=== PATIENT | female | born 1950 | race Caucasian/White ===

== ENCOUNTER 2020-03-30 08:42 | Outpatient (CLI) | payer MEDICARE, OTHER, SELFPAY ==
--- NOTE | ~2020-03-30 | MM_ITS ---
EXAMINATION: MM screening bin [facility] [place] HISTORY: Screening mammogram TECHNIQUE: Craniocaudal and mediolateral oblique 3-D tomosynthesis images were obtained and synthetic 2-D images were generated. CAD analysis was submitted and interpreted. COMPARISON: 02/03/2019, 11/26/2017, 06/19/2016 bilateral digital screening mammogram examinations BREAST PARENCHYMAL COMPOSITION: There are scattered areas of fibroglandular density. FINDINGS: There is no evidence of suspicious mass, calcification, or architectural distortion to sugg est malignancy in either breast. There has been no suspicious interval change. IMPRESSION: 1. No mammographic evidence of malignancy. 2. Recommend routine screening mammography in one year. BI-RADS Category 1: Negative Reviewed, dictated and finalized at location A.
== END 2020-03-30 08:43 | disposition home or self-care (01) ==
LOC: ANHIMG 08:47
DX: Z12.31 Encounter for screening mammogram for malignant neoplasm of breast (principal)
CPT/HCPCS: 77063; 77067

== ENCOUNTER 2020-09-08 09:14 | Outpatient (CLI) | payer MEDICARE, OTHER, SELFPAY ==
[2020-09-08 10:03] LABS: Prothrombin Time 13.4 Seconds (11.1-14.7)
[2020-09-08 10:12] LABS: Alanine Aminotransferase 23 U/L (4-35); Alkaline Phosphatase 80 U/L (38-126); Anion Gap 4 mmol/L (8-16); Aspartate Amino Transferase 29 U/L (14-36); Bilirubin,Total 0.6 mg/dL (0.2-1.3); Blood Urea Nitrogen 14 mg/dL (7-17); Calcium 9.1 mg/dL (8.4-10.2); Carbon Dioxide 29 mmol/L (22-30); Chloride 108 mmol/L (98-107); Estimated Glomerular Filt Rate > 60; Glucose 99 mg/dL (65-105); Potassium 4.1 mmol/L (3.4-5.0); Sodium 141 mmol/L (137-145)
[2020-09-08 14:21] LABS: Basophils Absolute Auto 0.1 K/mm3 (0.0-0.1); Basophils Percent Auto 0.7 % (0.2-1.2); Eosinophils Absolute Auto 0.2 K/mm3 (0-0.3); Eosinophils Percent Auto 2.5 % (0-4.4); Hematocrit 40.3 % (37.0-47.0); Hemoglobin 13.2 g/dL (12.0-15.0); Immature Granulocyte Absolute 0.01 K/mm3 (0.00-0.031); Immature Granulocyte Percent A 0.1 % (0-0.5); Lymphocytes Absolute Auto 1.94 K/mm3 (0.9-3.2); Mean Corpuscular HGB Conc 32.8 g/dl (32-36); Mean Corpuscular Hemoglobin 28.9 pg (26-34); Mean Corpuscular Volume 88.2 fl (80-100); Mean Platelet Volume 9.9 fl (7.4-10.4); Monocytes Absolute Auto 0.6 K/mm3 (0.1-0.6); Monocytes Percent Auto 9.1 % (2.6-8.5); Neutrophils Absolute Auto 3.9 K/mm3 (1.3-6.7); Neutrophils Percent Auto 58.6 % (45.5-73.1); Platelet Count Result 200 k/mm3 (150-375); Red Blood Count 4.57 M/mm3 (4.2-5.4); Red Cell Distribution Width 13.1 % (11.5-14.5); White Blood Count 6.7 K/mm3 (4.5-10.0)
== END 2020-09-08 09:15 | disposition home or self-care (01) ==
PROVIDERS: PCP Internal Medicine; Visit Provider Internal Medicine Cardiovascular Disease
DX: Z01.812 Encounter for preprocedural laboratory examination (principal); I35.0 Nonrheumatic aortic (valve) stenosis
CPT/HCPCS: 36415; 80053; 85025; 85610

== ENCOUNTER 2020-11-07 16:43 | Outpatient (NON) | payer MEDICARE, OTHER, SELFPAY ==
[2020-11-07 17:12] LABS: Basophils Absolute Auto 0.05 K/mm3 (0.00-0.10); Basophils Percent Auto 0.5 % (0.0-1.0); Eosinophils Absolute Auto 0.18 K/mm3 (0.02-0.50); Eosinophils Percent Auto 1.8 % (1.0-6.0); Hematocrit 32.3 % (35.0-42.0); Hemoglobin 10.4 g/dL (11.7-13.8); Immature Granulocyte Absolute 0.05 K/mm3 (0.00-0.00); Immature Granulocyte Percent A 0.5 % (0.0-0.0); Lymphocytes Absolute Auto 2.13 K/mm3 (1.10-4.50); Lymphocytes Percent Auto 21.2 % (18.0-42.0); Mean Corpuscular HGB Conc 32.2 g/dL (32.0-36.0); Mean Corpuscular Hemoglobin 28.3 pg (27.0-31.0); Mean Platelet Volume 9.8 fl (9.2-11.8); Monocytes Absolute Auto 0.66 K/mm3 (0.10-0.90); Monocytes Percent Auto 6.6 % (2.0-11.0); Neutrophils Percent Auto 69.4 % (50.0-70.0); Platelet Count Result 410 K/mm3 (150-420); Red Blood Count 3.67 M/mm3 (4.20-5.40); Red Cell Distribution Width 14.3 % (11.6-14.4)
[2020-11-07 17:21] LABS: Anion Gap 8 mmol/L (8-16); Blood Urea Nitrogen 13 mg/dL (7-18); Calcium 9.3 mg/dL (8.5-10.1); Carbon Dioxide 30 mmol/L (21-32); Chloride 100 mmol/L (98-108); Estimated Glomerular Filt Rate 44; Glucose 109 mg/dL (70-99); Osmolality Calculated 287 mOsm/kg (285-295); Potassium 4.1 mmol/L (3.5-5.1); Sodium 138 mmol/L (136-145)
== END 2020-11-07 16:44 ==
LOC: CHSLAB 16:51
DX: Z48.812 Encounter for surgical aftercare following surgery on the circulatory system (principal)
CPT/HCPCS: 36415; 80048; 85025

== ENCOUNTER 2021-04-10 10:39 | Outpatient (CLI) | payer MEDICARE, OTHER, SELFPAY ==
--- NOTE | ~2021-04-10 | XR_ITS ---
EXAMINATION: XR chest 2V DATE: 04/10/2021 11:13 INDICATION: Dyspnea on exertion TECHNIQUE: PA and lateral views of the chest were obtained. COMPARISON: Chest radiograph dated 11/24/2011 FINDINGS: Opacities in the right lower lung zone. Likely lingular linear discoid atelectasis/scarring at the le ft costophrenic angle. No pleural effusion or pneumothorax. The cardiomediastinal silhouette is allie l. Median sternotomy wires and mediastinal surgical clips are seen, likely from prior coronary artery bypass grafting. Aortic valve repair. Skin antonio along the anterior upper abdominal wall. Chronic mild anterior wedging of a few mid and lower thoracic vertebral bodies with moderate spondylosis. IMPRESSION: 1. Mild opacities in the right lower lung zone which could represent atelectasis and/or pneumonia. Reviewed, dictated and finalized at location A. IMPRESSION: 1. Mild opacities in the right lower lung zone which could represent atelectasi s and/or pneumonia.
[2021-04-10 11:25] LABS: Basophils Percent Auto 0.5 % (0.2-1.2); Eosinophils Absolute Auto 0.2 K/mm3 (0-0.3); Eosinophils Percent Auto 2.8 % (0-4.4); Hematocrit 36.2 % (37.0-47.0); Hemoglobin 11.2 g/dL (12.0-15.0); Immature Granulocyte Absolute 0.04 K/mm3 (0.00-0.031); Immature Granulocyte Percent A 0.5 % (0-0.5); Lymphocytes Percent Auto 21.3 % (18.3-44.2); Mean Corpuscular HGB Conc 30.9 g/dl (32-36); Mean Corpuscular Hemoglobin 24.8 pg (26-34); Mean Corpuscular Volume 80.3 fl (80-100); Mean Platelet Volume 9.9 fl (7.4-10.4); Monocytes Absolute Auto 0.6 K/mm3 (0.1-0.6); Neutrophils Absolute Auto 5.3 K/mm3 (1.3-6.7); Neutrophils Percent Auto 66.9 % (45.5-73.1); Platelet Count Result 308 k/mm3 (150-375); Red Blood Count 4.51 M/mm3 (4.2-5.4); Red Cell Distribution Width 15.9 % (11.5-14.5)
[2021-04-10 11:50] LABS: Anion Gap 8 mmol/L (8-16); Blood Urea Nitrogen 16 mg/dL (7-17); Calcium 9.5 mg/dL (8.4-10.2); Carbon Dioxide 24 mmol/L (22-30); Chloride 107 mmol/L (98-107); Estimated Glomerular Filt Rate > 60; Glucose 107 mg/dL (65-110); Potassium 4.5 mmol/L (3.4-5.0); Sodium 139 mmol/L (137-145)
== END 2021-04-10 10:40 | disposition home or self-care (01) ==
PROVIDERS: PCP Internal Medicine; Visit Provider Nurse Practitioner Adult Health
DX: R06.00 Dyspnea, unspecified (principal); R91.8 Other nonspecific abnormal finding of lung field
CPT/HCPCS: 36415; 71046; 80048; 85025

== ENCOUNTER 2021-05-03 18:00 | Outpatient (RCR) | payer MEDICARE, OTHER, SELFPAY ==
[2021-01-03 08:52] VITALS: BP 144/76; PULSE 67; RESP 16; TEMP 36.6; O2SAT 97
[2021-01-03 08:54] VITALS: PULSE 67
--- NOTE | 2021-02-16 09:57 | PCCPR ---
Absent due to illness Pat called states her toe was infected had been placed on oral antibiotic's. She was at the MD today and he did an incision and drainage and wrapped. She is to ice and elevate. He also removed the toenail. Pt will out of town until 02/27/21 for her granddaughters softball tournament.
--- NOTE | 2021-03-29 18:57 | PCCPR ---
Absent after receiving her booster shot Pat had called and c/o some flu like symptoms on our voice mail. Asking we give her a call to states she got her 3rd covid shot per recommendation or her [employer]. Encouraged her to call her MD if her symptoms continue. Hopes to return next Saturday.
== END 2021-05-03 23:59 | disposition home or self-care (01) ==
LOC: ANHCPREHAB 18:00
PROVIDERS: PCP Internal Medicine; Visit Provider Internal Medicine Cardiovascular Disease
DX: Z95.2 Presence of prosthetic heart valve (principal)
CPT/HCPCS: 93798

== ENCOUNTER 2021-05-11 18:00 | Outpatient (RCR) | payer MEDICARE, OTHER, SELFPAY ==
[2021-05-04 00:06] VITALS: BP 144/76; PULSE 67; RESP 16; TEMP 36.6; O2SAT 97
== END 2021-05-11 18:27 | disposition home or self-care (01) ==
LOC: ANHCPREHAB 18:00
PROVIDERS: Visit Provider Internal Medicine Cardiovascular Disease
DX: Z95.2 Presence of prosthetic heart valve (principal)
CPT/HCPCS: 93798

== ENCOUNTER 2021-05-12 09:18 | Outpatient (CLI) | payer MEDICARE, OTHER, SELFPAY ==
--- NOTE | ~2021-05-12 | MM_ITS ---
EXAMINATION: MM screening bin BI w [place] HISTORY: Screening TECHNIQUE: Craniocaudal and mediolateral oblique 3-D tomosynthesis images were obtained and synthetic 2-D images were generated. CAD analysis was submitted and interpreted. COMPARISON: Comparison to multiple prior studies sequentially, with oldest reviewed study dated 05/13. BREAST PARENCHYMAL COMPOSITION: The breasts are almost entirely fatty. FINDINGS: There is no evidence of suspicious mass, calcification, or architectural distortion to sugg est malignancy in either breast. There has been no suspicious interval change. IMPRESSION: 1. No mammographic evidence of malignancy. 2. Recommend routine screening mammography in one year. BI-RADS Category 1: Negative Reviewed, dictated and finalized at location A.
== END 2021-05-12 09:19 | disposition home or self-care (01) ==
LOC: ANHIMG 09:22
DX: Z12.31 Encounter for screening mammogram for malignant neoplasm of breast (principal)
CPT/HCPCS: 77063; 77067

== ENCOUNTER 2022-05-08 11:22 | Outpatient (CLI) | payer MEDICARE, OTHER, SELFPAY ==
--- NOTE | ~2022-05-08 | CT_ITS ---
EXAMINATION: CT lung screening DATE: 05/08/2022 12:21 INDICATION: History of tobacco dependence. TECHNIQUE: Computed tomography (CT) of the chest was performed without intravenous contrast. The dose -length product was 327.03 mGy-cm. Automated exposure control and iterative reconstruction technique were employed. COMPARISON: No prior studies for comparison. FINDINGS: No significant pleural or pericardial effusion. Large size hiatal hernia. No thoracic lymph adenopathy. There is atherosclerosis of the aorta and coronary arteries. Status post median sternotom y for CABG. There is a 2-3 mm right upper lobe nodule, image 39. There is a cluster of smaller nodule s measuring 2 mm or less in the right upper lobe. No endobronchial lesions. No pneumothorax. The uppe r abdomen is unremarkable. There is moderate thoracic spondylosis. Dextroscoliosis of the thoracic sp ine. IMPRESSION: 1. Lung-RADS category 2: Benign appearance or behavior. Continue annual screening with noncontrast lo w-dose chest CT in 12 months. Reviewed, dictated and finalized at location B. IMPRESSION: 1. Lung-RADS category 2: Benign appearance or behavior. Continue annual screeni ng with noncontrast low-dose chest CT in 12 months.
--- NOTE | 2022-05-08 16:26 | WPDSIXMINUTE ---
Six Minute Walk Procedure Procedure Performed Pulmonary Stress Test (6 min walk) Six Minute Walk Six Minute Walk: This is a 6 minute walk test. The test was performed and interpreted in accordance with the 2014 ERS/ATS task force guidelines. Findings: The patient's resting room air oxygen saturation measured by pulse oximetry was 98% and heart rate was 71 bpm. Patient ambulated for 305 meters and oxygen saturation remained 92 to 99%. Heart rate at the end of the study was 130 bpm. The patient did not qualify for supplemental oxygen at rest or with ambulation. There are no prior studies for comparison.
--- NOTE | 2022-05-08 16:27 | WPDPFTINT ---
PFT Procedure Performed PFT Procedure Performed Spirometry with Pre/Post Bronchodilator Plethysmography (Lung Vol) Diffusing Cap (DLCO) Flow Vol Loop PFT Interpretation This is a pulmonary function test with pre and post-bronchodilator spirometry, plethysmography and diffusing capacity. The test was performed and results interpreted in accordance with the 2019 and 2005 ATS/ERS Task Force guidelines respectively using the Global Lung Function Initiative-2012 reference equations. Patient demonstrated good effort and cooperation. Reproducibility criteria were met. The quality of the pre bronchodilator spirometry maneuver was Grade A and post bronchodilator spirometry maneuver was Grade A. Findings: Spirometry: The contour the inspiratory and expiratory flow tracing are normal. The pre bronchodilator FVC is 2.86 L, 84% predicted. The pre bronchodilator FEV1 is 2.08 L, 80% predicted. The pre bronchodilator FEV1: FVC ratio 73%. The post bronchodilator FVC is 2.81 L, representing a 2% decrease. The post bronchodilator FEV1 is 2.11 L, representing 1% increase. The post bronchodilator FEV1: FVC ratio 75%. Plethysmography: The total lung capacity is 5.16 L, 86% predicted. Functional residual capacity is 2.62 L, 76% predicted. The residual volume is 2.12 L, 84% predicted. Diffusion capacity: The diffusion capacity on adjusted for hemoglobin and carboxyhemoglobin is 17.9, 79% predicted. the diffusing capacity adjusted for alveolar volume is 4.17, 105% predicted. Impression: The spirometry is normal without evidence of an obstructive abnormality. There is no significant improvement after inhaling a single dose of albuterol. The lung volumes are normal. The diffusing capacity is normal. There are no prior studies for comparison
== END 2022-05-08 11:23 | disposition home or self-care (01) ==
PROVIDERS: Visit Provider Nurse Practitioner Family
DX: Z12.2 Encounter for screening for malignant neoplasm of respiratory organs (principal); Z87.891 Personal history of nicotine dependence
CPT/HCPCS: 71271

== ENCOUNTER 2022-05-08 11:49 | Outpatient (CLI) | payer MEDICARE, OTHER, SELFPAY ==
--- NOTE | 2022-05-09 16:17 | WPDPFTINT ---
PFT Procedure Performed PFT Procedure Performed Spirometry with Pre/Post Bronchodilator Plethysmography (Lung Vol) Diffusing Cap (DLCO) Flow Vol Loop PFT Interpretation This is a pulmonary function test with pre and post-bronchodilator spirometry, plethysmography and diffusing capacity. The test was performed and results interpreted in accordance with the 2019 and 2005 ATS/ERS Task Force guidelines respectively using the Global Lung Function Initiative-2012 reference equations. Patient demonstrated good effort and cooperation. Reproducibility criteria were met. The quality of the pre bronchodilator spirometry maneuver was Grade A and post bronchodilator spirometry maneuver was Grade A. Findings: Spirometry: The contour the inspiratory and expiratory flow tracing are normal. The pre bronchodilator FVC is 2.86 L, 84% predicted. Preop bronchodilator FEV1 is 2.08 L, 80% predicted. The pre bronchodilator FEV1: FVC ratio 73%. The post bronchodilator FVC is 2.81 L, representing a 2% decrease. The post bronchodilator FEV1 is 2.11 L, representing 1% increase. The post bronchodilator FEV1: FVC ratio 75%. Plethysmography: The total lung capacity is 5.16 L, 86% predicted. The functional residual capacity is 2.62 L, 76% predicted. The residual volume is 2.12 L, 84% predicted. Diffusion capacity: The diffusing capacity unadjusted for hemoglobin and carboxyhemoglobin is 17.9, 79% predicted. The diffusing capacity adjusted for alveolar volume is 4.17, 105% predicted. Impression: The spirometry is normal without evidence of an obstructive abnormality. There is no significant improvement after inhaling a single dose of albuterol. The lung volumes are normal. The diffusing capacity is normal. There are no prior studies for comparison
== END 2022-05-08 11:50 | disposition home or self-care (01) ==
PROVIDERS: Visit Provider Nurse Practitioner Family
DX: R06.09 Other forms of dyspnea (principal)
CPT/HCPCS: 71271; 94060; 94726; 94729

== ENCOUNTER 2022-06-14 10:41 | Emergency (ER) | payer MEDICARE, OTHER, SELFPAY ==
--- NOTE | ~2022-06-14 | XR_ITS ---
EXAMINATION: XR knee LT min 4V DATE: 06/14/2022 11:26 INDICATION: Left knee pain and swelling TECHNIQUE: Anteroposterior, oblique and crosstable lateral views of the left knee were obtained COMPARISON: None. FINDINGS: Left total knee arthroplasty without patellar resurfacing which remains well seated. No change in timoteo roximately 7 degree varus angulation of the axis of the tibia relative to the axis of the tibial comp onent. No periprosthetic lucency to suggest loosening or infection. No fracture. Joint space narrowin g at the articulation of the patella and the femoral component consistent with osteoarthritis and pat ellar cartilage loss. 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 Small to moderate-sized left knee joint effusion with out layering lipohemarthrosis. IMPRESSION: 1. Small to moderate-sized left knee joint effusion without layering lipohemarthrosis or evident acut e osseous abnormality. 2. Left total knee arthroplasty without patellar resurfacing with suggestion of high-grade patellar c hondromalacia. Reviewed, dictated and finalized at location B. IMPRESSION: 1. Small to moderate-sized left knee joint effusion without layering lipohemart hrosis or evident acute osseous abnormality. 2. Left total knee arthroplasty without patellar resurfacing with suggestion of high-grade patellar chondromalacia.
[2022-06-14 10:48] VITALS: BP 145/71; PULSE 75; RESP 18; TEMP 36.7; O2SAT 99
--- NOTE | 2022-06-14 11:13 | ED.LOWEXIN ---
HPI - Extremity Injury (Lower) General Chief Complaint: Extremity Injury, Lower Stated Complaint: Left Knee Pain Time Seen by Provider: 06/14/22 10:54 History of Present Illness HPI Narrative: Patient is a 71-year-old female with a history of rheumatoid arthritis, status post left knee replacement by Dr. Nieves, here for evaluation of left knee pain for the past 10 days. Patient describes the pain as a soreness , worse with flexion of the knee. She has been able to walk and bear weight but just notes that it is difficult due to pain. She was placed on a course of steroids by her PCP for rheumatoid arthritis flare-up 3 days ago, this has resolved her other myalgias but her left knee pain has been persistent. Has not taken any other medication for her pain. She denies any fevers, chills, nausea, vomiting, any systemic symptoms. Related Data Home Medications Medication Instructions Recorded Confirmed amlodipine 5 mg tablet 5 mg PO DAILY 08/03/19 06/07/22 aspirin 81 mg chewable tablet 81 mg PO DAILY 08/03/19 06/07/22 hydroxychloroquine 200 mg tablet 200 mg PO DAILY 08/03/19 06/07/22 infliximab 100 mg intravenous 100 mg IV USEASDIRECTD 08/03/19 06/07/22 solution (Remicade) pantoprazole 40 mg tablet,delayed 40 mg PO QAM 08/03/19 06/07/22 release (Protonix) lactobacillus combination no.8 3 3,000 mmu cells PO DAILY 03/10/20 06/07/22 billion cell capsule (Adult Probiotic) lifitegrast 5 % eye drops in a 1 drop ophthalmic (eye) BID 03/10/20 06/07/22 dropperette (Xiidra) melatonin 5 mg capsule mg PO 03/10/20 06/07/22 multivitamin 1 tablet PO DAILY 08/30/20 06/07/22 calcium carbonate 1,000 mg tablet 1.5 mg PO 01/03/21 06/07/22 diclofenac sodium 1 % topical gel See Rx Instructions .Route 01/03/21 06/07/22 (Voltaren Arthritis Pain) .COMPLEX PRN Pain bupropion HCl 75 mg tablet 75 mg PO BID 06/07/22 06/07/22 atorvastatin 10 mg tablet mg 06/14/22 cholecalciferol (vitamin D3) 50 06/14/22 mcg (2,000 unit) tablet magnesium 500 mg tablet mg PO 06/14/22 metoprolol tartrate 25 mg tablet mg 06/14/22 omega-3 fatty acids PO 06/14/22 06/14/22 Allergies Allergy/AdvReac Type Severity Reaction Status Date / Time Penicillins Allergy Unknown Unknown Verified 06/07/22 10:59 adhesive tape AdvReac Severe BRUISING Verified 06/07/22 10:59 WITH CLEAR TAPE Review of Systems Review of Systems: Gen: Denies fevers or chills Eyes: Denies eye pain or visual change ENT: Denies congestion Respiratory: Denies shortness of breath or cough CV: Denies chest pain or palpitations GI: Denies abdominal pain nausea, emesis or diarrhea : denies burning, urgency, frequency or hematuria Musculoskeletal: Reports left knee pain. Denies back pain or muscle pain Neuro: Denies numbness, tingling, weakness or focal weakness Skin: Denies rash Except as documented, all other systems reviewed and negative [facility] [place] Past Medical History Medical History Aortic stenosis s/p valve replacement 2020 Chronic hip pain after total replacement of right hip joint Crohn's ileocolitis Degenerative joint disease of left hip Fatty liver Former smoker Obesity Osteoporosis Rheumatoid arthritis Right knee DJD Right knee pain Sleep apnea Wears glasses Surgical History Surgical History History of right hip replacement Family History Family History Father Cerebrovascular accident Sibling Cerebrovascular accident Accelerated phase chronic myeloid leukemia Father Acute myocardial infarction Social History Social History Social History: 30 pack years Smoking packs per day: 1 Smoking cigarettes per day: 20.0 Years smoked: 30 Smoking pack-years: 30.00 Smoking status: Former smoker Tobacco type: cigarettes S
[2022-06-14] MEDS: KETOROLAC 30 MG/ML VIAL (*BKC) IM (11:29)
== END 2022-06-14 12:22 | disposition home or self-care (01) ==
PROVIDERS: Emergency Provider Emergency Medicine
DX: M22.42 Chondromalacia patellae, left knee (principal); M06.9 Rheumatoid arthritis, unspecified; Z96.652 Presence of left artificial knee joint; Z79.82 Long term (current) use of aspirin; Z87.891 Personal history of nicotine dependence
CPT/HCPCS: 73564; 96372; 99283; J1885

== ENCOUNTER 2022-06-17 07:51 | Emergency (ER) | payer MEDICARE, OTHER, SELFPAY ==
[2022-06-17 07:56] VITALS: BP 180/90; PULSE 106; RESP 18; TEMP 37.2; O2SAT 97
--- NOTE | 2022-06-17 08:18 | ED.LOWEXIN ---
HPI - Extremity Injury (Lower) General Chief Complaint: Extremity Injury, Lower Stated Complaint: left knee pain Time Seen by Provider: 06/17/22 08:18 Source: patient Mode of arrival: ambulatory Limitations: no limitations History of Present Illness HPI Narrative: Patient presents with pain and swelling of the left knee started 1 week ago, history of rheumatoid arthritis, patient been aching all over her joints lately. Patient denies any trauma, fever, chills, nausea, vomiting. History of left knee replacement 5 years ago, Dr. Gudino Related Data Home Medications Medication Instructions Recorded Confirmed amlodipine 5 mg tablet 5 mg PO DAILY 08/03/19 06/07/22 aspirin 81 mg chewable tablet 81 mg PO DAILY 08/03/19 06/07/22 hydroxychloroquine 200 mg tablet 200 mg PO DAILY 08/03/19 06/07/22 infliximab 100 mg intravenous 100 mg IV USEASDIRECTD 08/03/19 06/07/22 solution (Remicade) pantoprazole 40 mg tablet,delayed 40 mg PO QAM 08/03/19 06/07/22 release (Protonix) lactobacillus combination no.8 3 3,000 mmu cells PO DAILY 03/10/20 06/07/22 billion cell capsule (Adult Probiotic) lifitegrast 5 % eye drops in a 1 drop ophthalmic (eye) BID 03/10/20 06/07/22 dropperette (Xiidra) melatonin 5 mg capsule mg PO 03/10/20 06/07/22 multivitamin 1 tablet PO DAILY 08/30/20 06/07/22 calcium carbonate 1,000 mg tablet 1.5 mg PO 01/03/21 06/07/22 diclofenac sodium 1 % topical gel See Rx Instructions .Route 01/03/21 06/07/22 (Voltaren Arthritis Pain) .COMPLEX PRN Pain bupropion HCl 75 mg tablet 75 mg PO BID 06/07/22 06/07/22 atorvastatin 10 mg tablet mg 06/14/22 cholecalciferol (vitamin D3) 50 06/14/22 mcg (2,000 unit) tablet magnesium 500 mg tablet mg PO 06/14/22 metoprolol tartrate 25 mg tablet mg 06/14/22 omega-3 fatty acids PO 06/14/22 06/14/22 Allergies Allergy/AdvReac Type Severity Reaction Status Date / Time Penicillins Allergy Unknown Unknown Verified 06/17/22 08:01 adhesive tape AdvReac Severe BRUISING Verified 06/17/22 08:01 WITH CLEAR TAPE Review of Systems Review of Systems: All systems reviewed & are unremarkable except as noted in HPI and below PMFSH Past Medical History Medical History Aortic stenosis s/p valve replacement 2020 Chronic hip pain after total replacement of right hip joint Crohn's ileocolitis Degenerative joint disease of left hip Fatty liver Former smoker Obesity Osteoporosis Rheumatoid arthritis Right knee DJD Right knee pain Sleep apnea Wears glasses Surgical History Surgical History History of right hip replacement Family History Family History Father Cerebrovascular accident Sibling Cerebrovascular accident Accelerated phase chronic myeloid leukemia Father Acute myocardial infarction Social History Social History Social History: 30 pack years Smoking packs per day: 1 Smoking cigarettes per day: 20.0 Years smoked: 30 Smoking pack-years: 30.00 Smoking status: Former smoker Tobacco type: cigarettes Smoking end date: 08/12/09 Alcohol intake: current Exam Narrative: General appearance: Well-developed, well-nourished Skin: Normal color Head: Normocephalic, nontraumatic Eyes: Clear conjunctiva Chest and respiratory: Airway patent, no respiratory distress, no accessory muscle use Heart: Regular rate/rhythm Abdomen: Soft, nontender, no organomegaly, quiet bowel sounds V Musculoskeletal: Left knee examination showed diffuse swelling, no redness or erythema, no warmth, no discharge, limited range of motion, diffusely tender Neurologic: Alert and oriented ?3, HISTOPATHOLOGIST is normal as tested, no gross motor deficit
[2022-06-17] MEDS: IBUPROFEN 600 MG TABLET PO (08:45)
[2022-06-17] MEDS: HYDROcodone/acetaminophen (*CRX) 5-325 MG TABLET 1 TAB PO (08:45)
[2022-06-17 08:48] VITALS: BP 180/94; PULSE 106; RESP 17; O2SAT 100
[2022-06-17 10:08] LABS: Basophils Percent Auto 0.3 % (0.2-1.2); Eosinophils Absolute Auto 0.2 K/mm3 (0-0.3); Eosinophils Percent Auto 1.8 % (0-4.4); Hematocrit 37.5 % (37.0-47.0); Hemoglobin 11.8 g/dL (12.0-15.0); Immature Granulocyte Absolute 0.04 K/mm3 (0.00-0.031); Immature Granulocyte Percent A 0.4 % (0-0.5); Lymphocytes Absolute Auto 1.65 K/mm3 (0.9-3.2); Lymphocytes Percent Auto 17.6 % (18.3-44.2); Mean Corpuscular HGB Conc 31.5 g/dl (32-36); Mean Corpuscular Hemoglobin 28.2 pg (26-34); Mean Corpuscular Volume 89.5 fl (80-100); Mean Platelet Volume 9.4 fl (7.4-10.4); Monocytes Absolute Auto 0.7 K/mm3 (0.1-0.6); Monocytes Percent Auto 7.3 % (2.6-8.5); Neutrophils Absolute Auto 6.8 K/mm3 (1.3-6.7); Neutrophils Percent Auto 72.6 % (45.5-73.1); Platelet Count Result 266 k/mm3 (150-375); Red Blood Count 4.19 M/mm3 (4.2-5.4); Red Cell Distribution Width 14.2 % (11.5-14.5); White Blood Count 9.4 K/mm3 (4.5-10.0)
[2022-06-17 10:17] VITALS: BP 170/78; PULSE 70; RESP 17; O2SAT 97
[2022-06-17 10:20] LABS: Alanine Aminotransferase 19 U/L (6-35); Albumin Level 3.9 g/dL (3.5-5.1); Alkaline Phosphatase 118 U/L (38-126); Anion Gap 9 mmol/L (8-16); Aspartate Amino Transferase 19 U/L (14-36); Bilirubin,Total 0.5 mg/dL (0.2-1.3); Blood Urea Nitrogen 9 mg/dL (7-17); CRP 5.2 mg/dL (<1.0); Carbon Dioxide 29 mmol/L (22-30); Chloride 102 mmol/L (98-107); Estimated CRCL calculation 80 ml/min; Estimated Glomerular Filt Rate > 60; Glucose 136 mg/dL (65-110); Potassium 4.8 mmol/L (3.4-5.0); Sodium 140 mmol/L (137-145)
[2022-06-17 11:03] LABS: Erythrocyte Sedimentation Rate 67 mm/hr (0-20)
[2022-06-17 12:41] VITALS: BP 139/86; PULSE 88; RESP 16; O2SAT 97
== END 2022-06-17 12:42 | disposition home or self-care (01) ==
PROVIDERS: Emergency Provider Emergency Medicine
DX: M25.562 Pain in left knee (principal); M25.462 Effusion, left knee; M06.9 Rheumatoid arthritis, unspecified; I35.0 Nonrheumatic aortic (valve) stenosis; Z95.2 Presence of prosthetic heart valve; K50.90 Crohn's disease, unspecified, without complications; M81.0 Age-related osteoporosis without current pathological fracture; M17.11 Unilateral primary osteoarthritis, right knee; G47.30 Sleep apnea, unspecified; Z96.641 Presence of right artificial hip joint; Z87.891 Personal history of nicotine dependence
CPT/HCPCS: 36415; 80053; 85025; 85652; 86140; 99283; A9270

== ENCOUNTER 2022-06-21 16:41 | Outpatient (NON) | payer MEDICARE, OTHER, SELFPAY ==
[2022-06-21 18:36] LABS: Crystals Synovial Fluid None Seen (None Seen); Source Synovial Fluid Synovial fluid
[2022-06-21 18:37] LABS: Appearance Synovial Fluid Bloody (Clear); Color Synovial Fluid Red (Colorless); Neutrophils Synovial Fluid 86 % (0-25)
[2022-06-21 18:38] LABS: Lymphocytes Synovial Fluid 3 %; Monocytes Synovial Fluid 11 %
[2022-06-25 20:57] LABS: Glucose Synovial Fluid 76 mg/dL
[2022-06-29 08:17] LABS: Total Protein Synovial Fluid 4.8
[2022-07-02 07:50] LABS: Reference Lab Test Result Positive
== END 2022-06-21 16:42 | disposition home or self-care (01) ==
LOC: ANHLAB 16:45
PROVIDERS: Visit Provider Orthopaedic Surgery
DX: M25.462 Effusion, left knee (principal)
CPT/HCPCS: 36415; 82945; 84157; 86430; 87070; 87075; 87205; 89051; 89060

== ENCOUNTER 2022-07-09 09:09 | Outpatient (CLI) | payer MEDICARE, OTHER, SELFPAY ==
[2022-07-11 12:24] LABS: NIL 0.01 IU/mL; Quantiferon TB Plus, 1T NEGATIVE (NEGATIVE); TB1-NIL 0.01 IU/mL
== END 2022-07-09 09:10 | disposition home or self-care (01) ==
DX: M05.79 Rheumatoid arthritis with rheumatoid factor of multiple sites without organ or systems involvement (principal); Z79.899 Other long term (current) drug therapy
CPT/HCPCS: 36415; 86480

== ENCOUNTER 2022-07-13 07:48 | Outpatient (CLI) | payer MEDICARE, OTHER, SELFPAY ==
--- NOTE | ~2022-07-13 | MM_ITS ---
EXAMINATION: MM screening [facility] BI [facility] [place] HISTORY: Screening mammogram TECHNIQUE: Craniocaudal and mediolateral oblique 3-D tomosynthesis images were obtained and synthetic 2-D images were generated. CAD analysis was submitted and interpreted. COMPARISON: 05/12/2021, 03/30/2020, 02/03/2019 BREAST PARENCHYMAL COMPOSITION: The breasts are almost entirely fatty. FINDINGS: Scattered benign-appearing calcifications are present. No suspicious mass, calcification, o r architectural distortion are identified in either breast to suggest malignancy. There has been no s uspicious interval change. IMPRESSION: 1. No mammographic evidence of malignancy. 2. Recommend routine screening mammography in one year. BI-RADS Category 2: Benign finding(s). Reviewed, dictated and finalized at location A. [facility]
== END 2022-07-13 07:49 | disposition home or self-care (01) ==
PROVIDERS: Visit Provider Nurse Practitioner Family
DX: Z12.31 Encounter for screening mammogram for malignant neoplasm of breast (principal)
CPT/HCPCS: 77063; 77067

== ENCOUNTER 2022-10-22 00:22 | Day surgery (SDC) | payer MEDICARE, OTHER, SELFPAY ==
[2022-10-12 13:36] VITALS: BMI 39.5
[2022-10-22 08:58] VITALS: BP 172/67; PULSE 87; RESP 20; TEMP 36.4; O2SAT 96
[2022-10-22] MEDS: LACTATED RINGERS 1,000 ML 150 ML IV CONT (09:07)
--- NOTE | 2022-10-22 09:25 | WPDANESEPPF ---
Anes - Initial Pre Proc Eval Procedure: Operation Date: 10/22/22 10:30 Proposed Procedures p Colonoscopy - London Beauchamp MD Date/Time: 10/22/22 09:25 Surgeon: London Beauchamp MD Pre Op Diagnosis: crohn's disease Patient Data Age: 72 Gender: F Height: 1.78 m Weight: 129 kg Last Vital Signs Temp 36.4 C L 10/22/22 08:58 Pulse 87 10/22/22 08:58 Resp 20 10/22/22 08:58 BP 172/67 H 10/22/22 08:58 Pulse Ox 96 10/22/22 08:58 O2 Del Method Room Air 10/22/22 08:58 Allergies Allergy/AdvReac Type Severity Reaction Status Date / Time Penicillins Allergy Unknown Unknown Verified 10/22/22 08:57 adhesive tape AdvReac Severe BRUISING Verified 10/22/22 08:57 WITH CLEAR TAPE Home Medications Medication Instructions Recorded Confirmed Type amlodipine 5 mg tablet 5 mg PO DAILY 08/03/19 10/12/22 History aspirin 81 mg chewable tablet 81 mg PO DAILY 08/03/19 10/12/22 History hydroxychloroquine 200 mg tablet 200 mg PO DAILY 08/03/19 10/12/22 History infliximab 100 mg intravenous 100 mg IV USEASDIRECTD 08/03/19 10/12/22 History solution (Remicade) pantoprazole 40 mg tablet,delayed 40 mg PO QAM 08/03/19 10/12/22 History release (Protonix) lactobacillus combination no.8 3 3,000 mmu cells PO DAILY 03/10/20 10/12/22 History billion cell capsule (Adult Probiotic) multivitamin 1 tablet PO DAILY 08/30/20 10/12/22 History calcium carbonate 1,000 mg tablet 1.5 mg PO DAILY 01/03/21 10/12/22 History diclofenac sodium 1 % topical gel See Rx Instructions .Route 01/03/21 10/12/22 History (Voltaren Arthritis Pain) .COMPLEX PRN Pain bupropion HCl 75 mg tablet 75 mg PO BID 06/07/22 10/12/22 History atorvastatin 10 mg tablet 10 mg PO DAILY 06/14/22 10/12/22 History cholecalciferol (vitamin D3) 50 50 mcg PO DAILY 06/14/22 10/12/22 History mcg (2,000 unit) tablet magnesium 500 mg tablet 500 mg PO DAILY 06/14/22 10/12/22 History metoprolol tartrate 25 mg tablet 12.5 mg PO BID 06/14/22 10/22/22 History omega-3 fatty acids 1 cap PO DAILY 06/14/22 10/12/22 History Patient hx anesthesia problems: none Family hx anesthesia problems: none Results Review: All pre-operative results and documents have been reviewed as part of the pre-operative evaluation. [facility] Past Medical History Medical History Aortic stenosis s/p valve replacement 2020 Chronic hip pain after total replacement of right hip joint Crohn's ileocolitis Degenerative joint disease of left hip Effusion, left knee Fatty liver Former smoker GERD (gastroesophageal reflux disease) Normocytic anemia Obesity Osteoporosis Pain due to knee joint prosthesis Rheumatoid arthritis Right knee DJD Right knee pain Sleep apnea Wears glasses Surgical History Surgical History History of right hip replacement Family History Family History Father Cerebrovascular accident Sibling Cerebrovascular accident Accelerated phase chronic myeloid leukemia Father Acute myocardial infarction Social History Social History Social History: 30 pack years Smoking packs per day: 1 Smoking cigarettes per day: 20.0 Years smoked: 30 Smoking pack-years: 30.00 Smoking status: Former smoker Tobacco type: cigarettes Smoking end date: 08/12/09 Alcohol intake: current Substance use type: does not use Living arrangements: alone Spiritual care concerns: No Anes - Eval Final PreProcedure Day of Procedure 10/22/22 09:25 Patient weight: morbidly obese Heart: regular rate and rhythm Lungs: clear to auscultation Airway: Mallampati scale class II Neurological: alert and oriented Last oral intake: >/= 8 hours ASA classification: III Emergent: no Anesthetic plan: proceed Anesthesia type and
--- NOTE | 2022-10-22 10:16 | PM.HPGS ---
History of Present Illness History of Present Illness Consent: Risks, benefits, and alternatives have been discussed and questions answered. Patient agrees to proceed with procedure. Chief complaint: crohn's disease Narrative: Barbra Maynard is a 72 year old female here for colonoscopy, recurrent colitis in 2009 with LIZBET in setting of nsaid's use then 2011 colonoscopy showed granulomas in sigmoid colon and also aphthous ulcers in TI (capsule endoscopy with similar findings) and given steroids at that time, diagnosed with Crohn's and started on 6-MP and lialda since 2012. She also has RA and has been on remicade almost for 2 years doing well, last time needed steroids for RA was almost 2 years. Now she denies any abdominal pain, no diarrhea, no blood in stools. Her last colonoscopy by Dr Nam 11/2018 was normal (colon and TI including bx) c/w remission.?Still no gi issues and not using lialda anymore, recently with more joint pain Review of Systems Constitutional: Constitutional: Denies headache(s) and Denies weakness Eyes: Eyes: Denies blurry vision ENT: Reports Normal hearing present, Denies headache(s) and Denies neck pain Cardiovascular: Cardiovascular: Denies chest pain and Denies dyspnea Respiratory: Respiratory: Denies dyspnea Gastrointestinal: Gastrointestinal: Reports no additional gastrointestinal complaints Genitourinary: Genitourinary: Denies dysuria Musculoskeletal: Musculoskeletal: Denies neck pain Integumentary/Breasts: Skin/Breast: Denies dry skin Neurologic: Reports Normal hearing present, Denies headache(s) and Denies weakness Psychiatric: Psychiatric: Denies anxiety Endocrine: Endocrine: Denies change in body appearance Hematologic/Lymphatic: Hematologic/Lymphatic: Denies easy bleeding Allergic/Immunologic: Allergic/Immunologic: Denies urticaria PMFSH Past Medical History Medical History Aortic stenosis s/p valve replacement 2020 Chronic hip pain after total replacement of right hip joint Crohn's ileocolitis Degenerative joint disease of left hip Effusion, left knee Fatty liver Former smoker GERD (gastroesophageal reflux disease) Normocytic anemia Obesity Osteoporosis Pain due to knee joint prosthesis Rheumatoid arthritis Right knee DJD Right knee pain Sleep apnea Wears glasses Surgical History Surgical History History of right hip replacement Family History Family History Father Cerebrovascular accident Sibling Cerebrovascular accident Accelerated phase chronic myeloid leukemia Father Acute myocardial infarction Social History Social History Social History: 30 pack years Smoking packs per day: 1 Smoking cigarettes per day: 20.0 Years smoked: 30 Smoking pack-years: 30.00 Smoking status: Former smoker Tobacco type: cigarettes Smoking end date: 08/12/09 Alcohol intake: current Substance use type: does not use Living arrangements: alone Spiritual care concerns: No Meds Home Medications and Allergies Home Medications Medication Instructions Recorded Confirmed Type amlodipine 5 mg tablet 5 mg PO DAILY 08/03/19 10/12/22 History aspirin 81 mg chewable tablet 81 mg PO DAILY 08/03/19 10/12/22 History hydroxychloroquine 200 mg tablet 200 mg PO DAILY 08/03/19 10/12/22 History infliximab 100 mg intravenous 100 mg IV USEASDIRECTD 08/03/19 10/12/22 History solution (Remicade) pantoprazole 40 mg tablet,delayed 40 mg PO QAM 08/03/19 10/12/22 History release (Protonix) lactobacillus combination no.8 3 3,000 mmu cells PO DAILY 03/10/20 10/12/22 History billion cell capsule (Adult Probiotic) multivitamin 1 tablet PO DAILY 08/30/20 10/12/22 History calcium carbonate 1,000 mg tablet 1.5 mg PO DAILY 01/03/21 10/12/22 History d
[2022-10-22 10:38] VITALS: BP 116/62; PULSE 71; RESP 21; O2SAT 97
[2022-10-22 10:48] VITALS: BP 134/66; PULSE 67; RESP 16; O2SAT 97
[2022-10-22 10:58] VITALS: BP 179/71; PULSE 66; RESP 16; O2SAT 98
--- NOTE | 2022-10-22 11:35 | SUR.PHASEII ---
1134-Pt waiting for vancomycin to finish infusing in recovery.
== END 2022-10-22 11:34 | disposition home or self-care (01) ==
PROVIDERS: Visit Provider Internal Medicine Gastroenterology
PROC: 0DJD8ZZ Inspection of Lower Intestinal Tract, Via Natural or Artificial Opening Endoscopic (ICD-10-PCS; CPT 45378; principal; 2022-10-22 10:30)
DX: K50.80 Crohn's disease of both small and large intestine without complications (principal); K76.0 Fatty (change of) liver, not elsewhere classified; K57.30 Diverticulosis of large intestine without perforation or abscess without bleeding; K64.8 Other hemorrhoids; M06.9 Rheumatoid arthritis, unspecified; M81.0 Age-related osteoporosis without current pathological fracture; M17.11 Unilateral primary osteoarthritis, right knee; M25.551 Pain in right hip; G89.29 Other chronic pain; G47.30 Sleep apnea, unspecified; Z79.899 Other long term (current) drug therapy; Z79.82 Long term (current) use of aspirin; Z95.2 Presence of prosthetic heart valve; Z96.641 Presence of right artificial hip joint; Z87.891 Personal history of nicotine dependence
CPT/HCPCS: 45380; 88305; J2704; J3370; J7120

== ENCOUNTER 2023-05-09 09:41 | Outpatient (CLI) | payer MEDICARE, OTHER, SELFPAY ==
--- NOTE | ~2023-05-09 | CT_ITS ---
EXAMINATION: CT lung screening DATE: 05/09/2023 10:19 INDICATION: Lung cancer screening. TECHNIQUE: Computed tomography (CT) of the chest was performed without intravenous contrast. The dose -length product was 302.69 mGy-cm. Automated exposure control and iterative reconstruction technique were employed. COMPARISON: CT dated 05/08/2022 FINDINGS: Heart size is normal. There is atherosclerosis of the aorta and coronary arteries. Large hi atal hernia. Borderline sized mediastinal lymph nodes, likely reactive. No significant pleural or per icardial effusions. Status post median sternotomy for CABG. Colonic diverticulosis without evidence f or diverticulitis. There is emphysema. There are multiple irregular shaped right upper lobe nodules w hich have developed since prior examination, largest measuring 2.3 x 1.3 cm, image 45. Many of these nodules are contiguous in the right upper lobe. IMPRESSION: 1. Lung Rads category 4B, very suspicious. Recommend further evaluation with tissue sampling or pet/C T scan. Reviewed, dictated and finalized at location L. IMPRESSION: 1. Lung Rads category 4B, very suspicious. Recommend further evaluation with ti ssue sampling or pet/CT scan.
[2023-05-09 10:42] LABS: Anion Gap 5 mmol/L (8-16); Blood Urea Nitrogen 13 mg/dL (7-17); Calcium 9.4 mg/dL (8.4-10.2); Carbon Dioxide 30 mmol/L (22-30); Chloride 95 mmol/L (98-107); Estimated Glomerular Filt Rate > 60; Glucose 107 mg/dL (65-110); Potassium 4.2 mmol/L (3.4-5.0); Sodium 130 mmol/L (137-145)
== END 2023-05-09 09:42 | disposition home or self-care (01) ==
PROVIDERS: Referring Provider Internal Medicine Cardiovascular Disease; Visit Provider Nurse Practitioner Family
DX: Z12.2 Encounter for screening for malignant neoplasm of respiratory organs (principal); Z87.891 Personal history of nicotine dependence; R91.8 Other nonspecific abnormal finding of lung field
CPT/HCPCS: 36415; 71271; 80048

== ENCOUNTER 2023-05-16 08:52 | Outpatient (CLI) | payer MEDICARE, OTHER, SELFPAY ==
--- NOTE | ~2023-05-16 | PE_ITS ---
EXAMINATION: PET skull to mid thigh DATE: 05/16/2023 11:02 INDICATION: Abnormal findings of lung field on prior CT TECHNIQUE: Blood glucose level was 126 mg/dL. 10.77 mCi of 18-fluorodeoxyglucose (18-FDG) was adminis tered i.v. Low dose computed tomography (CT) images were acquired from the base of the brain to the p roximal thighs for attenuation correction and anatomic localization. Positron emission tomography (PE T) images were acquired in the same distribution beginning minutes after injection. Images including fused PET/CT images were reconstructed in axial, coronal, and sagittal planes. Automated exposure con trol technique was employed. The dose-length product was 1364.83mGy-cm. COMPARISON: Chest CT dated 05/09/2023 FINDINGS: Head/neck: There is symmetric increased activity in the oral cavity, palatine tonsils, parotid glands, submandi bular glands, laryngeal muscles and ocular muscles without CT correlate, likely physiologic. No patho logically enlarged cervical lymphadenopathy or suspicious foci of increased FDG uptake in the visuali zed head or neck. Chest: Mild to moderate upper lung predominant emphysema. Again seen are multiple small spiculated nodules a nd surrounding groundglass opacity in the anterior segment of the right upper lobe with mild associat ed FDG uptake, the nodule at the highest uptake with maximal SUV of 6.6. A few of the nodules appear slightly smaller than on the prior study however the difference is small enough that this could be ac counted for by the larger slice thickness on the PET images. No new or enlarging nodules identified. No pleural effusion. Heart size is normal. Atherosclerotic coronary artery calcific lesion. Median st ernotomy wires and changes of prior aortic valve repair. Thoracic aorta is normal in caliber. No path ologically enlarged or FDG avid thoracic lymphadenopathy. Moderate-sized sliding-type hiatal hernia. Abdomen/pelvis/proximal thighs: Physiologic renal accumulation and excretion of FDG activity in the kidneys, bladder and along portio ns of ureters. Normal degree and heterogenous pattern of increased uptake throughout the liver withou t radiologic correlate or dominant FDG avid lesion. Postoperative change of prior cholecystectomy wit h some surgical clips along the anterior abdominal wall the right upper quadrant. The pancreas, splee n and bilateral adrenal glands are normal. Mild uptake scattered throughout the bowels without radiol ogic correlate, also likely physiologic. Numerous scattered colonic diverticula without adjacent infl ammatory stranding to suggest diverticulitis. The uterus is not identified and has likely been surgic ally resected. No other abnormal foci of increased FDG uptake or pathologically enlarged lymphadenopa thy in the abdomen, pelvis or proximal thighs. Musculoskeletal: There is mild synovial uptake about the bilateral glenohumeral joints. Prominent uptake extending fur scraper niocaudally along the left teres minor muscle belly without radiologic correlate which is likely phys iologic. Right total hip arthroplasty. Mild 3 compartment S-shaped scoliosis of the thoracic and lumb ar spine with moderate thoracic and severe lumbar spondylosis. MR No suspicious lytic, blastic or FDG avid bone lesions. IMPRESSION: 1. Mild FDG uptake associated with a cluster of spiculated nodule with associated groundglass opacity in the anterior segment of the right upper lobe. Differential includes both malignant and infectious /inflammatory etiologies. There is suggestion of some decrease in size of a few of the nodules howeve r this is not definitive. Would consider scheduling patient for CT-guided percutaneous biopsy in 2-4 weeks to allow time for further evolution in the setting of infectious or inflammatory nodules. Shoul d there be definitive interval change on the information analyst imaging obtained at that time consistent with an i nfectious or inflammatory etiology the bi
[2023-05-16 09:20] LABS: Glucose Point of Care 126 mg/dl (65-105)
== END 2023-05-16 08:53 | disposition home or self-care (01) ==
PROVIDERS: PCP Nurse Practitioner Family; Visit Provider Nurse Practitioner Family
DX: R91.1 Solitary pulmonary nodule (principal); R91.8 Other nonspecific abnormal finding of lung field
CPT/HCPCS: 78815; A9552

== ENCOUNTER 2023-06-18 05:32 | Outpatient (CLI) | payer MEDICARE, OTHER, SELFPAY ==
[2023-06-12 11:49] VITALS: BMI 41.8
--- NOTE | 2023-06-12 11:51 | PC.NURSE ---
Pre Radiology instructions Report to the outpatient [facility] valle[facility] on date at time for procedure Time: ____ YOU MAY BE MONITORED AT HOSPITAL FOR UP TO 4 HOURS AFTER YOUR PROCEDURE. A visitor will be allowed to accompany the patient into the hospital. You and your visitor will be asked to self-screen and do not enter if you have any COVID symptoms. A mask is OPTIONAL within the hospital. Patients are to have no food or drink 6 hours prior to procedure time Driving will be restricted after the procedure, you must have a person to drive you home. Labs will be drawn in preop area and once reviewed, you will be taken to radiology area for procedure. When the procedure is completed, you will be taken to outpatient where you will be monitored for several hours. You may have one visitor in this area. Other than holding anti-coagulants, patient may take other medication(s) as scheduled. Prior to your appointment date patients are instructed to hold anti-coagulants after discussing with ordering provider to stop. If unable to discontinue anti-coagulants please notify radiologist. ? No aspirin or warfarin (Coumadin) for 7 days prior to the procedure. ? No clopidogrel (Plavix), ticagrelor (Brilinta), prasugrel (Effient) or dabigatran (Pradaxa) for 5 days prior to the procedure. ? No rivaroxaban (Xarelto), apixaban (Eliquis), dipyridamole (Aggrenox or Persantine) or cilostazol (Pletal) for 2 days prior to the procedure. Medications to discontinue per physician: Date to take last dose: Please leave all valuables, including medications, at home the day of procedure. The hospital will not accept responsibility for valuables. Wear comfortable, loose fitting clothing.? Follow any additional instructions given to you from ordering provider. Telephone instructions given to ___PT and asked if any additional questions and then verbalized understanding. Patient advised to call scheduling provider office or registration scheduling [phone] if any additional questions.
--- NOTE | 2023-06-12 11:53 | PC.NURSE ---
Pre Radiology instructions Report to the outpatient neville evans on date _06/18/23____ at time ___0900____ for procedure Time: _1100___ YOU MAY BE MONITORED AT HOSPITAL FOR UP TO 4 HOURS AFTER YOUR PROCEDURE. A visitor will be allowed to accompany the patient into the hospital. You and your visitor will be asked to self-screen and do not enter if you have any COVID symptoms. A mask is OPTIONAL within the hospital. Patients are to have no food or drink 8 hours prior to procedure time 0300 AM Driving will be restricted after the procedure, you must have a person to drive you home. Labs will be drawn in preop area and once reviewed, you will be taken to radiology area for procedure. When the procedure is completed, you will be taken to outpatient where you will be monitored for several hours. You may have one visitor in this area. Other than holding anti-coagulants, patient may take other medication(s) as scheduled. Prior to your appointment date patients are instructed to hold anti-coagulants after discussing with ordering provider to stop. If unable to discontinue anti-coagulants please notify radiologist. ? No aspirin or warfarin (Coumadin) for 7 days prior to the procedure. ? No clopidogrel (Plavix), ticagrelor (Brilinta), prasugrel (Effient) or dabigatran (Pradaxa) for 5 days prior to the procedure. ? No rivaroxaban (Xarelto), apixaban (Eliquis), dipyridamole (Aggrenox or Persantine) or cilostazol (Pletal) for 2 days prior to the procedure. Medications to discontinue per physician: ___ASA Date to take last dose: __PT STATES ALREADY STOPPED LAST WEEK Please leave all valuables, including medications, at home the day of procedure. The hospital will not accept responsibility for valuables. Wear comfortable, loose fitting clothing.? Follow any additional instructions given to you from ordering provider. Telephone instructions given to ___PT and asked if any additional questions and then verbalized understanding. Patient advised to call scheduling provider office or registration scheduling [phone] if any additional questions.
--- NOTE | ~2023-06-18 | CT_ITS ---
EXAMINATION: CT diagnostic chest wo con DATE: 06/18/2023 11:57 INDICATION: R91.8 - Other nonspecific abnormal finding of lung field TECHNIQUE: Computed tomography (CT) of the chest was performed without intravenous contrast. Addition al 3D reconstructions utilizing coronal maximum intensity projection (MIP) were performed. Automated exposure control and iterative reconstruction technique were employed. The dose-length product was 30 2.05 mGy-cm. COMPARISON: CT dated 05/09/2023 and PET/CT dated 05/16/2023 FINDINGS: Instructor Adjunct Surgical Technician CT images of the mid lung zones the region of concern were obtained prior to planned percutaneo us CT-guided biopsy. Mild emphysema. There is been near complete resolution of the previous multiple irregular solid spiculated nodules in the anterior segment of the right upper lobe with significant s maller subtle groundglass opacities at the sites of the prior nodules consistent with an infectious o r inflammatory etiology. No new or enlarging nodules identified. No pleural effusion. Heart size is n ormal. Atherosclerotic coronary artery calcifications. Postoperative change of prior median sternotom y aortic valve repair. No pericardial effusion. No pathologically enlarged lymphadenopathy at the beatriz ateral hilum or visualized mediastinum. IMPRESSION: 1. Near complete resolution of the prior clustered speculated nodules in the intersegment the right u pper lobe which were almost certainly benign related to infectious or inflammatory etiology. The plan rhea biopsy was canceled and would recommend one-year follow-up low-dose noncontrast chest CT. Reviewed, dictated and finalized at location A. WAREHOUSE MANAGER IMPRESSION: 1. Near complete resolution of the prior clustered speculated nodules in the in tersegment the right upper lobe which were almost certainly benign related to i nfectious or inflammatory etiology. The planned biopsy was canceled and would r ecommend one-year follow-up low-dose noncontrast chest CT.
[2023-06-18 08:50] VITALS: BP 154/71; PULSE 92; RESP 16; TEMP 36.4; O2SAT 99; BMI 42.5
[2023-06-18 09:58] LABS: Mean Platelet Volume 9.5 fl (7.4-10.4); Platelet Count Result 230 k/mm3 (150-375)
[2023-06-18 10:09] LABS: INR 0.9; Prothrombin Time 12.8 Seconds (11.1-14.7)
== END 2023-06-18 05:33 | disposition home or self-care (01) ==
PROVIDERS: PCP Nurse Practitioner Family; Referring Provider Nurse Practitioner Family; Visit Provider Radiology Diagnostic Radiology
PROC: BB24ZZZ Computerized Tomography (CT Scan) of Bilateral Lungs (ICD-10-PCS; CPT 32408; principal; 2023-06-18 11:00)
DX: Z01.818 Encounter for other preprocedural examination (principal); R91.8 Other nonspecific abnormal finding of lung field
CPT/HCPCS: 36415; 71250; 85049; 85610

== ENCOUNTER 2023-09-09 14:51 | Outpatient (CLI) | payer MEDICARE, OTHER, SELFPAY ==
[2023-09-09 15:24] LABS: Hematocrit 41.4 % (37.0-47.0); Hemoglobin 13.3 g/dL (12.0-15.0); Mean Corpuscular HGB Conc 32.1 g/dl (32-36); Mean Corpuscular Hemoglobin 28.5 pg (26-34); Mean Corpuscular Volume 88.7 fl (80-100); Mean Platelet Volume 9.8 fl (7.4-10.4); Platelet Count Result 219 k/mm3 (150-375); Red Blood Count 4.67 M/mm3 (4.2-5.4); Red Cell Distribution Width 15.1 % (11.5-14.5); White Blood Count 6.7 K/mm3 (4.5-10.0)
[2023-09-09 16:20] LABS: Erythrocyte Sedimentation Rate 12 mm/hr (0-20)
[2023-09-09 16:30] LABS: Alanine Aminotransferase 19 U/L (6-35); Albumin Level 4.1 g/dL (3.5-5.1); Alkaline Phosphatase 86 U/L (38-126); Anion Gap 8 mmol/L (8-16); Aspartate Amino Transferase 31 U/L (14-36); Bilirubin,Total 0.7 mg/dL (0.2-1.3); Blood Urea Nitrogen 10 mg/dL (7-17); CRP < 0.5 mg/dL (<1.0); Calcium 9.6 mg/dL (8.4-10.2); Carbon Dioxide 26 mmol/L (22-30); Chloride 101 mmol/L (98-107); Estimated Glomerular Filt Rate > 60; Glucose 143 mg/dL (65-110); Potassium 3.8 mmol/L (3.4-5.0); Sodium 135 mmol/L (137-145)
== END 2023-09-09 14:52 | disposition home or self-care (01) ==
LOC: ANHLAB 14:56
PROVIDERS: PCP Nurse Practitioner Family; Visit Provider Nurse Practitioner Family
DX: K50.80 Crohn's disease of both small and large intestine without complications (principal)
CPT/HCPCS: 36415; 80053; 85027; 85652; 86140

== ENCOUNTER 2023-09-10 08:16 | Outpatient (CLI) | payer MEDICARE, OTHER, SELFPAY ==
[2023-09-10 09:26] LABS: Toxigenic C. Diff NEGATIVE (NEGATIVE)
[2023-09-16 01:32] LABS: Calprotectin, Stool 37 mcg/g
== END 2023-09-10 08:17 | disposition home or self-care (01) ==
LOC: ANHLAB 08:18
PROVIDERS: PCP Nurse Practitioner Family; Visit Provider Nurse Practitioner Family
DX: K50.80 Crohn's disease of both small and large intestine without complications (principal)
CPT/HCPCS: 83993; 87045; 87177; 87209; 87427; 87449; 87493

== ENCOUNTER 2023-11-07 16:56 | Emergency (ER) | payer MEDICARE, OTHER, SELFPAY ==
--- NOTE | ~2023-11-07 | US_ITS ---
EXAMINATION: US venous doppler LE RT DATE: 11/07/2023 18:14 INDICATION: pain . TECHNIQUE: Grayscale images without and with compression and Doppler images of the right lower extrem ity veins were obtained. COMPARISON: None FINDINGS: The right common femoral vein, profunda (deep) femoral vein, femoral vein, popliteal vein, peroneal v ein, posterior tibial veins, gastrocnemius vein, and greater saphenous vein are patent. IMPRESSION: Patent right lower extremity veins. No evidence of deep venous thrombosis. Reviewed, dictated and finalized at location K.
--- NOTE | ~2023-11-07 | XR_ITS ---
EXAM: XR knee RT min 4V DATE: 11/07/2023 17:27 HISTORY: pain, NO INJURY . COMPARISON: 02/19/2022. FINDINGS: Decreased mineralization. No fracture or dislocation. No lytic or blastic lesion. Moderate tricompartmental knee osteoarthritis. Small knee joint effusion. No erosion or periosteal change. Sc attered atherosclerotic vascular calcification. IMPRESSION: No acute osseous finding in the right knee. Reviewed, dictated and finalized at location K.
[2023-11-07 17:04] VITALS: BP 164/79; PULSE 72; RESP 16; TEMP 36.1; O2SAT 98
--- NOTE | 2023-11-07 17:07 | ED.LOWEXIN ---
HPI - Extremity Injury (Lower) General Chief Complaint: Extremity Injury, Lower <Debra Guadalupe PA-C - Last Filed: 11/07/23 17:08> Stated Complaint: right knee pain <Debra Guadalupe PA-C - Last Filed: 11/07/23 17:08> Time Seen by Provider: 11/07/23 17:44 <Debra Guadalupe PA-C - Last Filed: 11/07/23 17:08> Focused HPI: 73-year-old female presents to the emergency department for right knee and calf pain that started 2 days ago. Patient denies recent injury or trauma. She has no lymphedema but denies worsening swelling in her leg. GENERAL: Well-appearing, well-nourished, and in no acute distress. HEAD: Normocephalic, atraumatic. CHEST: Clear to auscultation. ?No respiratory distress. MSK: Tenderness to the proximal tibia and fibula without overlying ecchymosis or edema. Full passive and active range of motion of the knee. Positive Homans sign. Lymphedema throughout, no pitting edema. DP pulse 2 +. Sensation intact. Warmth or erythema to your leg. HEART: Regular rate and rhythm.? NEURO: ?Alert and oriented x3. Patient screened in triage and initial orders placed.? ?Additional care and disposition to be based upon?diagnostic testing and treatment. <Debra Guadalupe PA-C - Last Filed: 11/07/23 17:08> Related Data Home Medications: Home Medications Medication Instructions Recorded Confirmed aspirin 81 mg chewable tablet 81 mg PO DAILY 08/03/19 10/09/23 hydroxychloroquine 200 mg tablet 200 mg PO DAILY 08/03/19 10/09/23 infliximab 100 mg intravenous 100 mg IV USEASDIRECTD 08/03/19 10/09/23 solution (Remicade) pantoprazole 40 mg tablet,delayed 40 mg PO QAM 08/03/19 10/09/23 release (Protonix) lactobacillus combination no.8 3 3,000 mmu cells PO DAILY 03/10/20 10/09/23 billion cell capsule (Adult Probiotic) calcium carbonate 1,000 mg tablet 1.5 mg PO DAILY 01/03/21 10/09/23 diclofenac sodium 1 % topical gel See Rx Instructions .Route 01/03/21 10/09/23 (Voltaren Arthritis Pain) .COMPLEX PRN Pain atorvastatin 10 mg tablet 10 mg PO DAILY 06/14/22 10/09/23 cholecalciferol (vitamin D3) 50 50 mcg PO DAILY 06/14/22 10/09/23 mcg (2,000 unit) tablet magnesium 500 mg tablet 500 mg PO DAILY 06/14/22 10/09/23 metoprolol tartrate 25 mg tablet 12.5 mg PO BID 06/14/22 10/09/23 omega-3 fatty acids 1 cap PO DAILY 06/14/22 10/09/23 sulfasalazine 500 mg 0.5 g PO BID 11/21/22 10/09/23 tablet,delayed release albuterol sulfate 90 mcg/actuation 1 puff inhalation Q4H PRN Wheezing 05/20/23 10/09/23 aerosol inhaler hydrochlorothiazide 12.5 mg capsule 12.5 mg PO DAILY 05/20/23 10/09/23 oxycodone-acetaminophen 5 mg-325 1 tablet TID PRN Pain 06/12/23 10/09/23 mg tablet azathioprine 50 mg tablet 50 mg PO DAILY 08/22/23 10/09/23 <Debra Guadalupe PA-C - Last Filed: 11/07/23 17:08> Allergies/Adverse Reactions: Allergies Allergy/AdvReac Type Severity Reaction Status Date / Time Penicillins Allergy Unknown Unknown Verified 10/09/23 09:30 adhesive tape AdvReac Severe BRUISING Verified 10/09/23 09:30 WITH CLEAR TAPE <Debra Guadalupe PA-C - Last Filed: 11/07/23 17:08> Review of Systems Review of Systems: All systems as dictated in HPI <Zhen Maria PA-C - Last Filed: 11/08/23 02:12> [facility] Past Medical History Medical History: Medical History Aortic stenosis s/p valve replacement 2020 Chronic hip pain after total replacement of right hip joint Crohn's ileocolitis Degenerative joint disease of left hip Effusion, left knee Fatty liver Former smoker GERD (gastroesophageal reflux disease) Normocytic anemia Obesity Osteoporosis Pain due to knee joint prosthesis Rheumatoid arthritis Right knee DJD Right knee pain Sleep apnea Wears glasses <Debra Guadalupe PA-C - Last Filed: 11/07/23 17:08> Surgical History Surgical History: Surgical History (Reviewed 10/09/23 @ 09:34 by Melecio Rush
[2023-11-07] MEDS: ACETAMINOPHEN 325 MG TABLET 650 MG PO (17:15)
[2023-11-07] MEDS: MELOXICAM 7.5 MG TABLET PO (19:05)
== END 2023-11-07 19:09 | disposition home or self-care (01) ==
PROVIDERS: Emergency Provider Physician Assistant; PCP Nurse Practitioner Family
DX: M17.11 Unilateral primary osteoarthritis, right knee (principal); K50.90 Crohn's disease, unspecified, without complications; D64.9 Anemia, unspecified; K21.9 Gastro-esophageal reflux disease without esophagitis; M06.9 Rheumatoid arthritis, unspecified; M81.0 Age-related osteoporosis without current pathological fracture; M16.11 Unilateral primary osteoarthritis, right hip; Z96.641 Presence of right artificial hip joint; Z95.2 Presence of prosthetic heart valve; Z87.891 Personal history of nicotine dependence; Z79.82 Long term (current) use of aspirin
CPT/HCPCS: 73564; 93971; 99284; A9270

== ENCOUNTER 2023-12-04 08:49 | Outpatient (CLI) | payer MEDICARE, OTHER, SELFPAY ==
--- NOTE | ~2023-12-04 | MM_ITS ---
EXAMINATION: MM screening bin BI w [place] HISTORY: Screening mammogram TECHNIQUE: Craniocaudal and mediolateral oblique 3-D tomosynthesis images were obtained and synthetic 2-D images were generated. CAD analysis was submitted and interpreted. COMPARISON: 07/13/2022, 05/12/2021 bilateral screening mammogram examinations BREAST PARENCHYMAL COMPOSITION: The breasts are almost entirely fatty. FINDINGS: Scattered benign calcifications are again noted. There is no evidence of suspicious mass, c alcification, or architectural distortion to suggest malignancy in either breast. There has been no s uspicious interval change. IMPRESSION: 1. No mammographic evidence of malignancy. 2. Recommend routine screening mammography in one year. BI-RADS Category 2: Benign finding(s). Reviewed, dictated and finalized at location A.
== END 2023-12-04 08:50 | disposition home or self-care (01) ==
LOC: ANHIMG 08:56
PROVIDERS: PCP Nurse Practitioner Family; Visit Provider Nurse Practitioner Family
DX: Z12.31 Encounter for screening mammogram for malignant neoplasm of breast (principal)
CPT/HCPCS: 77063; 77067

== ENCOUNTER 2023-12-20 17:21 | Emergency (ER) | payer MEDICARE, OTHER, SELFPAY ==
[2023-12-20 17:48] VITALS: BP 181/76; PULSE 86; RESP 20; TEMP 36.2; O2SAT 97
--- NOTE | 2023-12-20 18:17 | ED.GENADULT ---
HPI - General Adult General Chief complaint: Ear Stated complaint: bilateral ear pain,congestion Source: patient and RN notes reviewed Mode of arrival: ambulatory Limitations: no limitations History of Present Illness HPI narrative: 73-year-old female presented for complaint of nasal congestion bilateral ear pressure, occasional dizziness and watery eyes. Onset over 1 week. She was seen by data reporting analyst at onset, advised Flonase and Zyrtec which she says ?is doing nothing. ? Also uses saline nasal rinse at times. She denies shortness of breath, wheezing diarrhea fevers or chills. Related Data Home Medications Medication Instructions Recorded Confirmed aspirin 81 mg chewable tablet 81 mg PO DAILY 08/03/19 11/21/23 hydroxychloroquine 200 mg tablet 200 mg PO DAILY 08/03/19 11/21/23 infliximab 100 mg intravenous 100 mg IV USEASDIRECTD 08/03/19 11/21/23 solution (Remicade) pantoprazole 40 mg tablet,delayed 40 mg PO QAM 08/03/19 11/21/23 release (Protonix) lactobacillus combination no.8 3 3,000 mmu cells PO DAILY 03/10/20 11/21/23 billion cell capsule (Adult Probiotic) calcium carbonate 1,000 mg tablet 1.5 mg PO DAILY 01/03/21 11/21/23 diclofenac sodium 1 % topical gel See Rx Instructions .Route 01/03/21 11/21/23 (Voltaren Arthritis Pain) .COMPLEX PRN Pain atorvastatin 10 mg tablet 10 mg PO DAILY 06/14/22 11/21/23 cholecalciferol (vitamin D3) 50 50 mcg PO DAILY 06/14/22 11/21/23 mcg (2,000 unit) tablet magnesium 500 mg tablet 500 mg PO DAILY 06/14/22 11/21/23 metoprolol tartrate 25 mg tablet 12.5 mg PO BID 06/14/22 11/21/23 omega-3 fatty acids 1 cap PO DAILY 06/14/22 11/21/23 sulfasalazine 500 mg 0.5 g PO BID 11/21/22 11/21/23 tablet,delayed release hydrochlorothiazide 12.5 mg capsule 12.5 mg PO DAILY 05/20/23 11/21/23 oxycodone-acetaminophen 5 mg-325 1 tablet TID PRN Pain 06/12/23 11/21/23 mg tablet azathioprine 50 mg tablet 50 mg PO DAILY 08/22/23 11/21/23 Allergies Allergy/AdvReac Type Severity Reaction Status Date / Time Penicillins Allergy Unknown Unknown Verified 12/20/23 17:52 adhesive tape AdvReac Severe BRUISING Verified 12/20/23 17:52 WITH CLEAR TAPE Review of Systems Review of Systems: CONSTITUTIONAL: Denies malaise, chills, sweats, fever EYES: Denies visual changes, redness, or discharge ENT: Reports rhinorrhea, congestion, sinus pain, otalgia CARDIOVASCULAR: Denies chest pain, palpitations, edema RESPIRATORY: Denies cough, post nasal drainage, dyspnea GASTROINTESTINAL: Denies abdominal pain, nausea, vomiting, diarrhea SKIN: Denies rash or itching MUSCULOSKELETAL: Denies myalgia NEUROLOGIC: Denies headache PMFSH Past Medical History Medical History Aortic stenosis s/p valve replacement 2020 Chronic hip pain after total replacement of right hip joint Crohn's ileocolitis Degenerative joint disease of left hip Effusion, left knee Fatty liver Former smoker GERD (gastroesophageal reflux disease) Normocytic anemia Obesity Osteoporosis Pain due to knee joint prosthesis Rheumatoid arthritis Right knee DJD Right knee pain Sleep apnea Wears glasses Surgical History Surgical History History of right hip replacement Family History Family History Father Cerebrovascular accident Sibling Cerebrovascular accident Accelerated phase chronic myeloid leukemia Father Acute myocardial infarction Social History Social History Social History: 30 pack years Smoking packs per day: 1 Smoking cigarettes per day: 20.0 Years smoked: 30 Smoking pack-years: 30.00 Smoking status: Former smoker Tobacco type: cigarettes Smoking end date: 08/12/13 Alcohol intake: current Substance use type: does not use Living arrangements: alone Spiritual c
== END 2023-12-20 18:22 | disposition home or self-care (01) ==
PROVIDERS: Emergency Provider Nurse Practitioner Family; PCP Nurse Practitioner Family
DX: J01.90 Acute sinusitis, unspecified (principal); Z87.891 Personal history of nicotine dependence; K76.0 Fatty (change of) liver, not elsewhere classified; K21.9 Gastro-esophageal reflux disease without esophagitis; E66.9 Obesity, unspecified; Z68.41 Body mass index [BMI] 40.0-44.9, adult; M81.0 Age-related osteoporosis without current pathological fracture; M06.9 Rheumatoid arthritis, unspecified; Z96.641 Presence of right artificial hip joint; M16.11 Unilateral primary osteoarthritis, right hip; Z95.2 Presence of prosthetic heart valve
CPT/HCPCS: 99213; G0463

== ENCOUNTER 2024-01-15 08:00 | Outpatient (RCR) | payer MEDICARE, OTHER, SELFPAY ==
--- NOTE | 2023-12-03 12:02 | OPREHPOC ---
Outpatient Therapy Plan of Care This is a Multidisciplinary Plan of Care that may contain components documented by all disciplines (PT, OT, and ST.) PT Problem 1 PT Problem #1 Knowledge Deficit PT Goal 1 Goal *indep with HEP Target Visit 10 PT Problem 2 PT Problem #2 Pain PT Goal 1 Goal 1* pt report pain at worst in back of 410 2* pt report pain at worst in R knee 10 3* self assessment Oswestry functional score of 28 % limitation in activity 4* Target Visit 10 PT Problem 3 PT Problem #3 Impaired Strength PT Goal 1 Goal increase strength of trunk and LE's, to improve mobility and activity 1* pt perform 20 reps of mat strengthening exercises 2* pt perform 45 minutes of aquatic exercises 3* 2 minute walking test distance of 450' Target Visit 10
--- NOTE | 2023-12-03 12:02 | PTOPEVAL1 ---
Assessment and note entered by Claudia Grant, PT Evaluation Information Assessment Status Evaluation Diagnosis chronic low back pain, spinal stenosis, neurogenic claudication Onset about 2 years ago Subjective Information chronic pain in back; in Aug 2023 had mild invasive lumbar discectomy; is under the care of pain management and rheumatology; history of R THR and L TKR; recent injection for R knee pain; recent cataract surgery-cannot get eyes wet in pool; have had PT in the past--land and aquatic therapy at another facility; Activity: has [employer] membership and did pool exercises, but not able to go since back surgery and cataract surgery; feel that the water exercises help her and have not been able to do. indep with self care and light home tasks, have commercial housekeeper every 2 weeks and someone to do yard work; problems on stairs, getting up from chair; GOAL: more movement in R leg; Reported Pain Level Pain Score Self Report Additional Pain Score Comments pain range of back in the past week 0-6/10; increase: standing/ on feet 15 min decrease pain: sit/rest, take pain meds/ script PRN since back surgery, back is better and no longer have the sciatica pain like it was; feel R knee hurting is not from her back; PAIN: R knee range 5/10-- stays 5 and hurts all time; once up and walking, feels little better; recent ER visit due to knee pain: xray report states severe DJD ; follow with Dr Gudino for knee; discussed knee brace for support to joint Assessment PT Clinical Summary Mary has the diagnosis of chronic back pain and R leg pain. Medical history includes: Aug lumbar minimal invasive surgery; R THR, L TKR and severe DJD of R knee. Self assessment Oswestry is 36% limitation in activity level. Reports back is better since surgery, but R knee pain is worse and limiting her mobility.
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
--- NOTE | 2023-12-24 10:12 | PCPTNOTE ---
Patient called 10 min after appt time to cancel appt due to running late.
--- NOTE | 2024-01-10 13:01 | PCPTNOTE ---
Pt canceled due to illness.
--- NOTE | 2024-01-22 14:59 | PCPTNOTE ---
Pt cancelled re-eval schedule today due to pt is in the hospital at this time.
--- NOTE | 2024-02-07 15:11 | PTOPDC ---
Assessment and note entered by Claudia Grant, PT Discharge Report Assessment Status Discharge - Pt Not Present Diagnosis chronic low back pain, spinal stenosis, neurogenic claudication Onset about 2 years ago Subjective Information pt was not seen this date Assessment PT Clinical Summary Barbra has received 7 PT sessions, from December 02 to January 14. She then stopped attending therapy. Discharge PT services. The goals were not addressed. Plan of Care PT Services Indicated No
== END 2024-02-10 11:10 | disposition home or self-care (01) ==
LOC: ANHPT 08:00
PROVIDERS: PCP Nurse Practitioner Family
DX: M54.41 Lumbago with sciatica, right side (principal); G89.29 Other chronic pain
CPT/HCPCS: 97110; 97113; 97116; 97140; 97162; 97530

== ENCOUNTER 2024-01-21 23:37 | Observation (INO) | payer MEDICARE, OTHER, SELFPAY ==
--- NOTE | ~2024-01-21 | CT_ITS ---
EXAMINATION: CT brain wo con DATE: 01/21/2024 23:50 INDICATION: stroke symptoms . TECHNIQUE: Computed tomography (CT) of the head was performed without intravenous contrast. The mA wa s adjusted according to patient size. Iterative reconstruction technique was employed. The dose-lengt h product was 605.33 mGy-cm. COMPARISON: None. FINDINGS: No acute intracranial hemorrhage or extra-axial fluid collection. No hydrocephalus, mass, or herniation. No acute ischemic infarct. Unremarkable dural venous sinus attenuation. No acute osseous abnormality. Aerated secretions in the posterior left ethmoid sinus, the remaining aerated spaces are clear. Mild atrophy and chronic white matter change. Atherosclerotic intracranial calcification. Bilateral l ens replacements. Bilateral basal ganglia calcification. IMPRESSION: No acute intracranial process. Aerated posterior left ethmoid sinus secretions, may represent acute sinusitis in the appropriate cli nical context. Results reported telephonically to Elana Guadalupe PA-C by Dr. Hong at 11:55 PM on 01/21/2024. Reviewed, dictated and finalized at location K. IMPRESSION: No acute intracranial process. Aerated posterior left ethmoid sinus secretions, may represent acute sinusitis in the appropriate clinical context. Results reported telephonically to Elana Guadalupe PA-C by Dr. Hong at 11:55 PM on 01/21/2024.
--- NOTE | ~2024-01-21 | CT_ITS ---
CT ANGIOGRAM NECK AND HEAD History: Slurred speech, left arm weakness. Technique: Serial spiral axial images through the head and neck were obtained during arterial phase I V injection of 100 cc of Omnipaque 350. 3-D postprocessing and MIP images were then reconstructed on the remote workstation. Dose reduction technique was used on this scan by utilizing automated exposur e control and iterative reconstruction technique. The dose-length product (DLP) was 1103.98 mGy-cm. CTA neck findings: Bilateral vertebral arteries are patent. There is a focal moderate stenosis with calcified plaque at the distal right vertebral artery. Bilateral common carotid, internal carotid, an d external carotid arteries are patent. There is calcified plaque at the right carotid bifurcation re gion and proximal right internal carotid artery, with 10% stenosis the proximal right internal caroti d artery. There is calcified plaque at the left carotid bifurcation and proximal left internal caroti d artery, without significant stenosis. No large vessel occlusion or aneurysm. The proximal right int ernal carotid artery demonstrates 10% stenosis relative to the normal distal artery lumen diameter. T he proximal left internal carotid artery demonstrates 0% stenosis relative to the normal distal arter y lumen diameter. There is mild emphysematous lung apices. CTA head findings: Basilar artery and posterior cerebral arteries are patent. Distal internal carotid arteries, middle cerebral arteries, and anterior cerebral arteries are patent. No large vessel occlu gertrudis. No stenosis or aneurysm. Impression: 10% stenosis at the proximal right internal carotid artery. Focal moderate stenosis distal right vertebral artery with calcified plaque present. Reviewed, dictated and finalized at location . Impression: 10% stenosis at the proximal right internal carotid artery. Focal moderate stenosis distal right vertebral artery with calcified plaque pre sent.
--- NOTE | ~2024-01-21 | MR_ITS ---
EXAMINATION: MR brain/brain stem wo con DATE: 01/23/2024 17:41 INDICATION: Transient ischemic episode with strokelike symptoms including left arm weakness and slurr ed speech TECHNIQUE: Magnetic resonance imaging (MRI) of the brain and brainstem was performed without intraven ous contrast. Sequences included sagittal and axial T1-weighted SE, axial diffusion-weighted FS SE, a xial 3D SWAN, axial T2-weighted FLAIR, and axial T2-weighted FSE. Apparent diffusion coefficient (ADC ) maps were created. COMPARISON: None. FINDINGS: There are no areas of restricted diffusion to suggest acute infarction. No acute intracranial hemorrh age or abnormal intracranial mass lesion. There are couple foci of susceptibility artifact along the gyri of the left and right frontal lobes as well as one within the right cerebellar hemisphere consis tent with sequela of chronic microhemorrhage most likely seen in the setting of hypertension although can be seen with amyloid angiopathy. There are scattered areas of nonspecific increased T2-weighted signal intensity in the cerebral white matter, predominantly involving the deep and periventricular w tia matter. There are no intraparenchymal signal abnormalities seen on the other pulse sequences. Th e ventricles are symmetric and normal in size. There are no abnormal extra-axial fluid collections. F low voids are seen in the cerebral arteries on the T2-weighted sequences consistent with their expect ed patency. Changes of bilateral intraocular lens replacement. Visualized orbits and soft tissues are unremarkable. IMPRESSION: 1. No acute intracranial process. 2. Mild scattered calcific white matter T2 hyperintensity which is within normal limits for age and l ikely sequela of chronic small vessel ischemic disease. 3. 3 small foci of susceptibility artifact consistent with chronic microhemorrhage most commonly the setting of hypertension but can't be seen with amyloid angiopathy. Reviewed, dictated and finalized at location A. IMPRESSION: 1. No acute intracranial process. 2. Mild scattered calcific white matter T2 hyperintensity which is within allie l limits for age and likely sequela of chronic small vessel ischemic disease. 3. 3 small foci of susceptibility artifact consistent with chronic microhemorrh age most commonly the setting of hypertension but can't be seen with amyloid an giopathy.
--- NOTE | ~2024-01-21 | XR_ITS ---
Portable chest x-ray Comparison: 04/10/2021 Clinical History: Stroke Findings: Possible mild central congestive change and minimal interstitial edema. No pleural effusio n or pneumothorax. Cardiomediastinal silhouette is stable. Bones and soft tissues are unremarkable. Impression: Possible mild central congestive change and minimal interstitial edema. Reviewed, dictated and finalized at [facility]. Impression: Possible mild central congestive change and minimal interstitial edema.
[2024-01-21 23:38] VITALS: BP 208/87; PULSE 81; RESP 17; O2SAT 99
[2024-01-21 23:44] LABS: Glucose Point of Care 132 mg/dl (65-105)
[2024-01-22] VITALS (17 sets, daily range): BP systolic 130–217; BP diastolic 57–95; PULSE 70–105; RESP 12–20; TEMP 36.1–36.6; O2SAT 96–100; BMI 44.4
--- NOTE | 2024-01-22 | ECHO_ITS ---
Patient Info Name: Barbra Maynard Age: 73 years : 1950 Gender: Female Ht: 68 in Wt: 292 lbs BSA: 2.59 m2 HR: 71 bpm BP: 151 / 84 mmHg Heart Rhythm: Sinus Rhythm Technical Quality: Fair Exam Date: 01/22/2024 11:10 AM Exam Location: Echo Lab Patient Status: Inpatient Admit Date: 01/22/2024 Staff Ordering Physician: Saumya Rock APRN Die Maintenance: Daysi Peters RDCS Attending Provider: Lili Bernard MD Referring Physician: Pranav MCPHERSON; Exam Type: CA echo doppler w bubble study Study Info Indications - TIA Complete two-dimentional, color flow and Doppler transthoracic echocardiogram is performed with agitated saline and with contrast to opacify the left ventricle and to improve the delineation of the left ventricle endocardial borders. Contrast/Agitated Saline Contrast/Ag. Saline: Agitated Saline Amount: 21.00 ml IV Access Condition: patent with no signs of infiltration Summary 1. Left ventricular chamber dimension is normal. 2. Left ventricular systolic function is normal, estimated at 60-65%. 3. There is moderately increased left ventricular wall thickness. 4. The left ventricular diastolic function is grade I diastolic dysfunction. 5. Right ventricular systolic function is normal. 6. Left atrial chamber dimension is moderately enlarged. 7. Right atrial chamber dimension is mildly enlarged. 8. Intact interatrial septum visualized by color flow and agitated saline imaging. Negative bubble study. 9. S/p aortic vavle replacement. Mean gradient is 12mmHg. Peak velocity 2.59 m/s. There is no regurgitation of the bioprosthetic aortic valve. 10. There is mild mitral valve regurgitation. 11. There is mild tricuspid valve regurgitation. Left Ventricle Left ventricular chamber dimension is normal. Left ventricular systolic function is normal, estimated at 60-65%. There is moderately increased left ventricular wall thickness. The left ventricular diastolic function is grade I diastolic dysfunction. Right Ventricle Right ventricular chamber dimension is normal. Right ventricular systolic function is normal. Left Atria Left atrial chamber dimension is moderately enlarged. Right Atria Right atrial chamber dimension is mildly enlarged. Atrial Septum Intact interatrial septum visualized by color flow and agitated saline imaging. Negative bubble study. Aortic Valve S/p aortic vavle replacement. Mean gradient is 12mmHg. Peak velocity 2.59 m/s. There is no regurgitation of the bioprosthetic aortic valve. Pulmonic Valve The pulmonic valve is not well visualized. There is trace pulmonic regurgitation. Mitral Valve There is mild mitral valve regurgitation. The mitral valve annulus is moderately calcified. Tricuspid Valve There is mild tricuspid valve regurgitation. Pericardium/Pleural There is no pericardial effusion. Inferior Vena Cava Normal inferior vena cava with >50% collapse upon inspiration consistent with normal right atrial pressure, 3 mmHg. Aorta The aortic root size at the sinus of Valsalva is normal. Left Ventricular Outflow Tract Name Value Normal LVOT 2D LVOT Diameter 2.2 cm LVOT Doppler LVOT Peak Gradient
--- NOTE | 2024-01-22 | ECG_ITS ---
Test Date: 2024-01-22 00:10:52 Measurements Intervals [place] Rate: 80 P: 54 LA: 214 QRS: -28 QRSD: 111 T: 71 QT: 383 QTc: 443 Interpretive Statements SINUS RHYTHM WITH FIRST DEGREE AV BLOCK SEPTAL MYOCARDIAL INFARCTION , PROBABLY OLD [40+ ms Q WAVE IN V1/V2] No previous ECG available for comparison Electronically Signed On 01-22-2024 11:36:50 CDT by Génesis Tavera M.D.
--- NOTE | 2024-01-22 00:02 | ED.NEUROSD ---
HPI - Neuro Symptoms/Deficit General Chief Complaint: Suspected CVA Stated Complaint: i think i am having a stroke Time Seen by Provider: 01/21/24 23:43 History of Present Illness HPI Narrative: This is a 73-year-old female, with history of aortic stenosis status post replacement in 2020 who presents to the emergency department, complaining of difficulty with speech and left arm weakness. The patient states at approximately 19:30 this evening, she developed a throbbing headache associated with word-finding difficulty and left arm weakness and paresthesias. The weakness and word-finding difficulty have since improved. She denies falls, head injury, use of anticoagulants and has no other complaints at this time. Related Data Home Medications Medication Instructions Recorded Confirmed aspirin 81 mg chewable tablet 81 mg PO DAILY 08/03/19 11/21/23 hydroxychloroquine 200 mg tablet 200 mg PO DAILY 08/03/19 11/21/23 infliximab 100 mg intravenous 100 mg IV USEASDIRECTD 08/03/19 11/21/23 solution (Remicade) pantoprazole 40 mg tablet,delayed 40 mg PO QAM 08/03/19 11/21/23 release (Protonix) lactobacillus combination no.8 3 3,000 mmu cells PO DAILY 03/10/20 11/21/23 billion cell capsule (Adult Probiotic) calcium carbonate 1,000 mg tablet 1.5 mg PO DAILY 01/03/21 11/21/23 diclofenac sodium 1 % topical gel See Rx Instructions .Route 01/03/21 11/21/23 (Voltaren Arthritis Pain) .COMPLEX PRN Pain atorvastatin 10 mg tablet 10 mg PO DAILY 06/14/22 11/21/23 cholecalciferol (vitamin D3) 50 50 mcg PO DAILY 06/14/22 11/21/23 mcg (2,000 unit) tablet magnesium 500 mg tablet 500 mg PO DAILY 06/14/22 11/21/23 metoprolol tartrate 25 mg tablet 12.5 mg PO BID 06/14/22 11/21/23 omega-3 fatty acids 1 cap PO DAILY 06/14/22 11/21/23 sulfasalazine 500 mg 0.5 g PO BID 11/21/22 11/21/23 tablet,delayed release hydrochlorothiazide 12.5 mg capsule 12.5 mg PO DAILY 05/20/23 11/21/23 oxycodone-acetaminophen 5 mg-325 1 tablet TID PRN Pain 06/12/23 11/21/23 mg tablet azathioprine 50 mg tablet 50 mg PO DAILY 08/22/23 11/21/23 Allergies Allergy/AdvReac Type Severity Reaction Status Date / Time Penicillins Allergy Unknown Unknown Verified 12/20/23 17:52 adhesive tape AdvReac Severe BRUISING Verified 12/20/23 17:52 WITH CLEAR TAPE Review of Systems Review of Systems: All systems reviewed & are unremarkable except as noted in HPI and below [facility] Past Medical History Medical History (Updated 01/22/24 @ 01:14 by Lili Bernard MD) Aortic stenosis s/p valve replacement 2020 Chronic hip pain after total replacement of right hip joint Crohn's ileocolitis Degenerative joint disease of left hip Effusion, left knee Fatty liver Former smoker GERD (gastroesophageal reflux disease) Normocytic anemia Obesity Osteoporosis Pain due to knee joint prosthesis Rheumatoid arthritis Right knee DJD Right knee pain Sleep apnea Wears glasses Surgical History Surgical History History of right hip replacement Family History Family History Father Cerebrovascular accident Sibling Cerebrovascular accident Accelerated phase chronic myeloid leukemia Father Acute myocardial infarction Social History Social History Social History: 30 pack years Smoking packs per day: 1 Smoking cigarettes per day: 20.0 Years smoked: 30 Smoking pack-years: 30.00 Smoking status: Former smoker Tobacco type: cigarettes Smoking end date: 08/12/13 Alcohol intake: never Substance use: never Substance use type: does not use Do You Feel Safe in your Home?: Yes Lack of Transportation: No Lack of Food: Never True Current Housing: I Have Housing Concerned About Future Housing: No Difficulty Paying Gas/Electric Bills: No Difficulty Paying for Meds: No Currently U
[2024-01-22 00:14] LABS: Alanine Aminotransferase 17 U/L (6-35); Albumin Level 4.3 g/dL (3.5-5.1); Alkaline Phosphatase 100 U/L (38-126); Anion Gap 6 mmol/L (4-12); Aspartate Amino Transferase 29 U/L (14-36); Bilirubin,Total 0.8 mg/dL (0.2-1.3); Blood Urea Nitrogen 13 mg/dL (7-17); Calcium 9.5 mg/dL (8.4-10.2); Carbon Dioxide 28 mmol/L (22-30); Chloride 94 mmol/L (98-107); Estimated Glomerular Filt Rate > 60; Glucose 129 mg/dL (65-110); Potassium 4.1 mmol/L (3.4-5.0); Sodium 128 mmol/L (137-145)
[2024-01-22] MEDS: CLOPIDOGREL BISULFATE 300 MG TABLET PO (00:22)
[2024-01-22] MEDS: ASPIRIN 81 MG CHEWABLE TABLET 324 MG PO (00:23)
[2024-01-22 00:25] LABS: Troponin I < 0.012 ng/mL (0.000-0.034)
[2024-01-22 00:34] LABS: Estimated CRCL calculation 61 ml/min; Estimated Glomerular Filt Rate 54
[2024-01-22] MEDS: ONDANSETRON INJ 4 MG/2 ML VIAL IV PUSH (00:52)
[2024-01-22] MEDS: SODIUM CHLORIDE 0.9% IV 1,000 ML 999 ML IV CONT (00:52)
[2024-01-22] MEDS: ACETAMINOPHEN 500 MG TABLET 1000 MG PO (00:53)
[2024-01-22 00:57] LABS: Partial Thromboplastin Time 30.6 Seconds (22.3-36.8)
[2024-01-22 01:02] LABS: Basophils Absolute Auto 0.1 K/mm3 (0.0-0.1); Eosinophils Absolute Auto 0.2 K/mm3 (0-0.3); Eosinophils Percent Auto 2.9 % (0-4.4); Hematocrit 38.4 % (37.0-47.0); Hemoglobin 13.2 g/dL (12.0-15.0); Immature Granulocyte Absolute 0.03 K/mm3 (0.00-0.031); Immature Granulocyte Percent A 0.4 % (0-0.5); Lymphocytes Absolute Auto 2.19 K/mm3 (0.9-3.2); Lymphocytes Percent Auto 29.9 % (18.3-44.2); Mean Corpuscular HGB Conc 34.4 g/dl (32-36); Mean Corpuscular Hemoglobin 31.7 pg (26-34); Mean Corpuscular Volume 92.3 fl (80-100); Mean Platelet Volume 9.5 fl (7.4-10.4); Monocytes Absolute Auto 0.7 K/mm3 (0.1-0.6); Monocytes Percent Auto 8.9 % (2.6-8.5); Neutrophils Absolute Auto 4.2 K/mm3 (1.3-6.7); Neutrophils Percent Auto 56.9 % (45.5-73.1); Platelet Count Result 223 k/mm3 (150-375); Red Blood Count 4.16 M/mm3 (4.2-5.4); Red Cell Distribution Width 12.9 % (11.5-14.5); White Blood Count 7.3 K/mm3 (4.5-10.0)
--- NOTE | 2024-01-22 01:13 | PM.IMHP ---
H&P: HPI History of Present Illness Date/Time: 01/22/24 01:13 Chief Complaint: LUE weakness Narrative: This is a 73 yo female with PMHx significant for HTN, obesity, , Crohn's colitis,DJD, GERD,RA, sleep apnea. patient presents to ED after having episode of speech disturbance, LUE weakness, numbness. Patient was found to have a SBP in the 200's. Patient preston been in her usual state of health prior to this.Preliminary work up is essentially non revealing. EXAMINATION: CT brain wo con DATE: 01/21/2024 23:50 INDICATION: stroke symptoms . TECHNIQUE: Computed tomography (CT) of the head was performed without intravenous contrast. The mA was adjusted according to patient size. Iterative reconstruction technique was employed. The dose-length product was 605.33 mGy-cm. COMPARISON: None. FINDINGS: No acute intracranial hemorrhage or extra-axial fluid collection. No hydrocephalus, mass, or herniation. No acute ischemic infarct. Unremarkable dural venous sinus attenuation. No acute osseous abnormality. Aerated secretions in the posterior left ethmoid sinus, the remaining aerated spaces are clear. Mild atrophy and chronic white matter change. Atherosclerotic intracranial calcification. Bilateral lens replacements. Bilateral basal ganglia calcification. IMPRESSION: No acute intracranial process. Aerated posterior left ethmoid sinus secretions, may represent acute sinusitis in the appropriate clinical context. Results reported telephonically to Elana Guadalupe PA-C by Dr. Hong at 11:55 PM on 01/21/2024. Review of Systems Review of Systems: speech disturbance, headache, LUE weakness, numbness. Constitutional: Constitutional: Denies chills, Denies fever(s) and Denies poor appetite Eyes: Eyes: Denies change in vision ENT: Denies dysphagia, Denies vertigo, Denies dizziness, Denies nasal congestion, Denies nasal discharge and Denies odynophagia Cardiovascular: Cardiovascular: Denies chest pain, Denies radiating jaw, neck or arm pain and Denies palpitations Respiratory: Respiratory: Denies chest congestion, Denies cough, Denies excessive phlegm production and Denies dyspnea Gastrointestinal: Gastrointestinal: Denies abdominal pain, Denies diarrhea, Denies nausea and Denies vomiting Genitourinary: Genitourinary: Denies dysuria Musculoskeletal: Musculoskeletal: Denies myalgias Integumentary/Breasts: Skin/Breast: Denies rash Neurologic: Reports numbness, Reports Sensory deficit (Neuro) and Reports tingling (LUE) Psychiatric: Psychiatric: Reports no additional psychiatric complaints and Reports as per HPI Endocrine: Endocrine: Denies cold intolerance, Denies polyphagia, Denies polydipsia and Denies polyuria Hematologic/Lymphatic: Hematologic/Lymphatic: Reports no additional hematologic/lymphatic complaints and Reports as per HPI Allergic/Immunologic: Allergic/Immunologic: Reports no additional allergic/immunologic complaints and Reports as per HPI [facility] Past Medical History Medical History (Updated 01/22/24 @ 01:14 by Lili Bernard MD) Aortic stenosis s/p valve replacement 2020 Chronic hip pain after total replacement of right hip joint Crohn's ileocolitis Degenerative joint disease of left hip Effusion, left knee Fatty liver Former smoker GERD (gastroesophageal reflux disease) Normocytic anemia Obesity Osteoporosis Pain due to knee joint prosthesis Rheumatoid arthritis Right knee DJD Right knee pain Sleep apnea Wears glasses Surgical History Surgical History History of right hip replacement Family History Family History Father Cerebrovascular accident Sibling Cerebrovascular accident Accelerated phase chronic myeloid leukemia Father Acute myocardial infarction Social History Social History Social H
[2024-01-22 01:18] LABS: Appearance Urine Clear (Clear); Bacteria Urine None Seen /hpf; Bilirubin Urine Negative (Negative); Blood Urine Negative (Negative); Color Urine Yellow (Yellow); Glucose Urine UA Negative (Negative); Ketones Urine Negative (Negative); Leukocyte Esterase Ur 2+ LEU/UL (Negative); Nitrate Urine Negative (Negative); Non Pathogenic Casts 0-2; Protein Urine Negative (Negative); RBC Urine 0-2 /hpf (0-2); Squamous Epithelial Cell Urine None Seen /hpf (Few); Urobilinogen Urine 0.2 mg/dL (<2.0); pH Urine 7.5 (5.0-9.0)
[2024-01-22 01:24] LABS: Add Urine Microscopic? YES
[2024-01-22] MEDS: hydrALAZINE 10 MG TABLET PO (01:34)
[2024-01-22 01:39] LABS: Amphetamine Screen Urine Negative (Negative); Barbiturate Screen Urine Negative (Negative); Benzodiazepines Screen Urine Negative (Negative); Cannabinoid Screen Urine Negative (Negative); Cocaine Screen Urine Negative (Negative); Methadone Screen Urine Negative (Negative); Opiate Screen Urine Negative (Negative); Phencyclidine Screen Urine Negative (Negative)
--- NOTE | 2024-01-22 02:41 | PC.NURSE ---
Pt currently speaking with Dr. Razo regarding imaging. Pt to be taken to assigned room number after.
--- NOTE | 2024-01-22 03:02 | ADMGEN ---
This patient, Barbra Maynard, was admitted to Medical Room 252-01. Patient/family oriented to hospital policies and general routines including ID bracelet, bed and alarms, visiting hours, pain management, procedures, bathroom and other care routines, personal items, smoking policy, room service/diet, and visiting hours. Information on how to activate the Rapid Response Team has been discussed. Patient/Family are encouraged to report perceived risks to care and to ask questions if they do not understand what they are told or what they should do.
[2024-01-22] MEDS: WATER FOR IRRIGATION, STERILE 1,000 ML BOTTLE 1000 ML (04:41)
[2024-01-22] MEDS: FLUTICASONE/SALMETEROL 230-21 MCG INHALER 1 PUFF 2 PUFF INHALATION ×2 (07:00→22:20)
--- NOTE | 2024-01-22 07:21 | P.PNIM_ITS ---
Progress Note: A&P Assessment and Plan (1) Transient ischemic attack: Code(s): G45.9 - Transient cerebral ischemic attack, unspecified Status: Acute (2) Asthma: Qualifiers: Asthma complication type: unspecified Asthma persistence: unspecified Asthma severity: unspecified severity Qualified Code(s): J45.909 - Unspecified asthma, uncomplicated Code(s): J45.909 - Unspecified asthma, uncomplicated Status: Acute (3) GERD (gastroesophageal reflux disease): Code(s): K21.9 - Gastro-esophageal reflux disease without esophagitis Status: Acute (4) Rheumatoid arthritis: Code(s): M06.9 - Rheumatoid arthritis, unspecified Status: Acute (5) Aortic stenosis: Code(s): I35.0 - Nonrheumatic aortic (valve) stenosis Status: Acute (6) Crohn's ileocolitis: Code(s): K50.80 - Crohn's disease of both small and large intestine without complications Status: Acute Plan TIA * Neuro check q.4 hour for the 1st 24 hours. * environmental monitoring specialist and telemetry continuously. * Blood pressure management. -Keep the systolic blood pressure more than 200 or diastolic more than 110. Then lower blood pressure by 15% within the 1st 24 hours. * CTA negative * Echo with bubble study pending * Neuro consulted * PT/OT eval and treat. * Check for LDL and hemoglobin A1c. * Add statins 40 mg q.day, aspirin 81 mg g q.day/Plavix Acute sinusitis * CT head showing acute sinusitis * PCN allergy * Doxycycline b.i.d. PO HX Arthritis: Resumed home medications HX Crohn's: Stable HX GERD: Resumed PPI HX Asthma: Stable Code status: Full code per patient DVT prophylaxis: Lovenox Stress ulcer prophylaxis: Protonix 40 daily PT/OT notes: PT/OT evaluation pending Disposition: Patient was admitted to medical unit for possible TIA CTA negative any acute infarct, for allergy has been consulted for any further recommendations echocardiogram with bubble study pending as well PT/OT evaluation. Time Spent With Patient Time with patient: 15 - 25 minutes Subjective Date/time seen: 01/22/24 07:21 Interval history: Admission: Medical Record This is a 73 yo female with PMHx significant for HTN, obesity, , Crohn's colitis,DJD, GERD,RA, sleep apnea. patient presents to ED after having episode of speech disturbance, LUE weakness, numbness. Patient was found to have a SBP in the 200's. Patient preston been in her usual state of health prior to this.Preliminary work up is essentially non revealing. 01/21: assumed Care Patient feeling better today no deficits reported but still has mild headache. CTA head no acute intracranial process, echo pending and neurologist consulted. PT/OT for evaluation, labs unremarkable. Review of Systems Review of Systems: All systems reviewed & are unremarkable except as noted in HPI and below Exam Narrative: Physical Exam: * GENERAL: Alert and oriented x 3. No acute distress. * EYES: EOMI. No scleral icterus. PERRLA. * HEENT: Moist mucous membranes. * LUNGS: Clear to auscultation bilaterally. No accessory muscle use. * CARDIOVASCULAR: Regular rate and rhythm. No murmur. No JVD. S1-S2 * ABDOMEN: Soft, mild tenderness and non-distended. No palpable masses. * EXTREMITIES: No edema. Non-tender * SKIN: No rashes or lesions. Skin warm, dry. * NEUROLOGIC: No focal neurological deficits. CN II-XII grossly intact * PSYCHIATRIC: Appropriate mood a
--- NOTE | 2024-01-22 07:21 | PM.IMPN ---
Progress Note: A&P Assessment and Plan (1) Transient ischemic attack: Code(s): G45.9 - Transient cerebral ischemic attack, unspecified Status: Acute (2) Asthma: Qualifiers: Asthma complication type: unspecified Asthma persistence: unspecified Asthma severity: unspecified severity Qualified Code(s): J45.909 - Unspecified asthma, uncomplicated Code(s): J45.909 - Unspecified asthma, uncomplicated Status: Acute (3) GERD (gastroesophageal reflux disease): Code(s): K21.9 - Gastro-esophageal reflux disease without esophagitis Status: Acute (4) Rheumatoid arthritis: Code(s): M06.9 - Rheumatoid arthritis, unspecified Status: Acute (5) Aortic stenosis: Code(s): I35.0 - Nonrheumatic aortic (valve) stenosis Status: Acute (6) Crohn's ileocolitis: Code(s): K50.80 - Crohn's disease of both small and large intestine without complications Status: Acute Plan TIA Neuro check q.4 hour for the 1st 24 hours. phototypesetting equipment monitor and telemetry continuously. Blood pressure management. -Keep the systolic blood pressure more than 200 or diastolic more than 110. Then lower blood pressure by 15% within the 1st 24 hours. CTA negative Echo with bubble study pending Neuro consulted PT/OT eval and treat. Check for LDL and hemoglobin A1c. Add statins 40 mg q.day, aspirin 81 mg g q.day/Plavix Acute sinusitis CT head showing acute sinusitis PCN allergy Doxycycline b.i.d. PO HX Arthritis: Resumed home medications HX Crohn's: Stable HX GERD: Resumed PPI HX Asthma: Stable Code status: Full code per patient DVT prophylaxis: Lovenox Stress ulcer prophylaxis: Protonix 40 daily PT/OT notes: PT/OT evaluation pending Disposition: Patient was admitted to medical unit for possible TIA CTA negative any acute infarct, for allergy has been consulted for any further recommendations echocardiogram with bubble study pending as well PT/OT evaluation. Time Spent With Patient Time with patient: 15 - 25 minutes Subjective Date/time seen: 01/22/24 07:21 Interval history: Admission: Medical Record This is a 73 yo female with PMHx significant for HTN, obesity, , Crohn's colitis,DJD, GERD,RA, sleep apnea. patient presents to ED after having episode of speech disturbance, LUE weakness, numbness. Patient was found to have a SBP in the 200's. Patient preston been in her usual state of health prior to this.Preliminary work up is essentially non revealing. 01/21: assumed Care Patient feeling better today no deficits reported but still has mild headache. CTA head no acute intracranial process, echo pending and neurologist consulted. PT/OT for evaluation, labs unremarkable. Review of Systems Review of Systems: All systems reviewed & are unremarkable except as noted in HPI and below Exam Narrative: Physical Exam: GENERAL: Alert and oriented x 3. No acute distress. EYES: EOMI. No scleral icterus. PERRLA. HEENT: Moist mucous membranes. LUNGS: Clear to auscultation bilaterally. No accessory muscle use. CARDIOVASCULAR: Regular rate and rhythm. No murmur. No JVD. S1-S2 ABDOMEN: Soft, mild tenderness and non-distended. No palpable masses. EXTREMITIES: No edema. Non-tender SKIN: No rashes or lesions. Skin warm, dry. NEUROLOGIC: No focal neurological deficits. CN II-XII grossly intact PSYCHIATRIC: Appropriate mood and affect. Good judgement and insight. No visual or auditory hallucinations. No suicidal or homicidal ideation. Objective Data Vital Signs Vital Signs: Vital Signs - 24 hr 01/22/24 00:08 01/21/24 23:38 01/22/24 00:17 Temperature 97.6 F 97.9 F Pulse Rate 82 81 80 Respiratory Rate 20 17 16 Blood Pressure 208/87 H 208/87 H 206/85 H Pulse Oximetry 99 99 100 Oxygen Delivery Room Air 01/22/24 01:42 01/22/24 00:08 01/22/24 02:32 Temperature Pulse Rate 70 70 76 Respiratory Rate 12
[2024-01-22 07:41] LABS: Hematocrit 38.9 % (37.0-47.0); Hemoglobin 13.2 g/dL (12.0-15.0); Mean Corpuscular HGB Conc 33.9 g/dl (32-36); Mean Corpuscular Hemoglobin 31.4 pg (26-34); Mean Corpuscular Volume 92.6 fl (80-100); Mean Platelet Volume 9.2 fl (7.4-10.4); Platelet Count Result 210 k/mm3 (150-375); Red Cell Distribution Width 12.9 % (11.5-14.5); White Blood Count 6.3 K/mm3 (4.5-10.0)
[2024-01-22 07:55] LABS: Alanine Aminotransferase 17 U/L (6-35); Albumin Level 4.1 g/dL (3.5-5.1); Alkaline Phosphatase 84 U/L (38-126); Anion Gap 5 mmol/L (4-12); Aspartate Amino Transferase 27 U/L (14-36); Bilirubin,Total 0.7 mg/dL (0.2-1.3); Blood Urea Nitrogen 10 mg/dL (7-17); Calcium 9.2 mg/dL (8.4-10.2); Carbon Dioxide 29 mmol/L (22-30); Chloride 100 mmol/L (98-107); Cholesterol 135 mg/dL (0-200); Estimated CRCL calculation 77 ml/min; Estimated Glomerular Filt Rate > 60; Glucose 118 mg/dL (65-110); HDL Direct 65 mg/dL; Potassium 4.6 mmol/L (3.4-5.0); Sodium 134 mmol/L (137-145); Triglycerides 89 mg/dL (<150)
[2024-01-22 08:04] LABS: LDL Cholesterol Direct 56 mg/dL
[2024-01-22] MEDS: METOPROLOL TARTRATE 25 MG TABLET PO ×2 (08:29→20:04)
[2024-01-22] MEDS: SACCHAROMYCES BOULARDII 250 MG CAPSULE PO ×3 (08:29→16:09)
[2024-01-22] MEDS: ASPIRIN 81 MG CHEWABLE TABLET PO (08:29)
[2024-01-22] MEDS: CHOLECALCIFEROL 1,000 UNITS TABLET 5000 UNITS PO (08:29)
[2024-01-22] MEDS: OMEGA 3 POLYUNSAT FATTY ACIDS 1 GM CAP PO (08:29)
[2024-01-22] MEDS: FERROUS SULFATE 325 MG TABLET DR PO (08:29)
[2024-01-22] MEDS: MELOXICAM 7.5 MG TABLET 15 MG PO (08:29)
[2024-01-22] MEDS: MAGNESIUM OXIDE 200 MG TABLET PO (08:30)
[2024-01-22] MEDS: HYDROXYCHLOROQUINE SULFATE 200 MG TABLET PO ×2 (08:30→16:09)
[2024-01-22] MEDS: hydroCHLOROthiazide 12.5 MG CAPSULE PO (08:30)
[2024-01-22] MEDS: PANTOPRAZOLE 40 MG TABLET PO (08:30)
[2024-01-22] MEDS: ATORVASTATIN 10 MG TABLET PO (08:30)
[2024-01-22] MEDS: CALCIUM CARBONATE (OSCAL) 500 MG TABLET 1000 MG PO ×2 (08:30→16:09)
[2024-01-22] MEDS: ENOXAPARIN 40 MG/0.4 ML SYRINGE SUB-Q (08:33)
[2024-01-22] MEDS: azaTHIOprine 50 MG TABLET PO ×3 (08:33→16:10)
[2024-01-22 08:36] LABS: Hemoglobin A1C 5.3 % (<5.7)
[2024-01-22] MEDS: DOXYCYCLINE HYCLATE 100 MG TABLET PO ×2 (11:55→20:04)
--- NOTE | 2024-01-22 12:21 | WPDNEURCNPN ---
Consult date: 01/22/24 HPI: Barbra Maynard is a 73 year old female admitted to the hospital through the emergency room with complaints of difficulties in speech along with the left upper extremity weakness starting in the evening around 7:30 p.m. along with the throbbing headaches and word finding difficulties in addition to the left-sided paresthesias weakness and word-finding difficulties since improved, had no falls, has been taking multiple medications including aspirin 81mg daily atorvastatin 10mg daily with additional history of aortic stenosis aortic stenosis with valve replacement in 2020, being a former smoker, sleep apnea and multiple other problems in reference to joints, history of years smoked 30 with smoking pack years of 30 but at present former smoker and never alcohol intake or on initial exam in the emergency room exam was fairly normal with NIH stroke score of 1 possibility of TIA, normal vital signs with blood pressure of 208/87 repeat 183/83 normal CBC and normal routine lab with negative drug screening EKG normal without any atrial fibrillation initial CT scan of the head negative for the bleed or hydrocephalus, head neck CTA with focal moderate stenosis of the distal right vertebral artery with calcified plaque and 10% stenosis of the proximal right internal carotid artery chest x-ray not significant. Review of Systems Review of Systems: All systems reviewed & are unremarkable except as noted in HPI and below PMFSH Past Medical History Medical History Aortic stenosis s/p valve replacement 2020 Chronic hip pain after total replacement of right hip joint Crohn's ileocolitis Degenerative joint disease of left hip Effusion, left knee Fatty liver Former smoker GERD (gastroesophageal reflux disease) Normocytic anemia Obesity Osteoporosis Pain due to knee joint prosthesis Rheumatoid arthritis Right knee DJD Right knee pain Sleep apnea Wears glasses Surgical History Surgical History History of right hip replacement Family History Family History Father Cerebrovascular accident Sibling Cerebrovascular accident Accelerated phase chronic myeloid leukemia Father Acute myocardial infarction Social History Social History Social History: 30 pack years Smoking packs per day: 1 Smoking cigarettes per day: 20.0 Years smoked: 30 Smoking pack-years: 30.00 Smoking status: Former smoker Tobacco type: cigarettes Smoking end date: 08/12/13 Alcohol intake: never Substance use: never Substance use type: does not use Do You Feel Safe in your Home?: Yes Lack of Transportation: No Lack of Food: Never True Current Housing: I Have Housing Concerned About Future Housing: No Difficulty Paying Gas/Electric Bills: No Difficulty Paying for Meds: No Currently Unemployed: No Education: Associate Degree Difficulty w/ Childcare or Family Care: No Living arrangements: alone Spiritual care concerns: No Meds Home Medications and Allergies Home Medications Medication Instructions Recorded Confirmed Type aspirin 81 mg chewable tablet 81 mg PO DAILY 08/03/19 01/22/24 History hydroxychloroquine 200 mg tablet 200 mg PO BID 08/03/19 01/22/24 History infliximab 100 mg intravenous 100 mg IV USEASDIRECTD 08/03/19 01/22/24 History solution (Remicade) pantoprazole 40 mg tablet,delayed 40 mg PO QAM 08/03/19 01/22/24 History release (Protonix) lactobacillus combination no.8 3 3,000 mmu cells PO DAILY 03/10/20 01/22/24 History billion cell capsule (Adult Probiotic) calcium carbonate 1,000 mg tablet 1,000 mg PO BID 01/03/21 01/22/24 History diclofenac sodium 1 % topical gel 4 g topical PRN PRN Pain 01/03/21 01/22/24 History (Voltaren Arthritis Pain) atorvast
[2024-01-22] MEDS: KETOROLAC 30 MG/ML VIAL (*BKC) IV PUSH (16:03)
[2024-01-22] MEDS: hydrALAZINE HCL 20 MG/ML VIAL IV PUSH (16:03)
[2024-01-22] MEDS: sulfaSALAzine 500 MG TABLET PO (20:05)
[2024-01-22] MEDS: oxyCODONE/ACETAMINOPHEN (*CRX) 5-325 MG TABLET 1 TABLET BY MOUTH (20:07)
[2024-01-23] VITALS (10 sets, daily range): BP systolic 151–180; BP diastolic 62–80; PULSE 64–102; RESP 16–20; TEMP 36.2–36.7; O2SAT 95–100
[2024-01-23 05:22] LABS: Hematocrit 35.7 % (37.0-47.0); Mean Corpuscular HGB Conc 33.6 g/dl (32-36); Mean Corpuscular Hemoglobin 31.2 pg (26-34); Mean Corpuscular Volume 92.7 fl (80-100); Mean Platelet Volume 9.3 fl (7.4-10.4); Platelet Count Result 184 k/mm3 (150-375); Red Blood Count 3.85 M/mm3 (4.2-5.4); White Blood Count 5.3 K/mm3 (4.5-10.0)
[2024-01-23 05:37] LABS: Alanine Aminotransferase 15 U/L (6-35); Albumin Level 3.6 g/dL (3.5-5.1); Alkaline Phosphatase 64 U/L (38-126); Anion Gap 4 mmol/L (4-12); Aspartate Amino Transferase 25 U/L (14-36); Bilirubin,Total 0.9 mg/dL (0.2-1.3); Blood Urea Nitrogen 10 mg/dL (7-17); Calcium 9.8 mg/dL (8.4-10.2); Carbon Dioxide 28 mmol/L (22-30); Chloride 99 mmol/L (98-107); Estimated CRCL calculation 77 ml/min; Estimated Glomerular Filt Rate > 60; Glucose 109 mg/dL (65-110); Potassium 3.9 mmol/L (3.4-5.0); Sodium 131 mmol/L (137-145)
[2024-01-23] MEDS: FLUTICASONE/SALMETEROL 230-21 MCG INHALER 1 PUFF 2 PUFF INHALATION (07:44)
[2024-01-23] MEDS: sulfaSALAzine 500 MG TABLET PO ×3 (09:19→17:14)
[2024-01-23] MEDS: ENOXAPARIN 40 MG/0.4 ML SYRINGE SUB-Q (09:20)
[2024-01-23] MEDS: ASPIRIN 81 MG CHEWABLE TABLET PO (09:20)
[2024-01-23] MEDS: ATORVASTATIN 40 MG TABLET PO (09:20)
[2024-01-23] MEDS: azaTHIOprine 50 MG TABLET PO ×3 (09:20→17:13)
[2024-01-23] MEDS: CHOLECALCIFEROL 1,000 UNITS TABLET 5000 UNITS PO (09:20)
[2024-01-23] MEDS: DOXYCYCLINE HYCLATE 100 MG TABLET PO (09:20)
[2024-01-23] MEDS: HYDROXYCHLOROQUINE SULFATE 200 MG TABLET PO ×2 (09:22→17:14)
[2024-01-23] MEDS: MELOXICAM 7.5 MG TABLET 15 MG PO (09:22)
[2024-01-23] MEDS: METOPROLOL TARTRATE 25 MG TABLET PO (09:22)
[2024-01-23] MEDS: PANTOPRAZOLE 40 MG TABLET PO (09:23)
[2024-01-23] MEDS: OMEGA 3 POLYUNSAT FATTY ACIDS 1 GM CAP PO (09:23)
[2024-01-23] MEDS: SACCHAROMYCES BOULARDII 250 MG CAPSULE PO ×3 (09:23→17:14)
[2024-01-23] MEDS: hydroCHLOROthiazide 12.5 MG CAPSULE PO (09:24)
[2024-01-23] MEDS: NIFEdipine 30 MG TAB.ER.24 PO (12:58)
[2024-01-23] MEDS: CALCIUM CARBONATE (OSCAL) 500 MG TABLET 1000 MG PO ×2 (12:59→17:14)
[2024-01-23] MEDS: MAGNESIUM OXIDE 200 MG TABLET PO (13:00)
[2024-01-23] MEDS: FERROUS SULFATE 325 MG TABLET DR PO (13:00)
--- NOTE | 2024-01-23 13:33 | WPDNEUROPN ---
Progress Note: A&P Assessment and Plan (1) Transient ischemic attack: Code(s): G45.9 - Transient cerebral ischemic attack, unspecified Status: Acute (2) H/O aortic valve repair: Code(s): Z98.890 - Other specified postprocedural states; Z86.79 - Personal history of other diseases of the circulatory system Status: Acute (3) Rheumatoid arthritis: Code(s): M06.9 - Rheumatoid arthritis, unspecified Status: Acute (4) Crohn's ileocolitis: Code(s): K50.80 - Crohn's disease of both small and large intestine without complications Status: Acute Plan CT scan of brain and CT angiogram of the head and neck were performed and these did not show any abnormality. MRI of the brain has been ordered and hopefully will get done today and I shall result follow the results. In the meanwhile she is on aspirin and was given a loading dose of Plavix 300 mg a day and in addition she is also on atorvastatin. The last recent a lipid profile shows a cholesterol and LDL were within desirable range. She does not appear to have any focal deficit. She is concerned about peripheral neuropathy and if she wishes this can be addressed as an outpatient. Subjective Date/time seen: 01/23/24 13:33 Interval history: Patient was admitted to the hospital with the complaints of numbness or weakness in the left arm. Symptoms lasted for approximately 1 hour. She uses CPAP and she was having difficulty using the left arm but prior to that she already noted that there was some weakness in the left arm. The brought her to the hospital and a her symptoms lasted for approximately 1 hour. She also had headache and was found to have high blood pressure. She does not since he had any difficulty speech or any weakness or numbness in her legs however she has ongoing problem with the both lower limbs due to peripheral neuropathy. She also has history of rheumatoid arthritis. There is also history of a aortic valve surgery in 2020. She is not on any chronic anticoagulation since this was a non metallic valve. Review of Systems Review of Systems: History of peripheral neuropathy, rheumatoid arthritis and Crohn's disease and obstructive sleep apnea syndrome but stable Exam Narrative: Fully conscious alert oriented to self time place and person. No evidence of external injuries to head or neck there appears to be a bruit over carotid arteries and subclavian but this could be radiated from the aortic area. Cranial nerves on individual testing were intact. Pupils were equal and reacting to light. There is no facial asymmetry. Tongue was midline. Motor system examination shows normal power in both upper and lower limbs. Deep tendon reflexes are 1 to 2/4 without any asymmetry however ankle was absent. There is a distal sensory loss to temperature and vibration the lower limbs. No cogwheeling or involuntary movements are seen. Coordination finger-nose appears normal. Objective Data Vital Signs Vital Signs: Vital Signs - 24 hr 01/22/24 14:00 01/22/24 15:56 01/22/24 16:00 Temperature 36.4 C 36.4 C Pulse Rate 74 74 Respiratory Rate 18 18 Blood Pressure 181/71 H 170/64 H Pulse Oximetry 99 99 Oxygen Delivery Room Air Fraction of Inspired Oxygen 01/22/24 16:00 01/22/24 20:00 01/22/24 20:00 Temperature 36.6 C Pulse Rate 74 74 72 Respiratory Rate 18 20 Blood Pressure 130/57 L Pulse Oximetry 99 98 Oxygen Delivery Room Air Fraction of Inspired Oxygen 01/22/24 22:00 01/22/24 20:00 01/23/24 02:06 Temperature 36.6 C Pulse Rate 72 93 76 Respiratory Rate 20 Blood Pressure 130/57 L Pulse Oximetry 98 Oxygen Delivery Fraction of Inspired Oxygen 01/23/24 00:45 01/23/24 00:00 01/23/24 04:00 Temperature 36.6 C Pulse Rate 68 66 76 Respiratory Rate 20 Blood Pressure 158/62 H Pulse Oximetry 98 Oxygen Delivery Fraction of Inspired Oxygen 01/23/24 06:00 01/23/24
--- NOTE | 2024-01-23 15:21 | PM.DS ---
DS: Admitting Diagnosis Discharge Date 01/23/2024 Admitting Diagnosis TIA DS: Discharge Diagnosis Discharge Diagnosis (1) Transient ischemic attack: Code(s): G45.9 - Transient cerebral ischemic attack, unspecified Status: Acute (2) Asthma: Qualifiers: Asthma complication type: unspecified Asthma persistence: unspecified Asthma severity: unspecified severity Qualified Code(s): J45.909 - Unspecified asthma, uncomplicated Code(s): J45.909 - Unspecified asthma, uncomplicated Status: Acute (3) GERD (gastroesophageal reflux disease): Code(s): K21.9 - Gastro-esophageal reflux disease without esophagitis Status: Acute (4) Rheumatoid arthritis: Code(s): M06.9 - Rheumatoid arthritis, unspecified Status: Acute (5) Aortic stenosis: Code(s): I35.0 - Nonrheumatic aortic (valve) stenosis Status: Acute (6) Crohn's ileocolitis: Code(s): K50.80 - Crohn's disease of both small and large intestine without complications Status: Acute (7) Hypertension: Qualifiers: Hypertension type: primary hypertension Qualified Code(s): I10 - Essential (primary) hypertension Code(s): I10 - Essential (primary) hypertension Status: Acute Plan TIA Neuro check q.4 hour for the 1st 24 hours. cafeteria monitor and telemetry continuously. Blood pressure management. -Keep the systolic blood pressure more than 200 or diastolic more than 110. Then lower blood pressure by 15% within the 1st 24 hours. CTA negative Echo with bubble study pending Neuro consulted PT/OT eval and treat. Check for LDL and hemoglobin A1c. Add statins 40 mg q.day, aspirin 81 mg g q.day/Plavix Acute sinusitis CT head showing acute sinusitis PCN allergy Doxycycline b.i.d. PO HX Arthritis: Resumed home medications HX Crohn's: Stable HX GERD: Resumed PPI HX Asthma: Stable Code status: Full code per patient DVT prophylaxis: Lovenox Stress ulcer prophylaxis: Protonix 40 daily PT/OT notes: PT/OT evaluation pending Disposition: Patient was admitted to medical unit for possible TIA CTA negative any acute infarct, for allergy has been consulted for any further recommendations echocardiogram with bubble study pending as well PT/OT evaluation. DS: Summary Hospital Course Hospital Course: Admission: Medical Record This is a 73 yo female with PMHx significant for HTN, obesity, , Crohn's colitis,DJD, GERD,RA, sleep apnea. patient presents to ED after having episode of speech disturbance, LUE weakness, numbness. Patient was found to have a SBP in the 200's. Patient preston been in her usual state of health prior to this.Preliminary work up is essentially non revealing. 01/21: assumed Care Patient feeling better today no deficits reported but still has mild headache. CTA head no acute intracranial process, echo pending and neurologist consulted. PT/OT for evaluation, labs unremarkable. 01/22: Patient with no deficits to report cleared by PT/OT, BP improved with increase of BB and addition of Procardia. Echo with no significant findings, MRI with no acute findings. Patient was discharged to home will have follow-up with PCP and her incident response analyst outpatient. Status at Discharge Functional status at discharge: independent ambulation Overall status at discharge: patient is back to baseline Time Spent with Patient Time attestation: Total time spent providing and/or coordinating discharge services: Time spent: Less than 30 minutes Exam Narrative: Physical Exam: GENERAL: Alert and oriented x 3. No acute distress. EYES: EOMI. No scleral icterus. PERRLA. HEENT: Moist mucous membranes. LUNGS: Clear to auscultation bilaterally. No accessory muscle use. CARDIOVASCULAR: Regular rate and rhythm. No murmur. No JVD. S1-S2 ABDOMEN: Soft, mild tenderness and non-distended. No palpable masses. EXTREMITIES: No edema.
== END 2024-01-23 17:50 | disposition home or self-care (01) ==
LOC: ANHED 01-22 01:18 → ANH2MED 01-22 02:37
PROVIDERS: Nurse Practitioner Family; Admitting Provider Internal Medicine; Emergency Provider Preventive Medicine Aerospace Medicine; Visit Provider Internal Medicine
DX: G45.9 Transient cerebral ischemic attack, unspecified (principal); I10 Essential (primary) hypertension; J01.90 Acute sinusitis, unspecified; K50.80 Crohn's disease of both small and large intestine without complications; M06.9 Rheumatoid arthritis, unspecified; J45.909 Unspecified asthma, uncomplicated; K76.0 Fatty (change of) liver, not elsewhere classified; K21.9 Gastro-esophageal reflux disease without esophagitis; G47.30 Sleep apnea, unspecified; Z95.4 Presence of other heart-valve replacement; D64.9 Anemia, unspecified; M81.0 Age-related osteoporosis without current pathological fracture; E66.01 Morbid (severe) obesity due to excess calories; Z68.41 Body mass index [BMI] 40.0-44.9, adult; Z87.891 Personal history of nicotine dependence; Z79.82 Long term (current) use of aspirin; Z79.620 Long term (current) use of immunosuppressive biologic; Z79.891 Long term (current) use of opiate analgesic; Z79.51 Long term (current) use of inhaled steroids
CPT/HCPCS: 36415; 70450; 70496; 70498; 70551; 71045; 80053; 80061; 80307; 81001; 82948; 83036; 84443; 84484; 85025; 85027; 85610; 85730; 87086; 87088; 93005; 93306; 94640; 96361; 96372; 96374; 96375; 97161; 97165; 99285; A9270; G0378; J0360; J1650; J1885; J2405; J7030; Q9967

== ENCOUNTER 2024-01-29 09:23 | Outpatient (CLI) | payer MEDICARE, OTHER, SELFPAY ==
[2024-01-29 10:13] LABS: Basophils Absolute Auto 0.1 K/mm3 (0.0-0.1); Basophils Percent Auto 1.1 % (0.2-1.2); Eosinophils Absolute Auto 0.2 K/mm3 (0-0.3); Eosinophils Percent Auto 2.5 % (0-4.4); Hematocrit 39.7 % (37.0-47.0); Hemoglobin 13.4 g/dL (12.0-15.0); Immature Granulocyte Absolute 0.01 K/mm3 (0.00-0.031); Immature Granulocyte Percent A 0.2 % (0-0.5); Lymphocytes Absolute Auto 1.25 K/mm3 (0.9-3.2); Lymphocytes Percent Auto 19.3 % (18.3-44.2); Mean Corpuscular HGB Conc 33.8 g/dl (32-36); Mean Corpuscular Hemoglobin 31.4 pg (26-34); Mean Platelet Volume 9.5 fl (7.4-10.4); Monocytes Absolute Auto 0.5 K/mm3 (0.1-0.6); Monocytes Percent Auto 8.2 % (2.6-8.5); Neutrophils Absolute Auto 4.5 K/mm3 (1.3-6.7); Neutrophils Percent Auto 68.7 % (45.5-73.1); Platelet Count Result 207 k/mm3 (150-375); Red Blood Count 4.27 M/mm3 (4.2-5.4); White Blood Count 6.5 K/mm3 (4.5-10.0)
[2024-01-29 10:22] LABS: Alanine Aminotransferase 19 U/L (6-35); Albumin Level 4.5 g/dL (3.5-5.1); Alkaline Phosphatase 81 U/L (38-126); Anion Gap 8 mmol/L (4-12); Aspartate Amino Transferase 29 U/L (14-36); Blood Urea Nitrogen 12 mg/dL (7-17); Calcium 9.8 mg/dL (8.4-10.2); Carbon Dioxide 29 mmol/L (22-30); Chloride 97 mmol/L (98-107); Estimated Glomerular Filt Rate > 60; Glucose 115 mg/dL (65-110); Potassium 4.8 mmol/L (3.4-5.0); Sodium 134 mmol/L (137-145)
[2024-01-29 10:29] LABS: Hemoglobin A1C 5.2 % (<5.7)
[2024-01-29 11:28] LABS: Folic Acid 15.9 ng/mL (2.76->20)
[2024-02-06 19:08] LABS: Thyroid Stimulating Immunoglob <89 % baseline (<140)
== END 2024-01-29 09:24 | disposition home or self-care (01) ==
LOC: ANHLAB 09:38
PROVIDERS: Visit Provider Physical Medicine & Rehabilitation Pain Medicine
DX: G62.9 Polyneuropathy, unspecified (principal); E03.9 Hypothyroidism, unspecified; R73.03 Prediabetes
CPT/HCPCS: 36415; 80053; 82607; 82746; 83036; 84445; 85025

== ENCOUNTER 2024-02-26 14:11 | Outpatient (CLI) | payer MEDICARE, OTHER, SELFPAY ==
--- NOTE | ~2024-02-26 | XR_ITS ---
XR knee RT min 4V 02/26/2024 14:29 Indication: Right knee pain Procedure: 4 views right knee Comparison: 11/21/2023 Findings: There is moderate tricompartment osteoarthritis of the right knee. Osteopenia. No significa nt joint effusion. No foreign bodies. No fracture or traumatic malalignment. Impression: 1: Moderate tricompartment osteoarthritis of the right knee. Reviewed, dictated and finalized at location B. Impression: 1: Moderate tricompartment osteoarthritis of the right knee.
== END 2024-02-26 14:12 ==
PROVIDERS: PCP Physical Medicine & Rehabilitation Pain Medicine; Visit Provider Physical Medicine & Rehabilitation Pain Medicine
DX: M17.11 Unilateral primary osteoarthritis, right knee (principal)
CPT/HCPCS: 73564

== ENCOUNTER 2024-03-24 12:22 | Emergency (ER) | payer MEDICARE, OTHER, SELFPAY ==
--- NOTE | ~2024-03-24 | CT_ITS ---
CT cervical spine wo con Ordering provider: Patrice Minaya MD History: . fall . Comparison: None. Technique: CT of the cervical spine was performed without contrast. Sagittal and coronal reformatted images were also obtained and reviewed. Automated exposure control and iterative reconstruction akua hnique were employed. The dose-length product was 681.00 mGy-cm. FINDINGS: VERTEBRAE: No subluxation or acute fracture. The occipital condyles are intact. Sclerotic areas seen in the right and left occipital condyles. DISC SPACES: Narrowing of the disc C5-C6 and C6-C7. Multilevel facet joint disease. Uncovertebral kathy nt osteoarthritic changes at the levels of C5-C6 and C6-C7. Narrowing of the left intervertebral fora men at the level of C3-C4, C4-C5. Bilateral narrowing at the levels of C5-C6 and C6-C7 with highly win ggestive nerve root compression. Mild spinal canal stenosis at the level of C5-C6 and C6-7. PARASPINOUS SOFT TISSUES: Bilateral carotid calcification. IMPRESSION: No acute osseous abnormality cervical spine. Multilevel degenerative disc disease with variable degrees of spinal canal stenosis, intervertebral f oraminal narrowing and nerve root compression. Sclerotic areas in the occipital condyles most likely benign. Follow-up advised. Reviewed, dictated and finalized at location A. IMPRESSION: No acute osseous abnormality cervical spine. Multilevel degenerative disc disease with variable degrees of spinal canal sten osis, intervertebral foraminal narrowing and nerve root compression. Sclerotic areas in the occipital condyles most likely benign. Follow-up advised .
--- NOTE | ~2024-03-24 | CT_ITS ---
EXAMINATION: CT brain wo con DATE: 03/24/2024 15:57 INDICATION: Fall with head injury TECHNIQUE: Computed tomography (CT) of the head was performed without intravenous contrast. Sagittal and coronal reconstructions were performed. The mA was adjusted according to patient size. Iterative reconstruction technique was employed. The dose-length product was 681.00 mGy-cm. COMPARISON: head CT dated 01/21/2024 FINDINGS: No fracture. No acute intracranial hemorrhage, acute infarction or abnormal extra axial fluid collect ion. There is mild scattered white matter hypoattenuation consistent with chronic small vessel ischem ic disease. Symmetric prominence of the sulci consistent with mild to moderate age-appropriate diffus e cerebral volume loss. Ventricles are normal and symmetric. No mass/mass effect. Changes of bilatera l intraocular lens replacement. The orbits, paranasal sinuses and mastoid air cells are normal. IMPRESSION: 1. No fracture or acute intracranial process. 2. Age-related changes including mild to moderate diffuse volume loss and mild scattered white matter hypoattenuation consistent with chronic small vessel ischemic disease. Reviewed, dictated and finalized at location A. IMPRESSION: 1. No fracture or acute intracranial process. 2. Age-related changes including mild to moderate diffuse volume loss and mild scattered white matter hypoattenuation consistent with chronic small vessel isc hemic disease.
--- NOTE | ~2024-03-24 | XR_ITS ---
EXAMINATION: XR ribs LT 2V w CXR 2V DATE: 03/24/2024 17:06 INDICATION: Fall TECHNIQUE: PA and lateral views of the chest and 3 views of the left ribs were obtained. COMPARISON: Chest radiograph dated 01/22/2024 FINDINGS: Displaced fractures of the posterolateral left third and fourth ribs. Nondisplaced fractures at the a nterior third-sixth ribs. Chronic eventration along the posterior right hemidiaphragm. No focal airsp jane opacities, pulmonary edema, pleural effusion or pneumothorax. Heart size is normal. Median sterno pilo wires and aortic valve repair. Moderate-sized hiatal hernia. Multi component mild thoracic and l umbar scoliosis with moderate thoracic and severe lumbar spondylosis. IMPRESSION: 1. A few left-sided rib fractures as detailed above without pneumothorax or other acute cardiopulmona ry disease. Reviewed, dictated and finalized at location A. IMPRESSION: 1. A few left-sided rib fractures as detailed above without pneumothorax or oth er acute cardiopulmonary disease.
--- NOTE | ~2024-03-24 | XR_ITS ---
XR shoulder LT min 2V Ordering provider: Patrice Minaya MD History: . pain on LT side after fall x2 days ago . Comparison: None. FINDINGS: BONES: No acute fracture or dislocation. JOINT SPACES: The acromioclavicular joint is normal. The glenohumeral joint is normal. SOFT TISSUES: Normal. IMPRESSION: No acute osseous abnormality left shoulder. Reviewed, dictated and finalized at location A.
--- NOTE | ~2024-03-24 | XR_ITS ---
EXAM: XR hand RT min 3V DATE: 03/24/2024 17:06 HISTORY: FALL . COMPARISON: None available. FINDINGS: Decreased mineralization. No fracture or dislocation. No lytic or blastic lesion. Polyarti cular osteoarthritis, severe at the second PIP joint, first CMC joint, and radiocarpal joint. Ulnar p ositive variance. Chronic changes of SLAC wrist. No erosion or periosteal change. Soft tissue swellin g over the right second PIP joint. IMPRESSION: No acute osseous finding in the right hand. Reviewed, dictated and finalized at location K.
--- NOTE | ~2024-03-24 | XR_ITS ---
XR hip LT 2V w AP pelvis Ordering provider: Patrice Minaya MD History: . pain on LT side after fall x2 days ago . Comparison: November 21, 2023 FINDINGS: BONES: No acute fracture or dislocation. HIP JOINT SPACES: Narrowing of the joint space in the left suggestive of moderate to severe osteoarth ritic changes. Right hip total arthroplasty. SACROILIAC JOINT SPACES/LUMBAR SPINE: The sacroiliac joint spaces are normal. Mild degenerative goetz es of the visualized lower lumbar spine. PUBIC SYMPHYSIS: Mild pubic symphysitis. SOFT TISSUES: Normal. IMPRESSION: No acute osseous abnormality pelvis and left hip. Reviewed, dictated and finalized at location A.
[2024-03-24 12:29] VITALS: BP 156/86; PULSE 75; RESP 18; TEMP 36.8; O2SAT 97
--- NOTE | 2024-03-24 13:36 | PC.NURSE ---
Pt states fell down 8 steps 3 days ago, since then c/o pain to head, left shoulder & left hip. Generalize soreness. CMS intact. Ecchymosis to bilateral arms, right with gauze dressing, pt reports large skin tear that was treated at [facility] today.
--- NOTE | 2024-03-24 15:15 | PC.NURSE ---
Continue to for ED MD to see pt.
--- NOTE | 2024-03-24 15:41 | ED.FALL ---
HPI - Fall General Chief Complaint: Fall Stated Complaint: fall down stairs, HI, hand pain, left flank pain Time Seen by Provider: 03/24/24 15:40 Source: patient Mode of arrival: ambulatory Limitations: no limitations History of Present Illness HPI Narrative: PATIENT DROVE HERSELF FROM HOME COMPLAINING OF A FALL 3 DAYS AGO. PATIENT WAS DOING SOMETHING, TURN, LOST BALANCE AND FELL DOWN 8 CARPETED STEPS, NO LOSS OF CONSCIOUSNESS, COMPLAINING OF LEFT-SIDED NECK PAIN, LEFT SHOULDER PAIN, LEFT RIB PAIN AND RIGHT HAND ABRASION. SHE DENIES LOSS OF CONSCIOUSNESS MD complaint: fall Related Data Home Medications Medication Instructions Recorded Confirmed aspirin 81 mg chewable tablet 81 mg PO DAILY 08/03/19 03/20/24 hydroxychloroquine 200 mg tablet 200 mg PO BID 08/03/19 03/20/24 infliximab 100 mg intravenous 100 mg IV USEASDIRECTD 08/03/19 03/20/24 solution (Remicade) pantoprazole 40 mg tablet,delayed 40 mg PO QAM 08/03/19 03/20/24 release (Protonix) lactobacillus combination no.8 3 3,000 mmu cells PO DAILY 03/10/20 03/20/24 billion cell capsule (Adult Probiotic) calcium carbonate 1,000 mg tablet 1,000 mg PO BID 01/03/21 03/20/24 diclofenac sodium 1 % topical gel 4 g topical PRN PRN Pain 01/03/21 03/20/24 (Voltaren Arthritis Pain) cholecalciferol (vitamin D3) 50 125 mcg PO DAILY 06/14/22 03/20/24 mcg (2,000 unit) tablet magnesium 500 mg tablet 250 mg PO DAILY 06/14/22 03/20/24 omega-3 fatty acids 1 cap PO DAILY 06/14/22 03/20/24 sulfasalazine 500 mg 0.5 g PO BID 11/21/22 03/20/24 tablet,delayed release hydrochlorothiazide 12.5 mg capsule 12.5 mg PO DAILY 05/20/23 03/20/24 oxycodone-acetaminophen 5 mg-325 1 tablet TID PRN Pain 06/12/23 03/20/24 mg tablet azathioprine 50 mg tablet 50 mg PO BID 08/22/23 03/20/24 ferrous sulfate 325 mg (65 mg 65 mg PO DAILY 01/22/24 03/20/24 iron) tablet (Iron (ferrous sulfate)) meloxicam 7.5 mg tablet 15 mg PO DAILY 01/22/24 03/20/24 Allergies Allergy/AdvReac Type Severity Reaction Status Date / Time Penicillins Allergy Unknown Unknown Verified 03/20/24 09:11 adhesive tape AdvReac Severe BRUISING Verified 03/20/24 09:11 WITH CLEAR TAPE Review of Systems Review of Systems: All systems reviewed & are unremarkable except as noted in HPI and below PMFSH Past Medical History Medical History Aortic stenosis s/p valve replacement 2020 Chronic hip pain after total replacement of right hip joint Crohn's ileocolitis Degenerative joint disease of left hip Effusion, left knee Fatty liver Former smoker GERD (gastroesophageal reflux disease) Normocytic anemia Obesity Osteoporosis Pain due to knee joint prosthesis Rheumatoid arthritis Right knee DJD Right knee pain Sleep apnea Wears glasses Surgical History Surgical History H/O aortic valve repair History of right hip replacement Family History Family History Father Cerebrovascular accident Sibling Cerebrovascular accident Accelerated phase chronic myeloid leukemia Father Acute myocardial infarction Social History Social History Social History: 30 pack years Smoking packs per day: 1 Smoking cigarettes per day: 20.0 Years smoked: 30 Smoking pack-years: 30.00 Smoking status: Former smoker Tobacco type: cigarettes Smoking end date: 08/12/13 Alcohol intake: never Substance use: never Substance use type: does not use Do You Feel Safe in your Home?: Yes Lack of Transportation: No Lack of Food: Never True Current Housing: I Have Housing Concerned About Future Housing: No Difficulty Paying Gas/Electric Bills: No Difficulty Paying for Meds: No Currently Unemployed: No Education: Associate Degree Difficulty w/ Childcare or Family Care: No Living arrangeme
--- NOTE | 2024-03-24 16:43 | PC.NURSE ---
Pt placed in [facility], assessed pt for bruising or other injuries. Skin avulsion to dorsal right hand. Vaseline gauze intact.
[2024-03-24] MEDS: ONDANSETRON HCL ODT 4 MG TABLET PO (16:49)
[2024-03-24] MEDS: TETANUS,DIPHTHERIA,AC PERTUSSIS ADULT (0.5 ML) BOOSTRIX IM (16:49)
[2024-03-24] MEDS: HYDROmorphone HCL INJ (*CRX) 1 MG/ML SYR IM (16:49)
[2024-03-24 18:36] VITALS: BP 150/80; PULSE 77; RESP 18; TEMP 36.7; O2SAT 99
== END 2024-03-24 18:40 | disposition home or self-care (01) ==
PROVIDERS: Emergency Provider Emergency Medicine; PCP Nurse Practitioner Family
DX: S22.42XA Multiple fractures of ribs, left side, initial encounter for closed fracture (principal); S61.401A Unspecified open wound of right hand, initial encounter; S40.012A Contusion of left shoulder, initial encounter; Z23 Encounter for immunization; M50.322 Other cervical disc degeneration at C5-C6 level; M48.02 Spinal stenosis, cervical region; W10.9XXA Fall (on) (from) unspecified stairs and steps, initial encounter
CPT/HCPCS: 70450; 71046; 71100; 72125; 73030; 73130; 73502; 90471; 90715; 96372; 99284; A9270; J1170

== ENCOUNTER 2024-06-01 11:15 | Outpatient (RCR) | payer MEDICARE, OTHER, SELFPAY ==
--- NOTE | 2024-03-04 11:37 | OPREHPOC ---
Outpatient Therapy Plan of Care This is a Multidisciplinary Plan of Care that may contain components documented by all disciplines (PT, OT, and ST.) PT Problem 1 PT Problem #1 Knowledge Deficit PT Goal 1 Goal * indep with HEP * good safety awareness with mobility Target Visit 10 PT Problem 2 PT Problem #2 Impaired Vestibular System PT Goal 1 Goal pt perform without any symptoms reported 1* sit to stand 2* supine to sitting 3* further assessment of vestibular system as treatment progresses Target Visit 10 PT Problem 3 PT Problem #3 Impaired Balance PT Goal 1 Goal improve balance and mobility skills, for safety and decrease fall risk 1* 2 minute walking test distance of 420' 2* pt stand with eyes closed x 10 seconds with good balance/no wobbling 3* pt perform 360' turn to R and L with good balance and stability Target Visit 10
--- NOTE | 2024-03-04 11:38 | PTOPEVAL1 ---
Assessment and note entered by Claudia Grant, PT Evaluation Information Assessment Status Evaluation Diagnosis vertigo, back pain, bilateral knee pain, lymphedema ICD-10 Condition Codes (PT) Difficulty Walking R26.2,Dizziness & Giddiness R42 Onset about 1 year ago Subjective Information have had dizziness for awhile; was hospitalized January 21 due to TIA- no residual effects; CT of head report acute sinusitis; have had several recent sinus infections with antibiotics; no longer on them now; symptoms: cannot focus on something; feel like going to pass out, if stand up, will pass out- have to sit down and let it pass; feel like eyes are moving; bump into wall with walking and not steady with walking; chronic pain in back and knees; increase symptoms: sit to stand, have to hold standing before can walk due to dizzy; no issues with reading, driving, computer use; sleeping OK, no falls risk factors: recent cataract surgery on both eyes; feel like hearing is OK, no recent hearing test, no ringing in ears; multiple meds, including BP meds; sinus issues--do not take any meds for sinus; vitals: sitting/ rest: BP 140/58; pulse 62; oxygen sat 100%; standing 146/74, pulse 70 sit to stand: report light headed and feel funny behind eyes Reported Pain Level Pain Score 0: Self Report;chronic back and bilateral knee pain Assessment PT Clinical Summary Pat has the diagnosis of vertigo. Recent hospitalization with TIA in January, without any residual effects. With onset of dizziness before the hospitalization. Dizziness Handicap Index self rating of 34% limitation in activity level. See subjective for her symptoms. With the evaluation: she has multiple risk factors for dizziness as listed above; Testing for BPPV was negative and eye tracking/oculomotor testing was negative. BP was stable for sit to
--- NOTE | 2024-03-16 16:24 | PTOPEVAL1 ---
Assessment and note entered by Claudia Grant PT Evaluation Information Assessment Status Evaluation Diagnosis vertigo, back pain, bilateral knee pain, lymphedema ICD-10 Condition Codes (PT) M54.16,Difficulty Walking R26.2,R26.9 Onset January 2024 Subjective Information had MILD in Aug 2023, back pain was less; then increased and went to pain management; have had 2 back injections and pain has decreased; still under care of pain management and to have injections in her knees; have had PT here in past for land and water exercises--like the water and want to continue with water exercises if she can; Reported Pain Level Pain Score Self Report Additional Pain Score Comments in the past week, pain range of 2-8/10; R and L lumbar, no radicular pain--had it in the past increase pain with standing with cooking 20 minutes & walking 20 minutes--then have to sit down decrease pain: sit/rest, elevate legs; take muscle relaxer no issues with sleeping Assessment PT Clinical Summary Dulce was receiving PT for vestibular and she wants to stop that treatment and begin treatment for her back pain. BACK eval today: she has a history of chronic back pain and is s/p MILD in August. Self assessment Oswestry rating of 24% limitation in activity level, with standing and walking tolerances of 20 minutes. Dulce has weakness over trunk and hips, with poor posture of her trunk, hips and knees; tightness of both hamstrings. Skilled PT services are indicated for aquatic and land to increase strength and flexibility, modalities to decrease pain and education for HEP and posture correction. Plan of Care Interventions Aquatic Therapy,Electrical Stimulation,Hot Pack/ Cold Pack,Manual Therapy,Neuro Re-education, Patient Education,Therapeutic Activities, Therapeutic Exercise,Ultrasound,Other Other Interventions taping, I[facility] PT Services Indicated Yes Treatment Frequency and 2x/wk for 10
--- NOTE | 2024-04-21 13:30 | PCPTNOTE ---
pt called and canceled appt for 9- & 12 due to being ill. Called her to check on her, left a message, to see if she wants to return to therapy or be finished for now. Instructed her to call and notify front office of her decision.
--- NOTE | 2024-05-11 11:54 | OPREHPOC ---
Outpatient Therapy Plan of Care This is a Multidisciplinary Plan of Care that may contain components documented by all disciplines (PT, OT, and ST.) PT Problem 1 PT Problem #1 Knowledge Deficit PT Goal 1 Goal / Goal Update * indep with HEP * good safety awareness with mobility Target Visit 10 Progress Met PT Problem 2 PT Problem #2 Impaired Vestibular Syste PT Goal 1 Goal / Goal Update pt perform without any symptoms reported 1* sit to stand 2* supine to sitting 3* further assessment of vestibular system as treatment progresses Target Visit 14 Progress Partially Met PT Problem 3 PT Problem #3 Impaired Balance PT Goal 1 Goal / Goal Update improve balance and mobility skills, for safety and decrease fall risk 1* 2 minute walking test distance of 420' (Still lacking ambulation distance) 2* pt stand with eyes closed x 10 seconds with good balance/no wobbling- Met 3* pt perform 360' turn to R and L with good balance and stability- Met Target Visit 14 Progress Partially Met PT Problem 4 PT Problem #4 Pain PT Goal 1 Goal / Goal Update 03-16-24 EVAL for back additional goals: 1* pain rating at worst for back of 5/10 2* pt report walking, standing tolerance of 30 minutes 3* Oswestry rating of 18% limitation in activity level Target Visit 14 Progress Partially Met PT Problem 5 PT Problem #5 Impaired Strength PT Goal 1 Goal / Goal Update 03-16-24 EVAL for back additional goals: 1 pt perform mat strengthening exercises R and L x 20 reps with good control of motions- ( Progressing but painful with hip isolation) Target Visit 14 PT Goal 2 Goal / Goal Update Vielkae
--- NOTE | 2024-05-11 11:54 | PTOPPROG ---
Assessment and note entered by Devon Calix, PT Evaluation Information Assessment Status Progress Diagnosis vertigo, back pain, bilateral knee pain, lymphedema ICD-10 Condition Codes (PT) M54.16,Difficulty Walking R26.2,R26.9 Onset January 2024 Subjective Information Reports that since starting therapy she feels she is doing much better. She did miss some time due to illness and a trip to [place]. She feels that she is a little more comfortable following stretching and activity. Continues to have a lot of weakness an discomfort in her right hip and would like to continue therapy to work on core strength and hip pain relief. Dizziness no longer an issue. Assessment PT Clinical Summary Patient has seen improvement in mobility and pain at this time. Vestibular deficits are mostly resolved and situational. Continues to have significant back pain and weakness/pain in hips with activity. Patient due to illness has been limited o her current plan of care and has delayed progress towards current goals. Patient will benefit form skilled therapy to address deficits to work towards chcf core and hip strength for pain relief and improved mobility. Plan of Care Interventions Aquatic Therapy,Electrical Stimulation,Hot Pack/ Cold Pack,Manual Therapy,Neuro Re-education, Patient/Caregiver Education,Therapeutic Activities, Therapeutic Exercise,Ultrasound,Other Other Interventions taping, IASTM PT Services Indicated Yes Treatment Frequency and 2x/week for 8 visits Duration These treatments will address the objective and functional deficits as defined above. The patient will be advanced safely and appropriately in order for the patient to progress towards his/her prior level of function. Additional exercises will be introduced and as well as a comprehensive home exercise program upon discharge, if needed, ?to ensure carryover of functional gains achieved in the clinic. This treatment plan has been reviewed and agreement upon by the patient.
--- NOTE | 2024-06-02 14:44 | PCPTNOTE ---
This treatment is being continued on visit number [id number] Please see documentation on both accounts to view progress. Completed interventions, outcomes, and problems have been marked as Inactive to facilitate the copying of the Care plan routine for recurring accounts.
== END 2024-06-02 13:13 | disposition home or self-care (01) ==
LOC: ANHPT 11:15
PROVIDERS: PCP Physical Medicine & Rehabilitation Pain Medicine; Visit Provider Nurse Practitioner Family
DX: H81.10 Benign paroxysmal vertigo, unspecified ear (principal); I89.0 Lymphedema, not elsewhere classified; M54.17 Radiculopathy, lumbosacral region; M25.561 Pain in right knee; M25.562 Pain in left knee; G89.29 Other chronic pain
CPT/HCPCS: 97110; 97140; 97161; 97162; 97530

== ENCOUNTER 2024-06-08 07:38 | Outpatient (RCR) | payer MEDICARE, OTHER, SELFPAY ==
--- NOTE | 2024-06-02 14:45 | PCPTNOTE ---
This treatment is being continued from visit number [id number] . Please see documentation on both accounts to view progress. Completed interventions, outcomes, and problems have been marked as Inactive to facilitate the copying of the Care plan routine for recurring accounts.
--- NOTE | 2024-06-04 11:12 | PCPTNOTE ---
This treatment is being continued from previous visit number: [id number] Please see documentation on both accounts to view progress. Completed interventions, outcomes, and problems have been marked as Inactive to facilitate the copying of the Care plan routine for recurring accounts.
--- NOTE | 2024-06-04 11:18 | PCPTNOTE ---
Pt called to cancel her PT appointment this morning due to illness.
--- NOTE | 2024-06-08 11:49 | PTOPDC ---
Assessment and note entered by Devon Calix, PT Evaluation Information Assessment Status Progress Diagnosis vertigo, back pain, bilateral knee pain, lymphedema ICD-10 Condition Codes (PT) Difficulty Walking R26.2,R26.9,M54.16 Onset January 2024 Subjective Information Reports that she will be having a knee ablation on of this week for knee pain Reports that since she had her last injection she has had a lot of pain. Reports that she feels she is doing much better compared to the last time that we talked during progress note. She continues to have trouble with lifting the right leg up in the arm. Does not necessarily feel that it is pain limited but just still is not as strong. She is starting with pain management in the back tomorrow. Pain in the back is a little higher, above the hip bone. Reports that she is comfortable with her current exercises and will continue. Reported Pain Level Pain Score 4: Self Report Assessment PT Clinical Summary Reviewed patient objective measures and exercises. Patient elects discharge from skilled therapy at this time with upcoming MD appointments and travel . Patient is suitable for discharge with emphasis on continued hip strengthening. Plan of Care PT Services Indicated D/C to HEP
== END 2024-06-08 17:10 | disposition home or self-care (01) ==
LOC: ANHPT 07:38
PROVIDERS: PCP Nurse Practitioner Family; Visit Provider Nurse Practitioner Family
DX: H81.10 Benign paroxysmal vertigo, unspecified ear (principal); M54.17 Radiculopathy, lumbosacral region; I89.0 Lymphedema, not elsewhere classified; M25.561 Pain in right knee; M25.562 Pain in left knee; G89.29 Other chronic pain
CPT/HCPCS: 97110; 97140

== ENCOUNTER 2024-06-19 10:33 | Outpatient (CLI) | payer MEDICARE, OTHER, SELFPAY ==
--- NOTE | ~2024-06-19 | XR_ITS ---
Right Shoulder Technique: AP and scapular Y views were obtained. Clinical History: Pain Findings: No fracture or dislocation is seen. Osseous alignment is anatomic. The glenohumeral and acr omioclavicular joint spaces are preserved. Soft tissues are unremarkable. Impression: Unremarkable right shoulder radiographs. Reviewed, dictated and finalized at [facility]. A PRESS OPERATOR Impression: Unremarkable right shoulder radiographs.
--- NOTE | ~2024-06-19 | XR_ITS ---
Left Shoulder Technique: AP and scapular Y views were obtained. Clinical History: Pain Findings: No fracture or dislocation is seen. Osseous alignment is anatomic. The glenohumeral and acr omioclavicular joints demonstrate mild degenerative change. Soft tissues are unremarkable. Impression: Mild degenerative change, as above. Reviewed, dictated and finalized at location . ET DEVELOPMENT DIRECTOR Impression: Mild degenerative change, as above.
== END 2024-06-19 10:34 | disposition home or self-care (01) ==
PROVIDERS: PCP Nurse Practitioner Family; Visit Provider Physical Medicine & Rehabilitation Pain Medicine
DX: M25.511 Pain in right shoulder (principal); M19.012 Primary osteoarthritis, left shoulder
CPT/HCPCS: 73030

== ENCOUNTER 2024-12-31 08:44 | Outpatient (CLI) | payer MEDICARE, OTHER, SELFPAY ==
--- OUTSIDE RECORDS SUMMARY | 2024-12-31 08:47 | XMS_ITS | Encounter Summary ---
Author Organization [facility] Address [address] [place] [address] Phone Care Team Providers Care Salt Machine Operator Name Role Phone Bobby Bui DO Primary Care Provider [phone] Rosario Pham DO Unavailable [phone] Leslie Torres NP Primary Care Provider Tu Fritz MD Unavailable Cinthia Quinones NP Unavailable [phone] Thomas Venegas MD Unavailable Trevon Sheth MD Unavailable [phone] London Hall MD Unavailable + Sylvia Johnson MD Unavailable [phone] Bobby Bui DO Unavailable [phone] Sahara Freedman OD Unavailable Dominique Pedro Unavailable [phone] Cinthia Quinones NP Primary Care Provider [phone] Leslie Torres NP Primary Care Provider [phone] Encounter Details Date Type Department Care Team (Late st Contact Info) Description 06/06/2022 Orders Only [facility] Scanning, Provider Social History Tobacco Use Types Packs/Day Years Used Date Smoking Tobacco: Former Cigarettes Q uit: 07/26/2014 Smokeless Tobacco: Never Alcohol Use Standard Drinks/Week Comments No 0 (1 standard drink = 0.6 oz pur e alcohol) Comments Unknown Sex and Gender Information Value Date Recorded Sex Assigned at Not on file 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 Gender Identity Female 05/01/2021 8:51 AM CDT Sexual Orientation Straight 02/24/2020 1: 08 PM CDT documented as of this encounter Plan of Treatment Not on file documented as of this encounter Procedures Procedure Name Priority Date/Time Associated Diagnosis Comments SCAN - RADIOLOGY/IMAGING 06/06/2022 documented in this encounter Results * SCAN - RADIOLOGY/IMAGING (06/06/2022) Anatomical Region Laterality Modality Other us Provider Scanning Final Result documented in this encounter Visit Diagnoses Not on filedocumented in this encounter Additional Health Concerns Infection Onset Date Last Indicated Resolved Time COVID: Suspected 04/16/2024 04/16/2024 04/16/2024 10:16 AM CDT COVID: Suspected 04/16/2024 04/16/2024 04/16/2024 5:44 PM CDT COVID19 04/16/2024 04/16/2024 04/26/2024 3:05 AM CDT COVID: Recovered Comment:Added based on recent COVID infection. 04/26/2024 04/29/2024 07/25/2024 3:[address] documented as of this encounter Care Teams Salt Machine Operator Relationship Specialty Start Date End Date Bobby Bui DO [address] [place] [address] PCP - General Internal Medicine 06/01/22 03/27/23 Leslie Torres NP [address] [facility] [address] [place] [address] PCP - General Family Medicine 03/28/23 06/30/23 Cinthia Quinones NP [address] [facility] [address] [place] [address] PCP - General Rheumatology 07/01/23 08/13/23 Leslie Torres NP [address] [place], [place] [id number] PCP - General Family Medicine 08/14/23 Rosario Pham DO [address] [facility] [address] [place] [address] Consulting Physician Endocrinology Diabetes & Metabolism 08/22/22 Tu Fritz MD [address] [facility] [address] [place] [address] Consulting Physician Internal Medicine 03/28/23 Cinthia Quinones, HAND SHOES SEWER [address] [facility] [address] [place] [address] Nurse Practitioner Rheumatology 03/28/23 Thomas Venegas MD [address] [facility] [address] [place], [place] [address] Consulting Physician Cardiology 03/28/23 Trevon Sheth MD [address] [facility] [address] [facility] [address] [place] [address] Surgeon Cardiothoracic Surgery 03/28/23 Lnodon Hall MD [address] [place] [address] Referring Physician Gastroenterology 03/28/23 Sylvia Johnson MD [address] [place] [address] Consulting Physician Critical Care Med 03/28/23 Bobby Bui DO [address] [place] [address] Internal Medicine 03/28/23 Sahara Freedman OD [address] [place] [address] Optometry 03/28/23 Dominique Pedro PA [address] [place] [address] Allergy and Immunology 03/28/23 documented as of this encounter
--- OUTSIDE RECORDS SUMMARY | 2024-12-31 08:47 | XMS_ITS | Encounter Summary ---
Author Organization [facility] Address [address] [place] [address] Phone Care Team Providers Care Medical Doctor Md Name Role Phone Bobby Bui DO Primary Care Provider [phone] Rosario Pham DO Unavailable Leslie Torres NP Primary Care Provider [phone] Tu Fritz MD Unavailable Cinthia Quinones NP Unavailable [phone] Thomas Venegas MD Unavailable Trevon Sheth MD Unavailable [phone] [place] MD Unavailable + Sylvia Johnson MD Unavailable [phone] Bobby Bui DO Unavailable [phone] Sahara Freedman OD Unavailable Dominique Pedro Unavailable [phone] Cinthia Quinones NP Primary Care Provider [phone] Leslie Torres NP Primary Care Provider [phone] Encounter Details Date Type Department Care Team (Late st Contact Info) Description 07/13/2022 Orders Only [facility] Scanning, Provider Social History Tobacco Use Types Packs/Day Years Used Date Smoking Tobacco: Former Cigarettes Q uit: 07/26/2014 Smokeless Tobacco: Never Alcohol Use Standard Drinks/Week Comments No 0 (1 standard drink = 0.6 oz pur e alcohol) Comments Unknown Sex and Gender Information Value Date Recorded Sex Assigned at Not on file 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 Gender Identity Female 05/01/2021 8:51 AM CDT Sexual Orientation Straight 02/24/2020 1: 08 PM CDT documented as of this encounter Plan of Treatment Not on file documented as of this encounter Procedures Procedure Name Priority Date/Time Associated Diagnosis Comments SCAN - RADIOLOGY/IMAGING 07/13/2022 documented in this encounter Results * SCAN - RADIOLOGY/IMAGING (07/13/2022) Anatomical Region Laterality Modality Other us Provider [...] documented as of this encounter Care Teams Medical Doctor Md Relationship Specialty Start Date End Date Bobby Bui DO [address] [place] [address] PCP - General Internal Medicine 06/01/22 03/27/23 Leslie Torres NP [address] [facility] [address] [place] [address] PCP - General Family Medicine 03/28/23 06/30/23 Cinthia Quinones NP [address] [facility] [address] [place] [address] PCP - General Rheumatology 07/01/23 08/13/23 Leslie Torres NP [address] [place], [place] [address] PCP - General Family Medicine 08/14/23 Rosario Pham DO [address] [facility] [address] [place] [address] Consulting Physician Endocrinology Diabetes & Metabolism 08/22/22 Tu Fritz MD [address] [facility] [address] [place] [address] Consulting Physician Internal Medicine 03/28/23 Cinthia Quinones, SOCK DRIER [address] [facility] [address] [place] [address] Nurse Practitioner Rheumatology 03/28/23 Thomas Venegas MD [address] [facility] [address] [place], [place] [address] Consulting Physician Cardiology 03/28/23 Trevon Sheth MD [address] [facility] [address] [facility] [address] [place] [address] Surgeon Cardiothoracic Surgery 03/28/23 London Hall MD [address] [place] [address] Referring Physician Gastroenterology 03/28/23 Sylvia Johnson MD [address] [place] [address] Consulting Physician Critical Care Med 03/28/23 Bobby Bui DO [address] [place] [address] Internal Medicine 03/28/23 Sahara Freedman OD [address] [place] [address] Optometry 03/28/23 Dominique Pedro PA [address] [place] [address] Allergy and Immunology 03/28/23 documented as of this encounter
--- OUTSIDE RECORDS SUMMARY | 2024-12-31 08:47 | XMS_ITS | Encounter Summary ---
Author Organization [facility] Address [address] [place] [address] Phone Care Team Providers Care Dewer Name Role Phone Trina Chávez MD Primary Care Provider [phone] Beth Espino DO Primary Care Provider [phone] Bobby Bui DO Primary Care Provider [phone] Rosario Pham DO Unavailable [phone] Leslie Torres NP Primary Care Provider [phone] Tu Fritz MD Unavailable [phone] Cinthia Quinones NP Unavailable [phone] Thomas Venegas MD Unavailable [phone] Trevon Sheth MD Unavailable [phone] [place] Hall MD Unavailable + Sylvia Johnson MD Unavailable [phone] Bobby Bui DO Unavailable [phone] Sahara Freedman OD Unavailable Dominique Pedro Unavailable [phone] Cinthia Quinones NP Primary Care Provider + [phone] Torres, Leslie RESIDENTIAL INSURANCE INSPECTOR Primary Care Provider [phone] Encounter Details Date Type Department Care Team (Late st Contact Info) Description 10/15/2019 Orders Only [facility] Scanning, Provider Social History Tobacco Use Types Packs/Day Years Used Date Smoking Tobacco: Former Cigarettes Q uit: 07/26/2014 Smokeless Tobacco: Never Alcohol Use Standard Drinks/Week Comments No 0 (1 standard drink = 0.6 oz pur e alcohol) Comments Unknown Sex and Gender Information Value Date Recorded Sex Assigned at Not on file 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 Gender Identity Female 05/01/2021 8:51 AM CDT Sexual Orientation Straight 02/24/2020 1: 08 PM CDT documented as of this encounter Plan of Treatment Not on file documented as of this encounter Procedures Procedure Name Priority Date/Time Associated Diagnosis Comments SCAN - LABS 10/15/2019 documented in this encounter Results * SCAN - LABS (10/15/2019) Provider Scanning Final Result documented in this encounter Visit Diagnoses Not on filedocumented in this encounter Additional Health Concerns Infection Onset Date Last Indicated Resolved Time COVID: Suspected 12/15/2021 12/15/2021 12/15/2021 3:25 PM CDT COVID: Suspected 12/15/2021 12/15/2021 12/16/2021 3:05 AM CDT COVID: Suspected 12/15/2021 12/15/2021 12/16/2021 10:43 AM CDT COVID: Suspected 04/16/2024 04/16/2024 04/16/2024 10:16 AM CDT COVID: Suspected 04/16/2024 04/16/2024 04/16/2024 5:44 PM CDT COVID19 04/16/2024 04/16/2024 04/26/2024 3:05 AM CDT COVID: Recovered Comment:Added based on recent COVID infection. 04/26/2024 04/29/2024 07/25/2024 3:[address] documented as of this encounter Care Teams Dewer Relationship Specialty Start Date End Date Trina Chávez MD PCP - General Internal Medicine 04/21/18 08/24/20 Beth Espino DO PCP - General Family Medicine 08/25/20 05/31/22 Bobby Bui DO [address] [place] [address] PCP - General Internal Medicine 06/01/22 03/27/23 Leslie Torres, RESIDENTIAL INSURANCE INSPECTOR [address] [facility] [address] [place] [address] PCP - General Family Medicine 03/28/23 06/30/23 Cinthia Quinones, RESIDENTIAL INSURANCE INSPECTOR [address] [address] PCP - General Rheumatology 07/01/23 08/13/23 Leslie Torres, RESIDENTIAL INSURANCE INSPECTOR [address] [facility] [address] [place] [address] PCP - General Family Medicine 08/14/23 Rosario Pham DO [address] [facility] [address] [place] [address] Consulting Physician Endocrinology Diabetes & Metabolism 08/22/22 Tu Fritz MD [address] [place] [address] Consulting Physician Internal Medicine 03/28/23 Cinthia Quinones, RESIDENTIAL INSURANCE INSPECTOR [address] [place] [address] Nurse Practitioner Rheumatology 03/28/23 Thomas Veengas MD [address] [facility] [address] [facility] [address] [place], [place] [address] Consulting Physician Cardiology 03/28/23 Trevon Sheth MD [address] [facility] [address] [facility] [address] [place], [place] [address] Surgeon Cardiothoracic Surgery 03/28/23 London Hall MD [address] GASTROENTEROLOGY [place], [place] [address] Referring Physician Gastroenterology 03/28/23 Sylvia Johnson MD [address] [place], [place] [address] Consulting Physician Critical Care Med 03/28/23 Bobby Bui DO [address] [place] [address] Internal Medicine 03/28/23 Sahara Freedman OD [address] [place] [address] Optometry 03/28/23 Dominique Pedro PA [address] [place] [address] Allergy and Immunology 03/28/23 documented as of this encounter
--- OUTSIDE RECORDS SUMMARY | 2024-12-31 08:48 | XMS_ITS | Encounter Summary ---
Author Organization [facility] Address [address] [place] [address] Phone Care Team Providers Care Monorail Helper Name Role Phone Beth Espino DO Primary Care Provider [phone] Bobby Bui DO Primary Care Provider [phone] Rosario Pham DO Unavailable +[phone] Leslie Torres NP Primary Care Provider [phone] Tu Fritz MD Unavailable +[phone] Cinthia Quinones NP Unavailable +[phone] Thomas Venegas MD Unavailable Trevon Sheth MD Unavailable [phone] London Hall MD Unavailable + Sylvia Johnson MD Unavailable +[phone] Bobby Bui DO Unavailable [phone] Sahara Freedman OD Unavailable Dominique Pedro Unavailable +[phone] Cinthia Quinones NP Primary Care Provider [phone] Leslie Torres EQUIPMENT MANAGER Primary Care Provider [phone] Encounter Details Date Type Department Care Team (Late st Contact Info) Description 06/06/2021 Orders Only [facility] Scanning, Provider Social History Tobacco Use Types Packs/Day Years Used Date Smoking Tobacco: Former Cigarettes Q uit: 07/26/2014 Smokeless Tobacco: Never Alcohol Use Standard Drinks/Week Comments No 0 (1 standard drink = 0.6 oz pur e alcohol) Comments Unknown Sex and Gender Information Value Date Recorded Sex Assigned at Not on file Legal Sex Female 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 Gender Identity Female 05/01/2021 8:51 AM CDT Sexual Orientation Straight 02/24/2020 1: 08 PM CDT documented as of this encounter Plan of Treatment Not on file documented as of this encounter Procedures Procedure Name Priority Date/Time Associated Diagnosis Comments SCAN - LABS 06/06/2021 documented in this encounter Results * SCAN - LABS (06/06/2021) us Provider Scanning Final Result documented in [...] documented as of this encounter Care Teams Monorail Helper Relationship Specialty Start Date End Date Beth Espino DO PCP - General Family Medicine 08/25/20 05/31/22 Wood Buion DO [address] [place] [address] PCP - General Internal Medicine 06/01/22 03/27/23 Leslie Torres, RUTH ANN [address] [place] [address] PCP - General Family Medicine 03/28/23 06/30/23 Cinthia Quinones, RUTH ANN [address] [facility] [address] [place] [address] PCP - General Rheumatology 07/01/23 08/13/23 Leslie Torres, RUTH ANN [address] [place] [address] PCP - General Family Medicine 08/14/23 Rosario Pham DO [address] [facility] [address] [place] [address] Consulting Physician Endocrinology Diabetes & Metabolism 08/22/22 Tu Fritz MD [address] [facility] [address] [place], [place] [address] [place] [address] Consulting Physician Internal Medicine 03/28/23 Cinthia Quinones, EQUIPMENT MANAGER [address] [facility] [address] [facility] [address] [place] [address] Nurse Practitioner Rheumatology 03/28/23 Thomas Venegas MD [address] [facility] [address] [place] [address] Consulting Physician Cardiology 03/28/23 Trevon Sheth MD 12[address] [facility] [address] [place] [address] Surgeon Cardiothoracic Surgery 03/28/23 London Hall MD [address] [place] [address] Referring Physician Gastroenterology 03/28/23 Sylvia Johnson MD [address] [place], [place] [address] Consulting Physician Critical Care Med 03/28/23 Bobby Bui DO [address] [place] [address] Internal Medicine 03/28/23 Sahara Freedman OD [address] [place] [address] Optometry 03/28/23 Dominique Pedro PA [address] [place] [address] Allergy and Immunology 03/28/23 documented as of this encounter
--- OUTSIDE RECORDS SUMMARY | 2024-12-31 08:48 | XMS_ITS | Encounter Summary ---
Author Organization [facility] Address [address] [place] [address] Care Team Providers Care Tape Cutting Machine Operator Name Role Phone Unavailable Primary Care Provider Unavailabl e Encounter Details Date Type Department Care Team (Late st Contact Info) Description 10/29/[address] [facility] [address] [facility] [place] [address] [place] [address] [place] [address] [address] [place] [address] Social History Tobacco Use Types Packs/Day Years Used Date Smoking Tobacco: Never Assessed Comments Unknown Sex and Gender Information Value Date Recorded Sex Assigned at Not on file Legal Sex Female 2:48 AM KILN LABOURER Gender Identity Not on file Sexual Orientation Not on file documented as of this encounter Plan of Treatment Not on file documented as of this encounter Visit Diagnoses Not on filedocumented in this encounter
--- OUTSIDE RECORDS SUMMARY | 2024-12-31 08:48 | XMS_ITS | Encounter Summary ---
Author Organization [facility] Address [address] [place] [address] Phone Care Team Providers Care Radiotelephone Technical Operator Name Role Phone Beth Espino DO Primary Care Provider [phone] Bobby Bui DO Primary Care Provider [phone] Rosario Pham DO Unavailable [phone] Leslie Torres NP Primary Care Provider [phone] Tu Fritz MD Unavailable [phone] Cinthia Quinones NP Unavailable [phone] Thomas Venegas MD Unavailable Trevon Sheth MD Unavailable [phone] London Hall MD Unavailable + Sylvia Johnson MD Unavailable [phone] Bobby Bui DO Unavailable [phone] Sahara Freedman OD Unavailable Dominique Pedro Unavailable +[phone] Cinthia Quinones NP Primary Care Provider [phone] Leslie Torres SOFTWARE SALES Primary Care Provider [phone] Encounter Details Date Type Department Care Team (Late st Contact Info) Description 03/02/2021 Orders Only [facility] Scanning, Provider Social History Tobacco Use Types Packs/Day Years Used Date Smoking Tobacco: Former Cigarettes Q uit: 07/26/2014 Smokeless Tobacco: Never Alcohol Use Standard Drinks/Week Comments No 0 (1 standard drink = 0.6 oz pur e alcohol) Comments Unknown Sex and Gender Information Value Date Recorded Sex Assigned at Not on file Legal Sex Female 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 Gender Identity Female 05/01/2021 8:51 AM CDT Sexual Orientation Straight 02/24/2020 1: 08 PM CDT documented as of this encounter Plan of Treatment Not on file documented as of this encounter Procedures Procedure Name Priority Date/Time Associated Diagnosis Comments SCAN - LABS 03/02/2021 documented in this encounter Results * SCAN - LABS (03/02/2021) us Provider Scanning Final Result documented in [...] documented as of this encounter Care Teams Radiotelephone Technical Operator Relationship Specialty Start Date End Date Beth Espino DO PCP - General Family Medicine 08/25/20 05/31/22 Wood Buion DO [address] [place] [address] PCP - General Internal Medicine 06/01/22 03/27/23 Leslie Torres, RUTH ANN [address] [place] [address] PCP - General Family Medicine 03/28/23 06/30/23 Cinthia Quinones, RUTH ANN [address] [facility] [address] [place] [address] PCP - General Rheumatology 07/01/23 08/13/23 Leslie Torres, RUTH ANN [address] [place] [address] PCP - General Family Medicine 08/14/23 Rosario Pham DO [address] [facility] [address] [place] [address] Consulting Physician Endocrinology Diabetes & Metabolism 08/22/22 Tu Fritz MD [address] [facility] [address] [place], [place] [address] [place] [address] Consulting Physician Internal Medicine 03/28/23 Cinthia Quinones, SOFTWARE SALES [address] [facility] [address] [facility] [address] [place] [address] Nurse Practitioner Rheumatology 03/28/23 Thomas Venegas MD [address] [facility] C [address] [place] [address] Consulting Physician Cardiology 03/28/23 Trevon Sheth MD 12[address] [facility] C [facility] [address] [place] [address] Surgeon Cardiothoracic Surgery 03/28/23 London Hall MD [address] [place] [address] Referring Physician Gastroenterology 03/28/23 Sylvia Johnson MD [address] [place], [place] [address] Consulting Physician Critical Care Med 03/28/23 Bobby Bui DO [address] [place] [address] Internal Medicine 03/28/23 Sahara Freedman OD [address] [place] [address] Optometry 03/28/23 Dominique Pedro PA [address] [place] [address] Allergy and Immunology 03/28/23 documented as of this encounter
--- OUTSIDE RECORDS SUMMARY | 2024-12-31 08:48 | XMS_ITS | Patient Health Record ---
Author Organization [facility] ([address]) Address [address] [place] [address] Care Team Providers Care Forensics Team Director Name Role Phone Dominique Pedro Unavailable [phone] [employer]-M[employer], Provider Unavailable Unavailab le Allergies Allergen (clinical drug ingredient) Drug/Non Drug Allergy documented on EMR Reaction Allergy Type Onset Date Status Penicillin Unknown Drug Allergy Active Reason For Referral No Information Medications Medication SIG (Take, Route, Frequency, Duration) Notes Start Date End Date Status METOPROLOL 25 mg 0.5 tablet orally 2 times a day Active ATORVASTATIN 10 mg 1 tab(s) orally once a day Active AMLODIPINE 5 mg 1 tab(s) orally once a day Active HYDROXYCHLOROQUINE 200 mg 1 tab(s) orall y bid Active CHOLECALCIFEROL 50 mcg 1 tab(s) orally once a day Active WELLBUTRIN SR 100 mg/12 hours 1 tab(s) orally Qday Active PROBIOTIC FORMULA Ac tive PANTOPRAZOLE 40 mg 1 tab(s) orally once a day Active REMICADE 100 mg as directed intravenously every 8 weeks Active Cholecalciferol 50 MCG 1 TAB(S) ORALLY ONCE A DAY *Please review and pick correct strength-formula tion from Medispan options. If intended option is not shown, discontinue and re-order from Quick Search* Active AZATHIOPRINE 50 mg 1 tab(s) orally once a day Active sulfaSALAzine 500 MG 2 tab(s) orally 2 times a day Active SULFASALAZINE 500 mg 2 tab(s) orally 2 times a day Active ADVAIR HFA CFC free 230 mcg-21 mcg/inh 2 puff(s) inhaled 2 times a day for 30 days Active Wellbutrin SR 100 MG 1 tab(s) orally Qday Active Diclofenac Sodium 1 % as directed applied topically 4 times a day Active Reclast 5 MG/100ML as directed intravenously once Active azaTHIOprine 50 MG 1 tab(s) orally once a day Active Remicade 100 MG as directed intravenously every 8 weeks Active IRON, 500 G *Please review for potential replacement for e-prescription and drug interaction check* Active Aspirin 81 MG 1 TAB(S) ORALLY ONCE A DAY *Please review and pick correct strength-formula tion from Moonshoot options. If intended option is not shown, discontinue and re-order from Procyrion Search* Active HYDROCHLOROTHIAZIDE 25 mg 1 tab(s) orall y once a day for 30 day(s) Active [place]-3 1000 MG 1 cap(s) orally Qday Active OMEGA-3 1000 mg 1 cap(s) orally Qday Active ASPIRIN 81 mg 1 tab(s) orally once a day Active RECLAST 5 mg/100 mL as directed intravenously once Active DICLOFENAC TOPICAL 1% as directed applied topically 4 times a day Active hydroCHLOROthiazide 25 MG 1 tab(s) orall y once a day for 30 day(s) Active Advair HFA 230-21 MCG/ACT 2 puff(s) inha led 2 times a day for 30 days Active AEROCHAMBER MDI SPACER - MOUTHPIECE (ADULT) N/A DIRECTED PO PER ASTHMA ACTION PLAN for 30 DAYS *Please review for potential replacement for e-prescription and drug interaction check* Active ALBUTEROL (EQV-PROVENTIL HFA) 90 MCG/INH 2 PUFF(S) INHALED EVERY 6 HOURS for 30 DAYS *Please review for potential replacement for e-prescription and drug interaction check* Active Hydroxychloroquine Sulfate 200 MG 1 tab(s) orally bid Active amLODIPine Besylate 5 MG 1 tab(s) orally once a day Active CITRACAL *Please review for potential replacement for e-prescription and drug interaction check* Active Pantoprazole Sodium 40 MG 1 tab(s) orall y once a day Active Probiotic Formula *Please review and pick correct strength-formula tion from Moonshoot options. If intended option is not shown, discontinue and re-order from Quick Search* Active Atorvastatin Calcium 10 MG 1 tab(s) orally once a day Active Metoprolol Tartrate 25 MG 0.5 tablet ora lly 2 times a day Active Social History Tobacco Use: Social History Observation Description Date Details (start date - stop date) Former Smoker NA - NA Smoking Smart Form: Question Answer Notes Are you a: former smoker Problems Problem Type SNOMED Code ICD Code Onset Dates Problem Status W/U Status Risk Notes Problem Shortness of breath (369105451) Shortness of breath (R06.02) Active confirmed Problem Essential hypertension (70766466) Essential (primary) hypertension (I10) Active confirmed Problem Allergic rhinitis caused by pollen (disorder) (71660364) Allergic rhinitis due to pollen (J30.1) Active confirmed Problem Uncomplicated moderate persistent asthma (325871257) Moderate persistent asthma, uncomplicated (J45.40) Active confirmed Problem Dyspnea (122316990) Dyspnea, unspecified (R06.00) Active confirmed Problem Gastro-esophagea l reflux disease with esophagitis, without bleeding (K21.00) Active confirmed Encounters Encounter Location Date Provider Diagnosis [address] [address] 01/25/2024 Provider Yovani Moderate persistent asthma, uncomplicated J45.40 Assessments Encounter Date Diagnosis (ICD Code) Assessment Notes Treatment Notes Treatment Clinical Notes Section Notes 01/25/2024 Moderate persistent asthma, uncomplicated (ICD-10 - J45.40) Plan Of Treatment No Information Insurance Providers Payer Name Payer Address Payer Phone Subscriber Number Group Number Insured Name Patient Relationship to Insured Coverage Start Date Coverage End Date [employer] (Medicare) Attention Claims [address] [facility] [place] [address] [id number] Barbra Maynard Self - patient is the insured [employer] [address] [place] [id number] Trevin Maynard Spouse - patient is the spouse of the insured Medical (General) History Medical History History ICD Code Rheumatoid Arthritis-Adult Crohn's disease Sleep apnea Surgical History Surgery Date(Month/Year) heart valve replace Right Hip Left Hip
--- OUTSIDE RECORDS SUMMARY | 2024-12-31 08:48 | XMS_ITS | Encounter Summary ---
Author Organization [facility] Address [address] [place] [address] Phone Care Team Providers Care Music Video Producer Name Role Phone Beth Espino DO Primary Care Provider [phone] Bobby Bui DO Primary Care Provider [phone] Rosario Pham DO Unavailable [phone] Leslie Torres NP Primary Care Provider [phone] Tu Fritz MD Unavailable [phone] Cinthia Quinones NP Unavailable [phone] Thomas Venegas MD Unavailable Trevon Sheth MD Unavailable [phone] London Hall MD Unavailable + Sylvia Johnson MD Unavailable [phone] Bobby Bui DO Unavailable [phone] Sahara Freedman OD Unavailable Dominique Pedro Unavailable +[phone] Cinthia Quinones NP Primary Care Provider [phone] eLslie Torres FILM RENTAL CLERK Primary Care Provider [phone] Encounter Details Date Type Department Care Team (Late st Contact Info) Description 03/30/2022 Orders Only [facility] Scanning, Provider Social History Tobacco Use Types Packs/Day Years Used Date Smoking Tobacco: Former Cigarettes Q uit: 07/26/2014 Smokeless Tobacco: Never Alcohol Use Standard Drinks/Week Comments No 0 (1 standard drink = 0.6 oz pur e alcohol) Comments Unknown Sex and Gender Information Value Date Recorded Sex Assigned at Not on file Legal Sex Female 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 HELPER 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 Gender Identity Female 05/01/2021 8:51 AM CDT Sexual Orientation Straight 02/24/2020 1: 08 PM CDT documented as of this encounter Plan of Treatment Not on file documented as of this encounter Procedures Procedure Name Priority Date/Time Associated Diagnosis Comments SCAN - LABS 03/30/2022 documented in this encounter Results * SCAN - LABS (03/30/2022) us Provider Scanning Final Result documented in [...] documented as of this encounter Care Teams Music Video Producer Relationship Specialty Start Date End Date Beth Espino DO PCP - General Family Medicine 08/25/20 05/31/22 Bobby Bui DO [address] [place] [address] PCP - General Internal Medicine 06/01/22 03/27/23 Leslie Torres NP [address] [place] [address] PCP - General Family Medicine 03/28/23 06/30/23 Cinthia Quinones NP [address] [facility] [address] [place] [address] PCP - General Rheumatology 07/01/23 08/13/23 Leslie Torres, RUTH ANN [address] [place] [address] PCP - General Family Medicine 08/14/23 Rosario Pham DO [address] [facility] [address] [place] [address] Consulting Physician Endocrinology Diabetes & Metabolism 08/22/22 Tu Fritz MD [address] [facility] [address] [place] [address] Consulting Physician Internal Medicine 03/28/23 Cinthia Quinones, FILM RENTAL CLERK [address] [facility] [address] [place] [address] Nurse Practitioner Rheumatology 03/28/23 Thomas Venegas MD [address] [facility] [facility] [address] [place] [address] Consulting Physician Cardiology 03/28/23 Trevon Sheth MD [address] [facility] [facility] [address] [place] [address] Surgeon Cardiothoracic Surgery 03/28/23 London Hall MD [address] [place] [address] Referring Physician Gastroenterology 03/28/23 Sylvia Johnson MD [address] [place] [address] Consulting Physician Critical Care Med 03/28/23 Bobby Bui DO [address] [place] [address] Internal Medicine 03/28/23 Sahara Freedman OD [address] [place] [address] Optometry 03/28/23 Dominique Pedro PA [address] [place] [address] Allergy and Immunology 03/28/23 documented as of this encounter
--- OUTSIDE RECORDS SUMMARY | 2024-12-31 08:48 | XMS_ITS | Encounter Summary ---
Author Organization [facility] Address [address] [place] [address] Care Team Providers Care Experimental Plastics Fabricator Name Role Phone Unavailable Primary Care Provider Unavailabl e Encounter Details Date Type Department Care Team (Late st Contact Info) Description 2006 Outpatient [facility] [address] [facility] [place] [facility] [place] [address] [place] [address] [place] [address] [address] [place] [address] Social History Tobacco Use Types Packs/Day Years Used Date Smoking Tobacco: Never Assessed Comments Unknown Sex and Gender Information Value Date Recorded Sex Assigned at Not on file Legal Sex Female 2:48 AM ACCOUNT DEVELOPER Gender Identity Not on file Sexual Orientation Not on file documented as of this encounter Plan of Treatment Not on file documented as of this encounter Visit Diagnoses Not on filedocumented in this encounter
--- OUTSIDE RECORDS SUMMARY | 2024-12-31 08:48 | XMS_ITS | Encounter Summary ---
Author Organization [facility] Address [address] [place] [address] Phone Care Team Providers Care Mail Room Clerk Name Role Phone Trina Chávez MD Primary Care Provider [phone] Beth Espino DO Primary Care Provider [phone] Bobby Bui DO Primary Care Provider [phone] Rosario Pham DO Unavailable [phone] Leslie Torres NP Primary Care Provider [phone] Tu Fritz MD Unavailable [phone] Cinthia Quinones NP Unavailable [phone] Thomas Venegas MD Unavailable [phone] Trevon Sheth MD Unavailable London Hall MD Unavailable + Sylvia Johnson MD Unavailable +[phone] Bobby Bui DO Unavailable [phone] Sahara Freedman OD Unavailable [phone] Dominique Pedro Unavailable [phone] Cinthia Quinones NP Primary Care Provider + [phone] Torres, Leslie SILO OPERATOR Primary Care Provider Encounter Details Date Type Department Care Team (Late st Contact Info) Description 12/29/2018 Orders Only [facility] Scanning, Provider Social History Tobacco Use Types Packs/Day Years Used Date Smoking Tobacco: Former Cigarettes Q uit: 07/26/2014 Smokeless Tobacco: Never Alcohol Use Standard Drinks/Week Comments No 0 (1 standard drink = 0.6 oz pur e alcohol) Comments Unknown Sex and Gender Information Value Date Recorded Sex Assigned at Not on file Legal Sex Female 2:13 AM PREFABRICATOR Gender Identity Female 05/01/2021 8:51 AM CDT Sexual Orientation Straight 02/24/2020 1: 08 PM CDT documented as of this encounter Plan of Treatment Not on file documented as of this encounter Procedures Procedure Name Priority Date/Time Associated Diagnosis Comments SCAN - RADIOLOGY/IMAGING 12/29/2018 documented in this encounter Results * SCAN - RADIOLOGY/IMAGING (12/29/2018) Anatomical Region Laterality Modality Other us Provider [...] documented as of this encounter Care Teams Mail Room Clerk Relationship Specialty Start Date End Date Trina Chávez MD PCP - General Internal Medicine 04/21/18 08/24/20 Beth Espino DO PCP - General Family Medicine 08/25/20 05/31/22 Bobby Bui DO [address] [place] [address] PCP - General Internal Medicine 06/01/22 03/27/23 Leslie Torres, RUTH ANN [address] [facility] [address] [place] [address] PCP - General Family Medicine 03/28/23 06/30/23 Cinthia Quinones, SILO OPERATOR [address] [address] PCP - General Rheumatology 07/01/23 08/13/23 Leslie Torres, SILO OPERATOR [address] [facility] [address] [place] [address] PCP - General Family Medicine 08/14/23 Rosario Pham DO [address] [facility] [address] [place] [address] Consulting Physician Endocrinology Diabetes & Metabolism 08/22/22 Tu Fritz MD [address] [place] [address] Consulting Physician Internal Medicine 03/28/23 Cinthia Quinones, SILO OPERATOR [address] [place] [address] Nurse Practitioner Rheumatology 03/28/23 Thomas Venegas MD [address] [facility] [address] [place] [address] Consulting Physician Cardiology 03/28/23 Trevon Sheth MD [address] [facility] [address] [place] [address] Surgeon Cardiothoracic Surgery 03/28/23 London Hall MD [address] [place] [address] Referring Physician Gastroenterology 03/28/23 Sylvia Johnson MD [address] [place] [address] Consulting Physician Critical Care Med 03/28/23 Bobby Bui DO [address] [place] [address] Internal Medicine 03/28/23 Sahara Freedman OD [address] [place] [address] Optometry 03/28/23 Dominique Pedro PA [address] [place] [address] Allergy and Immunology 03/28/23 documented as of this encounter
--- OUTSIDE RECORDS SUMMARY | 2024-12-31 08:48 | XMS_ITS | Encounter Summary ---
Author Organization [facility] Address [address] [place] [address] Phone Care Team Providers Care Resident Intern Name Role Phone Trina Chávez MD Primary Care Provider [phone] Beth Espino DO Primary Care Provider [phone] Bobby Bui DO Primary Care Provider [phone] Rosario Pham DO Unavailable [phone] Leslie Torres NP Primary Care Provider [phone] Tu Fritz MD Unavailable [phone] Cinthia Quinones NP Unavailable [phone] Thomas Venegas MD Unavailable [phone] Trevon Sheth MD Unavailable [phone] London Hall MD Unavailable + Sylvia Johnson MD Unavailable [phone] Bobby Bui DO Unavailable [phone] Sahara Freedman OD Unavailable Dominique Pedro Unavailable +[phone] Cinthia Quinones NP Primary Care Provider + [phone] Torres, Leslie PLATER HELPER Primary Care Provider [phone] Encounter Details Date Type Department Care Team (Late st Contact Info) Description 02/23/2019 Orders Only [facility] Scanning, Provider Social History Tobacco Use Types Packs/Day Years Used Date Smoking Tobacco: Former Cigarettes Q uit: 07/26/2014 Smokeless Tobacco: Never Alcohol Use Standard Drinks/Week Comments No 0 (1 standard drink = 0.6 oz pur e alcohol) Comments Unknown Sex and Gender Information Value Date Recorded Sex Assigned at Not on file 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 Gender Identity Female 05/01/2021 8:51 AM CDT Sexual Orientation Straight 02/24/2020 1: 08 PM CDT documented as of this encounter Plan of Treatment Not on file documented as of this encounter Procedures Procedure Name Priority Date/Time Associated Diagnosis Comments SCAN - LABS 02/23/2019 documented in this encounter Results * SCAN - LABS (02/23/2019) Provider Scanning Final Result documented in this [...] documented as of this encounter Care Teams Resident Intern Relationship Specialty Start Date End Date Trina Chávez MD PCP - General Internal Medicine 04/21/18 08/24/20 Beth Espino DO PCP - General Family Medicine 08/25/20 05/31/22 Bobby Bui DO [address] [place] [address] PCP - General Internal Medicine 06/01/22 03/27/23 Leslie Torres, PLATER HELPER [address] [facility] [address] [place] [address] PCP - General Family Medicine 03/28/23 06/30/23 Cinthia Quinones, PLATER HELPER [address] [address] PCP - General Rheumatology 07/01/23 08/13/23 Leslie Torres, PLATER HELPER [address] [facility] [address] [place] [address] PCP - General Family Medicine 08/14/23 Rosario Pham DO [address] [facility] [address] [place] [address] Consulting Physician Endocrinology Diabetes & Metabolism 08/22/22 Tu Fritz MD [address] [place] [address] Consulting Physician Internal Medicine 03/28/23 Cinthia Quinones, PLATER HELPER [address] [place] [address] Nurse Practitioner Rheumatology 03/28/23 Thomas Venegas MD [address] [facility] [facility] [address] [place], [place] [address] Consulting Physician Cardiology 03/28/23 Trevon Sheth MD [address] [facility] [address] [facility] [address] [place], [place] [address] Surgeon Cardiothoracic Surgery 03/28/23 London Hall MD [address] GASTROENTEROLOGY [place], [place] [address] Referring Physician Gastroenterology 03/28/23 Sylvia Johnson MD [address] [place], [place] [address] Consulting Physician Critical Care Med 03/28/23 Bobby Bui DO [address] [place] [address] Internal Medicine 03/28/23 Sahara Freedman OD [address] [place] [address] Optometry 03/28/23 Dominique Pedro PA [address] [place] [address] Allergy and Immunology 03/28/23 documented as of this encounter
--- OUTSIDE RECORDS SUMMARY | 2024-12-31 08:48 | XMS_ITS | Encounter Summary ---
Author Organization [facility] Address [address] [place] [address] Phone Care Team Providers Care Automatic Bandsaw Tender Name Role Phone Beth Espino DO Primary Care Provider [phone] Bobby Bui DO Primary Care Provider [phone] Rosario Pham DO Unavailable [phone] Leslie Torres NP Primary Care Provider [phone] Tu Fritz MD Unavailable [phone] Cinthia Quinones NP Unavailable [phone] Thomas Venegas MD Unavailable Trevon Sheth MD Unavailable [phone] London Hall MD Unavailable + Sylvia Johnson MD Unavailable [phone] Bobby Bui DO Unavailable [phone] Sahara Freedman OD Unavailable Dominique Pedro Unavailable [phone] Cinthia Quinones NP Primary Care Provider [phone] Leslie Torres MOTOR AND GENERATOR BRUSH CUTTER Primary Care Provider [phone] Encounter Details Date Type Department Care Team (Late st Contact Info) Description 08/16/2021 Orders Only [facility] Scanning, Provider Social History Tobacco Use Types Packs/Day Years Used Date Smoking Tobacco: Former Cigarettes Q uit: 07/26/2014 Smokeless Tobacco: Never Alcohol Use Standard Drinks/Week Comments No 0 (1 standard drink = 0.6 oz pur e alcohol) Comments Unknown Sex and Gender Information Value Date Recorded Sex Assigned at Not on file 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 Gender Identity Female 05/01/2021 8:51 AM CDT Sexual Orientation Straight 02/24/2020 1: 08 PM CDT documented as of this encounter Plan of Treatment Not on file documented as of this encounter Procedures Procedure Name Priority Date/Time Associated Diagnosis Comments SCAN - LABS 08/15/2021 documented in this encounter Results * SCAN - LABS (08/15/2021) us Provider Scanning Edited Result - Final documented in this encounter Visit Diagnoses Not [...] documented as of this encounter Care Teams Automatic Bandsaw Tender Relationship Specialty Start Date End Date Beth Espino DO PCP - General Family Medicine 08/25/20 05/31/22 Bobby Bui DO [address] [place] [address] PCP - General Internal Medicine 06/01/22 03/27/23 Leslie Torres, RUTH ANN [address] [place] [address] PCP - General Family Medicine 03/28/23 06/30/23 Cinthia Quinones, RUTH ANN [address] [facility] [address] [place] [address] PCP - General Rheumatology 07/01/23 08/13/23 Leslie Torres, MOTOR AND GENERATOR BRUSH CUTTER [address] [place] [address] PCP - General Family Medicine 08/14/23 Rosario Pham DO [address] [facility] [address] [place] [address] Consulting Physician Endocrinology Diabetes & Metabolism 08/22/22 Tu Fritz MD [address] [facility] [address] [place], [place] [address] [place] [address] Consulting Physician Internal Medicine 03/28/23 Cinthia Quinones, MOTOR AND GENERATOR BRUSH CUTTER [address] [facility] [address] [facility] [address] [place] [address] Nurse Practitioner Rheumatology 03/28/23 Thomas Venegas MD [address] [facility] [address] [place] [address] Consulting Physician Cardiology 03/28/23 Trevon Sheth MD [address] [facility] [address] [place] [address] Surgeon Cardiothoracic Surgery 03/28/23 London Hall MD [address] [place] [address] Referring Physician Gastroenterology 03/28/23 Sylvia Johnson MD [address] [place], [place] [address] Consulting Physician Critical Care Med 03/28/23 Bobby Bui DO [address] [place] [address] Internal Medicine 03/28/23 Sahara Freedman OD [address] [place] [address] Optometry 03/28/23 Dominique Pedro PA [address] [place] [address] Allergy and Immunology 03/28/23 documented as of this encounter
--- OUTSIDE RECORDS SUMMARY | 2024-12-31 08:49 | XMS_ITS | Encounter Summary ---
Author Organization [facility] Address [address] [place] [address] Phone Care Team Providers Care Merchandise Presentation Manager Name Role Phone VeroRosario mendieta DO Unavailable [phone] Leslie Torres NP Primary Care Provider [phone] Tu Fritz MD Unavailable Cinthia Quinones NP Unavailable Thomas Venegas MD Unavailable Trevon Sheth MD Unavailable [phone] London Hall MD Unavailable + Sylvia Johnson MD Unavailable [phone] Bobby Bui DO Unavailable [phone] Sahara Freedman OD Unavailable Dominique Pedro Unavailable [phone] Cinthia Quinones NP Primary Care Provider [phone] Leslie Torres NP Primary Care Provider [phone] Encounter Details Date Type Department Care Team (Late st Contact Info) Description 06/18/2023 Orders Only [facility] Scanning, Provider Social History Tobacco Use Types Packs/Day Years Used Date Smoking Tobacco: Former Cigarettes 0.5 43.7 0 08/21/1970 - 05/21/2014 Passive Smoke Exposure: Past Smokeless Tobacco: Never Alcohol Use Standard Drinks/Week Comments No 0 (1 standard drink = 0.6 oz pur e alcohol) AUDIT-C Answer Date Recorded Q1: How often do you have a drink containing alc ohol? 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 Gender Identity Female 05/01/2021 8:51 AM CDT Sexual Orientation Straight 02/24/2020 1: 08 PM CDT documented as of this encounter Plan of Treatment Not on file documented as of this encounter Procedures Procedure Name Priority Date/Time Associated Diagnosis Comments SCAN - RADIOLOGY/IMAGING 06/18/2023 documented in this encounter Results * SCAN - RADIOLOGY/IMAGING (06/18/2023) Anatomical Region Laterality Modality Other Provider Scanning Final Result documented in this [...] documented as of this encounter Care Teams Merchandise Presentation Manager Relationship Specialty Start Date End Date Leslie Torres NP [address] [place] [address] PCP - General Family Medicine 03/28/23 06/30/23 Cinthia Quinones CENTRAL OFFICE REPAIRER [address] [facility] [address] [place] [address] PCP - General Rheumatology 07/01/23 08/13/23 Leslie Torres NP [address] [place], [place] [address] PCP - General Family Medicine 08/14/23 Rosario Pham DO [address] [facility] [address] [place] [address] Consulting Physician Endocrinology Diabetes & Metabolism 08/22/22 Tu Fritz MD [address] [place] [address] Consulting Physician Internal Medicine 03/28/23 Cinthia Quinones, CENTRAL OFFICE REPAIRER [address] [facility] [address] [place] [address] Nurse Practitioner Rheumatology 03/28/23 Thomas Venegas MD [address] [facility] [address] [place] [address] Consulting Physician Cardiology 03/28/23 Trevon Sheth MD [address] [facility] [facility] [address] [place] [address] Surgeon Cardiothoracic Surgery 03/28/23 London Hall MD [address] GASTROENTEROLOGY [place], [place] [address] Referring Physician Gastroenterology 03/28/23 Sylvia Johnson MD [address] [place], [place] [address] Consulting Physician Critical Care Med 03/28/23 Bobby Bui DO [address] [place], [place] [address] Internal Medicine 03/28/23 Sahara Freedman OD [address] [place] [address] Optometry 03/28/23 Dominique Pedro PA [address] [place] [address] Allergy and Immunology 03/28/23 documented as of this encounter
--- OUTSIDE RECORDS SUMMARY | 2024-12-31 08:49 | XMS_ITS | Data Portability ---
Author Organization [facility], Main Office Address [address] [place] [address] Assessment No assessment recorded. Plan of Treatment Reminders Order Date Submit Date Provider Last Modified By Organization Details Last Modified Time Details Appointments None record ed. Lab None record ed. Referral None record ed. Procedures None record ed. Surgeries None record ed. Imaging None record ed. Medication Orders None record ed. Patient TargetsNo targets recorded. Patient InstructionsNo instructions recorded. Reason for Referral None Reported. Results Created Date Observation Date Name Description Value Unit Range Abnormal Flag Note LastModifiedBy Organization Detail LastModifiedTime Result Notes None recorded. Problems Name Problem SNOMED Code Status Onset Date Resolution Date Notes Provider Name and Address Organization Details Recorded Time Edema of lower extremity 066087393 Active 2021 Not Available [facility] 3 01:24:31 History of aortic valve replacemen t 8100908966173 Active 2021 Not Available [facility] 3 01:24:31 Insomnia 975350493 Active 2021 Not Available [facility] 3 01:24:31 Crohn's disease 75827798 Active 2021 Not Available [facility] 3 01:24:31 Obese 088605882 Active 2021 Not Available [facility] 3 01:24:31 Anxiety 66863354 Active 2021 Not Available [facility] 3 01:24:31 Hyperlipid emia 38288715 Active 2021 Not Available [facility] 3 01:24:31 Swelling 98333245 Active 2021 Not Available [facility] 3 01:24:31 Rheumatoid arthritis 15391914 Active 2021 Not Available [facility] 3 01:24:31 Obstructiv e sleep apnea syndrome 20161500 Active 2021 Not Available [facility] 3 01:24:31 Problem Notes None recorded. Procedures Surgical History Date Name Laterality Status Provider Name and Address Organization Details Recorded Time removal of foreign body from gallbladder completed Not Available [facility] 10/11/2022 01:23:44 procedure on heart completed Not Available [facility] 10/11/2022 01:23:44 Imaging Results None recorded. Procedure Notes None recorded. Medical Equipment None Reported. Allergies Allergen ID Allergen Name Allergen Category Reaction Reaction Severity Criticality Documentation Date Start Date Code Code System Note Provider Name and Address Organization Details Recorded Time 19137 Product containin g penicilli n (product) medicatio n rash Not available Not available 10/11/2022 37860 8001 SNOMED Not Available [facility] 3 01:25:36 Medications Name Sig Start Date Stop Date Status Note LastModified by Organization Details LastModified Time celecoxib 200 mg capsule active Not Available Not Available Not Available neomycin-arianne ymyxin-hydro paulette 3.5 mg/mL-10,000 unit/mL-1 % ear solution INSTILL 4 DROPS IN THE LEFT EAR TWICE DAILY FOR 7 DAYS 04/19 completed Not Available Not Available Not Available magnesium 500 mg tablet Take by oral route. 2021 active Not Available Not Available Not Avai lable atorvastatin 10 mg tablet 1 tab po nightly active Not Available Not Available No t Available prednisone 20 mg tablet TAKE 1 TABLET BY MOUTH EVERY DAY 04/19 completed Not Available Not Available Not Available prednisone 5 mg tablet 04/19 completed Not Available Not Available Not Available clindamycin HCl 150 mg capsule TK FOUR CS PO 1 HOUR B DAPP 04/19 completed Not Available Not Available Not Available amlodipine 5 mg tablet 1 tab po daily active Not Available Not Available No t Available aspirin 81 mg tablet,delay ed release 1 tab po daily 04/19 completed Not Available Not Available Not Available pantoprazole 40 mg tablet,delay ed release 1 tab po daily active Not Available Not Available No t Available Calcium-600 600 mg (as calcium carbonate 1,500 mg) tablet active Not Available Not Available Not Available furosemide 20 mg tablet active Not Available Not Available Not Available hydroxychlor oquine 200 mg tablet Take 1 tablet every day by oral route. 04/19 completed Not Available Not Available Not Available cefdinir 300 mg capsule TAKE ONE CAPSULE BY MOUTH EVERY 12 HOURS FOR 10 DAYS 04/19 completed Not Available Not Available Not Available fluticasone propionate 50 mcg/actuatio n nasal spray,suspen gertrudis SHAKE LIQUID AND USE 2 SPRAYS IN EACH NOSTRIL EVERY DAY NEEDED 04/19 completed Not Available Not Available Not Available azithromycin 500 mg tablet TAKE 1 TABLET BY MOUTH EVERY DAY FOR 5 DAYS 04/19 completed Not Available Not Available Not Available metoprolol tartrate 25 mg tablet 1/2 tab po bid active Not Available Not Available No t Available Remicade 2021 active Not Available Not Available Not Avai lable Multivitamin 50 Plus 2021 active Not Available Not Available Not Avai lable mesalamine 1.2 gram tablet,delay ed release 2 tab po bid with food. active Dr. Jimenez Wiseman . Not Available Not Available Not Available diclofenac 1 % topical gel active Not Available Not Available Not Available cholecalcife rol (vitamin D3) 50 mcg (2,000 unit) tablet active Not Available Not Available Not Available Probiotic Formula (inulin) 1 billion cell-250 mg capsule active Not Available Not Available Not Available omega 3 360 mg-dha 108 mg-epa 180 mg-fish oil 1,200 mg capsule Take by oral route. 2021 active Not Available Not Available Not Avai lable Vitals Date Recorded Body mass index (BMI) Body height Oxygen saturation Oxygen saturation in Arterial blood by Pulse oximetry Heart rate Respiratory rate Body temperature Body weight Systolic blood pressure Diastolic blood pressure Provider Name and Address Organization Details Last Updated DateTime 2 40.9 kg/m2 177.8 cm 95 % 95 % 75 /min 16 /min 97.7 [degF] 062050. 88 g 130 mm[Hg] 80 mm[Hg] Not Available [facility] 3 01:24:01 Social History Question Answer Notes LastModified by Organization Details LastModified Time Tobacco Smoking Status Former Smoker Not Available [facility] 10/11/2022 01:23:21 Do You Have An Advance Directive? Yes [email or web address].030 [id number] Information not available 10/11/2022 Do You Wear A Helmet When Biking? No MIGRATION.[id number] Information not available 10/11/2022 Are You Blind Or Do You Have Difficulty Seeing? No MIGRATION.0301 [id number] Information not available 10/11/2022 What Is Your Level Of Caffeine Consumption? Moderate MIGRATION.0301 810369 Information not available 10/11/2022 What Is Your Code Status? Full Code MIGRATION.0301 193437 Information not available 10/11/2022 In The 14 Days Before Symptom Onset, Have You Had Close Contact With A Laboratory-confi rmed COVID-19 While That Case Was Ill? No MIGRATION.0301 141160 Information not available 10/11/2022 In The 14 Days Before Symptom Onset, Have You Had Close Contact With A Person Who Is Under Investigation For COVID-19 While That Person Was Ill? No MIGRATION.0301 384348 Information not available 10/11/2022 Are You Deaf Or Do You Have Serious Difficulty Hearing? No MIGRATION.0301 094429 Information not available 10/11/2022 What Type Of Diet Are You Following? REGULAR MIGRATION.0301 911140 Information not available 10/11/2022 Have There Been Any Changes To Your Family Or Social Situation? Yes Lost 5 Yrs Ago Sister Last Year MIGRATION.0301 109756 Information not available 10/11/2022 What Is The Fluoride Status Of Your Home? Fluoridated MIGRATION.0301 345290 Information not available 10/11/2022 When Did You Quit Smoking? 16+yearssincelastc igarette MIGRATION.0301 619649 Information not available 10/11/2022 Are There Any Guns Present In Your Home? Yes MIGRATION.0301 577572 Information not available 10/11/2022 Do You Use Insect Repellent Routinely? No MIGRATION.0301 567465 Information not available 10/11/2022 Where Do You Live? SingleLevelHouse MIGRATION.0301 005028 Information not available 10/11/2022 Do You Have A Medical Power Of Fur Clipper? Yes MIGRATION.0301 843767 Information not available 10/11/2022 Do You Have Any Pets? No MIGRATION.0301 352463 Information not available 10/11/2022 What Is Your Relationship Status? MIGRATION.0301 088854 Information not available 10/11/2022 Do You Use Your Seat Belt Or Car Seat Routinely? Yes MIGRATION.0301 047001 Information not available 10/11/2022 Do You Have Smoke And Carbon Monoxide Detectors In Your Home? Yes MIGRATION.0301 047520 Information not available 10/11/2022 At What Age Did You Start Smoking Tobacco? 20 MIGRATION.0301 901452 Information not available 10/11/2022 Are You Passively Exposed To Smoke? No MIGRATION.0301 545544 Information not available 10/11/2022 Are There Any Smokers In Your House? No MIGRATION.0301 659603 Information not available 10/11/2022 Do You Participate In Social [employer]? Yes MIGRATION.0301 337251 Information not available 10/11/2022 Do You Use Sunscreen Routinely? Yes MIGRATION.0301 997424 Information not available 10/11/2022 Have You Recently Traveled Abroad? No MIGRATION.0301 730850 Information not available 10/11/2022 Do You Have Difficulty Walking Or Climbing Stairs? Yes Painful MIGRATION.0301 134649 Information not available 10/11/2022 Are You Currently In School? No MIGRATION.0301 129737 Information not available 10/11/2022 Do You Have Any Dietary Restrictions? No MIGRATION.0301 199849 Information not available 10/11/2022 Sex: Unknown Functional Status Question Answer Note LastModified by [employer] Details LastModified Time Do you use any illicit or recreational drugs? No MIGRATION.003666 2828 Information not available 10/11/2022 What is your level of alcohol consumption? Occasional MIGRATION.269810 2004 Information not available 10/11/2022 Do you have transportation difficulties? No MIGRATION.131423 8796 Information not available 10/11/2022 Are you able to walk? YESWOREST MIGRATION.731802 5890 Information not available 10/11/2022 Do you have difficulty doing errands alone? No MIGRATION.504363 7945 Information not available 10/11/2022 Are you able to care for yourself? Yes MIGRATION.696371 4907 Information not available 10/11/2022 Do you have difficulty dressing or bathing? No MIGRATION.077600 4100 Information not available 10/11/2022 What is your exercise level? Occasional swimming MIGRATION.013071 9729 Information not available 10/11/2022 Mental Status Question Answer Note LastModified by Organizat ion Details LastModified Time Do you feel stressed (tense, restless, nervous, or anxious, or unable to sleep at night)? [id number] MIGRATION.02004188 26 Information not available 10/11/2022 Do you have difficulty concentrating, remembering or making decisions? No MIGRATION.63822041 26 Information not available 10/11/2022 Family History Relationship Description Onset Age of this Age Resolved Age Notes LastModified by Organization Details LastModified Time Sister Cerebrovascu lar accident MIGRATION.775 [id number] Not available 10/11/2022 01:23:45 Father Myocardial infarction 45 MIGRATION.962 [id number] Not available 10/11/2022 01:23:45 Medical History Condition Response ARTHRITIS Y GI PROBLEMS Y ANXIETY DISORDER Y INSOMNIA Y Gynecological HistoryNo gynecological history recorded. Obstetrics History GPAL:G 3 P 3 0 0 0 Type Value Full Term 3 Total 3 Immunizations Vaccine Type Date Status Note Provider Nam e and Address Organization Details Recorded Time COVID-19, mRNA, LNP-S, PF, 100 mcg/0.5mL dose or 50 mcg/0.25mL dose 12/23/2021 completed Not Available [facility] 01:25:35 Past Encounters Encounter ID Performer Location Encounter Start Date Encounter Closed Date Diagnosis/Indication Diagnosis SNOMED-CT Code Diagnosis ICD10 Code Diagnosis Note [id number] Marcia Bustillos NP [facility] [address] [address] 04/19/2022 00:00:00 04/23/2022 16:23:10 Health Concerns Section Related Observation LastModified by Organization Detai ls LastModified Time None Recorded Concern Status LastModified by Organization Details LastModified Time None Recorded Advance Directives Directive Y: Payers None recorded. OBGyn Episode No OBEpisode recorded.
--- OUTSIDE RECORDS SUMMARY | 2024-12-31 08:49 | XMS_ITS ---
Author Organization [facility] [employer] ([address]) Address [address] [place] [address] Care Team Providers Care Track Watchman Name Role Phone Dominique Pedro Unavailable [phone] [facility], Provider Unavailable Unavailab le Allergies Allergen (clinical drug ingredient) Drug/Non Drug Allergy documented on EMR Reaction Allergy Type Onset Date Status Penicillin Unknown Drug Allergy Active [facility] Encounter Medications Medication SIG (Take, Route, Frequency, Duration) Notes Start Date End Date Status hydroCHLOROthiazide 25 MG 1 tab(s) orall y once a day for 30 day(s) Active Hydroxychloroquine Sulfate 200 MG [...] review and pick correct strength-formula tion from [facility] options. If intended option is not shown, discontinue and re-order from Quick Search* Active Wellbutrin SR 100 MG 1 tab(s) orally Qday Active Pantoprazole Sodium 40 MG 1 tab(s) orall y once a day Active Probiotic Formula *Please review and pick correct strength-formula tion from [facility] options. If intended option is not shown, [...] review and pick correct strength-formula tion from [employer] options. If intended option is not shown, discontinue and re-order from Quick Search* Active Freeman-3 1000 MG 1 cap(s) orally Qday Active Advair HFA 230-21 MCG/ACT 2 puff(s) inha led 2 times a day for 30 days Active Encounters Encounter Location Date Provider Diagnosis [address] [address] 01/25/2024 Provider KittyZ-Lidia Moderate persistent asthma, uncomplicated J45.40 Assessments Encounter [...] review and pick correct strength-formulati on from [employer] options. If intended option is not shown, discontinue and re-order from Quick Search* Wellbutrin SR 100 MG 1 tab(s) orally Qday Pantoprazole Sodium 40 MG 1 tab(s) orall y once a day Probiotic Formula *Please review and pick correct strength-formulati on from [employer] options. If intended option is [...] review and pick correct [facility]ati [facility]. If intended option is not shown, discontinue and re-order from Quick Search* Freeman-3 1000 MG 1 cap(s) orally Qday Advair HFA 230-21 MCG/ACT 2 puff(s) inha led 2 times a day for 30 days Progress Notes * Barbra MAYNARDDOB:[birth year] (74 yo F)Acc No.[id number]:01/25/2024 Patient: Rivera THIBODEAUXTACOSBarbra Provider: Yadira strange Migration :1950 A ge:73 Y S ex:Female Date:01/25/2024 Address:[facility] [address] [id number] Subjective: * Chief Complaints: * 1 . [facility] En[facility]. * Medical History: * Medications: [...] e-prescription and drug interaction check*; C ontinue Freeman-3 Capsule, 1000 MG, 1 cap(s), orally, Qday; Continue Aspirin TABLET, 81 MG, 1 TAB(S), ORALLY, ONCE A DAY, Notes to Pharmacist: *Please review and pick correct strength-formulation from [facility] options. If intended option is not shown, [...] *Please review and pick correct strength-formulation from [employer] options. If intended option is not shown, discontinue and re-order from Quick Search*; C ontinue Wellbutrin SR Tablet Extended Release 12 Hour, 100 MG, 1 tab(s), orally, Qday; C ontinue Probiotic Formula, Notes to Pharmacist: *Please review and pick correct strength-formulation from [employer] options. If intended option is not shown, [...] * Electronic signature of Aretha PICKETT-Migration on 12/31/2024 at 08:49 AM CDT Sign off status: Pending * Provider: Yadira strange Migration Date: 01/25/2024 Generated for Delia badillo/Elliot/Caty on: 12/31/2024 08:49 AM CDT
--- OUTSIDE RECORDS SUMMARY | 2024-12-31 08:49 | XMS_ITS | Encounter Summary ---
Author Organization [facility] Address [address] [place] [address] Phone Care Team Providers Care Straightening Press Operator Name Role Phone VeroRosario mendieta DO Unavailable [phone] Leslie Torres NP Primary Care Provider [phone] Tu Fritz MD Unavailable Cinthia Quinones NP Unavailable Thomas Venegas MD Unavailable Trevon Sheth MD Unavailable [phone] London Hall MD Unavailable + Sylvia Johnson MD Unavailable [phone] Bobby Bui DO Unavailable [phone] Sahara Freedman OD Unavailable Dominique Pedro Unavailable [phone] Cinthia Quinones NP Primary Care Provider [phone] Leslie Torres NP Primary Care Provider [phone] Encounter Details Date Type Department Care Team (Late st Contact Info) Description 05/16/2023 Orders Only [facility] Scanning, Provider [...] on file Legal Sex Female 2:13 AM 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 MANAGER Gender Identity Female 05/01/2021 8:51 AM CDT Sexual Orientation Straight 02/24/2020 1: 08 PM CDT documented as of this encounter Plan of Treatment Not on file documented as of this encounter Procedures Procedure Name Priority Date/Time Associated Diagnosis Comments SCAN - RADIOLOGY/IMAGING 05/16/2023 documented in this encounter Results * SCAN - RADIOLOGY/IMAGING (05/16/2023) Anatomical Region Laterality Modality Other Provider Scanning [...] documented as of this encounter Care Teams Straightening Press Operator Relationship Specialty Start Date End Date Leslie Torres NP [address] [place] [address] PCP - General Family Medicine 03/28/23 06/30/23 Cinthia Quinones [employer]ING [employer] LABORER [address] [facility] [address] [place] [address] PCP - General Rheumatology 07/01/23 08/13/23 Leslie Torres NP [address] [place], [place] [id number] PCP - General Family Medicine 08/14/23 Rosario Pham DO [address] [facility] [address] [facility] [address] [place] [address] Consulting Physician Endocrinology Diabetes & Metabolism 08/22/22 Tu Fritz MD [address] [place] [address] Consulting Physician Internal Medicine 03/28/23 Cinthia Quinones, [employer] LABORER [address] [facility] [address] [place] [address] Nurse Practitioner Rheumatology 03/28/23 Thomas Venegas MD [address] [facility] [address] [place] [address] Consulting Physician Cardiology 03/28/23 Trevon Sheth MD [address] [facility] [address] [place] [address] Surgeon Cardiothoracic Surgery 03/28/23 London Hall MD [address] GASTROENTEROLOGY [place], [place] [id number] Referring Physician Gastroenterology 03/28/23 Sylvia Johnson MD [address] [place], [place] [id number] Consulting Physician Critical Care Med 03/28/23 Bobby Bui DO [address] [place], [place] [address] Internal Medicine 03/28/23 Sahara Freedman OD [address] [place] [address] Optometry 03/28/23 Dominique Pedro PA [address] [place] [address] Allergy and Immunology 03/28/23 documented as of this encounter
--- OUTSIDE RECORDS SUMMARY | 2024-12-31 08:49 | XMS_ITS | Encounter Summary ---
Author Organization [facility] Healthcare Address [address] [place] [address] Care Team Providers Care Backup Administrative Coordinator Name Role Phone Rosario Pham DO Unavailable [phone] Tu Fritz MD Unavailable [phone] Cinthia Quinones NP Unavailable Thomas Venegas MD Unavailable Trevon Sheth MD Unavailable [phone] London Hall MD Unavailable + Sylvia Johnson MD Unavailable [phone] Bobby Bui DO Unavailable [phone] Sahara Freedman OD Unavailable Dominique Pedro Unavailable [phone] Leslie Torres NP Primary Care Provider [phone] Reason for Referral * Cardiology (Routine) - Authorized Specialty Diagnoses / Procedures Referred By Contac t Referred To Contact Diagnoses S/P AVR Pulmonary hypertension (HCC) Procedures Transthoracic Echo (TTE) Complete W Doppler/CF Thomas Venegas MD [address] [facility] [address] [place] [address] Phone: tel: fax: [facility] Medical [facility] Cardiology at [address] [place] [address] Phone: tel: fax: Referral ID Status Reason Start Date Expiration Date V isits Requested Visits Authorized [id number] Authorized 12/29/2024 01/28/2026 1 1 Reason for Visit * Reason Comments Follow-up 6 mo follow up on s/ p AVR, HTN, LAURA, edema, PHTN Encounter Details Date Type Department Care Team (Latest Contact Info) Description 12/29/2024 8:30 AM CDT Office Visit [facility] Medical [facility] Cardiology at [address] [place] [phone] Thomas Venegas MD [address] [place] [address] [phone] S/P AVR (Primary Dx); Pulmonary hypertension (HCC); Nonrheumatic aortic valve stenosis; Essential (primary) hypertension; Preop cardiovascular exam Social History Tobacco Use Types Packs/Day Years Used Date Smoking Tobacco: Former Cigarettes 0.5 43.7 0 08/21/1970 - 05/21/2014 Passive Smoke Exposure: Past Smokeless Tobacco: Never Tobacco Cessation:Counseling Given: Not Answered Alcohol Use Standard Drinks/Week Comments No 0 (1 standard drink = 0.6 oz pur e alcohol) AUDIT-C Answer Date Recorded Q1: How often do you have a drink containing alcohol? Never 10/12/2024 Q2: How many drinks containi ng alcohol do you have on a typical day when you are drinking? Patient does not drink Frequency of Binge Drinking Not on file 10/2024 PHQ-2 Answer Date Recorded PHQ-2 Total Score (If total score is 3 or more points, staff should administer the PHQ-9) 2 10/27/2024 Comments No Sex and Gender Information Value Date Recorded Sex Assigned at Not on file Legal Sex Female 2:13 AM [employer] Gender Identity Female 05/01/2021 8:51 AM CDT Sexual Orientation Straight 02/24/2020 1: 08 PM CDT documented as of this encounter Last Filed Vital Signs Vital Sign Reading Time Taken Comments Blood Pressure 112/82 12/29/2024 8:29 AM CDT Pulse 86 12/29/2024 8:29 AM CDT Temperature - - Respiratory Rate - - Oxygen Saturation 94% 12/29/2024 8:29 AM CDT Inhaled Oxygen Concentration - - Weight 119.3 kg (263 lb) 12/29/2024 8:29 AM CDT Height 172.7 cm (5' 8 ) 12/29/2024 8:29 AM CDT Body Mass Index 39.99 12/29/2024 8:29 AM CDT documented in this encounter Progress Notes * Thomas Venegas MD - 12/29/2024 8:30 AM CDT [facility] DATE OF VISIT: 12/29/2024 CHIEF COMPLAINT Chief Complaint Patient presents with Follow-up 6 mo follow up on s/p AVR, HTN, LAURA, edema, PHTN HPI Barbra Maynard is a 74 y.o. female with atypical chest pain and negative stress test. She also had murmur which was found to be aortic stenosis which is now moderate. Follow-up note 09/01/2020: She denies any chest pain, syncope, presyncope, paroxysmal nocturnal dyspnea, orthopnea, edema or palpitations. She does have worsening shortness of breath. Follow-up note 12/16/2020: She returns today for follow-up. She did undergo successful surgical aortic valve replacement on 10/26/2020. She did have some postoperative atrial fibrillation that has gone away. She is now off of amiodarone. I am seeing her today for the 1st time following surgery. Sheadmits to some chest soreness. She has some dyspnea but this is improving. She denies any swelling,syncope, presyncope, paroxysmal nocturnal dyspnea orthopnea or palpitations. Follow-up with [facility] 04/10/2021: She scheduled this appointment to discuss REICH. It is hard for her to describe if this is any worse compared to the DOA she had prior to her savr, perhaps it is not as bad, but she was expecting to notice more improvement at this point in time. She has REICH and decreasedenergy and she is particularly breathless when she is walking on the treadmill at cardiac rehab. She has been told that her oxygen saturations are normal. She denies edema. She is compliant with her CPAP machine 10-12 hours a night. She does admit to having sinus problems and recently got a COVID booster 13 days ago after which she had a low-grade fever, body aches and ???head cold symptoms with productive cough and she even lost her sense of taste. She denies any blood in the stool. Follow-up note 2021: She has no chest pain, syncope, presyncope, paroxysmal nocturnal dyspneaorthopnea. She has been having some worsening bilateral lower extremity swelling over the past couple months. She has some shortness of breath also is following up with pulmonology next week. Follow-up with [facility] 12/18/2022: She canceled her appointment in August because she was having a lot of problems with her rheumatoid arthritis at the time. Recently she was re-evaluated by pulmonology [facility] Quentin Lorenzana for complaint of shortness of breath. She had a walk test and PFTs repeated with no abnormal findings. She remains compliant with her CPAP. She is bothered by the ongoing shortness of breath which has been a problem for about a year now. She has no significant swelling. She denies wheezing, orthopnea or PND. Follow-up note 04/25/2023: She continues have some swelling. Swelling has not particularly improvedwith the furosemide p.r.n.. She has dyspnea with mild activity. Unfortunately she has been having multitude of RA flares resulting in bursts of steroids on multiple occasions. She denies any chest pain, syncope, presyncope, paroxysmal nocturnal dyspnea orthopnea, palpitations. Follow-up with [facility] 11/25/2023: She was due for routine follow-up here in August but had to reschedule because she was having a minimally invasive lumbar spine decompression with pain management. PCP recently referred her to an OT to treat lymphedema. Recent labs done by PCP all looked good. She hasno cardiac concerns today. Follow-up note 12/29/2024 She denies any chest pain, shortness breath, syncope, presyncope, paroxysmal nocturnal dyspnea, orthopnea, unusual edema palpitations. She is feeling well. She has lost nearly 30 lb and total. She does not describe any significant chest pain or dyspnea and can perform greater than 4 Mets. MEDICAL HISTORY Past Medical History: Diagnosis Date Acid reflux (aortic stenosis) Asthma Autoimmune disease RA 1994 Cataract Crohn disease (HCC) Depression GERD (gastroesophageal reflux disease) 2001 Heart disease AORTIC STENOSIS 2016 Hyperlipidemia Hypertension Knee pain, left Osteoarthritis Osteoporosis Sciatica Seronegative erosive rheumatoid arthritis (HCC) Sleep apnea 1994 Social History Tobacco Use Smoking status: Former Smoker Types: Cigarettes Quit date: 07/26/2014 Years since quittin.2 Smokeless tobacco: Never Used Vaping Use Vaping Use: Never used Substance Use Topics Alcohol use: No Drug use: No Family History Problem Relation Age of Onset Cirrhosis Mother Heart disease Father Heart attack Father Stroke Father Stroke Sister Hodgkin's lymphoma Daughter No Known Problems Daughter No Known Problems Daughter MEDICATIONS HOME MEDICATIONS : Advair HFA 230-21 mcg/actuation inhaler aspirin (ASPIR-81 ORAL) atorvastatin (LIPITOR) 40 mg tablet azaTHIOprine (IMURAN) 50 mg tablet azelastine (ASTELIN) 137 mcg (0.1 %) nasal spray benzonatate (TESSALON) 200 mg capsule calcium carb, citrate/vit D3 (CALCIUM CARB AND CITRATE-VITD3 ORAL) cholecalciferol (VITAMIN D-3) 5,000 unit capsule diclofenac sodium (VOLTAREN) 1 % gel ferrous sulfate ER (SLOW IRON) 142 mg (45 mg of elemental iron) tablet fluticasone propionate (FLONASE) 50 mcg/actuation nasal spray hydroCHLOROthiazide (MICROZIDE) 12.5 mg capsule hydroxychloroquine (PLAQUENIL) 200 mg tablet ibuprofen (ADVIL,MOTRIN) 600 mg tablet inFLIXimab (REMICADE) 100 mg injection magnesium oxide 400 mg magnesium capsule metoprolol tartrate (LOPRESSOR) 25 mg immediate release tablet montelukast (SINGULAIR) 10 mg tablet NIFEdipine (NIFEdipine XL) 30 mg 24 hr tablet sufor-7w-eat-epa-fish oil 1,000-1,400 mg capsule,delayed release(DR/EC) oxycodone HCl (OXYCODONE ORAL) pantoprazole DR (PROTONIX) 40 mg EC tablet pregabalin (LYRICA) 75 mg capsule Probiotic Formula, inulin, 1 billion-250 cell-mg capsule semaglutide 0.25 mg or 0.5 mg (2 mg/3 mL) pen injector injection silver sulfadiazine (SILVADENE, SSD) 1 % cream tiZANidine (ZANAFLEX) 4 mg tablet albuterol HFA (PROVENTIL HFA,VENTOLIN HFA,PROAIR HFA) 90 mcg/actuation inhaler miscellaneous medical supply misc ALLERGIES Allergies Allergen Reactions Penicillins Hives and Rash Penicillin Allergy History Form completed, moderate risk Latex Unknown Other Unknown Penicillin V Unknown Adhesive Other (See comments) Bruising from bandage REVIEW OF SYSTEMS Review of Systems Constitutional: Negative for malaise/fatigue, weight gain and weight loss. HENT: Negative for hearing loss. Eyes: Negative for blurred vision and visual disturbance. Cardiovascular: Negative for chest pain, claudication, dyspnea on exertion, irregular heartbeat, leg swelling, near-syncope, orthopnea, palpitations, paroxysmal nocturnal dyspnea and syncope. Respiratory: Negative for cough, hemoptysis, shortness of breath, sleep disturbances due to breathing, snoring and wheezing. Endocrine: Negative for cold intolerance, heat intolerance and polyuria. Hematologic/Lymphatic: Does not bruise/bleed easily. Skin: Negative for color change, itching and rash. Musculoskeletal: Negative for falls, joint pain, joint swelling, muscle cramps, muscle weakness andmyalgias. Gastrointestinal: Negative for abdominal pain, heartburn, nausea and vomiting. Genitourinary: Negative for dysuria. Neurological: Negative for excessive daytime sleepiness, dizziness, focal weakness, headaches, light-headedness, loss of balance and numbness. Psychiatric/Behavioral: Negative for altered mental status, depression and substance abuse. The patient is not nervous/anxious. Allergic/Immunologic: Negative for environmental allergies. PHYSICAL EXAM Blood pressure 112/82, pulse 86, height 172.7 cm (5' 8 ), weight 119.3 kg (263 lb), SpO2 94%. Physical Exam Vitals reviewed. HENT: Head: Normocephalic and atraumatic. Nose: Nose normal. Eyes: General: No scleral icterus. Conjunctiva/sclera: Conjunctivae normal. Cardiovascular: Rate and Rhythm: Normal rate and regular rhythm. Pulses: Intact distal pulses. Heart sounds: Murmur heard. No friction rub. No gallop. Comments: 1/6 systolic ejection murmur Pulmonary: Effort: Pulmonary effort is normal. No respiratory distress. Breath sounds: Normal breath sounds. No wheezing or rales. Chest: Chest wall: No tenderness. Abdominal: General: Bowel sounds are normal. There is no distension. Palpations: Abdomen is soft. Tenderness: There is no abdominal tenderness. Musculoskeletal: General: Swelling present. Normal range of motion. Cervical back: Neck supple. Comments: Trivial LE edema Skin: General: Skin is warm and dry. Neurological: Mental Status: She is alert and oriented to person, place, and time. Psychiatric: Mood and Affect: Mood normal. LABS AND OTHER DIAGNOSTIC TESTS Lab Results Component Value Date WBC 7.3 07/29/2024 HGB 13.8 07/29/2024 HCT 40.5 07/29/2024 MCV 91.2 07/29/2024 Chemistry Component Value Date/Time NA 143 08/01/2015 1335 K 4.6 08/01/2015 1335 CL 105 08/01/2015 1335 CO2 23 10/27/2024 0952 CO2 29 06/02/2024 0656 CREATININE 0.77 10/27/2024 0952 CREATININE 0.82 06/02/2024 0656 Component Value Date/Time CALCIUM 10.1 10/27/2024 0952 CALCIUM 9.9 06/02/2024 0656 ALKPHOS 86 10/27/2024 0952 AST 33 10/27/2024 0952 ALT 21 10/27/2024 0952 BILITOT 1.0 10/27/2024 0952 Lab Results Component Value Date CHOL 141 10/27/2024 CHOL 156 10/14/2023 CHOL 176 03/28/2023 Lab Results Component Value Date HDL 89 10/27/2024 HDL 62 10/14/2023 HDL 70 03/28/2023 Lab Results Component Value Date LDLCALC 39 10/27/2024 LDLCALC 66 10/14/2023 LDLCALC 87 03/28/2023 Lab Results Component Value Date TRIG 65 10/27/2024 TRIG 140 10/14/2023 TRIG 94 03/28/2023 Lab Results Component Value Date CHOLHDL 2 10/27/2024 CHOLHDL 3 10/14/2023 CHOLHDL 3 03/28/2023 EKG 10/24/2021: Normal rate rhythm axis. Normal EKG EKG 12/29/2024: Normal sinus rhythm. Normal EKG Echo June 2017: Ejection fraction 65-70%. Moderate LVH. Mean gradient of 30 with an aortic valve area of 1.15 centimeter squared. Mild left atrial enlargement. Mild TR, mild pulmonic insufficiency Echocardiogram June 2018: EF 61% with moderate LVH grade 1 diastolic dysfunction mild to moderate left atrial enlargement, moderate aortic stenosis with peak and mean gradients of 47 in 27 mm of mercury. Aortic valve area 1.03 cm squared. Severely calcified aortic valve with mild AI ECHO 2018 Normal left ventricular systolic function. No focal wall motion abnormalities. Normal left ventricular size. Moderate concentric left ventricular hypertrophy. Impaired diastolic relaxation Grade I. Ejection fraction is visually estimated at 65-70 %. Ejection fraction is measured at 62 %. There is moderate enlargement of left atrium. Mild mitral annular calcification. Mild mitral valve regurgitation. Severe aortic stenosis. Peak gradient of 79.0 mmHg. Mean gradient of 43.0 mmHg. Valve area of 0.92 cm2. Aortic cusps appear severely calcified. Mild aortic valve regurgitation. Mild tricuspid regurgitation. Aortic root is mildly dilated. Mild aortic root calcification. Normal sinus rhythm. Echo 08/25/2020 Normal left ventricular systolic function. No focal wall motion abnormalities. Normal left ventricular size. Moderate concentric left ventricular hypertrophy. Impaired diastolic relaxation Grade I. Ejection fraction is measured at 74 %. There is moderate enlargement of left atrium. Severe aortic stenosis. Peak gradient of 89.0 mmHg. Mean gradient of 59.0 mmHg. Valve area of 0.98 cm2. Trace aortic valve regurgitation. Technically difficult study with limited views. JOMAR 09/16/20 Normal LV size, moderate LVH, normal LV systolic function, EF approximately 65-70%. Moderate left atrial enlargement; no evidence of left atrial appendage thrombus; lipomatous hypertrophy of atrial septum, no evidence of shunt on color Doppler Sclerotic, trileaflet aortic valve, severe with planimetered RHINA 1 cm2. Mild aortic regurgitation Carotid artery ultrasound January 2017: Less than 50% bilateral carotid disease ECHO 10/28/2020 Normal left ventricular size. Mild concentric left ventricular hypertrophy. Diastolic dysfunction is present. Ejection fraction is measured at 62 %. No evidence of hemodynamically significant aortic stenosis by Doppler. No aortic regurgitation. Peak gradient of 17.0 mmHg. Mean gradient of 10.0 mmHg. Normal appearing aortic valve bioprosthesis. Normal structure of the tricuspid valve. Trivial regurgitation in the tricuspid valve. CATH 09/16/2020 CAD-about 50-60% eccentric stenosis proximal RCA (iFR 0.94) LAD and left circumflex arteries arise from separate ostia; no significant stenosis in the left coronary system PLAN/RECOMMENDATIONS: Patient has progressively worsening shortness of breath with current RHINA about 1 cm2. She will undergo further evaluation for aortic valve replacement including CT surgery evaluation. Patient's case will be discussed by our multidisciplinary heart team, and her candidacy for TAVR Vs SAVR will be determined by the heart team. ECHO 04/24/2021 Normal left ventricular systolic function. No focal wall motion abnormalities. Normal left ventricular size. Mild concentric left ventricular hypertrophy. There is pseudonormal diastolic dysfunction Grade II. Ejection fraction is measured at 61 %. There is moderate enlargement of left atrium. Mild mitral annular calcification. Trivial regurgitation of the mitral valve. Normal appearing aortic valve bioprosthesis. Mean gradient of 11.0 mmHg. Valve area of 2.4 cm2. Gradients normal for valve type and size. Mild tricuspid regurgitation. Borderline pulmonary hypertension.. Estimated peak RVSP is 35 mmHg. Normal sinus rhythm. No significant change compared to 10/2020. Echocardiogram 02/16/2022 Normal left ventricular systolic function. No focal wall motion abnormalities. Normal left ventricular size. Mild concentric left ventricular hypertrophy. Impaired diastolic relaxation Grade I. Ejection fraction is measured at 70 %. There is severe enlargement of left atrium. Mitral valve leaflets appear mildly thickened. Mild mitral annular calcification. Trivial regurgitation of the mitral valve. Aortic valve not well visualized. Peak gradient of 19.0 mmHg. Mean gradient of 9.0 mmHg. Valve area of 1.9 cm2. No aortic regurgitation. Gradients normal for valve type and size. Normal appearing aortic valve bioprosthesis although leaflets not well visualized. Normal appearance of the tricuspid valve. Normal right ventricular systolic pressure. Estimated peak RVSP is 31 mmHg. Mild tricuspid regurgitation. Normal sinus rhythm. Echo 03/28/2023 Normal left ventricular systolic function. No focal wall motion abnormalities. Normal left ventricular size. Moderate concentric left ventricular hypertrophy. Impaired diastolic relaxation Grade I. Ejection fraction is measured at 60 %. Global Longitudinal Strain is -15 %. GLS is abnormal. There is mild enlargement of left atrium. Mild mitral annular calcification. No mitral valve regurgitation is seen. There is no hemodynamically significant mitral stenosis by Doppler. Normal appearance of the aortic valve. No evidence of hemodynamically significant aortic stenosis by Doppler. Peak Velocity of 2.47 m/s. Peak gradient of 24.0 mmHg. Mean gradient of 14.0 mmHg. Valve area of 2.2 cm2. No aortic regurgitation. Normal appearing aortic valve prosthesis. Gradients normal for valve type and size. Estimated peak RVSP is 42 mmHg. Mild tricuspid regurgitation. Echo January 2024: EF 60-65% with mild LVH, moderate LAE, mild MR, mild STEPHANIE., status post AVR functioning normally mean gradient 12 ASSESSMENT Status post AVR Surgically performed on 10/26/2020: Asymptomatic and functioning normally Essential hypertension, benign At goal History of tobacco abuse Continues to refrain Obstructive sleep apnea On cpap Seropositive rheumatoid arthritis of multiple sites Mild bilateral lower extremity edema Improved Pulmonary hypertension mild Preoperative cardiovascular examination Upcoming knee surgery PLAN/RECOMMENDATIONS EKG today for preoperative cardiovascular examination She is doing well. She is congratulated on her weight loss. 2D echocardiogram with Doppler to re-evaluate her aortic valvular disease and pulmonary hypertension Most recent lipid panel shows an LDL 39. Continue atorvastatin for hyperlipidemia. Continue hydrochlorothiazide and metoprolol and nifedipine for hypertension She is at low risk for perioperative cardiovascular complications for upcoming knee surgery. EKG isnormal. No need for stress testing as she can perform greater than 4 Mets without any anginal or heart failure symptoms Follow-up in 6 months or sooner as clinically indicated. Thomas Venegas MD, [facility] documented in this encounter Miscellaneous Notes * Addendum Note - Shi Viveros MA - 12/29/2024 8:30 AM CDTAddended by: SHI VIVEROS on: 12/30/2024 12:19 PM Modules accepted: Orders documented in this encounter Plan of Treatment Scheduled Orders Name Type Priority Associated Diagnoses Orde r Schedule Transthoracic Echo (TTE) Complete W Doppler/CF Echocardiography Routine S/P AVR Pulmonary hypertension (HCC) Expected: 12/29/2024, Expires: 12/29/2025 documented as of this encounter Procedures Procedure Name Priority Date/Time Associated Diagnosis Comments ELECTROCARDIOGRAM REPORT Routine 025 12:18 PM CDT Nonrheumatic aortic valve stenosis documented in this encounter Results * Electrocardiogram Report (12/29/2024 12:18 PM CDT) Thomas Venegas MD ECG ORDERABLES Final Res ult documented in this encounter Visit Diagnoses Diagnosis S/P AVR- Primary Pulmonary hypertension (HCC) Other chronic pulmonary heart diseases Nonrheumatic aortic valve stenosis Essential (primary) hypertension Unspecified essential hypertension Preop cardiovascular exam Pre-operative cardiovascular examination documented in this encounter Care Teams Backup Administrative Coordinator Relationship Specialty Start Date End Date Leslie Torres NP [address] [place], [place] [id number] PCP - General Family Medicine 08/14/23 Rosario Pham DO [address] [facility] [address] [place] [address] Consulting Physician Endocrinology Diabetes & Metabolism 08/22/22 Tu Fritz MD [address] [place] [address] Consulting Physician Internal Medicine 03/28/23 Cinthia Quinones NP [address] [facility] [address] [place] [address] Nurse Practitioner Rheumatology 03/28/23 Thomas Venegas MD [address] [facility] [address] [place], [place] [id number] Consulting Physician Cardiology 03/28/23 Trevon Sheth MD [address] [facility] [address] [place], [place] [id number] Surgeon Cardiothoracic Surgery 03/28/23 London Hall MD [address] [facility] [address] [place] [address] Referring Physician Gastroenterology 03/28/23 Sylvia Johnson MD [address] [place] [address] Consulting Physician Critical Care Med 03/28/23 Bobby Bui DO [address] [place] [address] Internal Medicine 03/28/23 Sahara Freedman OD [address] [place] [address] Optometry 03/28/23 Dominique Pedro PA [address] [place] [id number] Allergy and Immunology 03/28/23 documented as of this encounter
--- OUTSIDE RECORDS SUMMARY | 2024-12-31 08:49 | XMS_ITS | Clinical Summary ---
Author Organization [facility] Address [address] [place] [address] Care Team Providers Care Desulfurizer Machine Name Role Phone Robert Dial MD Primary Care Provider [phone] Source Comments [facility],non-owned Affiliates and Associated Physician Practices is amultiple site organization consisting of ambulatory clinics and hospital sitesin [place], [place], [place] and [place]. This disclosure is being madepursuant to the Care Everywhere program and may not contain all information available regarding this patient. Last updated 18.[facility] Allergies Active Allergy Reactions Criticality Noted Date Comments Penicillins Rash Medium 03/22/2006 Other reaction(s): Other: HIVES Medications * Be aware that medications may not be up to date on this document. Alwaysverify current medications with the patient. gabapentin (NEURONTIN) 600 MG tablet 01/29/2017 Active mercaptopurine (PURINETHOL) 50 MG tablet 50 mg. 03/03/2014 Active esomeprazole (NEXIUM) 40 MG capsule 40 mg. 10/12/2011 Active calcium carbonate - vitamin D (CALTRATE 600+D) 600-800 MG-UNIT tablet 02/18/2017 Active aspirin (ASPIRIN) 81 MG chew tablet 81 mg. 10/12/2011 Active amLODIPine (NORVASC) 5 MG tablet Take 5 mg by mouth. 03/05/2017 Active hydroxychloroqui ne (PLAQUENIL) 200 MG tablet 02/13/2017 Activ e mesalamine EC (LIALDA) 1.2 G tablet 01/28/2017 Active atorvastatin (LIPITOR) 10 MG tablet 10 mg. 07/13/2016 Active buPROPion XL 24hr (WELLBUTRIN-XL) 300 MG tablet Take 300 mg by mouth Active traMADol (ULTRAM) 50 MG tablet 2016 Active rivaroxaban (XARELTO) 10 MG tablet 11/28/2016 Active predniSONE (DELTASONE) 5 MG tablet 10/31/2017 Active pantoprazole EC (PROTONIX) 40 MG tablet 09/17/2017 Active mirtazapine (REMERON) 15 MG tablet 09/17/2017 Active CLEAR-ATADINE 10 MG tablet 09/17/2017 Active furosemide (LASIX) 20 MG tablet 08/07/2017 Active HYDROcodone-acet aminophen (NORCO) 7.5-325 MG tablet 11/28/2016 Active VOLTAREN 1 % gel 10/31/2017 Ac tive Bacillus Coagulans-Inulin (PROBIOTIC FORMULA) 1-250 BILLION-MG CAPS 11/11/2017 Act sherrie ASPIRIN REGIMEN LOW DOSE ADULT 81 MG 11/12/2017 Active multivitamin (OPURITY) CHEW tablet take 1 tablet by oral route every day with food 10/15/2012 Active ferrous sulfate 325 (65 FE) MG tablet take 1 tablet by oral route every day 03/03/2014 Active Active Problems Problem Noted Date Diagnosed Date Vaginal atrophy 11/26/2017 ASCUS with positive high risk HPV cervical 11/26 S/P LEEP (loop electrosurgical excision procedur e) 11/26/2017 Primary osteoarthritis, unspecified ankle and fo ot 04/17/2017 Overview (11/11/2017): Pain in both feet probably from OA. XRays from 2 yrs ago showed mild OA, and is now getting worse. History somewhat consistent with OA. [employer] not think has RA. Will get XRays to confirm dx again. Also told pt she can take up to 1 gm Tylenol qid if needed (on top of the Naproxen she is already taking for knees. She knows she can't take motrin with naproxen). RTC 1-2 mo. Other meniscus derangements, posterior horn of medial meniscus, unspecified knee 04/17/2017 Overview (11/11/2017): S: Pt returns for f/u previous visit for knee pain, generalized swelling and pain and lab tests that were positive for RF and elevated CRP. She has been in physical therapy which is not helping much with the severe pain in her left knee. Swimming (chyna Hyperlipidemia 04/17/2017 Overview (11/11/2017): will refill zocor and tricor, check lipids/LFT/CK Adjustment disorder with mixed anxiety and depre ssed mood 04/17/2017 Anemia 04/17/2017 Overview (11/26/2017): Overview: Labwork to be checked in next week as f/u to hospitalization for recent GI bleed. Doing well, no sxs, exercise tolerance is nearing what it was before the GI bleed and fatigue pt had with anemia before that point. Labwork to be checked in next week as f/u to hospitalization for recent GI bleed. Doing well, no sxs, exercise tolerance is nearing what it was before the GI bleed and fatigue pt had with anemia before that point. Astigmatism of eye 04/17/2017 Asymptomatic varicose veins of lower extremity 0 04/17/2017 Chronic rhinitis 04/17/2017 Metabolic syndrome 04/17/2017 Edema 04/17/2017 Obesity 04/17/2017 Overview (11/26/2017): Overview: Pt doing Nutri-system, has lost 37 lbs, exercising more often and feeling much better than previously. Pt doing Nutri-system, has lost 37 lbs, exercising more often and feeling much better than previously. Cervicalgia 04/17/2017 Obstructive sleep apnea 04/17/2017 Overview (11/26/2017): Doing well with CPAP, after wt loss of 37 lbs, monitored form time to time. Essential (primary) hypertension 04/17/2017 Nonrheumatic aortic valve stenosis 04/17/2017 Lesion of plantar nerve 04/17/2017 Overview (11/26/2017): Overview: Pain between 3rd and 4th metatarsal heads. Could be a neuroma. Will defer further w/u, however made mention of probable neuroma in referral to [facility] for custom insoles (her has done well with these, she is willing to pay out of pocket). Between NSAIDS and conservative therapy, will try to see if improves. Her exercise includes non-impact in the pool and such. Pain between 3rd and 4th metatarsal heads. Could be a neuroma. Will defer further w/u, however made mention of probable neuroma in referral to [facility] for custom insoles (her has done well with these, she is willing to pay out of pocket). Between NSAIDS and conservative therapy, will try to see if improves. Her exercise includes non-impact in the pool and such. Impaired fasting glucose 04/17/2017 Personal history of nicotine dependence 04/17/20 Gastro-esophageal reflux disease without esophag itis 04/17/2017 Essential hypertension, benign 01/16/2017 History of tobacco abuse 01/16/2017 Non-rheumatic aortic stenosis 01/16/2017 Crohn's disease 11/03/2012 Osteopenia 11/03/2012 Dysmetabolic syndrome X 2010 Rheumatoid arthritis 12/30/2007 Overview (11/26/2017): Rheum doctor now has pt on MTX, HCQ and prednisone. Her long-term goal is to wean pt off of prednisone and celebrex. Pt now only taking celebrex 200 mg qday. No returned sxs of GI bleed. Pain too severe without medication, she tried for several days without it. Pt also gained only 3-4 lbs since starting prednisone, trying to keep from gaining weight. PT finishing now, will continue home exercise regimen. Pt hopeful that RA meds will help reduce her pain and allow her to continue her normal life. 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 Gender Identity Not on file Sexual Orientation Not on file Last Filed Vital Signs Vital Sign Reading Time Taken Comments Blood Pressure 124/82 11/26/2017 3:53 PM CDT Pulse - - Temperature - - Respiratory Rate - - Oxygen Saturation - - Inhaled Oxygen Concentration - - Weight 131.1 kg (289 lb) 11/26/2017 3:53 PM CDT Height 177.8 cm (5' 10 ) 11/26/2017 3:53 PM CDT Body Mass Index 41.47 11/26/2017 3:53 PM CDT Plan of Treatment Health Maintenance Due Date Last Done Comments BONE DENSITY TESTING 1950 COLOGUARD (AGES 45-75) - COL ON CA SCREENING 1949 COLON MONITORING 1949 COLONOSCOPY - COLON CA SCREENING 1949 CT COLONOGRAPHY - COLON CA SCREENING 1950 Colorectal Cancer Screening 1950 FIT - COLON CA SCREENING 1949 FLEX SIG - COLON CA SCREENING 1950 MAMMOGRAM 1950 HEPATITIS C SCREENING 09/29/1967 DTAP/TDAP/TD VACCINES (1 - Tdap) 1968 PNEUMOCOCCAL VACCINE 50+ (1 of 1 - PCV) 1999 ZOSTER VACCINE (1 of 2) 1999 SCREENING FOR DIABETES 11/26/2017 COVID-19 VACCINE (1 - 2023-2 5 season) 2024 DEPRESSION SCREENING 08/12/2024 Respiratory Syncytial Virus (RSV) Vaccine Pt: or over 60 yrs (1 - 1-dose 75+ series) 2024 INFLUENZA VACCINE (Season Ended) 2025 HEPATITIS B VACCINE Aged Out No longe r eligible based on patient's age to complete this topic HIB VACCINE Aged Out No longer eligi ble based on patient's age to complete this topic HPV VACCINE Aged Out No longer eligi ble based on patient's age to complete this topic MENINGOCOCCAL (Group B) VACC INE SHARED DECISION-MAKING Aged Out No longer eligibl e based on patient's age to complete this topic MENINGOCOCCAL GROUPS A/C/Y/W VACCINE Aged Out No longer eligible b ased on patient's age to complete this topic Insurance MEDICARE Care Teams Desulfurizer Machine Relationship Specialty Start Date End Date Robert Dial MD [facility] [address] [place] [id number] PCP - General 08/21/18
--- OUTSIDE RECORDS SUMMARY | 2024-12-31 08:49 | XMS_ITS | Referral Summary ---
Author Organization [facility] [address] Address [address] [place] [address] Care Team Providers Care Road Marker Name Role Phone Rosario Pham DO Unavailable Tu Fritz MD Unavailable [phone] Cinthia Quinones NP Unavailable [phone] Thomas Venegas MD Unavailable Trevon Sheth MD Unavailable [phone] London Hall MD Unavailable + Sylvia Johnson MD Unavailable [phone] Bobby Bui DO Unavailable [phone] Sahara Freedman OD Unavailable Dominique Pedro Unavailable [phone] Leslie Torres NP Primary Care Provider Encounters Date Type Department Care Team Description 12/29/2024 8:30 AM CDT Office Visit [facility] Cardiology at [address] [place] [address] Thomas Venegas MD S/P AVR (Primary Dx); Pulmonary hypertension (HCC); Nonrheumatic aortic valve stenosis; Essential (primary) hypertension; Preop cardiovascular exam 12/24/2024 8:04 AM CDT - 12/24/2024 11:59 PM CDT Hospital Encounter [facility] [address] [place] [phone] Abdirahman Mcclendon MD Radiculopathy, lumbosacral region [M54.17] (Primary Dx); Myofascial pain; Spinal stenosis of lumbar region with neurogenic claudication [M48.062] Discharge Disposition: Discharge to home or self care 12/23/2024 8:00 AM CDT Infusion [facility] Infusion Therapy [address] [facility] 2nd Floor [address] [place] [address] 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) (Primary Dx); Age-related osteoporosis without current pathological fracture 12/17/2024 Documentation [facility] Rheumatology [address] [place] [address] Melecio De Souza Eye Exam (12-07-24 Metro ok for plaquenil) 12/17/2024 Orders Only [facility] Neurology [address] [place] [address] [place] [phone] Pb Foreman Si, MD Imbalance 11/30/2024 8:30 AM CDT - 11/30/2024 11:59 PM CDT Hospital Encounter [facility] [address] [place] [phone] Gutierrez Lucio NP Lumbar radiculopathy (Primary Dx); Spinal stenosis of lumbar region, unspecified whether neurogenic claudication present; Sacroiliitis; Myofascial pain Discharge Disposition: Discharge to home or self care 11/24/2024 1:30 PM CDT Office Visit [facility] Neurology [facility] [address] [place] [phone] Pb Foreman Si, MD Imbalance (Primary Dx); Unsteady gait when walking; Dizziness; Abnormal MRI of head; Multiple lacunar infarcts (HCC); Polyneuropathy 11/19/2024 Orders Only [facility]) - [facility] ENT [address] [facility] 2nd Floor, [address] [place] [address] Keith Cline MD 11/19/2024 8:20 AM CDT Office Visit [facility] - [facility] E[facility] [address] [facility] 2nd Floor, [address] [place] [address] Keith Cline MD Impacted cerumen of right ear (Primary Dx); Recurrent sinusitis; Nasal pain; Chronic rhinitis; Chronic sinusitis, unspecified location 11/11/2024 8:00 AM CDT Infusion [facility] Infusion Therapy [address] [facility] 2[address] [place] [address] 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) (Primary Dx); Age-related osteoporosis without current pathological fracture 11/04/2024 Results Follow-Up [facility] Primary Care at [address] [phone] Leslie Torres NP MRI Brain WO Contrast 11/04/2024 8:35 AM CDT - 11/04/2024 11:59 PM CDT Hospital Encounter [facility] and Radiology [address] [place] [address] Unsteady gait when walking; Abnormal neurological exam; Dizziness Discharge Disposition: Discharge to home or self care 10/30/2024 Telephone [facility] ([facility]) - [facility] E[facility] [address] [facility] 11th [place] [address] [place] [address] Marianne Rosen, 10/28/2024 Results Follow-Up [facility] Primary Care at [address] [phone] Leslie Torres, FURNITURE DESIGNER Pro B-type natriuretic peptide, Thyroid Function Jewell, Lipid panel, Additional followed-up results: 5 10/27/2024 9:52 AM CDT - 10/27/2024 11:59 PM CDT Hospital Encounter [address] [address] Bilateral lower extremity edema; Essential (primary) hypertension; Impaired fasting glucose; Class 3 severe obesity due to excess calories with serious comorbidity and body mass index (BMI) of 40.0 to 44.9 in adult ([facility]) Discharge Disposition: Discharge to home or self care 10/27/2024 9:45 AM CDT Lab [facility] Outpatient Lab at [address] [address] Anxiety (Primary Dx); Crohn's disease (HCC) 10/27/2024 8:30 AM CDT Office Visit [facility] Primary Care at [address] [address] Leslie Torres NP Essential (primary) hypertension (Primary Dx); Impaired fasting glucose; Bilateral lower extremity edema; Unsteady gait when walking; Abnormal neurological exam; Dizziness; Recurrent sinusitis; Nasal pain; Class 3 severe obesity due to excess calories with serious comorbidity and body mass index (BMI) of 40.0 to 44.9 in adult ([facility]) 10/12/2024 9:20 AM CHECKOUT OPERATOR Office Visit [facility] Rheumatology [address] [facility] 2nd Floor [address] [place] [phone] Cinthia Quinones NP 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) (Primary Dx); High risk medication use 10/08/2024 10:10 AM CHECKOUT OPERATOR - 10/08/2024 11:59 PM CHECKOUT OPERATOR Hospital Encounter [facility] [address] [place] [address] Gutierrez Lucio NP Osteoarthritis of glenohumeral joint, right (Primary Dx) Discharge Disposition: Discharge to home or self care 10/07/2024 8:00 AM CHECKOUT OPERATOR Infusion [facility] Infusion Therapy [address] [place] [phone] 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) (Primary Dx); Age-related osteoporosis without current pathological fracture from Last 3 Months Allergies Active Allergy Reactions Criticality Noted Date Comments Adhesive Other (See comments) Low 10/24/2020 Bruising from bandage Latex Unknown 04/30/2023 Other Unknown 01/27/2010 Penicillin V Unknown 03/22/2006 Penicillins Hives,Rash Medium 03/22/2006 Penicillin Allergy History Form completed, moderate risk Medications magnesium oxide 400 mg magnesium capsule Take 500 mg by mouth daily 10/17/19 22 Active yamcw-[id number]-epa -fish oil 1,000-1,400 mg capsule,delayed release(DR/EC) Take 1,000 mg by mouth daily 04/12/20 22 Active aspirin (ASPIR-81 ORAL) Take by mouth daily Active inFLIXimab (REMICADE) 100 mg injection Infuse 100 mL (1,000 mg total) into a venous catheter every 6 (six) weeks 100 mL 09/11/19 23 Active calcium carb, citrate/vit D3 (CALCIUM CARB AND CITRATE-VITD3 ORAL) Take by mouth Active Advair HFA 230-21 mcg/actuation inhaler 02/01/20 23 Active albuterol HFA (PROVENTIL HFA,VENTOLIN HFA,PROAIR HFA) 90 mcg/actuation inhaler 02/01/20 23 Active ferrous sulfate ER (SLOW IRON) 142 mg (45 mg of elemental iron) tablet Take 1 tablet (142 mg total) by mouth daily 90 tablet 1 06/08/20 23 Active Probiotic Formula, inulin, 1 billion-250 cell-mg capsule Take 1 tablet/capsule by mouth daily 90 capsule 2 08/14/19 24 Active oxycodone HCl (OXYCODONE ORAL) Take 1 tablet by mouth once as needed Active benzonatate (TESSALON) 200 mg capsuleIndicatio ns:Acute viral syndrome Take 1 capsule (200 mg total) by mouth 3 (three) times a day as needed for cough 30 capsule 04/17/20 24 Active miscellaneous medical [facility]-30 [facility] K[facility] 6 each 04/24/20 24 Active Additional Information Patient not taking.Reported on 12/29/2024 cholecalciferol (VITAMIN D-3) 5,000 unit capsule Take 1 capsule (5,000 Units total) by mouth daily 90 capsule 2 05/18/[address] (PROTONIX) 40 mg EC tablet Take 1 tablet (40 mg total) by mouth daily 90 tablet 2 05/18/20 24 Active semaglutide 0.25 mg or 0.5 mg (2 mg/3 mL) pen injector injection Inject under the skin Active hydroCHLOROthiaz peg (MICROZIDE) 12.5 mg capsuleIndicatio ns:Essential (primary) hypertension,Kenrick ateral lower extremity edema Take 1 capsule (12.5 mg total) by mouth every morning 90 capsule 3 06/29/20 24 025 Active tiZANidine (ZANAFLEX) 4 mg tablet Take 1 tablet (4 mg total) by mouth every 8 (eight) hours as needed for muscle spasms 60 tablet 06/29/20 24 Active ibuprofen (ADVIL,MOTRIN) 600 mg tablet Take 1 tablet (600 mg total) by mouth every 6 (six) hours as needed for pain 30 tablet 1 06/29/20 24 Active NIFEdipine (NIFEdipine XL) 30 mg 24 hr tablet Take 1 tablet (30 mg total) by mouth daily 90 tablet 2 07/15/20 24 Active montelukast (SINGULAIR) 10 mg tablet Take 1 tablet (10 mg total) by mouth nightly 90 tablet 2 07/15/20 24 Active pregabalin (LYRICA) 75 mg capsule Take 1 capsule (75 mg total) by mouth 2 (two) times a day 180 capsule 1 08/31/19 25 Active atorvastatin (LIPITOR) 40 mg tablet Take 1 tablet (40 mg total) by mouth nightly 90 tablet 2 09/25/19 25 Active metoprolol tartrate (LOPRESSOR) 25 mg immediate release tabletIndication s:hypertension Take 1 tablet (25 mg total) by mouth 2 (two) times a day 180 tablet 2 10/20/19 25 Active silver sulfadiazine (SILVADENE, SSD) 1 % cream Apply to affected area twice a day or with each dressing change. 20 g 2 10/28/19 25 026 Active azelastine (ASTELIN) 137 mcg (0.1 %) nasal spray Administer 1 spray into each nostril 2 (two) times a day Use in each nostril as directed 30 mL 3 11/20/19 25 Active fluticasone propionate (FLONASE) 50 mcg/actuation nasal spray Administer 2 sprays into each nostril daily 48 mL 3 11/20/19 25 Active diclofenac sodium (VOLTAREN) 1 % gel Apply 2 g topically 4 (four) times a day 300 g 1 11/21/19 25 Active hydroxychloroqui ne (PLAQUENIL) 200 mg tabletIndication s:Rheumatoid Arthritis Take 1 tablet (200 mg total) by mouth 2 (two) times a day 180 tablet 1 12/11/19 25 Active azaTHIOprine (IMURAN) 50 mg tabletIndication s:Rheumatoid Arthritis Take 2 tablets (100) in the morning and 1 tablet (50) in the evening. 270 tablet 1 12/29/19 25 Active azaTHIOprine (IMURAN) 50 mg tabletIndication s:Rheumatoid Arthritis Take 2 tablets (100) in the morning and 1 tablet (50) in the evening. 270 tablet 1 06/29/20 24 025 Discontin ued(Reord er) hydroxychloroqui ne (PLAQUENIL) 200 mg tabletIndication s:Rheumatoid Arthritis Take 1 tablet (200 mg total) by mouth 2 (two) times a day 180 tablet 3 10/13/19 25 025 Discontin ued(Reord er) Active Problems Patient Care Coordination No te Formatting of this note migh t be different from the original. 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 No current meds, has arm splint and is seeing OT/PT. Will consider referral to rheum again in the future if worsening. Stasis dermatitis 05/06/2023 Spontaneous ecchymosis 05/06/2023 Snoring 05/06/2023 Sebaceous cyst 05/06/2023 Pulmonary hypertension 04/25/2023 Neuralgia, geniculate 04/24/2023 Spinal stenosis of lumbar re gion with neurogenic claudication 04/24/2023 Radiculopathy, lumbosacral region 04/24/2023 Assessment & Plan (11/11/2023 12:05 PM CDT): Acute on chronic symptoms, worsening. Lidoderm and Tizanidine trial. Discussed not taking muscle relaxer if she takes her controlled pain medication. Urine negative, low suspicion for kidney stones. S/S to be mindful of discussed. Degeneration of lumbar intervertebral disc 04/24 Other osteoporosis without current pathological fracture 12/13/2022 Age-related osteoporosis wit hout current pathological fracture 11/30/2022 Bilateral lower extremity edema 05/01/2022 Assessment & Plan (10/27/2024 9:52 AM CDT): Discussed lymphedema and need for her compression socks and pumps. Will check labs to make sure no cardiac origin for this but she is asymptomatic otherwise. Assessment & Plan (10/14/2023 11:08 AM CHECKOUT OPERATOR): Continuing to work with Lymphedema clinic. Symptoms stable and she has been working with clinic to get her compression pump. Assessment & Plan (08/14/2023 3:35 PM CHECKOUT OPERATOR): She was started on diuretic per Cardiology and BP medication switched over from Amlodipine to HCTZ. Patient does not feel the swelling has improved. Discussed Lymphedema and will have patient evaluated by Lymphedema Clinic, referral placed. Assessment & Plan (04/01/2023 9:03 AM CDT): Venous ultrasound was negative for DVT 03/12/23. ECHO from 03/28/23 was fine also. Labs ordered today. Edema of lower extremity 04/23/2022 Insomnia 04/23/2022 Anxiety 04/22/2022 S/P AVR 12/16/2020 Aortic valve stenosis 10/17/2020 Overview (10/17/2020): Added automatically from request for surgery [id number] High risk medication use 04/21/2018 Seropositive rheumatoid arthritis of multiple si rosanne 01/14/2018 ASCUS with positive high risk HPV cervical 11/26 S/P LEEP (loop electrosurgical excision procedur e) 11/26/2017 Vaginal atrophy 11/26/2017 Pain of foot 06/05/2017 Astigmatism of eye 04/17/2017 Asymptomatic varicose veins of lower extremity 0 04/17/2017 Gastro-esophageal reflux disease without esophag itis 04/17/2017 Hyperlipidemia 04/17/2017 Overview (04/09/2018): Overview: will refill zocor and tricor, check lipids/LFT/CK Assessment & Plan (10/14/2023 11:03 AM CHECKOUT OPERATOR): Continues Lipitor, no side effects reported. Updated labs today Metabolic syndrome 04/17/2017 Other meniscus derangements, posterior horn of medial meniscus, unspecified knee 04/17/2017 Overview (04/09/2018): Overview: S: Pt returns for f/u previous visit for knee pain, generalized swelling and pain and lab tests that were positive for RF and elevated CRP. She has been in physical therapy which is not helping much with the severe pain in her left knee. Swimming (chyan Personal history of nicotine dependence 04/17/20 17 Primary osteoarthritis, unspecified ankle and fo ot 04/17/2017 Overview (04/09/2018): Overview: Pain in both feet probably from OA. XRays from 2 yrs ago showed mild OA, and is now getting worse. History somewhat consistent with OA. Employee Operations Examiner not think has RA. Will get XRays to confirm dx again. Also told pt she can take up to 1 gm Tylenol qid if needed (on top of the Naproxen she is already taking for knees. She knows she can't take motrin with naproxen). RTC 1-2 mo. CPAP (continuous positive airway pressure) louie gaona 03/25/2017 Nonrheumatic aortic valve stenosis 01/16/2017 Essential (primary) hypertension 01/16/2017 Assessment & Plan (10/27/2024 9:53 AM CDT): BP in good shape today, no changes. Assessment & Plan (04/29/2024 8:40 AM CDT): BP in good shape today, no changes. Renal function was fine also. Assessment & Plan (10/14/2023 11:05 AM CHECKOUT OPERATOR): BP diastolic borderline in office today. However, has been stable in all our other visits. Will continue current regimen and await updated labs. Assessment & Plan (08/14/2023 3:34 PM CHECKOUT OPERATOR): BP stable in office today, no changes. Labs ordered for 2 month follow up. Assessment & Plan (04/01/2023 9:04 AM CDT): BP stable in office today, no changes. History of tobacco abuse 01/16/2017 Obstructive sleep apnea 01/16/2017 Overview (04/09/2018): Overview: Doing well with CPAP, after wt loss of 37 lbs, monitored form time to time. Overview: Doing well with CPAP, after wt loss of 37 lbs, monitored form time to time. Knee pain 08/01/2016 Adjustment disorder with mixed anxiety and depre ssed mood 07/21/2015 Assessment & Plan (04/29/2024 8:39 AM CDT): Has been worsening over the past few weeks, denies SI. Not to the point where she wants medication but counseling resources provided. Patient will let me know if medications needed, may consider Cymbalta given her chronic pain also. Pain in shoulder 08/18/2013 Crohn's disease 11/03/2012 Osteopenia 11/03/2012 Dysmetabolic syndrome X 2010 Asymptomatic varicose veins 08/29/2010 Chronic rhinitis 06/26/2010 Edema 06/26/2010 Astigmatism 02/02/2010 Esophageal reflux 06/07/2008 Cervicalgia 09/04/2007 Class 3 severe obesity due t o excess calories with serious comorbidity and body mass index (BMI) of 40.0 to 44.9 in adult 07/29/2007 Overview (04/09/2018): Overview: Pt doing Nutri-system, has lost 37 lbs, exercising more often and feeling much better than previously. Overview: Overview: Pt doing Nutri-system, has lost 37 lbs, exercising more often and feeling much better than previously. Pt doing Nutri-system, has lost 37 lbs, exercising more often and feeling much better than previously. Assessment & Plan (10/27/2024 9:52 AM CDT): Continues to work with outside weight loss clinic, down 30 lbs. Assessment & Plan (04/29/2024 8:40 AM CDT): Discussed weight loss, insurance does not cover medications. Information provided to patient for weight loss clinic in the area. Assessment & Plan (03/30/2024 10:16 AM CDT): Healthy, low carbohydrate lifestyle and exercise for 150min/week recommended Assessment & Plan (02/04/2024 11:47 AM CDT): Healthy, low carbohydrate lifestyle and exercise for 150min/week recommended Assessment & Plan (11/11/2023 12:03 PM CDT): Unfortunately insurance did not cover Wegovy or Zepbound. Discussed Metformin as a possibility but get labs first to see if indicated. Continue working on diet modifications, hopefully once pain gets more controlled she will be able to exercise more. Assessment & Plan (10/14/2023 11:06 AM CHECKOUT OPERATOR): Patient's insurance would not cover Wegovy but she has different insurance. She will check to see if they will cover Wegovy or Zepbound. Discussed it may be difficult to attain the medications but will try if insurance allows. Assessment & Plan (04/01/2023 9:01 AM CDT): Discussed potential medications, do not feel Phentermine would be a great option d/t cardiac hx and potential side effects. Discussed diet/exercise, getting labs, and see if getting pain under control might aid in exercise efforts. She is starting Physical Therapy. Anemia 07/16/2007 Overview (04/09/2018): Overview: Labwork to be checked in next week as f/u to hospitalization for recent GI bleed. Doing well, no sxs, exercise tolerance is nearing what it was before the GI bleed and fatigue pt had with anemia before that point. Overview: Overview: Labwork to be checked in next [...] pt had with anemia before that point. Lesion of plantar nerve 05/06/2007 Overview (04/09/2018): Overview: Pain between 3rd and 4th metatarsal heads. Could be a neuroma. Will defer further w/u, however made mention of probable neuroma in referral to liner roll changer for custom insoles (her has done well with these, she is willing to pay out of pocket). Between NSAIDS and conservative therapy, will try to see if improves. Her exercise includes non-impact in the pool and such. Overview: Overview: Pain between 3rd and 4th metatarsal heads. Could be a neuroma. Will defer further w/u, however made mention of probable neuroma in referral to liner roll changer for custom insoles (her has done well with these, she is willing to pay out of pocket). Between NSAIDS and conservative therapy, will try to see if improves. Her exercise includes non-impact in the pool and such. Pain between 3rd and 4th metatarsal heads. Could be a neuroma. Will defer further w/u, however made mention of probable neuroma in referral to liner roll changer for custom insoles (her has done well with these, she is willing to pay out of pocket). Between NSAIDS and conservative therapy, will try to see if improves. Her exercise includes non-impact in the pool and such. Myalgia and myositis 02/26/2007 Overview (04/09/2018): Overview: discontinue Zocor and Tricor, repeat lipid in 2 months and make f/u appt. Impaired fasting glucose 01/16/2007 Osteoarthrosis, ankle and foot 12/24/2006 Overview (04/09/2018): Overview: Pain in both feet probably from OA. XRays from 2 yrs ago showed mild OA, and is now getting worse. History somewhat consistent with OA. Employee Operations Examiner not think has RA. Will get XRays to confirm dx again. Also told pt she can take up to 1 gm Tylenol qid if needed (on top of the Naproxen she is already taking for knees. She knows she can't take motrin with naproxen). RTC 1-2 mo. Derangement of posterior horn of medial meniscus 09/12/2006 Overview (04/09/2018): Overview: S: Pt returns for f/u previous visit for knee pain, generalized swelling and pain and lab tests that were positive for RF and elevated CRP. She has been in physical therapy which is not helping much with the severe pain in her left knee. Swimming (chyna Other and unspecified hyperlipidemia 06/06/2005 Overview (04/09/2018): Overview: will refill zocor and tricor, check lipids/LFT/CK Preop cardiovascular exam Resolved Problems Problem Noted Date Diagnosed Date Resolved Date Morbid obesity with BMI of 4 0.0-44.9, adult ([facility]) 07/26/2017 10/24/2021 Rheumatoid arthritis 01/16/2017 021 Overview (04/09/2018): Overview: Rheum doctor now has pt on MTX, [...] allow her to continue her normal life. Immunizations Immunization Administration Dates Next Due H1N1 Inj 08/15/2009 Hep A, Adult 05/06/2019 Hep B Vaccine 06/19/2017,01/11/2017,11/01/2016 Influenza, Quadrivalent, Hig h Dose, Preservative Free, Intrr 04/24/2023,05/22/2022,04/14/2020,04/14,05/06/2019 Influenza, Quadrivalent, Spl it, Preservative Free, Intramuscular 06/09/2021,04/14/2020,06/05/2018,04/17,06/05/2016 Influenza, Split 06/01/2010, 9,06/23/2008,07/10,07/18/2006,06/27/2005 Influenza, Trivalent, High D ose, Split, Preservative Free, Intramuscular 05/06/2019 Influenza, Trivalent, IM (MDV) 04/20/2016,2010 Influenza, Trivalent, Preser vative Free, Intramuscular 05/18/2015,05/10/2014,05/04/2013 Influenza, Unspecified 04/24/2023,2022(Deferred: Patient Refused),08/12/2022(Deferred: Patient Refused),08/12/2021(Deferred: Patient Refused),04/20/2016 Moderna SARS-CoV-2 Monovalen t Vaccination (12+ YRS) 12/23/2021 PPD TEST 11/06/2017, 3,09/13/2008,09/10 Pneumococcal Conjugate PCV 13 08/18/2014 Pneumococcal Polysaccharide PPV23 04/06/2015 Td, adsorbed 10/07/2000 Tdap 09/17/2012 ZOSTER Recombinant 09/23/2021,07/18/2021 Social History Tobacco Use Types Packs/Day Years [...] on file Legal Sex Female 2:13 AM CHECKOUT OPERATOR Gender Identity Female 05/01/2021 8:51 AM CDT Sexual Orientation Straight 02/24/2020 1: 08 PM CDT Last Filed Vital Signs Vital Sign Reading Time Taken Comments Blood Pressure 112/82 12/29/2024 8:29 AM CDT Pulse 86 12/29/2024 8:29 AM CDT Temperature 36.4 C (97.5 F) 12/24/2024 8:14 AM CDT Respiratory Rate 17 12/24/2024 9:36 AM CDT Oxygen Saturation 94% 12/29/2024 8:29 AM CDT Inhaled Oxygen Concentration - - Weight 119.3 kg (263 lb) 12/29/2024 8:29 AM CDT Height 172.7 cm (5' 8 ) 12/29/2024 8:29 AM CDT Body Mass Index 39.99 12/29/2024 8:29 AM CDT Plan of Treatment Not on file Medical Devices Implanted Type Area Spectral Scientist Device Identifier Shelf Expiration Date Model / Serial / Lot [employer] [id number] Inspiris Resilia Leaflet Sewing Ring 23mm Valve Aortic Bovine - [id number] - [id number] Implanted:Qty: 1 on 10/26/2020 by Trevon Sheth MD at [facility] N/A: Heart [employer] 05/19/2024 [id number] / [id number] / Description:As of 11/04/2024 Mri conditions: Static magnetic field of 1.5 darrel or 3 adrrel only. Maximum spatial gradient magnetic field of 3,000 gauss/cm (30 T/m) or less. Maximum MR system-reported, whole-body averaged specific absorption rate (CATALINA) of 2.0 W/kg in Normal Operating Mode Procedures Procedure Name Priority Date/Time Associated Diagnosis Comments ELECTROCARDIOGRAM REPORT Routine 12/29/2024 12:18 PM CDT Nonrheumatic aortic valve stenosis PAIN MGMT IMAGING LUMBAR/CAUDAL EPIDURAL STEROID INJ Schedule Routine, Read Routine (OP Routine) 12/24/2024 9:56 AM CDT Myofascial pain MRI BRAIN WO CONTRAST Schedule Routine, Read Routine (OP Routine) 11/04/2024 9:27 AM CDT Unsteady gait when walking Abnormal neurological exam Dizziness HEMOGLOBIN A1C Routine 10/27/2024 8:04 PM CDT Impaired fasting glucose EGFR Routine 10/27/2024 9:52 AM CDT Essential (primary) hypertension C-PEPTIDE Routine 10/27/2024 9:52 AM CDT Class 3 severe obesity due to excess calories with serious comorbidity and body mass index (BMI) of 40.0 to 44.9 in adult (HCC) INSULIN, TOTAL Routine 10/27/2024 9:52 AM CDT Class 3 severe obesity due to excess calories with serious comorbidity and body mass index (BMI) of 40.0 to 44.9 in adult (HCC) COMPREHENSIVE METABOLIC PANEL Routine 10/27/2024 9:52 AM CDT Essential (primary) hypertension LIPID PANEL Routine 10/27/2024 9:52 AM CDT Essential (primary) hypertension THYROID FUNCTION CASCADE Routine 10/27/2024 9:52 AM CDT Essential (primary) hypertension PRO B-TYPE NATRIURETIC PEPTIDE Routine 10/27/2024 9:52 AM CDT Bilateral lower extremity edema CT LUNG CANCER SCREENING Schedule Routine, Read Routine (OP Routine) 09/03/2024 3:23 PM CHECKOUT OPERATOR DEXA AXIAL AND FOREARM BONE DENSITY SCAN Schedule Routine, Read Routine (OP Routine) 05/29/2024 8:27 AM CDT Osteoporosis, unspecified osteoporosis type, unspecified pathological fracture presence Hyperparathyroidis m HM MAMMOGRAPHY Routine 12/04/2023 HEPATITIS C ANTIBODY Routine 03/28/2023 12:29 PM CDT Encounter for hepatitis C screening test for low risk patient COLONOSCOPY Routine 10/22/2022 from Last 3 Months or Most Recently Relevant to Health Maintenance Results * Electrocardiogram Report (12/29/2024 12:18 PM CDT) Thomas Venegas MD ECG ORDERABLES Final Res ult * Imaging Lumbar/Caudal Epidural Steroid INJ ([id number]) (12/24/2024 9:56 AM CDT) Narrative RAD_PACS_CH - 12/24/2024 9:56 AM CDT The images from this study are not interpreted by Radiology. Please refer to the physician's procedure / OR operative note. Gutierrez Lucio NP IMG PAIN MGMT PROCEDURES F inal Result RAD_PACS_CH * MRI Brain WO Contrast (11/04/2024 9:27 AM CDT) Anatomical Region Laterality Modality Head and Neck N/A Magnetic Resonan ce 11/04/2024 9:49 AM CDT Impressions 11/04/2024 9:49 AM CDT No acute findings. 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 Multiple old punctate hemorrhages. Amyloid angiopathy might BE considered. Electronically signed by: Cory Hudson M.D. Narrative 11/04/2024 9:49 AM CDT EXAMINATION: MRI BRAIN WO CONTRAST HISTORY: 74-year-old woman with dizziness left-sided weakness with imbalance and unsteady gait TECHNIQUE: Multiplanar multisequence spin-echo images obtained FINDINGS: No prior brain imaging studies are available. Moderate involutional changes are seen with prominent ventricles and cortical sulci. FLAIR images demonstrate scattered areas of T2 hyperintensity in the periventricular and subcortical deep white matter with the largest area in the right frontal subcortical white matter. T2 hyperintensity seen within the right side of the malinda. Diffusion images are normal without restricted diffusion. Craniovertebral junction is normal. Aqueduct is patent. Partial empty sella. T2-weighted images demonstrate normal flow voids within the [place] of [place]. Old lacunar infarcts are seen in the cerebellar hemispheres. Cerebellopontine angles appear to be normal. Deep venous sinuses are patent. Susceptibility images demonstrate areas of hemosiderin staining in the right cerebellar hemisphere, and in the left paramedian frontal lobe in the region of the corpus callosum. Multiple additional small areas are seen over the convexities. Procedure Note Cory Hudson MD - 11/04/2024 EXAMINATION: MRI BRAIN WO CONTRAST HISTORY: 74-year-old woman with dizziness left-sided weakness with imbalance and unsteady gait TECHNIQUE: Multiplanar multisequence spin-echo images obtained FINDINGS: No prior brain imaging studies are available. Moderate involutional changes are seen with prominent ventricles and cortical sulci. FLAIR images demonstrate scattered areas of T2 hyperintensity in the periventricular and subcortical deep white matter with the largest area in the right frontal subcortical white matter. T2 hyperintensity seen within the right side of the malinda. Diffusion images are normal without restricted diffusion. Craniovertebral junction is normal. Aqueduct is patent. Partial empty sella. T2-weighted images demonstrate normal flow voids within the [place]. Old lacunar infarcts are seen in the cerebellar hemispheres. Cerebellopontine angles appear to be normal. Deep venous sinuses are patent. Susceptibility images demonstrate areas of hemosiderin staining in the right cerebellar hemisphere, and in the left paramedian frontal lobe in the region of the corpus callosum. Multiple additional small areas are seen over the convexities. IMPRESSION: No acute findings. 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 Multiple old punctate hemorrhages. Amyloid angiopathy might BE considered. Electronically signed by: Cory Hudson M.D. Leslie Torres NP IM MRI PROCEDURES Final Result * Hemoglobin A1c (10/27/2024 8:04 PM CDT) Hgb A1C 5.3 4.0 - 5.6 % Estimated Average Glucose 105 mg/dL LUCILLE RODRIGUEZ Comment: The ADA recommends reporting an estimated Average Glucose (eAG) with all Hemoglobin A1c results using the equation derived from a study of 507 normal and diabetic adults. Minority populations were underrepresented and children were not included. (Diabetes Care 31:8606-7051, 2008). The eAG is not equivalent to a fasting glucose. Blood 10/27/2024 8:04 PM CDT 10/27/2024 8:04 PM CDT us Leslie Torres FURNITURE DESIGNER LAB BLOOD ORDERABLES Final Resul t Performing Organization Address [facility] Co de Phone Number LUCILLE RODRIGUEZ [address] [place] [address] * eGFR (10/27/2024 9:52 AM CDT) eGFR 80 >=60 mL/min/1. 73 m2 Comment: Interpretive Data Reference Interval Normal >/= 90 mL/min/1.73m2 Mildly decreased* 60 - 89 mL/min/1.73m2 Mildly to moderately decreased 45 - 59 mL/min/1.73m2 Moderately to severely decreased 30 - 44 mL/min/1.73m2 Severely decreased 15 - 29 mL/min/1.73m2 Kidney Failure < 15 mL/min/1.73m2 *Relative to young adult level Estimated glomerular filtration rate is determined by the 2020 CKD-EPI equation recommended by the National Kidney Foundation (A Unifying Approach to GFR Estimation: Recommendations of the NKF-ASK Task Force on Reassessing the Inclusion of Race in Diagnosing Kidney Disease, JASN 202). The CKD-EPI equation should not be used for patients with unstable renal function and has not been validated in children and those over 70. Current interpretive data was last reviewed 2021. Blood 10/27/2024 9:52 AM CDT 10/27/2024 8:07 PM CDT Leslie Torres FURNITURE DESIGNER LAB BLOOD ORDERABLES Final Resul t Performing Organization Address City/[facility]/ZIP Co de Phone Number LUCILLE RODRIGUEZ [address] [place] [address] * Pro B-type natriuretic peptide (10/27/2024 9:52 AM CDT) NT-proBNP 385 <=450 pg/mL Comment: Interpretive Comments: A. Dyspnea in Acute Care Setting All Ages: < 300 pg/ml, acute heart failure unlikely. < 50 yrs: 300 - 450 pg/ml, further investigation warranted. > 450 pg/ml, acute heart failure likely. 50 - 74 yrs: 300 - 900 pg/ml, further investigation warranted. > 900 pg/ml, acute heart failure likely . > or = 75 yrs: 450 - 1800 pg/ml, further investigation warranted. > 1800 pg/ml, acute heart failure likely. B. Non-acute Setting < 75 yrs < 125 pg/ml, rules out heart failure. > or = 125 pg/ml, further investigation warranted. > or = 75 yrs < 450 pg/ml, rules out heart failure. > or = 450 pg/ml, further investigation warranted. - Knowledge of each individual patient's NT-proBNP range may be more useful than using similar cut-points for every patient. Please note that marked elevations in NT-proBNP levels may be observed in state other than Left Ventricular Congestive Failure, including: acute coronary syndromes, right heart strain/failure (including pulmonary embolism and cor pulmonale), critical illness, renal failure, as well as advanced age. - References: 1. Laron SAMUEL et.al. Eur Heart J. 2006:27:330-337. 2. Jesus RW, Bart AM. J. AM Joan Cardiol: Cardiovasc Imag. 2009;2: 216- 225. Interpretive Data Last Revised Date: 2018. Blood 10/27/2024 9:52 AM CDT 10/27/2024 7:29 PM CDT us Leslie Torres NP LAB BLOOD ORDERABLES Final Resul t LUC[place]LE [address] Department of Laboratories [place], [place] [id number] * Thyroid Function Jewell (10/27/2024 9:52 AM CDT) TSH 2.26 0.30 - 4.20 mcIUnit/mL Blood 10/27/2024 9:52 AM CDT 10/27/2024 7:29 PM CDT us Leslie Torres FURNITURE DESIGNER LAB BLOOD ORDERABLES Final Resul t Performing Organization Address [facility] de Phone Number LUCILLE RODRIGUEZ [address] [place] [address] * Insulin, total (10/27/2024 9:52 AM CDT) Pathologist [facility] [place] Insulin 12.7 2.6 - 25.0 mcIUnit/mL Comment:Testing performed by : [facility], [address] [place]., [address] Blood 10/27/2024 9:52 AM CDT 10/28/2024 9:52 AM CDT us Leslie Torres FURNITURE DESIGNER LAB BLOOD ORDERABLES Final Resul t Performing Organization Address [facility] de Phone Number LUCILLE RODRIGUEZ [address] Department [place] [address] * C-peptide (10/27/2024 9:52 AM CDT) [facility] C-peptide 3.92 1.10 - 4.40 ng/mL Comment:Testing performed by : [facility], [address] [place] [address]., [id number] Blood 10/27/2024 9:52 AM CDT 10/28/2024 9:52 AM CDT us Leslie Torres FURNITURE DESIGNER LAB BLOOD ORDERABLES Final Resul t Performing Organization Address [facility] Co de Phone Number LUCILLE RODRIGUEZ [address] Department [place] [address] * Lipid panel (10/27/2024 9:52 AM CDT) [facility] Cholesterol 141 30 - 199 mg/dL Comment: Interpretive Data Ages < or = 19 years Acceptable: <170 mg/dL Borderline high: 170-199 mg/dL High: >or= 200 mg/dL Ages > or = 20 years Desirable: <200 mg/dL Borderline high: 200-239 mg/dL High: >or= 240 mg/dL Literature References: 1. Expert Panel on Integrated Guidelines for Cardiovascular Health and Risk Reduction in Children and Adolescents. Pediatrics 2011;128:S213 2. NCEP Expert Panel. Circulation 2004;110:227 Current Interpretive Data was last revised on 2018. Triglycerides 65 <=149 mg/dL LUCILLE Comment: Interpretive Data Ages < or = 9 years Acceptable: <75 mg/dL Borderline high: 75-99 mg/dL High: >or= 100 mg/dL Ages 10 to 20 years Acceptable: <90 mg/dL Borderline high: 90-129 mg/dL High: >or= 130 mg/dL Ages > or = 20 years Desirable: <150 mg/dL Borderline high: 150-199 mg/dL High: 200-499 mg/dL Very high: >or= 499 mg/dL Literature References: 1. Expert Panel on Integrated Guidelines for Cardiovascular Health and Risk Reduction in Children and Adolescents. Pediatrics 2011;128:S213 2. NCEP Expert Panel. Circulation 2004;110:227 Current Interpretive Data was last revised on 2018. HDL 89 >=40 mg/dL LUCILLE Comment: Interpretive Data Ages < or = 19 years Acceptable: >45 mg/dL Borderline low: 40-45 mg/dL Low: <40 mg/dL Ages > or = 20 years Desirable: >or= 60 mg/dL Low: <40 mg/dL Literature References: 1. Expert Panel on Integrated Guidelines for Cardiovascular Health and Risk Reduction in Children and Adolescents. Pediatrics 2011;128:S213 2. NCEP Expert Panel. Circulation 2004;110:227 Current Interpretive Data was last revised on 2018. LDL, calculated 39 <=129 mg/dL LUCILLE Comment: Interpretive Data Ages < or = 19 years Acceptable: <110 mg/dL Borderline high: 110-129 mg/dL High: >or= 130 mg/dL Ages > or = 20 years Optimal: <100 mg/dL Near optimal: 100-129 mg/dL Borderline high: 130-159 mg/dL High: >160 mg/dL Calculated using the [place] LDL-C estimating equation. This equation was implemented on 2024. Prior to this date LDL-C was estimated using the Friedewald equation. Literature References: 1. Expert Panel on Integrated Guidelines for Cardiovascular Health and Risk Reduction in Children and Adolescents. Pediatrics 2011;128:S213 2. NCEP Expert Panel. Circulation 2004;110:227 3. Adria M et al. DEV Cardiol. 2020 December 10;5(5):540-548. doi: 10.1001/jamacardio.2020.0013 Current Interpretive Data was last revised on 2024. Non-HDL Cholesterol 52 mg/dL [facility] Comment: Interpretive Data Ages < or = 19 years Acceptable: <120 mg/dL Borderline high: 120-144 mg/dL High: >145 mg/dL Ages > or = 20 years When triglycerides are >200 mg/dL, Non-HDL cholesterol is a secondary target of therapy with treatment goals that are 30 mg/dL greater than the LDL cholesterol target. Literature References: 1. Expert Panel on Integrated Guidelines for Cardiovascular Health and Risk Reduction in Children and Adolescents. Pediatrics 2011;128:S213 2. NCEP Expert Panel. Circulation 2004;110:227 Current Interpretive Data was last revised on 2018. Chol/HDL ratio 2 [facility] Blood 10/27/2024 9:52 AM CDT 10/27/2024 7:29 PM CDT Leslie Torres FURNITURE DESIGNER LAB BLOOD ORDERABLES Final Resul t [facility] [address] Department [place] [address] * Comprehensive metabolic panel (10/27/2024 9:52 AM CDT) Sodium 136 135 - 145 mmol/L Potassium, pl 4.6 3.3 - 4.9 mmol/L [facility] Chloride 100 97 - 110 mmol/L [facility] CO2 23 22 - 32 mmol/L [facility] Anion gap 13 2 - 15 mmol/L [facility] BUN 7 6 - 25 mg/dL [facility] Creatinine 0.77 0.60 - 1.10 mg/dL [facility] Glucose 90 70 - 199 mg/dL [facility] Comment: Interpretive Data Fasting glucose >/= 126 mg/dl is diagnostic for diabetes. Fasting is defined as no caloric intake for at least 8 hours. Fasting glucose between 100 mg/dl to 125 mg/dl is diagnostic of prediabetes. In a patient with classic symptoms of hyperglycemia or hyperglycemic crisis, a random glucose >/= 200 mg/dl is diagnostic for diabetes. In the absence of unequivocal hyperglycemia, results should be confirmed by repeat testing. The classification and Diagnosis of Diabetes Diabetes Care 202; 46: S19-S40. Current interpretive data was last revised 2022. Calcium 10.1 8.5 - 10.3 mg/dL [facility] Bilirubin, total 1.0 0.1 - 1.2 mg/dL [facility] Protein, pl 7.2 6.5 - 8.5 g/dL [facility] Albumin 4.1 3.5 - 5.0 g/dL [facility] Alk phos 86 40 - 130 Units/L [facility] ALT 21 7 - 45 Units/L [facility] AST 33 10 - 45 Units/L [facility] Blood 10/27/2024 9:52 AM CDT 10/27/2024 7:29 PM CDT us Leslie Torres NP LAB BLOOD ORDERABLES Final Resul t LUCILLE RODRIGUEZ [address] Department [place] [address] * CT Lung Cancer Screening (09/03/2024 3:23 PM CHECKOUT OPERATOR) Anatomical Region Laterality Modality Chest N/A Computed Tomogra phy Quentin Lorenzana NP IMG CT PROCEDURES Final Result * Dexa Axial and Forearm Bone Density Scan (05/29/2024 8:27 AM CDT) Anatomical Region Laterality Modality Wrist, Body N/A Radiographic Ana ging Narrative 05/29/2024 8:47 AM CDT Patient Name: Huy Maynard Date of : 1950 Date of scan: 05/29/2024 Bone mineral density was performed on a [employer] Discovery Densitometer. Based on machine cross-calibration and precision studies the least significant changes of this densitometer is 0.024 g/cm2 at the spine, 0.020 g/cm2 at the total proximal femur, and 0.014g/cm2 at the forearm. HISTORY: This is a 73 y.o. postmenopausal female with a history of Crohn's disease, hyperparathyroidism, osteoporosis, rheumatoid arthritis, and vitamin D deficiency. She reports that she quit smoking about 10 years ago. Her smoking use included cigarettes. She started smoking about 53 years ago. She has a 21.9 pack-year smoking history. She has been exposed to tobacco smoke. She has never used smokeless tobacco. Currently on treatment with calcium, vitamin D, and diuretics, previously treated with zoledronic acid (Reclast), and current complaint of back pain and leg pain. INDICATIONS: Menopause status, history of prior wrist fracture, vitamin D deficiency, and history of osteoporosis. FINDINGS: BONE MINERAL DENSITY OF THE LUMBAR SPINE Bone Mineral Density (BMD) of the lumbar spine was measured from L1-L4 and the average density was calculated to be 1.289 gm/cm2. This corresponds to a T-score (standard deviations from the mean of young adults) of 2.2. When compared to the previous study of 09/06/2022 there has been a 0.071 gm/cm (5.8%) increase in bone density that is considered significant. BONE MINERAL DENSITY OF THE PROXIMAL FEMUR Bone Mineral Density (BMD) of the left hip total was found to be 0.761 gm/cm2. This corresponds to a T-score standard deviations from the mean of young adults of -1.5. Femoral neck is 0.580 gm/cm2 with a T-score (standard deviations from the mean of young adults) of -2.4. When compared to the previous study of 09/06/2022 there has been a 0.045 gm/cm (6.3%) increase in bone density that is considered significant. BONE MINERAL DENSITY OF THE FOREARM Bone Mineral density (BMD) of the left proximal 1/3 of the radius measures 0.542 gm/cm2. This corresponds to a T-score (standard deviations from the mean of young adults) of -2.5. When compared to the previous study of 09/06/2022 there has been no significant changes in bone density. A forearm bone density study was performed in addition to the routine study because of history of hyperparathyroidism . SUMMARY: Bone mineral density shows evidence of osteoporosis and marked increase risk of fracture. There has been a significant increase in bone density since previous measurement. ADDITIONAL COMMENTS: Postmenopausal Women and Men Over 50: Diagnostic criteria: Osteoporosis: BMD at or below -2.5 T-score; Osteopenia (low bone mass): BMD between -1.0 and -2.5 T-score. If the patient has a history of a fragility fracture, a fracture that occurred with trauma equivalent to a fall from a standing position or less, then the diagnosis is osteoporosis regardless of bone density. The history and data sections of the bone mineral density scan were prepared by Gloria Knight (R)(CBDT) who is accredited by the International Society of Clinical Densitometry. The overall patient assessment and scan interpretation were performed by Zainab Alexander M.D. who is certified by the International Society of Clinical Densitometry. [id number] Rosario Pham DO IMG DXA PROCEDURES Erika l Result * HM MAMMOGRAPHY (12/04/2023) Leslie Torres NP HEALTH MAINTENANCE Final Result * Hepatitis C antibody (03/28/2023 12:29 PM CDT) Hep C Ab Nonreactive Nonreactive LUCILLE RODRIGUEZ Comment: Interpretive Data Nonreactive: Antibodies to HCV not detected. Does NOT exclude the possibility of recent exposure to HCV. Equivocal: Equivocal for HCV antibodies. Supplemental molecular testing will be automatically performed to determine infection status in accordance with current CDC screening recommendations. Reactive: Positive for HCV antibodies. This may represent current or past HCV infection. Supplemental molecular testing will be automatically performed to determine current infection status in accordance with current CDC screening recommendations. Interpretive data was last revised on 2019. Blood 03/28/2023 12:2 9 PM CDT 03/28/2023 6:50 PM CDT Leslie Torres NP LAB MICROBIOLOGY - GENERAL ORDER LORIE Final Result LUCILLE RODRIGUEZ [address] Department [place] [address] * Colonoscopy (10/22/2022) Anatomical Region Laterality Modality Other Historical Provider ENDOSCOPY PROCEDURES Erika l Result from Last 3 Months or Most Recently Relevant to Health Maintenance Insurance MEDICARE FOR [facility] MEDICARE FOR LIFE MEDICARE FOR LIFE MEDICARE FOR LIFE Advance Directives For more information, please contact: [phone] * Full Code (Latest Code Status on File) Date Activated Date Inactivated Comments 10/26/2020 1:23 PM 10/31/2020 9:[address] Marker Relationship Specialty Start Date End Date Leslie Torres NP [address] [facility] [address] [place] [address] PCP - General Family Medicine 08/14/23 Rosario Pham DO [address] [facility] [address] [place] [address] Consulting Physician Endocrinology Diabetes & Metabolism 08/22/22 Tu Fritz MD [address] [facility] [address] [place] [address] Consulting Physician Internal Medicine 03/28/23 Cinthia Quinones NP [address] [facility] [address] [place] [address] Nurse Practitioner Rheumatology 03/28/23 Thomas Venegas MD [address] [place] [address] Consulting Physician Cardiology 03/28/23 Trevon Sheth MD [address] [place], [place] [id number] Surgeon Cardiothoracic Surgery 03/28/23 London Hall MD [address] [place] [address] Referring Physician Gastroenterology 03/28/23 Sylvia Johnson MD [address] [place] [address] Consulting Physician Critical Care Med 03/28/23 Bobby Bui DO [address] [place] [address] Internal Medicine 03/28/23 Sahara Freedman OD [address] [place] [address] Optometry 03/28/23 Dominique Pedro PA [address] [place] [id number] Allergy and Immunology 03/28/23
--- OUTSIDE RECORDS SUMMARY | 2024-12-31 08:49 | XMS_ITS ---
Author Organization On License Of [facility] [place] ([address]) Address [address] [place] [address] Care Team Providers Care Career And Guidance Counselor Name Role Phone Dominique Pedro [phone] REASON FOR VISIT Asthma follow-up Encounters Encounter Location Date Provider Diagnosis [facility] [address] [place] [address] 08/15/2023 Dominique Pedro Plan Of Treatment No Information Progress Notes * Barbra [birth year]DOB:[birth year] (74 yo F)Acc No.[id number]:08/15/2023 Asthma F/U Patient: Barbra HUNTER Provider: Sandy Pedro PA-C :1950 A ge:72 Y S ex:Female Date:08/15/2023 [facility] Subjective: * Chief Complaints: * 1 . Asthma follow-up. * Medical History: Objective: * Vitals: Assessment: Plan: * Treatment: * Billing Information: * Visit Code: * Procedure Codes: * Electronic signature of Saroj Pedro PA-C, MPAS on 12/31/2024 at 08:49 AM CDT Sign off status: Pending * Provider: Sandy Pedro PA-C Date: 0 08/15/2023 Generated for Printi ng/Faxing/eTransmitting on: 0 12/31/2024 08:49 AM CDT
--- OUTSIDE RECORDS SUMMARY | 2024-12-31 08:49 | XMS_ITS | Clinical Summary ---
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
--- OUTSIDE RECORDS SUMMARY | 2024-12-31 08:49 | XMS_ITS | Clinical Summary ---
Author Organization [facility] [address] Address [address] [place] [address] Care Team Providers Care Human Resource Consultant Name Role Phone Rosario Pham DO Unavailable Tu Fritz MD Unavailable Cinthia Quinones NP Unavailable Thomas Venegas MD Unavailable Trevon Sheth MD Unavailable [phone] London Hall MD Unavailable + Sylvia Johnson MD Unavailable Bobby Bui DO Unavailable Sahara Freedmant OD Unavailable Dominique Pedro Unavailable Leslie Torres NP Primary Care Provider [phone] Allergies Active Allergy Reactions Criticality Noted Date Comments Adhesive Other (See comments) Low 10/24/2020 Bruising from bandage Latex Unknown 04/30/2023 Other Unknown 01/27/2010 Penicillin V Unknown 03/22/2006 Penicillins Hives,Rash Medium 03/22/2006 Penicillin Allergy History Form completed, moderate risk Medications magnesium oxide 400 mg magnesium capsule Take 500 mg by mouth daily 10/17/19 22 Active nekxh-[id number]-epa -fish oil 1,000-1,400 mg capsule,delayed release(DR/EC) Take [...] capsule 04/17/20 24 Active miscellaneous medical supply [facility] PLUS 20-30 MMHG KH 6 each 04/24/20 [...] otherwise. Assessment & Plan (10/14/2023 11:08 AM REGISTERED NURSE CARDIAC): Continuing to work with Lymphedema clinic. Symptoms stable and she has been working with clinic to get her compression pump. Assessment & Plan (08/14/2023 3:35 PM REGISTERED NURSE CARDIAC): She was started on diuretic per Cardiology [...] (10/17/2020): Added automatically from request for surgery [id number] High risk medication use 04/21/2018 Seropositive rheumatoid [...] lipids/LFT/CK Assessment & Plan (10/14/2023 11:03 AM REGISTERED NURSE CARDIAC): Continues Lipitor, no side effects reported. Updated [...] pain in her left knee. Swimming (chyna Personal history of nicotine dependence 04/17/20 17 Primary osteoarthritis, unspecified ankle and fo ot 04/17/2017 Overview (04/09/2018): Overview: Pain in both feet probably from OA. XRays from 2 yrs ago showed mild OA, and is now getting worse. History somewhat consistent with OA. Disc Sander not think has RA. Will get XRays [...] also. Assessment & Plan (10/14/2023 11:05 AM REGISTERED NURSE CARDIAC): BP diastolic borderline in office today. However, has been stable in all our other visits. Will continue current regimen and await updated labs. Assessment & Plan (08/14/2023 3:34 PM REGISTERED NURSE CARDIAC): BP stable in office today, no changes. [...] more. Assessment & Plan (10/14/2023 11:06 AM REGISTERED NURSE CARDIAC): Patient's insurance would not cover Wegovy but [...] mention of probable neuroma in referral to drywall hanger framer for custom insoles (her has done well with these, she is willing to pay out of pocket). Between NSAIDS and conservative therapy, will try to see if improves. Her exercise includes non-impact in the pool and such. Overview: Overview: Pain between 3rd and 4th metatarsal heads. Could be a neuroma. Will defer further w/u, however made mention of probable neuroma in referral to drywall hanger framer for custom insoles (her has done well with these, she is willing to pay out of pocket). Between NSAIDS and conservative therapy, will try to see if improves. Her exercise includes non-impact in the pool and such. Pain between 3rd and 4th metatarsal heads. Could be a neuroma. Will defer further w/u, however made mention of probable neuroma in referral to drywall hanger framer for custom insoles (her has done well [...] getting worse. History somewhat consistent with OA. Disc Sander not think has RA. Will get XRays [...] obesity with BMI of 4 0.0-44.9, adult (CMS/[facility]) 07/26/2017 10/24/2021 Rheumatoid arthritis 01/16/2017 021 Overview [...] allow her to continue her normal life. Encounters Date Type Department Care Team Description 12/29/2024 8:30 AM CDT Office Visit [facility] Cardiology at [address] [place] [address] Thomas Venegas MD S/P AVR (Primary Dx); Pulmonary hypertension (HCC); Nonrheumatic aortic valve stenosis; Essential (primary) hypertension; Preop cardiovascular exam 12/24/2024 8:04 AM CDT - 12/24/2024 11:59 PM CDT Hospital Encounter [facility] [address] [place] [address] Abdirahman Mcclendon MD Radiculopathy, lumbosacral region [M54.17] (Primary Dx); Myofascial pain; Spinal stenosis of lumbar region with neurogenic claudication [M48.062] Discharge Disposition: Discharge to home or self care 12/23/2024 8:00 AM CDT Infusion [facility] Infusion Therapy [address] 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 2nd Floor [address] [place] [address] Melecio De Souza Eye Exam (12-07-24 Metro ok for plaquenil) 12/17/2024 Orders Only [facility] Neurology [address] [place] [address] [place] [phone] Pb Foreman Si, MD Imbalance 11/30/2024 8:30 AM CDT - 11/30/2024 11:59 PM CDT Hospital Encounter [facility] [address] [place] [address] Gutierrez Lucio NP Lumbar radiculopathy (Primary Dx); Spinal stenosis of lumbar region, unspecified whether neurogenic claudication present; Sacroiliitis; Myofascial pain Discharge Disposition: Discharge to home or self care 11/24/2024 1:30 PM CDT Office Visit [facility] Neurology [address] [place] [address] [place] [phone] Pb Foreman Si, MD Imbalance (Primary Dx); Unsteady gait when walking; Dizziness; Abnormal MRI of head; Multiple lacunar infarcts (HCC); Polyneuropathy 11/19/2024 8:20 AM CDT Office Visit [facility] Advanced Medicine [facility]) - [facility] ENT [address] [facility] 2nd Floor, [address] [place] [address] Keith Cline MD Impacted cerumen of right ear (Primary Dx); Recurrent sinusitis; Nasal pain; Chronic rhinitis; Chronic sinusitis, unspecified location 11/19/2024 Orders Only [facility] - [facility] [address] [facility] 2nd Floor, [address] [place] [address] Keith Cline MD 11/11/2024 8:00 AM CDT Infusion [facility] Infusion Therapy [address] 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) (Primary Dx); Age-related osteoporosis without current pathological fracture 11/04/2024 8:35 AM CDT - 11/04/2024 11:59 PM CDT Hospital Encounter [facility] Imaging and Radiology [address] [place] [address] Unsteady gait when walking; Abnormal neurological exam; Dizziness Discharge Disposition: Discharge to home or self care 11/04/2024 Results Follow-Up [facility] Primary Care at [address] [phone] Leslie Torres NP MRI Brain WO Contrast 10/30/2024 Telephone [facility] - [facility] E[facility] [address] [facility] 11th [place] [address] [place] [address] Marianne Rosen, 10/28/2024 Results Follow-Up [facility] Primary Care at [address] [phone] Leslie Torres NP Pro B-type natriuretic peptide, Thyroid Function [place], Lipid panel, Additional followed-up results: 5 10/27/2024 9:52 AM CDT - 10/27/2024 11:59 PM CDT Hospital Encounter [address] [address] Bilateral lower extremity edema; Essential (primary) hypertension; Impaired fasting glucose; Class 3 severe obesity due to excess calories with serious comorbidity and body mass index (BMI) of 40.0 to 44.9 in adult (HCC) Discharge Disposition: Discharge to home or self care 10/27/2024 9:45 AM CDT Lab [facility] Outpatient Lab at [address] [phone] Anxiety (Primary Dx); Crohn's disease (HCC) 10/27/2024 8:30 AM CDT Office Visit [facility] Primary Care at [address] [phone] Leslie Torres NP Essential (primary) hypertension (Primary Dx); Impaired fasting glucose; Bilateral lower extremity edema; Unsteady gait when walking; Abnormal neurological exam; Dizziness; Recurrent sinusitis; Nasal pain; Class 3 severe obesity due to excess calories with serious comorbidity and body mass index (BMI) of 40.0 to 44.9 in adult (HCC) 10/12/2024 9:20 AM REGISTERED NURSE CARDIAC Office Visit [facility] Rheumatology [address] 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 REPLACEMENT TOTAL KNEE 11/28/2016 Left CHOLECYSTECTOMY 1975 TOE SURGERY hammer toe AORTIC VALVE REPLACEMENT CARDIAC VALVE REPLACEMENT 2020 JOINT REPLACEMENT HIP 2011; KNEE 2016 FLUORO GUIDED ASPIRATION TMJ LEFT 08/19/2023 Left Medical History Medical History Date Comments Knee pain, left (aortic stenosis) Sleep apnea 1994 Hypertension Hyperlipidemia Crohn disease (HCC) GERD (gastroesophageal reflux disease) 2000 Seronegative erosive rheumatoid arthritis (HCC) Osteoarthritis Osteoporosis Sciatica Acid reflux Depression Asthma Heart disease AORTIC STENOSIS 2015 Autoimmune disease RA 1994 Cataract Family History Medical History Relation Name Comments Hodgkin's lymphoma Daughter 1 No Known Problems Daughter 2 No Known Problems Daughter 3 Heart attack Father JARED FINNEY Heart disease Father JARED A REG Stroke Father JAREDAIDE FINNEY Cirrhosis Mother Stroke Sister PREM VILLARREAL Relation Name Status Comments Daughter 1 Alive Daughter 2 Alive Daughter 3 Alive Father JARED FINNEY Mother Sister PREM VILLARREAL Social History Tobacco Use Types Packs/Day Years [...] on file Legal Sex Female 2:13 AM REGISTERED NURSE CARDIAC Gender Identity Female 05/01/2021 8:51 AM CDT Sexual Orientation Straight 02/24/2020 1: 08 PM CDT Obstetrics History Last Filed Vital Signs Vital Sign Reading [...] 12/29/2024 8:29 AM CDT Plan of Treatment Health Maintenance Due Date Last Done Comments Well Visit 65+ 2014 DTaP/Tdap/Td Vaccine (2 - Td or Tdap) 09/17/2022 09/17/2012, 10/07/2000 Covid-19 Vaccine (6 2023-2 5 season) 2024 07/17/2022, 12/23/2021, 03/28/2021, Additional history exists Lung Cancer Screening 09/03/2025 09/03/2024, 023 Colon Cancer Screening-Colonoscopy 10/22/2025 10/22/2022 Depression Screening 10/27/2025 10/27/2024, 04/29/2024, 03/30/2024, Additional history exists Fall Risk Assessment 11/30/2025 11/30/2024, 10/27/2024, 03/30/2024, Additional history exists Osteoporosis Screening-Bone Density Scan 05/29/2026 05/29/2024, 09/06/2022, 04/14/2020, Additional history exists Pneumococcal vaccine 65+ Completed 04/06/2015, 02/2015 Hepatitis B Screening Completed 06/19/2017 , 01/11/2017, 11/01/2016 Zoster Vaccine Completed 09/23/2021, 07/18/2021 Colon Cancer Screening-CT Colonography Discontinued 10/22/2022 Colon Cancer Screening-DNA Stool Discontinued 10/23/19 Colon Cancer Screening-FIT Discontinued 10/22/2022 Colon Cancer Screening-Sigmoidoscopy Discontinued 10/22/2022 Hepatitis C Screening Completed 03/28/2023 Breast Cancer Screening-Mammogram Discontinued 024, 07/13/2022 Influenza Vaccine Completed 06/25/2024, , 04/24/2023, Additional history exists Medical Devices Implanted Type Area Penology Professor Device Identifier Shelf Expiration Date Model / Serial / Lot [employer] [id number] Inspiris Resilia Leaflet Sewing Ring 23mm Valve Aortic Bovine - [id number] - [id number] Implanted:Qty: 1 on 10/26/2020 by Trevon Sheth MD at [facility] N/A: Heart [employer] 05/19/2024 [id number] / [id number] / Description:As of 11/04/2024 Mri conditions: Static magnetic field of 1.5 darrle or 3 darrel only. Maximum spatial gradient magnetic field of [...] Read Routine (OP Routine) 09/03/2024 3:23 PM REGISTERED NURSE CARDIAC DEXA AXIAL AND FOREARM BONE DENSITY SCAN [...] * Electrocardiogram Report (12/29/2024 12:18 PM CDT) us Thomas Venegas MD ECG ORDERABLES Final Res ult * Imaging Lumbar/Caudal Epidural Steroid INJ ([id number]) (12/24/2024 9:56 AM CDT) Narrative RAD_PACS_CH - 12/24/2024 9:56 AM CDT The images from this study are not interpreted by Radiology. Please refer to the physician's procedure / OR operative note. us Gutierrez Lucio NP IMG PAIN MGMT PROCEDURES [...] images demonstrate normal flow voids within the [place]. Old lacunar infarcts are seen [...] images demonstrate normal flow voids within the [place]. Old lacunar infarcts are seen [...] considered. Electronically signed by: Cory Hudson M.D. us Leslie Torres NP IMG MRI PROCEDURES Final Result * Hemoglobin A1c [...] and children were not included. (Diabetes Care 31:0855-9418, 2008). The eAG is not equivalent to a fasting glucose. Blood 10/27/2024 8:04 PM CDT 10/27/2024 8:04 PM CDT us Leslie Torres NP LAB BLOOD ORDERABLES Final Resul t [address] [place] [address] * eGFR (10/27/2024 9:52 AM CDT) Pathologist [facility] eGFR 80 >=60 mL/min/1. 73 m2 Comment: [...] CDT 10/27/2024 8:07 PM CDT Leslie Torres WEB MOBILE DESIGNER LAB BLOOD ORDERABLES Final Resul t Performing Organization Address City/State/[facility] Phone Number [address] [place] [address] Department [place] [address] * Pro B-type natriuretic peptide (10/27/2024 9:52 [...] LAB BLOOD ORDERABLES Final Resul t [address] [address] [place] [address] * Thyroid Function [place] (10/27/2024 9:52 AM CDT) TSH 2.26 0.30 - 4.20 mcIUnit/mL Blood 10/27/2024 9:52 AM CDT 10/27/2024 7:29 PM CDT us Leslie Torres WEB MOBILE DESIGNER LAB BLOOD ORDERABLES Final Resul t Performing Organization Address [facility] de Phone Number [place] [address] [address] [place] [address] * Insulin, total (10/27/2024 9:52 AM CDT) Insulin 12.7 2.6 - 25.0 mcIUnit/mL Comment:Testing performed by : [facility], [address] [place] [address]., [address] Blood 10/27/2024 9:52 AM CDT 10/28/2024 9:52 AM CDT us Leslie Torres WEB MOBILE DESIGNER LAB BLOOD ORDERABLES Final Resul t Performing Organization Address [facility] de Phone Number [place] [address] [address] [place] [address] * C-peptide (10/27/2024 9:52 AM CDT) C-peptide 3.92 1.10 - 4.40 ng/mL Comment:Testing performed by : [facility], [address] [place] [address], [place]., [address] Blood 10/27/2024 9:52 AM CDT 10/28/2024 9:52 AM CDT us Leslie Torres WEB MOBILE DESIGNER LAB BLOOD ORDERABLES Final Resul t Performing Organization Address City/State/[facility] Co de Phone Number [place] [address] [facility] [place] [address] * Lipid panel (10/27/2024 9:52 AM CDT) Cholesterol 141 30 - 199 mg/dL Comment: [...] on 2018. Triglycerides 65 <=149 mg/dL [place] Comment: Interpretive Data Ages < or = [...] on 2018. HDL 89 >=40 mg/dL [place] Comment: Interpretive Data Ages < or = [...] 2018. LDL, calculated 39 <=129 mg/dL [place] ROD[place] Comment: Interpretive Data Ages < or = 19 years Acceptable: <110 mg/dL Borderline high: 110-129 mg/dL High: >or= 130 mg/dL Ages > or = 20 years Optimal: <100 mg/dL Near optimal: 100-129 mg/dL Borderline high: 130-159 mg/dL High: >160 mg/dL Calculated using the Adria LDL-C estimating equation. This equation was implemented [...] revised on 2024. Non-HDL Cholesterol 52 mg/dL [place] Comment: Interpretive Data Ages < or = [...] last revised on 2018. Chol/HDL ratio 2 [place] Blood 10/27/2024 9:52 AM CDT 10/27/2024 7:29 PM CDT us Leslie Torres NP LAB BLOOD ORDERABLES Final Resul t [place] Department [place] [address] * Comprehensive metabolic panel (10/27/2024 [...] CDT 10/27/2024 7:29 PM CDT Leslie Torres NP LAB BLOOD ORDERABLES Final Resul t [place] [address] [address] [place] [address] * CT Lung Cancer Screening (09/03/2024 3:23 PM REGISTERED NURSE CARDIAC) Anatomical Region Laterality Modality Chest N/A Computed Tomogra phy us Quentin Lorenzana NP IMG CT PROCEDURES Final Result * Dexa Axial and Forearm Bone Density Scan (05/29/2024 8:27 AM CDT) Anatomical Region Laterality Modality Wrist, Body N/A Radiographic Ana ging Narrative 05/29/2024 8:47 AM CDT Patient Name: Huy Maynard Date of : 1950 Date of scan: 05/29/2024 Bone mineral density was performed on a [employer] Discovery Densitometer. Based on machine cross-calibration and [...] by the International Society of Clinical Densitometry. [id number] Rosario Pham DO IMG DXA PROCEDURES Erika [...] - GENERAL ORDER [place] [address] [address] Department [place] [address] * Colonoscopy (10/22/2022) Anatomical Region Laterality Modality Other Historical Provider ENDOSCOPY PROCEDURES Erika l Result from Last 3 Months or Most Recently Relevant to Health Maintenance [place] [address] [facility] [employer] LIFE MEDICARE FOR LIFE MEDICARE FOR LIFE MEDICARE [facility] FOR LIFE Advance Directives For more information, please contact: [phone] * Full Code (Latest Code Status on File) Date Activated Date Inactivated Comments 10/26/2020 1:23 PM 10/31/2020 9:35 PM Care Teams Human Resource Consultant Relationship Specialty Start Date End Date Leslie Torres NP [address] [place] [address] PCP - General Family Medicine 08/14/23 Rosario Pham DO [address] [facility] [address] [place] [address] Consulting Physician Endocrinology Diabetes & Metabolism 08/22/22 Tu Fritz MD [address] [facility] [address] [place] [address] Consulting Physician Internal Medicine 03/28/23 Cinthia Quinones NP [address] [facility] [address] [place] [address] Nurse Practitioner Rheumatology 03/28/23 Thomas Venegas MD [address] [facility] [address] [place] [address] Consulting Physician Cardiology 03/28/23 Trevon Sheth MD [address] [facility] [address] [facility] [address] [place], [place] [phone] Surgeon Cardiothoracic Surgery 03/28/23 London Hall MD [address] [place] [address] Referring Physician Gastroenterology 03/28/23 Sylvia Johnson MD [address] [place] [address] Consulting Physician Critical Care Med 03/28/23 Bobby Bui DO [address] [place] [address] Internal Medicine 03/28/23 Sahara Freedman OD [address] [place] [address] Optometry 03/28/23 Dominique Pedro PA [address] [place] [address] Allergy and Immunology 03/28/23
[2024-12-31 09:30] LABS: Basophils Percent Auto 0.5 % (0.2-1.2); Eosinophils Absolute Auto 0.2 K/mm3 (0-0.3); Eosinophils Percent Auto 3.1 % (0-4.4); Hematocrit 34.3 % (37.0-47.0); Hemoglobin 11.1 g/dL (12.0-15.0); Immature Granulocyte Absolute 0.02 K/mm3 (0.00-0.031); Immature Granulocyte Percent A 0.4 % (0-0.5); Lymphocytes Absolute Auto 1.53 K/mm3 (0.9-3.2); Lymphocytes Percent Auto 27.6 % (18.3-44.2); Mean Corpuscular HGB Conc 32.4 g/dl (32-36); Mean Corpuscular Volume 95.8 fl (80-100); Mean Platelet Volume 9.7 fl (7.4-10.4); Monocytes Absolute Auto 0.4 K/mm3 (0.1-0.6); Monocytes Percent Auto 7.7 % (2.6-8.5); Neutrophils Absolute Auto 3.4 K/mm3 (1.3-6.7); Neutrophils Percent Auto 60.7 % (45.5-73.1); Platelet Count Result 202 k/mm3 (150-375); Red Blood Count 3.58 M/mm3 (4.2-5.4); Red Cell Distribution Width 14.8 % (11.5-14.5); White Blood Count 5.6 K/mm3 (4.5-10.0)
[2024-12-31 09:56] LABS: Add Urine Microscopic? YES; Appearance Urine Clear (Clear); Bacteria Urine None Seen /hpf; Bilirubin Urine Negative (Negative); Blood Urine Negative (Negative); Color Urine Yellow (Yellow); Glucose Urine UA Negative (Negative); Ketones Urine Negative (Negative); Leukocyte Esterase Ur 1+ LEU/UL (Negative); Need Manual Microscopic Reviewed; Nitrate Urine Negative (Negative); Non Pathogenic Casts 0-2; Protein Urine Negative (Negative); RBC Urine 0-2 /hpf (0-2); Specific Grav Ur 1.007 (1.001-1.035); Squamous Epithelial Cell Urine None Seen /hpf (Few); Urobilinogen Urine 0.2 mg/dL (<2.0); WBC Urine 0-5 /hpf (0-3)
== END 2024-12-31 08:45 | disposition home or self-care (01) ==
PROVIDERS: PCP Nurse Practitioner Family; Visit Provider Orthopaedic Surgery
DX: I10 Essential (primary) hypertension (principal); D64.9 Anemia, unspecified; R53.83 Other fatigue
CPT/HCPCS: 36415; 81001; 85025; 87086

== ENCOUNTER 2025-02-08 12:30 | Outpatient (RCR) | payer MEDICARE, OTHER, SELFPAY ==
--- NOTE | 2024-12-16 11:00 | OPREHPOC ---
Outpatient Therapy Plan of Care This is a Multidisciplinary Plan of Care that may contain components documented by all disciplines (PT, OT, and ST.) PT Problem 1 PT Problem #1 Knowledge Deficit PT Goal 1 Goal / Goal Update *independent with HEP Target Visit 8 PT Problem 2 PT Problem #2 Impaired Strength PT Goal 1 Goal / Goal Update * increase strength of R and L LE, to improve gait and balance skills: 1* single leg standing R x 6 seconds 2* single leg standing L x 6 seconds 3* R hip strength of 4/5 4* L hip strength of 4+/5 Target Visit 8 PT Problem 3 PT Problem #3 Impaired Functional Mobility PT Goal 1 Goal / Goal Update 1* Borja balance score of 52/56 2* 5 reps sit/stand time of 19 seconds, without trunk leaning forward for momentum 3* 2 minute walking test distance of 420' Target Visit 8
--- NOTE | 2024-12-16 11:00 | PTOPEVAL1 ---
Assessment and note entered by Claudia Grant, PT Evaluation Information Assessment Status Evaluation ICD-10 Condition Codes (PT) Difficulty Walking R26.2,Abnormalities of gait and mobility R26.9,Weakness R53.1 Onset about 1 year Subjective Information more problems with walking for about the past year with walking, tend to veer to the L side; have pain in back and R knee; no falls in the past 6 months; have had falls in the past; not using an assistive device; does water exercises at [facility] 3x/wk; is leaving activity: grand daughter lives with her; independent with self care and light home tasks; have basement stairs with 1 hand railing- does one step at time and is cautious on them; GOAL: get leg stronger and to have R TKR;(see Dr Gudino next week, want to schedule TKR) Reported Pain Level Pain Score Self Report Additional Pain Score Comments pain range in the past week 1-12/19 R knee increase knee pain with walking; transfer from sitting to standing decrease pain: elevate legs also have lymphedema of both legs Assessment PT Clinical Summary Barbra has the diagnosis of imbalance, decreased gait and mobility skills. She is active and independent with self care and light home tasks. She does water exercises 3x/wk. She has not had any recent falls. History of R THR, L TKR, chronic back and R knee pain. She is planning on getting R TKR as soon as she is able to schedule with surgeon. On January 09, she is leaving for out of town, and will be gone for one month. With the evaluation: R lower leg valgus position; 5 reps sit/stand time of 22 seconds; 2 minute walking test distance of 360' without assistive device; Borja balance score of 49/56. Weakness of both legs, gross R 4-/5 & L 4/5. Single leg standing on R and L, can lift leg, but not hold position. Skilled PT services are indicated to increase LE strength, gait and balance, to improve mobility and safety, with education for HEP. Plan of Care Interventions Gait Training,Neuro Re-education,Patient/Caregiver Education,Therapeutic Activities,Therapeutic Exercise PT Services Indicated Yes Treatment Frequency and 1-2x/wk for 8 visits Duration These treatments will address the objective and functional deficits as defined above. The patient will be advanced safely and appropriately in order for the patient to progress towards his/her prior level of function. Additional exercises will be introduced and as well as a comprehensive home exercise program upon discharge, if needed, ?to ensure carryover of functional gains achieved in the clinic. This treatment plan has been reviewed and agreement upon by the patient.
--- NOTE | 2025-02-08 13:20 | OPREHPOC ---
Outpatient Therapy Plan of Care This is a Multidisciplinary Plan of Care that may contain components documented by all disciplines (PT, OT, and ST.) PT Problem 1 PT Problem #1 Knowledge Deficit PT Goal 1 Goal / Goal Update *independent with HEP 02-08-25 d/c goal met Target Visit 8 Progress Met PT Problem 2 PT Problem #2 Impaired Strength PT Goal 1 Goal / Goal Update * increase strength of R and L LE, to improve gait and balance skills: 1* single leg standing R x 6 seconds 2* single leg standing L x 6 seconds 3* R hip strength of 4/5 4* L hip strength of 4+/5 02-08-25 d/c goals not met Target Visit 8 Progress Not Met PT Problem 3 PT Problem #3 Impaired Functional Mobility PT Goal 1 Goal / Goal Update 1* Borja balance score of 52/56 2* 5 reps sit/stand time of 19 seconds, without trunk leaning forward for momentum 3* 2 minute walking test distance of 420' 02-08-25 d/c goals not met Target Visit 8
--- NOTE | 2025-02-08 13:20 | PTOPDC ---
Assessment and note entered by Claudia Grant, PT Assessment Status Discharge ICD-10 Condition Codes (PT) Difficulty Walking R26.2,Abnormalities of gait and mobility R26.9,Weakness R53.1 Onset about 1 year Subjective Information to have R TKR on March 03; was at daughter's home and did the stairs a lot; was not consistent with doing my exercises when at her house; feel like walking is better; Reported Pain Level Pain Score 0: Self Report Additional Pain Score Comments have pain in R knee and low back Assessment PT Clinical Summary Barbra has received 6 PT sessions. Compared to the initial evaluation: self rating with LE functional scale from 50 to 44% limitation in activity level; 5 reps sit/stand time from 22 to 20 seconds, without use of UE's; Borja balance score is same at 49/56; slight increase in LE strength; 2 minute walking test distance from 360' to 385'; education completed for HEP. The goals were partially met. Discharge from PT. She is to continue with her HEP. Plan of Care PT Services Indicated No
== END 2025-02-08 17:39 | disposition home or self-care (01) ==
LOC: ANHPT 12:30
PROVIDERS: PCP Nurse Practitioner Family
DX: R26.89 Other abnormalities of gait and mobility (principal); R26.2 Difficulty in walking, not elsewhere classified; R26.9 Unspecified abnormalities of gait and mobility; R53.1 Weakness
CPT/HCPCS: 97110; 97161; 97530

== ENCOUNTER 2025-02-17 10:03 | Outpatient (CLI) | payer MEDICARE, OTHER, SELFPAY ==
--- OUTSIDE RECORDS SUMMARY | 2025-02-17 10:16 | XMS_ITS | Encounter Summary ---
Author Organization [facility] Address [address] [place] [address] Phone Care Team Providers Care Pile Driver Engineer Name Role Phone Trina Chávez MD Primary Care Provider [phone] Beth Espino DO Primary Care Provider [phone] Bobby Bui DO Primary Care Provider [phone] Rosario Pham DO Unavailable [phone] Leslie Torres NP Primary Care Provider [phone] Tu Fritz MD Unavailable [phone] Cinthia Quinones NP Unavailable [phone] Thomas Venegas MD Unavailable [phone] Trevon Sheth MD Unavailable [phone] London Hall MD Unavailable + Sylvia Johnson MD Unavailable [phone] Bobby Bui DO Unavailable [phone] Sahara Freedman OD Unavailable [phone] Dominique Pedro Unavailable [phone] Cinthia Quinones NP Primary Care Provider + [phone] Torres, Leslie WIREWORKER SUPERVISOR Primary Care Provider Gutierrez Lucio NP Unavailable Abdirahman Mcclendon MD Unavailable Encounter Details Date Type Department Care Team (Late st Contact Info) Description 12/29/2018 Orders Only [facility] Scanning, Provider Social History Tobacco Use Types Packs/Day Years Used Date Smoking Tobacco: Former Cigarettes Q uit: 07/26/2014 Smokeless Tobacco: Never Alcohol Use Standard Drinks/Week Comments No 0 (1 standard drink = 0.6 oz pur e alcohol) Comments Unknown Sex and Gender Information Value Date Recorded Sex Assigned at Not on file Legal Sex Female 2:13 AM 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 AND 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 Gender Identity Female 05/01/2021 8:51 AM CDT [...] documented as of this encounter Care Teams Pile Driver Engineer Relationship Specialty Start Date End Date Trina Chávez MD PCP - General Internal Medicine 04/21/18 08/24/20 Beth Espino, DO PCP - General Family Medicine 08/25/20 05/31/22 Bobby Bui DO PCP - General Internal Medicine 06/01/22 03/27/23 Leslie Torres, RUTH ANN [address] [place], [place] [id number] PCP - General Family Medicine 03/28/23 06/30/23 Cinthia Quinones, RUTH ANN [address] [facility] [address] [facility] [place] [address] PCP - General Rheumatology 07/01/23 08/13/23 Leslie Torres, RUTH ANN [address] [place], [place] [address] PCP - General Family Medicine 08/14/23 Rosario Pham DO [address] [facility] [address] [place] [address] Consulting Physician Endocrinology Diabetes & Metabolism 08/22/22 Tu Fritz MD [address] [facility] [address] [place] [address] Consulting Physician Internal Medicine 03/28/23 Cinthia Quinones, WIREWORKER SUPERVISOR [address] [facility] [address] [place] [address] Nurse Practitioner Rheumatology 03/28/23 Thomas Venegas MD [address] [place] [address] Consulting Physician Cardiology 03/28/23 Trevon Sheth MD [address] [place], [place] [id number] Surgeon Cardiothoracic Surgery 03/28/23 London Hall MD [address] [place] [address] Referring Physician Gastroenterology 03/28/23 Sylvia Johnson MD [address] [place] [address] Consulting Physician Critical Care Med 03/28/23 Bobby Bui DO Internal Medicine 03/28/23 Sahara Freedman OD [address] [place] [address] Optometry 03/28/23 Dominique Pedro PA [address] [place] [address] Allergy and Immunology 03/28/23 [place] [address] [place] [address] Nurse Practitioner Nurse Practitioner 01/05/25 [place] [address] [facility] [address] [place] [address] Consulting Physician Pain Management 01/05/25 documented as of this encounter
--- OUTSIDE RECORDS SUMMARY | 2025-02-17 10:16 | XMS_ITS ---
Author Organization [facility] ([address]) Address [address] [place] [address] Care Team Providers Care Director Erp Name Role Phone Dominique Pedro Unavailable [phone] ZZ-Migration, Provider Unavailable Unavailab le Allergies Allergen (clinical drug ingredient) Drug/Non Drug Allergy documented on EMR Reaction Allergy Type Onset Date Status Penicillin Unknown Drug Allergy [facility] Encounter Medications Medication SIG (Take, [...] review and pick correct strength-formula tion from ahoyDocan options. If intended option is not shown, discontinue and re-order from Quick Search* Active Wellbutrin SR 100 MG 1 tab(s) orally Qday Active Pantoprazole Sodium 40 MG 1 tab(s) orall y once a day Active Probiotic Formula *Please review and pick correct strength-formula tion from Tehnologii obratnyh zadachspan options. If intended option is not shown, [...] review and pick correct strength-formula tion from TicketBox options. If intended option is not shown, discontinue and re-order from Quick Search* Active Dunnellon-3 1000 MG 1 cap(s) orally Qday Active Advair HFA 230-21 MCG/ACT 2 puff(s) inha led 2 times a day; Duration: 30 days Active Encounters Encounter Location Date Provider Diagnosis [address] [address] 01/25/2024 Provider KittyZ-Migration Moderate persistent asthma, uncomplicated [...] review and pick correct strength-formulati on from [employer] options. If intended option is not shown, discontinue and re-order from Quick Search* Wellbutrin SR 100 MG 1 tab(s) orally Qday Pantoprazole Sodium 40 MG 1 tab(s) orall y once a day Probiotic Formula *Please review and pick correct strength-formulati on from [facility]. If intended option is not [...] review and pick correct strength-formulati on from [facility] options. If intended option is not shown, discontinue and re-order from Quick Search* Dunnellon-3 1000 MG 1 cap(s) orally Qday Advair HFA 230-21 MCG/ACT 2 puff(s) inha led 2 times a day; Duration: 30 days Progress Notes * Barbra MAYN[birth year]DOB:[birth year] (74 yo F)Acc No.[id number]:01/25/2024 Patient: Barbra HUNTER Provider: Yadira Murillo :1950 A ge:73 Y S ex:Female Date:01/25/2024 Address:[address] [id number] Subjective: * Chief Complaints: * 1 . [facility] En[facility]. * Medical History: * Medications: [...] e-prescription and drug interaction check*; C ontinue Dunnellon-3 Capsule, 1000 MG, 1 cap(s), orally, Qday; Continue Aspirin TABLET, 81 MG, 1 TAB(S), ORALLY, ONCE A DAY, Notes to Pharmacist: *Please review and pick correct strength-formulation from Tehnologii obratnyh zadachspan options. If intended option is not shown, [...] *Please review and pick correct strength-formulation from Tehnologii obratnyh zadachspan options. If intended option is not shown, discontinue and re-order from Quick Search*; C ontinue Wellbutrin SR Tablet Extended Release 12 Hour, 100 MG, 1 tab(s), orally, Qday; C ontinue Probiotic Formula, Notes to Pharmacist: *Please review and pick correct strength-formulation from Tehnologii obratnyh zadachspan options. If intended option is not shown, [...] * Electronic signature of Aretha PICKETT-Migration on 02/17/2025 at 10:16 AM CDT Sign off status: Pending * Provider: Yadira strange Migration Date: 0 01/25/2024 Generated for Delia badillo/Elliot/Caty on: 0 02/17/2025 10:16 AM CDT
--- OUTSIDE RECORDS SUMMARY | 2025-02-17 10:16 | XMS_ITS | Encounter Summary ---
Author Organization [facility] Address [address] [place] [address] Phone Care Team Providers Care Bundle Tier Name Role Phone Bobby Bui DO Primary Care Provider [phone] Rosario Pham DO Unavailable Leslie Torres NP Primary Care Provider [phone] Tu Fritz MD Unavailable Cinthia Quinones NP Unavailable [phone] Thomas Venegas MD Unavailable Trevon Sheth MD Unavailable London Hall MD Unavailable + Sylvia Johnson MD Unavailable [phone] Bobby Bui DO Unavailable [phone] Sahara Freedman OD Unavailable Dominique Pedro Unavailable [phone] Cinthia Quinones NP Primary Care Provider [phone] Leslie Torres NP Primary Care Provider Gutierrez Lucio NP Unavailable [phone] Abdirahman Mcclendon MD Unavailable Encounter Details Date [...] on file Legal 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 Female 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 [address] [place] [address] Consulting Physician Endocrinology Diabetes & Metabolism 08/22/22 Tu Fritz MD [address] [address] Consulting Physician Internal Medicine 03/28/23 Cinthia Quinones, MANAGEMENT AND BUDGET ANALYST [address] [address] Nurse Practitioner Rheumatology 03/28/23 Thomas Venegas MD [address] [facility] [address] [place] [address] Consulting Physician Cardiology 03/28/23 Trevon Sheth MD [address] [facility] [address], [facility] [address] [place] [address] Surgeon Cardiothoracic Surgery 03/28/23 London Hall MD [address] [facility] [address] [place] [address] Referring Physician Gastroenterology 03/28/23 Sylvia Johnson MD [address] [place], [place] [address] Consulting Physician Critical Care Med 03/28/23 Bobby Bui DO Internal Medicine 03/28/23 Sahara Freedman OD [address] [place], [place] [address] Optometry 03/28/23 Dominique Pedro PA [address] [place] [id number] Allergy and Immunology 03/28/23 [place] [address] [facility] [address] [place], [place] [id number] Nurse Practitioner Nurse Practitioner 01/05/25 [place] [address] [facility] 100 [facility] [place] [address] Consulting Physician Pain Management 01/05/25 documented as of this encounter
--- OUTSIDE RECORDS SUMMARY | 2025-02-17 10:16 | XMS_ITS | Encounter Summary ---
Author Organization [facility] Address [address] [place] [address] Phone Care Team Providers Care Classification Control Clerk Name Role Phone Trina Chávez MD Primary Care Provider [phone] Beth Espino DO Primary Care Provider [phone] Bobby Bui DO Primary Care Provider [phone] Rosario Pham DO Unavailable [phone] Leslie Torres NP Primary Care Provider [phone] Tu Fritz MD Unavailable [phone] Cinthia Quinones NP Unavailable [phone] Thomas Venegas MD Unavailable [phone] Trevon Sheth MD Unavailable [phone] London Hall MD Unavailable + Sylvia Johnson MD Unavailable [phone] Bobby Bui DO Unavailable [phone] Sahara Freedman OD Unavailable Dominique Pedro Unavailable [phone] Cinthia Quinones NP Primary Care Provider + [phone] Leslie Torres NP Primary Care Provider Gutierrez Lucio NP Unavailable [phone] Abdirahman Mcclendon MD Unavailable Encounter Details Date Type Department Care Team (Late st Contact Info) Description 02/23/2019 Orders Only [facility] Scanning, Provider Social History Tobacco Use Types Packs/Day Years Used Date Smoking Tobacco: Former Cigarettes Q uit: 07/26/2014 Smokeless Tobacco: Never Alcohol Use Standard Drinks/Week Comments No 0 (1 standard drink = 0.6 oz pur e alcohol) Comments Unknown Sex and Gender Information Value Date Recorded Sex Assigned at Not on file Legal Sex Female 2:13 AM RN TELEPHONIC Gender Identity Female 05/01/2021 8:51 AM CDT Sexual Orientation Straight 02/24/2020 1: 08 PM CDT documented as of this encounter Plan of Treatment Not on file documented as of this encounter Procedures Procedure Name Priority Date/Time Associated Diagnosis Comments SCAN - LABS 02/23/2019 documented in this encounter Results * SCAN - LABS (02/23/2019) us Provider Scanning Final Result documented in [...] documented as of this encounter Care Teams Classification Control Clerk Relationship Specialty Start Date End Date Trina Chávez MD PCP - General Internal Medicine 04/21/18 08/24/20 Beth Espino DO PCP - General Family Medicine 08/25/20 05/31/22 Ramya Bobby Jay DO PCP - General Internal Medicine 06/01/22 03/27/23 Leslie Torres, RUTH ANN [address] [facility] [address] [place], [place] [address] PCP - General Family Medicine 03/28/23 06/30/23 Cinthia Quinones FERMENTING CELLARS SUPERVISOR [address] [address] PCP - General Rheumatology 07/01/23 08/13/23 Leslie Torres, RUTH ANN [address] [facility] [address] [place], [place] [address] PCP - General Family Medicine 08/14/23 Rosario Pham DO [address] [facility] [address] [place] [address] Consulting Physician Endocrinology Diabetes & Metabolism 08/22/22 Tu Fritz MD [address] [place] [address] Consulting Physician Internal Medicine 03/28/23 Cinthia Quinones, FERMENTING CELLARS SUPERVISOR [address] [place] [address] Nurse Practitioner Rheumatology 03/28/23 Thomas Venegas MD [address] [place] [address] Consulting Physician Cardiology 03/28/23 Trevon Sheth MD [address] [place], [place] [address] Surgeon Cardiothoracic Surgery 03/28/23 London Hall MD [address] GASTROENTEROLOGY [place], [place] [address] Referring Physician Gastroenterology 03/28/23 Sylvia Johnson MD [address] [place] [address] Consulting Physician Critical Care Med 03/28/23 Bobby Bui DO Internal Medicine 03/28/23 Sahara Freedman OD [address] [place] [address] Optometry 03/28/23 Dominique Pedro PA [address] [place] [id number] Allergy and Immunology 03/28/23 [place] [address] [facility] [facility] 100 [place] [address] Nurse Practitioner Nurse Practitioner 01/05/25 [place] [address] [facility] [address] [place] [address] Consulting Physician Pain Management 01/05/25 documented as of this encounter
--- OUTSIDE RECORDS SUMMARY | 2025-02-17 10:16 | XMS_ITS | Encounter Summary ---
Author Organization [facility] Address [address] [place] [address] Phone Care Team Providers Care Biology Research Assistant Name Role Phone KenzieBeth DO Primary Care Provider [phone] Bobby Bui DO Primary Care Provider [phone] Rosario Pham DO Unavailable Leslie Trores NP Primary Care Provider Tu Fritz MD Unavailable Cinthia Quinones NP Unavailable [phone] Thomas Venegas MD Unavailable Trevon Sheth MD Unavailable [phone] London Hall MD Unavailable + Sylvia Johnson MD Unavailable [phone] Bobby Bui DO Unavailable [phone] Sahara Freedman OD Unavailable Dominique Pedro Unavailable [phone] Cinthia Quinones NP Primary Care Provider [phone] Leslie Torres SOLAR MANAGER Primary Care Provider [phone] Gutierrez Lucio NP Unavailable Abdirahman Mcclendon MD Unavailable [phone] Encounter Details Date Type Department Care Team [...] on file Legal Sex Female 2:13 AM CLEANERS Gender Identity Female 05/01/2021 8:51 AM CDT [...] documented as of this encounter Care Teams Biology Research Assistant Relationship Specialty Start Date End Date Beth Espino DO PCP - General Family Medicine 08/25/20 05/31/22 Bobby Bui DO PCP - General Internal Medicine 06/01/22 03/27/23 Leslie Torres, RUTH ANN [address] [place] [address] PCP - General Family Medicine 03/28/23 06/30/23 Cinthia Quinones, SOLAR MANAGER [address] [facility] [address] [address] PCP - General Rheumatology 07/01/23 08/13/23 Leslie Torres, RUTH ANN [address] [place], [place] [address] PCP - General Family Medicine 08/14/23 Rosario Pham DO [address] [facility] [address] [place] [address] Consulting Physician Endocrinology Diabetes & Metabolism 08/22/22 Tu Fritz MD [address] [facility] [address] [address] Consulting Physician Internal Medicine 03/28/23 Cinthia Quinones, SOLAR MANAGER [address] [facility] [address] [address] Nurse Practitioner Rheumatology 03/28/23 Thomas Venegas MD [address], [facility] [address] [place] [address] Consulting Physician Cardiology 03/28/23 Trevon Sheth MD [address], [facility] [address] [place] [address] Surgeon Cardiothoracic Surgery 03/28/23 London Hall MD [address] [place] [address] Referring Physician Gastroenterology 03/28/23 Sylvia Johnson MD [address] [place] [address] Consulting Physician Critical Care Med 03/28/23 Bobby Bui DO Internal Medicine 03/28/23 Sahara Freedman OD [address]20 [place] [address] Optometry 03/28/23 Dominique Pedro PA [address] [place] [id number] Allergy and Immunology 03/28/23 [place] [address] [address] [facility] 100 [place] [address] Nurse Practitioner Nurse Practitioner 01/05/25 [place] [address] [address] [facility] [address] [place] [address] Consulting Physician Pain Management 01/05/25 documented as of this encounter
--- OUTSIDE RECORDS SUMMARY | 2025-02-17 10:16 | XMS_ITS | Encounter Summary ---
Author Organization [facility] Address [address] [place] [address] Phone Care Team Providers Care Lodging Facilities Manager Name Role Phone Bobby Bui DO Primary Care Provider [phone] Rosario Pham DO Unavailable Leslie Torres NP Primary Care Provider Tu Fritz MD Unavailable Cinthia Quinoens NP Unavailable [phone] Thomas Venegas MD Unavailable Trevon Sheth MD Unavailable [phone] London Hall MD Unavailable + Sylvia Johnson MD Unavailable +[phone] Bobby Bui DO Unavailable [phone] Sahara Freedman OD Unavailable [phone] Dominique Pedro Unavailable +[phone] Cinthia Quinones NP Primary Care Provider [phone] Leslie Torres NP Primary Care Provider Gutierrez Lucio NP Unavailable [phone] Abdirahman Mcclendon MD Unavailable Encounter Details Date [...] on file Legal Sex Female 2:13 AM GAS PRODUCER Gender Identity Female 05/01/2021 8:51 AM CDT [...] documented as of this encounter Care Teams Lodging Facilities Manager Relationship Specialty Start Date End Date Bobby Bui DO PCP - General Internal Medicine 06/01/22 03/27/23 Leslie Torres NP [address] [facility] [address] [place] [address] PCP - General Family Medicine 03/28/23 06/30/23 Cinthia Quinones NP [id number] [place] [address] PCP - General Rheumatology 07/01/23 08/13/23 Leslie Torres NP [address] [place], [place] [address] PCP - General Family Medicine 08/14/23 Rosario Pham DO 5[address] [facility] 2300 [place] [address] Consulting Physician Endocrinology Diabetes & Metabolism 08/22/22 Tu Fritz MD [address] [address] Consulting Physician Internal Medicine 03/28/23 Cinthia Quinones, STONE SETTER APPRENTICE [address] [address] Nurse Practitioner Rheumatology 03/28/23 Thomas Venegas MD [address] [facility] [address] [place] [address] Consulting Physician Cardiology 03/28/23 Trevon Sheth MD [address] [facility] [address], [facility] [address]10 [place] [address] Surgeon Cardiothoracic Surgery 03/28/23 London Hall MD [address] [place] [address] Referring Physician Gastroenterology 03/28/23 Sylvia Johnson MD [address] [place], [place] [address] Consulting Physician Critical Care Med 03/28/23 Bobby Bui DO Internal Medicine 03/28/23 Sahara Freedman OD [address]20 [place], [place] [address] Optometry 03/28/23 Dominique Pedro PA [address] [place] [id number] Allergy and Immunology 03/28/23 [place] [address] [address] [facility] 100 [place], [place] [id number] Nurse Practitioner Nurse Practitioner 01/05/25 [place] [address] [address] [facility] 100 [facility] [place] [address] Consulting Physician Pain Management 01/05/25 documented as of this encounter
--- OUTSIDE RECORDS SUMMARY | 2025-02-17 10:16 | XMS_ITS | Encounter Summary ---
Author Organization [facility] Address [address] [place] [address] Phone Care Team Providers Care Rail Signal Designer Name Role Phone Trina Chávez MD Primary Care Provider [phone] Beth Espino DO Primary Care Provider [phone] Bobby uBi DO Primary Care Provider [phone] Rosario Pham DO Unavailable +[phone] Leslie Torres NP Primary Care Provider [phone] Tu Fritz MD Unavailable [phone] Cinthia Quinones NP Unavailable [phone] Thomas Venegas MD Unavailable +[phone] Trevon Sheth MD Unavailable [phone] London Hall MD Unavailable + Sylvia Johnson MD Unavailable +[phone] Bobby Bui DO Unavailable [phone] Sahara Freedman OD Unavailable Dominique Pedro Unavailable +[phone] Cinthia Quinones NP Primary Care Provider + [phone] Leslie Torres NP Primary Care Provider Gutierrez Lucio NP Unavailable Abdirahman Mcclendon MD Unavailable [phone] Encounter Details Date Type Department Care Team (Late st Contact Info) Description 10/15/2019 Orders Only [facility] Scanning, Provider Social History Tobacco Use Types Packs/Day Years Used Date Smoking Tobacco: Former Cigarettes Q uit: 07/26/2014 Smokeless Tobacco: Never Alcohol Use Standard Drinks/Week Comments No 0 (1 standard drink = 0.6 oz pur e alcohol) Comments Unknown Sex and Gender Information Value Date Recorded Sex Assigned at Not on file 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 Gender Identity Female 05/01/2021 8:51 AM CDT Sexual Orientation Straight 02/24/2020 1: 08 PM CDT documented as of this encounter Plan of Treatment Not on file documented as of this encounter Procedures Procedure Name Priority Date/Time Associated Diagnosis Comments SCAN - LABS 10/15/2019 documented in this encounter Results * SCAN - LABS (10/15/2019) us Provider Scanning Final Result documented in [...] documented as of this encounter Care Teams Rail Signal Designer Relationship Specialty Start Date End Date Trina Chávez MD PCP - General Internal Medicine 04/21/18 08/24/20 Beth Espino DO PCP - General Family Medicine 08/25/20 05/31/22 Ramya Bobby Jay DO PCP - General Internal Medicine 06/01/22 03/27/23 Leslie Torres, RUTH ANN [address] [facility] 130 [place], [place] [address] PCP - General Family Medicine 03/28/23 06/30/23 Cinthia Quinones POLICY ADVISER [address] [address] PCP - General Rheumatology 07/01/23 08/13/23 Leslie Torres, RUTH ANN [address] [facility] 130 [place], [place] [address] PCP - General Family Medicine 08/14/23 Rosario Pham DO 5201 [facility] [address] [place] [address] Consulting Physician Endocrinology Diabetes & Metabolism 08/22/22 Tu Fritz MD [address] [place] [address] Consulting Physician Internal Medicine 03/28/23 Cinthia Quinones, POLICY ADVISER [address] [place] [address] Nurse Practitioner Rheumatology 03/28/23 Thomas Venegas MD [address] [place] [address] Consulting Physician Cardiology 03/28/23 Trevon Sheth MD [address], [address] [place], [place] [address] Surgeon Cardiothoracic Surgery 03/28/23 London Hall MD [address] GASTROENTEROLOGY [place], [place] [address] Referring Physician Gastroenterology 03/28/23 Sylvia Johnson MD [address] [place] [address] Consulting Physician Critical Care Med 03/28/23 Bobby Bui DO Internal Medicine 03/28/23 Sahara Freedman OD 6620 [place] [address] Optometry 03/28/23 Dominique Pedro PA [address] [place] [id number] Allergy and Immunology 03/28/23 [place] [address] [address] [facility] 100 [place] [address] Nurse Practitioner Nurse Practitioner 01/05/25 [place] [address] [facility] [address] [place] [address] Consulting Physician Pain Management 01/05/25 documented as of this encounter
--- OUTSIDE RECORDS SUMMARY | 2025-02-17 10:16 | XMS_ITS | Encounter Summary ---
Author Organization [facility] Address [address] [place] [address] Phone Care Team Providers Care Pulp Making Plant Operator Name Role Phone KenzieBeth DO Primary Care Provider [phone] Bobby Bui DO Primary Care Provider [phone] Rosario Pham DO Unavailable [phone] Leslie Torres NP Primary Care Provider Tu Fritz MD Unavailable Cinthia Quinones NP Unavailable [phone] Thomas Venegsa MD Unavailable Trevon Sheth MD Unavailable [phone] London Hall MD Unavailable + Sylvia Johnson MD Unavailable [phone] Bobby Bui DO Unavailable [phone] Sahara Freedman OD Unavailable Dominique Pedro Unavailable [phone] Cinthia Quinones NP Primary Care Provider [phone] Leslie Torres SPINNING FRAME FIXER Primary Care Provider [phone] Gutierrez Lucio NP Unavailable Abdirahman Mcclendon MD Unavailable [phone] Encounter Details Date Type Department Care Team [...] on file 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 Gender Identity Female 05/01/2021 8:51 AM CDT [...] documented as of this encounter Care Teams Pulp Making Plant Operator Relationship Specialty Start Date End Date Beth Espino DO PCP - General Family Medicine 08/25/20 05/31/22 Bobby Bui DO PCP - General Internal Medicine 06/01/22 03/27/23 Lselie Torres, RUTH ANN [address] [place] [address] PCP - General Family Medicine 03/28/23 06/30/23 Cinthia Quinones NP [address] [address] PCP - General Rheumatology 07/01/23 08/13/23 Leslie Torres, RUTH ANN [address] [place] [address] PCP - General Family Medicine 08/14/23 Rosario Pham DO [address] [facility] [address] [place] [address] Consulting Physician Endocrinology Diabetes & Metabolism 08/22/22 Tu Fritz MD 4921 [facility] [address] [facility] 8[address] [place] [address] Consulting Physician Internal Medicine 03/28/23 Cinthia Quinones, SPINNING FRAME FIXER 49[address] [facility] [address] [facility] 8126 [place] [address] Nurse Practitioner Rheumatology 03/28/23 Thomas Venegas MD [address], [address] [place] [address] Consulting Physician Cardiology 03/28/23 Trevon Sheth MD [address], [address] [place] [address] Surgeon Cardiothoracic Surgery 03/28/23 London Hall MD [address] [place] [address] Referring Physician Gastroenterology 03/28/23 Sylvia Johnson MD [address] [place], [place] [address] Consulting Physician Critical Care Med 03/28/23 Bobby Bui DO Internal Medicine 03/28/23 Sahara Freedman OD 6620 [place] [address] Optometry 03/28/23 Dominique Pedro PA [address] [place] [id number] Allergy and Immunology 03/28/23 [place] [address] [address] [facility] 100 [place] [address] Nurse Practitioner Nurse Practitioner 01/05/25 [place] [address] [address] [facility] [address] [place] [address] Consulting Physician Pain Management 01/05/25 documented as of this encounter
--- OUTSIDE RECORDS SUMMARY | 2025-02-17 10:16 | XMS_ITS | Encounter Summary ---
Author Organization [facility] Address [address] [place] [address] Phone Care Team Providers Care Batter Mixer Helper Name Role Phone KenzieBeth DO Primary Care Provider [phone] Bobby Bui DO Primary Care Provider [phone] Rosario Pham DO Unavailable Leslie Torres NP Primary Care Provider [phone] Tu Fritz MD Unavailable Cinthia Quinones NP Unavailable [phone] Thomas Venegas MD Unavailable Trevon Sheth MD Unavailable [phone] London Hall MD Unavailable + Sylvia Johnson MD Unavailable [phone] Bobby Biu DO Unavailable [phone] Sahara Freedman OD Unavailable Dominique Pedro Unavailable [phone] Cinthia Quinones NP Primary Care Provider [phone] Leslie Torres HEAD OF DIGITAL Primary Care Provider [phone] Gutierrez Lucio NP Unavailable Abdirahman Mcclendon MD [...] file 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 Gender Identity Female 05/01/2021 8:51 AM [...] documented as of this encounter Care Teams Batter Mixer Helper Relationship Specialty Start Date End Date Beth Espino DO PCP - General Family Medicine 08/25/20 05/31/22 Bobby Bui DO PCP - General Internal Medicine 06/01/22 03/27/23 Leslie Torres, RUTH ANN [address] [place] [address] PCP - General Family Medicine 03/28/23 06/30/23 Cinthia Quinones NP [address] [address] PCP - General Rheumatology 07/01/23 08/13/23 Leslie Torres, HEAD OF DIGITAL [address] [place] [address] PCP - General Family Medicine 08/14/23 Rosario Pham DO [address] [facility] [address] [place] [address] Consulting Physician Endocrinology Diabetes & Metabolism 08/22/22 Tu Fritz MD 4921 [facility] [address] [place] [address] Consulting Physician Internal Medicine 03/28/23 Cinthia Quinones NP 4921 [facility] [address] [place] [address] Nurse Practitioner Rheumatology 03/28/23 Thomas Venegas MD [address] [place] [address] Consulting Physician Cardiology 03/28/23 Trevon Sheth MD [address], [address] [place] [address] Surgeon Cardiothoracic Surgery 03/28/23 London Hall MD [address] GASTROENTEROLOGY [place], [place] [address] Referring Physician Gastroenterology 03/28/23 Sylvia Johnson MD [address] [place], [place] [address] Consulting Physician Critical Care Med 03/28/23 Bobby Bui DO Internal Medicine 03/28/23 Sahara Freedman OD 6620 [place] [address] Optometry 03/28/23 Dominique Pedro PA [address] [place] [address] Allergy and Immunology 03/28/23 [place] [address] [address] Nurse Practitioner Nurse Practitioner 01/05/25 [place] [address] [address] [facility] [address] [place], [place] [address] Consulting Physician Pain Management 01/05/25 documented as of this encounter
--- OUTSIDE RECORDS SUMMARY | 2025-02-17 10:17 | XMS_ITS | Encounter Summary ---
Author Organization [facility] Address [address] [place] [address] Care Team Providers Care Accounts Receivable Analyst Name Role Phone Unavailable Primary Care Provider Unavailabl e Encounter Details Date Type Department Care Team (Late st Contact Info) Description 10/29/2006 Outpatient [facility] [address] [facility] [place] [address] [place] [address] [place] [address] [place] [address] [address] [place] [address] Social History Tobacco Use Types Packs/Day Years Used Date Smoking Tobacco: Never Assessed Comments Unknown Sex and Gender Information Value Date Recorded Sex Assigned at Not on file 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
--- OUTSIDE RECORDS SUMMARY | 2025-02-17 10:17 | XMS_ITS | Encounter Summary ---
Author Organization [facility] Address [address] [place] [address] Phone Care Team Providers Care Quality Assurance Advisor Name Role Phone VeroRosario Sheila DO Unavailable [phone] Leslie Torres NP Primary Care Provider [phone] Tu Fritz MD Unavailable Cinthia Quinones NP Unavailable [phone] Thomas Venegas MD Unavailable Trevon Sheth MD Unavailable [phone] London aHll MD Unavailable + Sylvia Johnson MD Unavailable [phone] Bobby Bui DO Unavailable [phone] Sahara Freedman OD Unavailable Dominique Pedro Unavailable [phone] Cinthia Quinones NP Primary Care Provider [phone] Leslie Torres NP Primary Care Provider [phone] Gutierrez Lucio NP Unavailable [phone] Abdirahman Mcclendon MD Unavailable Encounter Details Date [...] on file 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 Gender Identity Female 05/01/2021 8:51 AM CDT Sexual Orientation Straight 02/24/2020 1: 08 PM CDT documented as of this encounter Plan of Treatment Not on file documented as of this encounter Procedures Procedure Name Priority Date/Time Associated Diagnosis Comments SCAN - RADIOLOGY/IMAGING 06/18/2023 documented in this encounter Results * SCAN - RADIOLOGY/IMAGING (06/18/2023) Anatomical Region Laterality Modality Other us Provider [...] documented as of this encounter Care Teams Quality Assurance Advisor Relationship Specialty Start Date End Date Leslie Torres NP [address] [place] [address] PCP - General Family Medicine 03/28/23 06/30/23 Cinthia Quinones NP [address] [facility] [address] [place] [address] PCP - General Rheumatology 07/01/23 08/13/23 Leslie Torres NP [address] [place] [address] PCP - General Family Medicine 08/14/23 Rosario Pham DO [address] [facility] [address] [place] [address] Consulting Physician Endocrinology Diabetes & Metabolism 08/22/22 Tu Fritz MD [address] [facility] [address] [place] [address] Consulting Physician Internal Medicine 03/28/23 Cinthia Quinones NP [address] [facility] [address] [place] [address] Nurse Practitioner Rheumatology 03/28/23 Thomas Venegas MD [address] [place], [place] [address] Consulting Physician Cardiology 03/28/23 Trevon Sheth MD [address] [place] [address] Surgeon Cardiothoracic Surgery 03/28/23 London Hall MD [address] [place] [address] Referring Physician Gastroenterology 03/28/23 Sylvia Johnson MD [address] [place], [place] [address] Consulting Physician Critical Care Med 03/28/23 Bobby Bui DO [address] [place] [address] Internal Medicine 03/28/23 Sahara Freedman OD 6620 [place] [address] Optometry 03/28/23 Dominique Pedro PA [address] [place] [address] Allergy and Immunology 03/28/23 [place] [address] [address] Nurse Practitioner Nurse Practitioner 01/05/25 [place] [address] [address] [facility] [address] [address] Consulting Physician Pain Management 01/05/25 documented as of this encounter
--- OUTSIDE RECORDS SUMMARY | 2025-02-17 10:17 | XMS_ITS | Clinical Summary ---
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
--- OUTSIDE RECORDS SUMMARY | 2025-02-17 10:17 | XMS_ITS | Clinical Summary ---
Author Organization [facility] [employer] Address [address] [place] [address] Care Team Providers Care Vibration Analyst Name Role Phone Robert Dial MD Primary Care Provider [phone] Source Comments [facility] [employer],non-owned Affiliates and Associated Physician Practices is amultiple site organization consisting of ambulatory clinics and hospital sitesin [place], [place], [place] and [place]. This disclosure is being madepursuant to the Care Everywhere program and may not contain all information available regarding this patient. Last updated [employer] Allergies Active Allergy Reactions Criticality Noted Date [...] getting worse. History somewhat consistent with OA. Senior Research Engineer not think has RA. Will get XRays [...] mention of probable neuroma in referral to [facility] [place] (her has done well with these, she is willing to pay out of pocket). Between NSAIDS and conservative therapy, will try to see if improves. Her exercise includes non-impact in the pool and such. Pain between 3rd and 4th metatarsal heads. Could be a neuroma. 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 Gender Identity Not on file Sexual Orientation Not on file Last Filed Vital Signs Vital Sign Reading Time Taken Comments Blood Pressure 124/82 11/26/2017 3:53 PM CDT Pulse - - Temperature - - Respiratory Rate - - Oxygen Saturation - - Inhaled Oxygen Concentration - - Weight 131.1 kg (289 lb) 11/26/2017 3:53 PM CDT Height 177.8 cm (5' 10) 11/26/2017 3:53 PM CDT Body Mass Index [...] complete this topic Insurance MEDICARE Care Teams Vibration Analyst Relationship Specialty Start Date End Date Robert Dial MD [facility] Clinic [address] [place] [phone] PCP - General 08/21/18
--- OUTSIDE RECORDS SUMMARY | 2025-02-17 10:17 | XMS_ITS | Clinical Summary ---
Author Organization [facility] [place] [address] Address [address] [place] [address] Care Team Providers Care Tacking Stitch Remover Name Role Phone Rosario Pham DO Unavailable Tu Fritz MD Unavailable Cinthia Quinones NP Unavailable Thomas Venegas MD Unavailable Trevon Sheth MD Unavailable [phone] London Hall MD Unavailable + Sylvia Johnson MD Unavailable Bobby Bui DO Unavailable Sahara Freedmant OD Unavailable Dominique Pedro Unavailable Leslie Torres NP Primary Care Provider Gutierrez Lucio NP Unavailable Abdirahman Mcclendon MD Unavailable Allergies Active Allergy Reactions Criticality Noted Date Comments Adhesive Other (See comments) Low 10/24/2020 Bruising from bandage Other Unknown 01/27/2010 Penicillin V Unknown 03/22/2006 Penicillins Hives,Rash Medium 03/22/2006 Penicillin Allergy History Form completed, moderate risk Medications magnesium oxide 400 mg magnesium capsule Take 500 mg by mouth daily 10/17/19 22 Active hlvik-[id number]-eyw-epa -fish oil 1,000-1,400 mg capsule,delayed release(DR/EC) Take [...] HFA) 90 mcg/actuation inhaler 02/01/20 23 Active Probiotic Formula, inulin, 1 billion-250 [...] for cough 30 capsule 04/17/20 24 Active Additional Information Patient not taking.Reported on 02/15/2025 miscellaneous medical supply misc Mediven PLUS 20-30 MMHG KH 6 each 04/24/20 24 Active semaglutide 0.25 mg or 0.5 [...] nightly 90 tablet 2 07/15/20 24 Active atorvastatin (LIPITOR) 40 mg tablet Take [...] evening. 270 tablet 1 12/29/[address] (PROTONIX) 40 mg EC tablet Take 1 tablet (40 mg total) by mouth daily 90 tablet 2 02/12/20 25 Active cholecalciferol (VITAMIN D-3) 5,000 unit capsule Take 1 capsule (5,000 Units total) by mouth daily 90 capsule 2 02/12/20 25 Active pregabalin (LYRICA) 75 mg capsule Take 1 capsule (75 mg total) by mouth 2 (two) times a day 180 capsule 1 02/12/20 25 Active ferrous sulfate 325 mg (65 mg of elemental iron) tabletIndication s:Iron Deficiency Anemia Take 1 tablet (325 mg total) by mouth daily with breakfast 90 tablet 3 02/12/20 25 026 Active lifitegrast (Xiidra) 5 % dropperette Administer into affected eye(s) Active UNABLE TO FIND [facility]re[facility] Health eye drops Active ferrous sulfate ER (SLOW IRON) 142 mg (45 mg of elemental iron) tablet Take 1 tablet (142 mg total) by mouth daily 90 tablet 1 06/08/20 23 025 Discontin ued(Thera py completed ) cholecalciferol (VITAMIN D-3) 5,000 unit capsule Take 1 capsule (5,000 Units total) by mouth daily 90 capsule 2 05/18/20 24 025 Discontin ued(Reord er) pantoprazole DR (PROTONIX) 40 mg EC tablet Take 1 tablet (40 mg total) by mouth daily 90 tablet 2 05/18/20 24 025 Discontin ued(Reord er) pregabalin (LYRICA) 75 mg capsule Take 1 capsule (75 mg total) by mouth 2 (two) times a day 180 capsule 1 08/31/19 25 025 Discontin ued(Reord er) Active Problems Patient Care Coordination No te Formatting of this note migh t be different from the original. Sinusitis Problem Noted Date Diagnosed Date Preoperative clearance 02/11/2025 Assessment & Plan (02/11/2025 1:19 PM CDT): Myofascial pain 11/30/2024 Osteoarthritis of glenohumeral joint, right 08/13 Sacroiliitis 10/15/2023 Xerophthalmia 05/06/2023 Stasis dermatitis 05/06/2023 Pulmonary hypertension 04/25/2023 Spinal stenosis of lumbar re gion with [...] otherwise. Assessment & Plan (10/14/2023 11:08 AM CELERY TIER): Continuing to work with Lymphedema clinic. Symptoms stable and she has been working with clinic to get her compression pump. Assessment & Plan (08/14/2023 3:35 PM CELERY TIER): She was started on diuretic per Cardiology and BP medication switched over from Amlodipine to HCTZ. Patient does not feel the swelling has improved. Discussed Lymphedema and will have patient evaluated by Lymphedema Clinic, referral placed. Assessment & Plan (04/01/2023 9:03 AM CDT): Venous ultrasound was negative for DVT 03/12/23. ECHO from 03/28/23 was fine also. Labs ordered today. 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 Updated labs today Other meniscus derangements, posterior horn of medial [...] Personal history of nicotine dependence 04/17/20 17 CPAP (continuous positive airway pressure) depjudy gaona 03/25/2017 Essential (primary) hypertension 01/16/2017 Assessment & Plan (02/11/2025 1:19 PM CDT): Assessment & Plan (10/27/2024 9:53 AM CDT): BP in good shape today, no changes. Assessment & Plan (04/29/2024 8:40 AM CDT): BP in good shape today, no changes. Renal function was fine also. Assessment & Plan (10/14/2023 11:05 AM CELERY TIER): BP diastolic borderline in office today. However, has been stable in all our other visits. Will continue current regimen and await updated labs. Assessment & Plan (08/14/2023 3:34 PM CELERY TIER): BP stable in office today, no changes. Labs ordered for 2 month follow up. Assessment & Plan (04/01/2023 9:04 AM CDT): BP stable in office today, no changes. Crohn's disease 11/03/2012 Dysmetabolic syndrome X 2010 Chronic rhinitis 06/26/2010 Astigmatism 02/02/2010 Cervicalgia 09/04/2007 Class 2 severe obesity due t o excess calories with serious comorbidity and body mass index (BMI) of 39.0 to 39.9 in adult 07/29/2007 Overview (04/09/2018): Overview: Pt doing Nutri-system, has lost 37 lbs, exercising more often and feeling much better than previously. Overview: Overview: Pt doing Nutri-system, has lost 37 lbs, exercising more often and feeling much better than previously. Pt doing Nutri-system, has lost 37 lbs, exercising more often and feeling much better than previously. Assessment & Plan (02/11/2025 1:19 PM CDT): Assessment & Plan (10/27/2024 9:52 AM CDT): [...] more. Assessment & Plan (10/14/2023 11:06 AM CELERY TIER): Patient's insurance would not cover Wegovy but [...] pt had with anemia before that point. Assessment & Plan (02/11/2025 1:19 PM CDT): Orders: CBC with auto differential; Future Iron profile w/ IBC; Future Vitamin B12; Future Osteoarthrosis, ankle and foot 12/24/2006 Overview (04/09/2018): Overview: Pain in both feet probably from OA. XRays from 2 yrs ago showed mild OA, and is now getting worse. History somewhat consistent with OA. Staff Psychologist not think has RA. Will get XRays to confirm dx again. Also told pt she can take up to 1 gm Tylenol qid if needed (on top of the Naproxen she is already taking for knees. She knows she can't take motrin with naproxen). RTC 1-2 mo. 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 No current meds, has arm splint and is seeing OT/PT. Will consider referral to rheum again in the future if worsening. Spontaneous ecchymosis 05/06/202302/11 Snoring 05/06/2023 02/11/2025 Sebaceous cyst 05/06/2023 02/11/2025 Neuralgia, geniculate 04/24/20232024 Edema of lower extremity 04/23/202210/2024 Insomnia 04/23/2022 02/11/2025 Anxiety 04/22/2022 02/11/2025 Aortic valve stenosis 10/17/20202024 Overview (10/17/2020): Added automatically from request for surgery [id number] S/P LEEP (loop electrosurgic al excision procedure) 11/26/2017 02/11/2025 Vaginal atrophy 11/26/2017 02/11/2025 Morbid obesity with BMI of 4 0.0-44.9, adult ([facility]) 07/26/2017 10/24/2021 Pain of foot 06/05/2017 02/11/2025 Astigmatism of eye 04/17/2017 Metabolic syndrome 04/17/2017 5 Primary osteoarthritis, unsp ecified ankle and foot 04/17/2017 02/11/2025 Overview (04/09/2018): Overview: Pain in both feet probably from OA. XRays from 2 yrs ago showed mild OA, and is now getting worse. History somewhat consistent with OA. Staff Psychologist not think has RA. Will get XRays to confirm dx again. Also told pt she can take up to 1 gm Tylenol qid if needed (on top of the Naproxen she is already taking for knees. She knows she can't take motrin with naproxen). RTC 1-2 mo. Nonrheumatic aortic valve stenosis 01/16/2017 02/11/2025 History of tobacco abuse 01/16/201710/2024 Obstructive sleep apnea 01/16/201710/2024 Overview (04/09/2018): Overview: Doing well with CPAP, after wt loss of 37 lbs, monitored form time to time. Overview: Doing well with CPAP, after wt loss of 37 lbs, monitored form time to time. Rheumatoid arthritis 01/16/2017 021 Overview (04/09/2018): Overview: [...] allow her to continue her normal life. Knee pain 08/01/2016 02/11/2025 Adjustment disorder with mix ed anxiety and depressed mood 07/21/2015 02/11/2025 Assessment & Plan (04/29/2024 8:39 AM CDT): Has been worsening over the past few weeks, denies SI. Not to the point where she wants medication but counseling resources provided. Patient will let me know if medications needed, may consider Cymbalta given her chronic pain also. Pain in shoulder 08/18/2013 02/11/2025 Osteopenia 11/03/2012 02/11/2025 Asymptomatic varicose veins 08/29/2010 02/11/2025 Edema 06/26/2010 02/11/2025 Esophageal reflux 06/07/2008 02/11/2025 Lesion of plantar nerve 05/06/200710/2024 Overview (04/09/2018): Overview: Pain between 3rd and 4th metatarsal heads. Could be a neuroma. Will defer further w/u, however made mention of probable neuroma in referral to [facility] for custom insoles (her has done well with these, she is willing to pay out of pocket). Between NSAIDS and conservative therapy, will try to see if improves. Her exercise includes non-impact in the pool and such. Overview: Overview: Pain between 3rd and 4th metatarsal heads. Could be a neuroma. Will defer further w/u, however made mention of probable neuroma in referral to [facility] for custom insoles (her has done well with these, she is willing to pay out of pocket). Between NSAIDS and conservative therapy, will try to see if improves. Her exercise includes non-impact in the pool and such. Pain between 3rd and 4th metatarsal heads. Could be a neuroma. Will defer further w/u, however made mention of probable neuroma in referral to [facility] for custom insoles (her has done well with these, she is willing to pay out of pocket). Between NSAIDS and conservative therapy, will try to see if improves. Her exercise includes non-impact in the pool and such. Myalgia and myositis 02/26/2007 025 Overview (04/09/2018): Overview: discontinue Zocor and Tricor, repeat lipid in 2 months and make f/u appt. Impaired fasting glucose 01/16/200710/2024 Derangement of posterior hor n of medial meniscus 09/12/2006 02/11/2025 Overview (04/09/2018): Overview: S: Pt returns for f/u previous visit for knee pain, generalized swelling and pain and lab tests that were positive for RF and elevated CRP. She has been in physical therapy which is not helping much with the severe pain in her left knee. Swimming (chyna Other and unspecified hyperlipidemia 06/06/2005 02/11/2025 Overview (04/09/2018): Overview: will refill zocor and tricor, check lipids/LFT/CK Preop cardiovascular exam Encounters Date Type Department Care Team Description 02/15/2025 8:00 AM CDT Office Visit [facility] Rheumatology [address] [place] [address] Cinthia Quinones, RUTH ANN 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) (Primary Dx); High risk medication use 02/11/2025 12:30 PM CDT Office Visit [facility] Primary Care at [address] [phone] Kristi Owens NP Preoperative clearance (Primary Dx); Iron deficiency anemia secondary to inadequate dietary iron intake; Essential (primary) hypertension; Class 2 severe obesity due to excess calories with serious comorbidity and body mass index (BMI) of 39.0 to 39.9 in adult (HCC) 02/08/2025 2:30 PM CDT - 02/08/2025 11:59 PM CDT Hospital Encounter [address] [address] High risk medication use Discharge Disposition: Discharge to home or self care 02/08/2025 2:30 PM CDT Infusion [facility] Infusion Therapy [address] [place] [address] 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) (Primary Dx); Age-related osteoporosis without current pathological fracture 01/05/2025 7:04 AM CDT - 01/05/2025 11:59 PM CDT Hospital Encounter [facility] [id number] [place] [address] Gutierrez Lucio NP Spinal stenosis of lumbar region, unspecified whether neurogenic claudication present (Primary Dx); Radiculopathy, lumbosacral region Discharge Disposition: Discharge to home or self care 01/05/2025 Orders Only [facility] Primary Care at [address] [phone] Sid Santamaria MD 01/05/2025 Telephone [facility] [address] [place] [address] 2 [address] [place] [address] German Wolfe 01/05/2025 Telephone [facility] [address] [place] [address] 2 [address] [place] [address] German Wolfe 12/29/2024 8:30 AM CDT Office Visit [facility] Medical [facility] Cardiology at [address] [place] [phone] Thomas Venegas MD S/P AVR (Primary Dx); Pulmonary hypertension (HCC); Nonrheumatic aortic valve stenosis; Essential (primary) hypertension; Preop cardiovascular exam 12/24/2024 8:04 AM CDT - 12/24/2024 11:59 PM CDT Hospital Encounter [facility] [id number] [place] [address] Abdirahman Mcclendon MD Radiculopathy, lumbosacral region [M54.17] (Primary Dx); Myofascial pain; Spinal stenosis of lumbar region with neurogenic claudication [M48.062] Discharge Disposition: Discharge to home or self care 12/23/2024 8:00 AM CDT Infusion [facility] Infusion Therapy [address] [place] [address] 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) (Primary Dx); Age-related osteoporosis without current pathological fracture 12/17/2024 Documentation [facility] Rheumatology [address] [place] [address] Melecio De Souza Eye Exam (12-07-24 Metro ok for plaquenil) 12/17/2024 Orders Only [facility] Neurology [address] [place] [phone] Pb Foreman Si, MD Imbalance 11/30/2024 8:30 AM CDT - 11/30/2024 11:59 PM CDT Hospital Encounter [facility] [address] [place] [address] Gutierrez Lucio NP Lumbar radiculopathy (Primary Dx); Spinal stenosis of lumbar region, unspecified whether neurogenic claudication present; Sacroiliitis; Myofascial pain Discharge Disposition: Discharge to home or self care 11/24/2024 1:30 PM CDT Office Visit [facility] Neurology [address] [place] [address] [place] [phone] Pb Foreman Si, MD Imbalance (Primary Dx); Unsteady gait when walking; Dizziness; Abnormal MRI of head; Multiple lacunar infarcts (HCC); Polyneuropathy 11/19/2024 8:20 AM CDT Office Visit [facility] [address], [address] [place] [address] Keith Cline MD Impacted cerumen of right ear (Primary Dx); Recurrent sinusitis; Nasal pain; Chronic rhinitis; Chronic sinusitis, unspecified location 11/19/2024 Orders Only [facility] [address], [address] [place] [address] Keith Cline MD from Last 3 Months Immunizations Immunization Administration [...] removed. REPLACEMENT TOTAL KNEE 11/28/2016 Left CHOLECYSTECTOMY 1974 TOE SURGERY hammer toe AORTIC VALVE REPLACEMENT CARDIAC VALVE REPLACEMENT 2020 FLUORO GUIDED ASPIRATION TMJ LEFT 08/19/2023 Left Medical History Medical History Date Comments Knee pain, left (aortic stenosis) Sleep apnea 1994 Hypertension Hyperlipidemia Crohn disease (HCC) GERD (gastroesophageal reflu x disease) 2000 Seronegative erosive rheumat oid arthritis (HCC) Osteoarthritis Osteoporosis Sciatica Acid reflux Depression Asthma Heart disease AORTIC STENOSIS 2015 Autoimmune disease RA 1994 Cataract Primary osteoarthritis, unspecified ankle and foot 04/17/2017 Overview: Pain in both feet probably from OA. XRays from 2 yrs ago showed mild OA, and is now getting worse. History somewhat consistent with OA. Staff Psychologist not think has RA. Will get XRays to confirm dx again. Also told pt she can take up to 1 gm Tylenol qid if needed (on top of the Naproxen she is already taking for knees. She knows she can't take motrin with naproxen). 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 She has been in physical therapy which is not helping much with the severe pain in her left knee. Swimming (chyna Adjustment disorder with mix ed anxiety and depressed mood 07/21/2015 Family History Medical History Relation Name Comments Hodgkin's lymphoma Daughter 1 No Known Problems Daughter 2 No Known Problems Daughter 3 Heart attack Father JARED Beck REG Heart disease Father JARED FINNEY Stroke Father JARED FINNEY Cirrhosis Mother Stroke Sister PREM VILLARREAL [...] more points, staff should administer the PHQ-9) 0 02/11/2025 Comments No Sex and Gender Information Value Date Recorded Sex Assigned at Not on file Legal Sex Female 2:13 AM CELERY TIER Gender Identity Female 05/01/2021 8:51 AM CDT Sexual Orientation Straight 02/24/2020 1: 08 PM CDT Obstetrics History Last Filed Vital Signs Vital Sign Reading Time Taken Comments Blood Pressure 135/83 02/15/2025 7:59 AM CDT Pulse 72 02/15/2025 7:59 AM CDT Temperature 36.3 C (97.3 F) 02/15/2025 7:59 AM CDT Respiratory Rate 16 02/11/2025 12:3 7 PM CDT Oxygen Saturation 94% 02/15/2025 7:59 AM CDT Inhaled Oxygen Concentration - - Weight 119.9 kg (264 lb 6.4 oz) 02/15/2025 7:59 AM CDT Height 172.7 cm (5' 8) 02/15/2025 7:59 AM CDT Body Mass Index 40.2 02/15/2025 7:59 AM CDT Plan of Treatment Health Maintenance Due Date Last Done Comments Well Visit 65+ 2014 DTaP/Tdap/Td Vaccine (2 - Td or Tdap) 09/17/2022 09/17/2012, 10/07/2000 Covid-19 Vaccine (6 - 4-2 5 season) 2024 07/17/2022, 12/23/2021, 03/28/2021, Additional history exists Influenza Vaccine (#1) 2025 , 04/24/2023, 05/22/2022, Additional history exists Lung Cancer Screening 09/03/2025 09/03/2024, 023 Colon Cancer Screening-Colonoscopy 10/22/2025 10/22/2022 Fall Risk Assessment 01/05/2026 01/05/2025, 10/27/2024, 03/30/2024, Additional history exists Depression Screening 02/11/2026 02/11/2025, 10/27/2024, 04/29/2024, Additional history exists Osteoporosis Screening-Bone Density Scan [...] 03/28/2023 Breast Cancer Screening-Mammogram Discontinued 024, 07/13/2022 Medical Devices Implanted Type Area Tissue Technologist Device Identifier Shelf Expiration Date Model / Serial / Lot [employer] [id number] Inspiris Resilia Leaflet Sewing Ring 23mm Valve Aortic Bovine - [id number] - [id number] Implanted:Qty: 1 on 10/26/2020 by Trevon Sheth MD at [facility] N/A: Heart [employer] 05/19/2024 [id number] / [id number] / Description:As of 11/04/2024 Mri conditions: Static magnetic field of 1.5 darrel or 3 darrel only. Maximum spatial gradient magnetic field of 3,000 gauss/cm (30 T/m) or less. Maximum MR system-reported, whole-body averaged specific absorption rate (CATALINA) of 2.0 W/kg in Normal Operating Mode Procedures Procedure Name Priority Date/Time Associated Diagnosis Comments EGFR Routine 02/08/2025 2:38 PM CDT High risk medication use DIFFERENTIAL AUTO Routine 02/08/2025 2:3 8 PM CDT High risk medication use CBC WITH AUTO DIFFERENTIAL Routine 02/08/2025 2:38 PM CDT High risk medication use COMPREHENSIVE METABOLIC PANEL Routine 02/08/2025 2:38 PM CDT High risk medication use XR KNEE RIGHT 3 VIEWS Schedule Routine, Read Routine (OP Routine) 01/05/2025 3:45 PM CDT ELECTROCARDIOGRAM REPORT Routine 12/29/2024 12:18 PM CDT Nonrheumatic aortic valve stenosis PAIN MGMT IMAGING LUMBAR/CAUDAL EPIDURAL STEROID INJ Schedule Routine, Read Routine (OP Routine) 12/24/2024 9:56 AM CDT Myofascial pain CT LUNG CANCER SCREENING Schedule Routine, Read Routine (OP Routine) 09/03/2024 3:23 PM CELERY TIER DEXA AXIAL AND FOREARM BONE DENSITY SCAN [...] Recently Relevant to Health Maintenance Results * eGFR (02/08/2025 2:38 PM CDT) eGFR 72 >=60 mL/min/1. 73 m2 Comment: Interpretive Data [...] of Race in Diagnosing Kidney Disease, JASN 2020). The CKD-EPI equation should not be used for patients with unstable renal function and has not been validated in children and those over 70. Current interpretive data was last reviewed 2021. Blood 02/08/2025 2:38 PM CDT 02/08/2025 4:19 PM CDT [employer]inthia [employer]ones [employer] ENGINEER LAB BLOOD ORDERABLES Final Result [facility] Department [place] [address] * Differential, auto (02/08/2025 2:38 PM CDT) Neutrophil abs 3.59 1.50 - 6.50 K/cumm Imm gran abs 0.02 0.00 - 0.10 K/cumm [facility] Lymphocyte abs 1.73 0.80 - 3.30 K/cumm [facility] Monocyte abs 0.59 0.20 - 0.80 K/cumm [facility] Eosinophil abs 0.12 0.00 - 0.50 K/cumm [facility] Basophil abs 0.04 0.00 - 0.10 K/cumm [facility] Neutrophil pct 58.9 % [facility] Comment: Interpretive Data Percent cell count reference ranges are not reported, since discordance with absolute values may lead to misinterpretation of CBC data. Current Interpretive Data was last revised on 2017. Imm gran pct 0.3 % [facility] Comment: Interpretive Data Percent cell count reference ranges are not reported, since discordance with absolute values may lead to misinterpretation of CBC data. Current Interpretive Data was last revised on 2017. Lymphocyte pct 28.4 % [facility] Comment: Interpretive Data Percent cell count reference ranges are not reported, since discordance with absolute values may lead to misinterpretation of CBC data. Current Interpretive Data was last revised on 2017. Monocyte pct 9.7 % [facility] Comment: Interpretive Data Percent cell count reference ranges are not reported, since discordance with absolute values may lead to misinterpretation of CBC data. Current Interpretive Data was last revised on 2017. Eosinophil pct 2.0 % [facility] Comment: Interpretive Data Percent cell count reference ranges are not reported, since discordance with absolute values may lead to misinterpretation of CBC data. Current Interpretive Data was last revised on 2017. Basophil pct 0.7 % [facility] Comment: Interpretive Data Percent cell count reference ranges are not reported, since discordance with absolute values may lead to misinterpretation of CBC data. Current Interpretive Data was last revised on 2017. Blood 02/08/2025 2:38 PM CDT 02/08/2025 4:09 PM CDT [employer]ia [employer]ones [employer] ENGINEER LAB BLOOD ORDERABLES Final Result [facility] One [facility] Department [place] [address] * (ABNORMAL) CBC with auto differential (02/08/2025 2:38 PM CDT) Pathologist [facility] WBC 6.09 3.80 - 9.90 K/cumm Hgb 10.7(L) 11.9 - 15.5 g/dL [facility] Hct 32.0(L) 35.6 - 45.5 % [facility] Plt 199 150 - 400 K/cumm [facility] MPV 10.6 9.1 - 12.3 fL [facility] RBC 3.45(L) 3.90 - 5.20 M/cumm [facility] MCV 92.8 81.3 - 96.4 fL [facility] MCH 31.0 27.1 - 33.3 pg [facility] MCHC 33.4 32.3 - 35.7 g/dL [facility] RDW CV 14.6 11.1 - 14.9 % [facility] RDW SD 49.8(H) 35.7 - 48.1 fL [facility] NRBC abs 0.00 0.00 - 0.01 K/cumm [facility] Blood 02/08/2025 2:38 PM CDT 02/08/2025 4:09 PM CDT us Cinthia Quinones NP LAB BLOOD ORDERABLES Final Result [facility] Department [place] [address] * Comprehensive metabolic panel (02/08/2025 2:38 PM CDT) Sodium 140 135 - 145 mmol/L Potassium, pl 4.7 3.3 - 4.9 mmol/L [facility] Chloride 102 97 - 110 mmol/L [facility] CO2 28 22 - 32 mmol/L [facility] Anion gap 10 2 - 15 mmol/L [facility] BUN 9 6 - 25 mg/dL [facility] Creatinine 0.84 0.60 - 1.10 mg/dL [facility] Glucose 99 70 - 199 mg/dL [facility] Comment: Interpretive Data Fasting glucose >/= 126 [...] classification and Diagnosis of Diabetes Diabetes Care 2021; 46: S19-S40. Current interpretive data was last revised 2022. Calcium 9.9 8.5 - 10.3 mg/dL [facility] Bilirubin, total 0.9 0.1 - 1.2 mg/dL [facility] Protein, pl 6.8 6.5 - 8.5 g/dL [facility] Albumin 4.0 3.5 - 5.0 g/dL [facility] Alk phos 80 40 - 130 Units/L [facility] ALT 18 7 - 45 Units/L [facility] AST 30 10 - 45 Units/L [facility] Blood 02/08/2025 2:38 PM CDT 02/08/2025 4:09 PM CDT Cinthia Quinones [employer] ENGINEER LAB BLOOD ORDERABLES Final Result Performing Organization Address City/[facility]/ZIP Co de Phone Number [facility] Department [place] [address] * XR Knee Right 3 Views (01/05/2025 3:45 PM CDT) Anatomical Region Laterality Modality Lower Extremities, Knee Right Radiogra phic Imaging Sid Provider IMG XR PROCEDURES Final R esult * Electrocardiogram Report (12/29/2024 12:18 PM CDT) Thomas Venegas MD ECG ORDERABLES Final Res ult * Imaging Lumbar/Caudal Epidural Steroid INJ (10210) (12/24/2024 9:56 AM CDT) Narrative [facility] - 12/24/2024 9:56 AM CDT The images from this study are not interpreted by Radiology. Please refer to the physician's procedure / OR operative note. us Gutierrez Lucio NP IMG PAIN MGMT PROCEDURES F inal Result [facility] * CT Lung Cancer Screening (09/03/2024 3:23 PM CELERY TIER) Anatomical Region Laterality Modality Chest N/A Computed [...] Bone mineral density was performed on a HoloBiggiFi Discovery Densitometer. Based on machine cross-calibration and [...] by the International Society of Clinical Densitometry. [id number] Rosario Pham DO IMG DXA PROCEDURES Erika l Result * HM MAMMOGRAPHY (12/04/2023) Leslei Torres NP HEALTH MAINTENANCE Final Result * Hepatitis C antibody (03/28/2023 12:29 PM CDT) Pathologist [facility] Hep C Ab Nonreactive Nonreactive LUCILLE RODRIGUEZ [...] GENERAL ORDER LORIE Final Result LUCILLE RODRIGUEZ [address] Department [place] [address] * Colonoscopy (10/22/2022) Anatomical Region Laterality Modality Other Historical Provider ENDOSCOPY PROCEDURES Erika kenny Result from Last 3 Months or Most Recently Relevant to Health Maintenance Insurance MEDICARE alaTest MEDICARE FOR LIFE MEDICARE FOR LIFE MEDICARE FOR LIFE Advance Directives For more information, please contact: [phone] * Full Code (Latest Code Status on File) Date Activated Date Inactivated Comments 10/26/2020 1:23 PM 10/31/2020 9:35 PM Care Teams Tacking Stitch Remover Relationship Specialty Start Date End Date Leslie Torres NP [address] [place] [address] PCP - General Family Medicine 08/14/23 Rosario Pham DO [address] [facility] [address] [place] [address] Consulting Physician Endocrinology Diabetes & Metabolism 08/22/22 Tu Fritz MD [address] [facility] [address] [place] [address] Consulting Physician Internal Medicine 03/28/23 Cinthia Quinones NP [address] [facility] [address] [place] [address] Nurse Practitioner Rheumatology 03/28/23 Thomas Venegas MD [address] [facility] [address] [facility] [address] [place] [address] Consulting Physician Cardiology 03/28/23 Trevon Sheth MD [address] [facility] [address] [place] [address] Surgeon Cardiothoracic Surgery 03/28/23 London Hall MD [address] [place] [address] Referring Physician Gastroenterology 03/28/23 Sylvia Johnson MD [address] [place] [address] Consulting Physician Critical Care Med 03/28/23 Bobby Bui DO [address] [place] [address] Internal Medicine 03/28/23 Sahara Freedman OD [address] [place] [address] Optometry 03/28/23 Dominique Pedro PA [address] [place] [address] Allergy and Immunology 03/28/23 [place] [address] [address] Nurse Practitioner Nurse Practitioner 01/05/25 [place] [address] [address] [facility] [address] [facility] [place] [address] Consulting Physician Pain Management 01/05/25
--- OUTSIDE RECORDS SUMMARY | 2025-02-17 10:17 | XMS_ITS | Encounter Summary ---
Author Organization [facility] Address [address] [place] [address] Phone Care Team Providers Care Residential Advisor Name Role Phone VeroRosario Sheila DO Unavailable Leslie Torres NP Primary Care Provider [phone] Tu Fritz MD Unavailable Cinthia Quinones NP Unavailable [phone] Thomas Venegas MD Unavailable Trevon Sheth MD Unavailable [phone] London Hall MD Unavailable + Sylvia Johnson MD Unavailable [phone] Bobby Bui DO Unavailable [phone] Sahara Freedman OD Unavailable Dominique Pedro Unavailable [phone] Cinthia Quinones NP Primary Care Provider [phone] Leslie Torres NP Primary Care Provider [phone] Gutierrez Lucio NP Unavailable [phone] Abdirahman Mcclendon MD Unavailable Encounter Details Date [...] on file Legal Sex Female 2:13 AM [employer] 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 [employer] Gender Identity Female 05/01/2021 8:51 AM CDT Sexual Orientation Straight 02/24/2020 1: 08 PM CDT documented as of this encounter Plan of Treatment Not on file documented as of this encounter Procedures Procedure Name Priority Date/Time Associated Diagnosis Comments SCAN - RADIOLOGY/IMAGING 05/16/2023 documented in this encounter Results * SCAN - RADIOLOGY/IMAGING (05/16/2023) Anatomical Region Laterality Modality Other us Provider [...] documented as of this encounter Care Teams Residential Advisor Relationship Specialty Start Date End Date Leslie Torres NP [address] [place] [address] PCP - General Family Medicine 03/28/23 06/30/23 Cinthia Quinones NP [address] [facility] [address] [place] [address] PCP - General Rheumatology 07/01/23 08/13/23 Leslie Torres NP [address] [place] [address] PCP - General Family Medicine 08/14/23 Rosario Pham DO [address] [facility] [address] [place] [address] Consulting Physician Endocrinology Diabetes & Metabolism 08/22/22 Tu Fritz MD [address] [facility] [address] [place] [address] Consulting Physician Internal Medicine 03/28/23 Cinthia Quinones NP [address] [facility] [address] [place] [address] Nurse Practitioner Rheumatology 03/28/23 Thomas Venegas MD [address] [place], [place] [id number] Consulting Physician Cardiology 03/28/23 Trevon Sheth MD [address] [place] [address] Surgeon Cardiothoracic Surgery 03/28/23 London Hall MD [address] [place] [address] Referring Physician Gastroenterology 03/28/23 Sylvia Johnson MD [address] [place], [place] [address] Consulting Physician Critical Care Med 03/28/23 Bobby Bui DO [address] [place] [address] Internal Medicine 03/28/23 Sahara Freedman OD [address] [place] [address] Optometry 03/28/23 Dominique Pedro PA [address] [place] [address] Allergy and Immunology 03/28/23 [place] [address] [id number] Nurse Practitioner Nurse Practitioner 01/05/25 [place] [address] [address] [facility] [address] [address] Consulting Physician Pain Management 01/05/25 documented as of this encounter
--- OUTSIDE RECORDS SUMMARY | 2025-02-17 10:17 | XMS_ITS | Referral Summary ---
Author Organization [facility] [place] [address] Address [address] [place] [address] Care Team Providers Care Farmworker Rice Name Role Phone Rosario Pham DO Unavailable Tu Fritz MD Unavailable Cinthia Quinones NP Unavailable Thomas Venegas MD Unavailable Trevon Sheth MD Unavailable [phone] London Hall MD Unavailable + Sylvia Johnson MD Unavailable [phone] Bobby Bui DO Unavailable [phone] Sahara Freedman OD Unavailable [phone] Dominique Pedro Unavailable Leslie Torres NP Primary Care Provider Gutierrez Lucio NP Unavailable [phone] Abdirahman Mcclendon MD Unavailable Encounters Date Type Department Care Team Description 02/15/2025 8:00 AM CDT Office Visit [facility] Rheumatology [address] [place] [address] Cinthia Quinones NP 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) (Primary Dx); High risk medication use 02/11/2025 12:30 PM CDT Office Visit [facility] Primary Care at [address] [phone] Kristi Owens NP Preoperative clearance (Primary Dx); Iron deficiency anemia secondary to inadequate dietary iron intake; Essential (primary) hypertension; Class 2 severe obesity due to excess calories with serious comorbidity and body mass index (BMI) of 39.0 to 39.9 in adult (HCC) 02/08/2025 2:30 PM CDT - 02/08/2025 11:59 PM CDT Hospital Encounter [facility] [address] [place] [address] High risk medication use Discharge Disposition: Discharge to home or self care 02/08/2025 2:30 PM CDT Infusion [facility] Infusion Therapy [address] [facility] 2nd [address] [place] [address] 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) (Primary Dx); Age-related osteoporosis without current pathological fracture 01/05/2025 Orders Only [facility] Primary Care at [address] [phone] ProviderSid MD 01/05/2025 Telephone [facility] [address] [place] [address] 2 [address] [place] [address] German Wolfe 01/05/2025 Telephone [facility] [address] [place] [address] 2 [address] [place] [address] German Wolfe 01/05/2025 7:04 AM CDT - 01/05/2025 11:59 PM CDT Hospital Encounter [facility] [address] [place] [address] Gutierrez Lucio NP Spinal stenosis of lumbar region, unspecified whether neurogenic claudication present (Primary Dx); Radiculopathy, lumbosacral region Discharge Disposition: Discharge to home or self care 12/29/2024 8:30 AM CDT Office Visit [facility] Cardiology at [address] [place] [address] Thomas Venegas MD S/P AVR (Primary Dx); Pulmonary hypertension (HCC); Nonrheumatic aortic valve stenosis; Essential (primary) hypertension; Preop cardiovascular exam 12/24/2024 8:04 AM CDT - 12/24/2024 11:59 PM CDT Hospital Encounter [facility] [id number] [place] [address] Abdirahman Mcclendon MD Radiculopathy, lumbosacral region [M54.17] (Primary Dx); Myofascial pain; Spinal stenosis of lumbar region with neurogenic claudication [M48.062] Discharge Disposition: Discharge to home or self care 12/23/2024 8:00 AM CDT Infusion [facility] Infusion Therapy [address] [facility] 2nd [address] [place] [address] 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) (Primary Dx); Age-related osteoporosis without current pathological fracture 12/17/2024 Documentation [facility] Rheumatology [address] [facility] 2nd Floor [address] [place] [address] Melecio De Souza Eye Exam (12-07-24 Metro ok for plaquenil) 12/17/2024 Orders Only [facility] Neurology [address] [place] [address] [place] [phone] Pb Foreman Si, MD Imbalance 11/30/2024 8:30 AM CDT - 11/30/2024 11:59 PM CDT Hospital Encounter [facility] [address] [place] [address] Gutierrez Lucio NP Lumbar radiculopathy (Primary Dx); Spinal stenosis of lumbar region, unspecified whether neurogenic claudication present; Sacroiliitis; Myofascial pain Discharge Disposition: Discharge to home or self care 11/24/2024 1:30 PM CDT Office Visit [facility] Neurology [address] [place] [address] [place] [phone] Pb Foreman Si, MD Imbalance (Primary Dx); Unsteady gait when walking; Dizziness; Abnormal MRI of head; Multiple lacunar infarcts (HCC); Polyneuropathy 11/19/2024 Orders Only [facility] E[facility] [address] [facility] 2nd Floor, [address] [place] [address] Keith Cline MD 11/19/2024 8:20 AM CDT Office Visit [facility] [address] [facility] [address], [address] [place] [address] Keith Cline MD Impacted cerumen of right ear (Primary Dx); Recurrent sinusitis; Nasal pain; Chronic rhinitis; Chronic sinusitis, unspecified location from Last 3 Months Allergies Active Allergy Reactions Criticality Noted Date Comments Adhesive Other (See comments) Low 10/24/2020 Bruising from bandage Other Unknown 01/27/2010 Penicillin V Unknown 03/22/2006 Penicillins Hives,Rash Medium 03/22/2006 Penicillin Allergy History Form completed, moderate risk Medications magnesium oxide 400 mg magnesium capsule Take 500 mg by mouth daily 10/17/19 22 Active [id number]-epa -fish oil 1,000-1,400 mg capsule,delayed release(DR/EC) Take [...] not taking.Reported on 02/15/2025 miscellaneous medical supply [facility] Med[facility] PLUS 20-30 MMHG KH 6 each [...] otherwise. Assessment & Plan (10/14/2023 11:08 AM GATE WATCH): Continuing to work with Lymphedema clinic. Symptoms stable and she has been working with clinic to get her compression pump. Assessment & Plan (08/14/2023 3:35 PM GATE WATCH): She was started on diuretic per Cardiology [...] lipids/LFT/CK Assessment & Plan (10/14/2023 11:03 AM GATE WATCH): Continues Lipitor, no side effects reported. Updated [...] 04/17/20 17 CPAP (continuous positive airway pressure) louie gaona 03/25/2017 Essential (primary) hypertension 01/16/2017 Assessment & Plan (02/11/2025 1:19 PM CDT): Assessment & Plan (10/27/2024 9:53 AM CDT): BP in good shape today, no changes. Assessment & Plan (04/29/2024 8:40 AM CDT): BP in good shape today, no changes. Renal function was fine also. Assessment & Plan (10/14/2023 11:05 AM GATE WATCH): BP diastolic borderline in office today. However, has been stable in all our other visits. Will continue current regimen and await updated labs. Assessment & Plan (08/14/2023 3:34 PM GATE WATCH): BP stable in office today, no changes. [...] more. Assessment & Plan (10/14/2023 11:06 AM GATE WATCH): Patient's insurance would not cover Wegovy but [...] getting worse. History somewhat consistent with OA. Press Hand Supervisor not think has RA. Will get XRays [...] (10/17/2020): Added automatically from request for surgery [id number] S/P LEEP (loop electrosurgic al excision procedure) 11/26/2017 02/11/2025 Vaginal atrophy 11/26/2017 02/11/2025 Morbid obesity with BMI of 4 0.0-44.9, adult ([facility]) 07/26/2017 10/24/2021 Pain of foot 06/05/2017 02/11/2025 Astigmatism of eye 04/17/2017 Metabolic syndrome 04/17/2017 5 Primary osteoarthritis, unsp ecified ankle and foot 04/17/2017 02/11/2025 Overview (04/09/2018): Overview: Pain in both feet probably from OA. XRays from 2 yrs ago showed mild OA, and is now getting worse. History somewhat consistent with OA. Press Hand Supervisor not think has RA. Will get XRays [...] mention of probable neuroma in referral to plant changer for custom insoles (her has done [...] mention of probable neuroma in referral to plant changer for custom insoles (her has done well with these, she is willing to pay out of pocket). Between NSAIDS and conservative therapy, will try to see if improves. Her exercise includes non-impact in the pool and such. Pain between 3rd and 4th metatarsal heads. Could be a neuroma. Will defer further w/u, however made mention of probable neuroma in referral to plant changer for custom insoles (her has done [...] and tricor, check lipids/LFT/CK Preop cardiovascular exam Immunizations Immunization Administration Dates Next Due H1N1 [...] on file Legal Sex Female 2:13 AM GATE WATCH Gender Identity Female 05/01/2021 8:51 AM CDT [...] 02/15/2025 7:59 AM CDT Plan of Treatment Not on file Medical Devices Implanted Type Area Stabber Device Identifier Shelf Expiration Date Model / Serial / Lot [employer] [id number] Inspiris Resilia Leaflet Sewing Ring 23mm Valve Aortic Bovine - [id number] - [id number] Implanted:Qty: 1 on 10/26/2020 by Trevon Sheth MD at [facility] N/A: Heart [employer] 05/19/2024 [id number] / [id number] / Description:As of 11/04/2024 Mri conditions: Static [...] Read Routine (OP Routine) 09/03/2024 3:23 PM GATE WATCH DEXA AXIAL AND FOREARM BONE DENSITY SCAN [...] CDT 02/08/2025 4:19 PM CDT Cinthia Quinones NP LAB BLOOD ORDERABLES Final Result [facility] Department of Laboratories [place], [place] [id number] * Differential, auto (02/08/2025 2:38 PM CDT) Neutrophil abs 3.59 1.50 - 6.50 K/cumm Imm gran abs 0.02 0.00 - 0.10 K/cumm [facility] Lymphocyte abs 1.73 0.80 - 3.30 K/cumm [facility] Monocyte abs 0.59 0.20 - 0.80 K/cumm [facility] Eosinophil abs 0.12 0.00 - 0.50 K/cumm [facility] Basophil abs 0.04 0.00 - 0.10 K/cumm [facility] Neutrophil pct 58.9 % [facility] Comment: Interpretive Data Percent cell count reference ranges are not reported, since discordance with absolute values may lead to misinterpretation of CBC data. Current Interpretive Data was last revised on 2017. Imm gran pct 0.3 % [facility] Comment: Interpretive Data Percent cell count reference ranges are not reported, since discordance with absolute values may lead to misinterpretation of CBC data. Current Interpretive Data was last revised on 2017. Lymphocyte pct 28.4 % [facility] Comment: Interpretive Data Percent cell count reference ranges are not reported, since discordance with absolute values may lead to misinterpretation of CBC data. Current Interpretive Data was last revised on 2017. Monocyte pct 9.7 % [facility] Comment: Interpretive Data Percent cell count reference ranges are not reported, since discordance with absolute values may lead to misinterpretation of CBC data. Current Interpretive Data was last revised on 2017. Eosinophil pct 2.0 % [facility] Comment: Interpretive Data Percent cell count reference ranges are not reported, since discordance with absolute values may lead to misinterpretation of CBC data. Current Interpretive Data was last revised on 2017. Basophil pct 0.7 % [facility] Comment: Interpretive Data Percent cell count reference ranges are not reported, since discordance with absolute values may lead to misinterpretation of CBC data. Current Interpretive Data was last revised on 2017. Blood 02/08/2025 2:38 PM CDT 02/08/2025 4:09 PM CDT us Cinthia Quinones NP LAB BLOOD ORDERABLES Final Result [facility] [place] [address] * (ABNORMAL) CBC with auto differential (02/08/2025 2:38 PM CDT) [facility] WBC 6.09 3.80 - 9.90 K/cumm Hgb 10.7(L) 11.9 - 15.5 g/dL [facility] Hct 32.0(L) 35.6 - 45.5 % [facility] Plt 199 150 - 400 K/cumm [facility] MPV 10.6 9.1 - 12.3 fL [facility] RBC 3.45(L) 3.90 - 5.20 M/cumm [facility] MCV 92.8 81.3 - 96.4 fL [facility] MCH 31.0 27.1 - 33.3 pg [facility] MCHC 33.4 32.3 - 35.7 g/dL [facility] RDW CV 14.6 11.1 - 14.9 % [facility] RDW SD 49.8(H) 35.7 - 48.1 fL [facility] NRBC abs 0.00 0.00 - 0.01 K/cumm [facility] Blood 02/08/2025 2:38 PM CDT 02/08/2025 4:09 PM CDT Cinthia Quinones CHILD WELFARE MANAGER LAB BLOOD ORDERABLES Final Result [facility] [place] [address] * Comprehensive metabolic panel (02/08/2025 2:38 PM CDT) [facility] Sodium 140 135 - 145 mmol/L Potassium, pl 4.7 3.3 - 4.9 mmol/L [facility] Chloride 102 97 - 110 mmol/L [facility] CO2 28 22 - 32 mmol/L [facility] Anion gap 10 2 - 15 mmol/L [facility] BUN 9 6 - 25 mg/dL [facility] Creatinine 0.84 0.60 - 1.10 mg/dL [facility] Glucose 99 70 - 199 mg/dL [facility] Comment: Interpretive Data Fasting glucose >/= [...] 2022. Calcium 9.9 8.5 - 10.3 mg/dL [facility] Bilirubin, total 0.9 0.1 - 1.2 mg/dL [facility] Protein, pl 6.8 6.5 - 8.5 g/dL [facility] Albumin 4.0 3.5 - 5.0 g/dL [facility] Alk phos 80 40 - 130 Units/L [facility] ALT 18 7 - 45 Units/L [facility] AST 30 10 - 45 Units/L [facility] Blood 02/08/2025 2:38 PM CDT 02/08/2025 4:09 PM CDT Cinthia Quinones NP LAB BLOOD ORDERABLES Final Result [facility] [place] [address] * XR Knee Right 3 Views (01/05/2025 3:45 PM CDT) Anatomical Region Laterality Modality Lower Extremities, Knee Right Radiogra phic Imaging us Historical Provider IMG XR PROCEDURES Final R esult * Electrocardiogram Report (12/29/2024 12:18 PM CDT) Thomas Venegas MD ECG ORDERABLES Final Res ult * Imaging Lumbar/Caudal Epidural Steroid INJ ([id number]) (12/24/2024 9:56 AM CDT) Narrative [facility] - 12/24/2024 9:56 AM CDT The images from this study are not interpreted by Radiology. Please refer to the physician's procedure / OR operative note. Gutierrez Lucio NP IMG PAIN MGMT PROCEDURES F inal Result [facility] * CT Lung Cancer Screening (09/03/2024 3:23 PM GATE WATCH) Anatomical Region Laterality Modality Chest N/A Computed Tomogra phy Quentin Lorenzana NP IMG CT PROCEDURES Final Result * Dexa Axial and Forearm Bone Density Scan (05/29/2024 8:27 AM CDT) Anatomical Region Laterality Modality Wrist, Body N/A Radiographic Ana ging Narrative 05/29/2024 8:47 AM CDT Patient Name: Huy Maynard Date of : 1950 Date of scan: 05/29/2024 Bone mineral density was performed on a [employer] Discovery Densitometer. Based on machine cross-calibration and [...] mineral density scan were prepared by Gloria Austin)(CBDT) who is accredited by the International Society of Clinical Densitometry. The overall patient assessment and scan interpretation were performed by Zainab Alexander M.D. who is certified by the International Society of Clinical Densitometry. [id number] Rosario Pham DO IMG DXA PROCEDURES Erika l Result * HM MAMMOGRAPHY (12/04/2023) us Leslie Torres NP HEALTH MAINTENANCE Final Result [...] GENERAL ORDER LORIE Final Result [facility] [address] Department [place] [address] * Colonoscopy (10/22/2022) Anatomical Region Laterality Modality Other Historical Provider ENDOSCOPY PROCEDURES Erika l Result from Last 3 Months or Most Recently Relevant to Health Maintenance Insurance MEDICARE [employer] MEDICARE [facility] MEDICARE FOR LIFE MEDICARE FOR LIFE Advance Directives For more information, please contact: [phone] * Full Code (Latest Code Status on File) Date Activated Date Inactivated Comments 10/26/2020 1:23 PM 10/31/2020 9:35 PM Care Teams Farmworker Rice Relationship Specialty Start Date End Date Leslie Torres NP [address] [place] [address] PCP - General Family Medicine 08/14/23 Rosario Pham DO [address] [facility] [address] [place] [address] Consulting Physician Endocrinology Diabetes & Metabolism 08/22/22 Tu Fritz MD [address] [facility] [address] [place] [address] Consulting Physician Internal Medicine 03/28/23 Cinthia Quinones NP [address] [facility] [address] [place] [address] Nurse Practitioner Rheumatology 03/28/23 Thomas Venegas MD [address] [place], [place] [id number] Consulting Physician Cardiology 03/28/23 Trevon Sheth MD [address] [place] [address] Surgeon Cardiothoracic Surgery 03/28/23 London Hall MD [address] [place] [address] Referring Physician Gastroenterology 03/28/23 Sylvia Johnson MD [address] [place] [address] Consulting Physician Critical Care Med 03/28/23 Bobby Bui DO [address] [place] [address] Internal Medicine 03/28/23 Sahara Freedman OD [address] [place] [address] Optometry 03/28/23 Dominique Pedro PA [address] [place] [address] Allergy and Immunology 03/28/23 [place] [address] [address] Nurse Practitioner Nurse Practitioner 01/05/25 [place] [address] [address] Consulting Physician Pain Management 01/05/25
--- OUTSIDE RECORDS SUMMARY | 2025-02-17 10:17 | XMS_ITS | Patient Health Record ---
Author Organization [facility] [employer] [place] ([address]) Address [address] [place] [address] Care Team Providers Care Security Strategist Name Role Phone Dominique Pedro Unavailable [phone] Allergies Allergen (clinical drug ingredient) Drug/Non Drug [...] mcg/inh 2 puff(s) inhaled 2 times a day; Duration: 30 days Active Wellbutrin SR 100 MG [...] review and pick correct strength-formula tion from [employer] options. If intended option is not shown, discontinue and re-order from [employer] Search* Active HYDROCHLOROTHIAZIDE 25 mg 1 tab(s) orall y once a day; Duration: 30 day(s) Active Sharon-3 1000 MG 1 cap(s) orally Qday Active OMEGA-3 1000 mg 1 cap(s) orally Qday Active ASPIRIN 81 mg 1 tab(s) orally once a day Active RECLAST 5 mg/100 mL as directed intravenously once Active DICLOFENAC TOPICAL 1% as directed applied topically 4 times a day Active hydroCHLOROthiazide 25 MG 1 tab(s) orall y once a day; Duration: 30 day(s) Active Advair HFA 230-21 MCG/ACT 2 puff(s) inha led 2 times a day; Duration: 30 days Active AEROCHAMBER MDI SPACER - [...] review and pick correct strength-formula tion from [employer] options. If intended option is not shown, [...] Status Risk Notes Problem Shortness of breath (754635609) Shortness of breath (R06.02) Active confirmed Problem Essential hypertension (88868222) Essential (primary) hypertension (I10) Active confirmed Problem Allergic rhinitis caused by pollen (disorder) (81528820) Allergic rhinitis due to pollen (J30.1) Active confirmed Problem Uncomplicated moderate persistent asthma (154635671) Moderate persistent asthma, uncomplicated (J45.40) Active confirmed Problem Dyspnea (380214269) Dyspnea, unspecified (R06.00) Active confirmed Problem Gastroesophageal reflux disease with esophagitis (disorder) (435478027) Gastro-esophagea l reflux disease with esophagitis, without bleeding (K21.00) Active confirmed Plan Of Treatment No Information Insurance Providers Payer Name Payer Address Payer Phone Subscriber Number Group Number Insured Name Patient Relationship to Insured Coverage Start Date Coverage End Date [employer] (Medicare) Attention Claims [address] [place] [address] [id number] Barbra Maynard Self - patient is the insured for Life [address] [place] [id number] Trevin Maynard Spouse - patient is the spouse of the insured Medical (General) History Medical History History ICD Code Rheumatoid Arthritis-Adult Crohn's disease Sleep apnea Surgical History Surgery Date(Month/Year) heart valve replace Right Hip Left Hip
--- OUTSIDE RECORDS SUMMARY | 2025-02-17 10:17 | XMS_ITS | Encounter Summary ---
Author Organization [email or web address] Address [address] [place] [address] Care Team Providers Care Bookbinder Apprentice Name Role Phone Unavailable Primary Care Provider Unavailabl e Encounter Details Date Type Department Care Team (Late st Contact Info) Description 2006 Outpatient 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
--- OUTSIDE RECORDS SUMMARY | 2025-02-17 10:17 | XMS_ITS | Encounter Summary ---
Author Organization [facility] Address [address] [place] [address] Phone Care Team Providers Care Enterprise Data Architect Name Role Phone KenzieBeth DO Primary Care Provider [phone] Bobby Bui DO Primary Care Provider [phone] Rosario Pham DO Unavailable Leslie Torres NP Primary Care Provider Tu Fritz MD Unavailable Cinthia Quinones NP Unavailable [phone] Thomas Venegas MD Unavailable Trevon Sheth MD Unavailable [phone] London Hall MD Unavailable + Sylvia Johnson MD Unavailable [phone] Bobby Bui DO Unavailable [phone] Sahara Freedman OD Unavailable Dominique Pedro Unavailable [phone] Cinthia Quinones NP Primary Care Provider [phone] Leslie Torres CASTER OPERATOR Primary Care Provider [phone] Gutierrez Lucio NP Unavailable Abdirahman Mcclendon MD [...] on file Legal 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 Gender Identity Female 05/01/2021 8:51 AM CDT [...] documented as of this encounter Care Teams Enterprise Data Architect Relationship Specialty Start Date End Date Beth Espino DO PCP - General Family Medicine 08/25/20 05/31/22 Bobby Bui DO PCP - General Internal Medicine 06/01/22 03/27/23 Leslie Torres, RUTH ANN [address] [place] [address] PCP - General Family Medicine 03/28/23 06/30/23 Cinthia Quinones NP [address] [address] PCP - General Rheumatology 07/01/23 08/13/23 Leslie Torres, RUTH ANN [address] [place] [address] PCP - General Family Medicine 08/14/23 Rosario Pham DO [address] [facility] [address] [place] [address] Consulting Physician Endocrinology Diabetes & Metabolism 08/22/22 Tu Fritz MD [address] [facility] [address] [facility] [address] [place] [address] Consulting Physician Internal Medicine 03/28/23 Cinthia Quinones, CASTER OPERATOR [address] [facility] [address] [facility] [address] [place] [address] Nurse Practitioner Rheumatology 03/28/23 Thomas Venegas MD [address] [place] [address] Consulting Physician Cardiology 03/28/23 Trevon Sheth MD [address] [place] [address] Surgeon Cardiothoracic Surgery 03/28/23 London Hall MD [address] [place] [address] Referring Physician Gastroenterology 03/28/23 Sylvia Johnson MD [address] [place], [place] [address] Consulting Physician Critical Care Med 03/28/23 Bobby Bui DO Internal Medicine 03/28/23 Sahara Freedman OD [address] [place] [address] Optometry 03/28/23 Dominique Pedro PA [address] [place] [address] [id number] Allergy and Immunology 03/28/23 [place] [address] [address] [facility] [address] [place] [address] Nurse Practitioner Nurse Practitioner 01/05/25 [place] [address] [address] [facility] [address] [place] [address] Consulting Physician Pain Management 01/05/25 documented as of this encounter
--- OUTSIDE RECORDS SUMMARY | 2025-02-17 10:17 | XMS_ITS | Clinical Summary ---
Author Organization [facility] Address [address] [place] [address] Care Team Providers Care Marketing Automation Analyst Name Role Phone Beth Espino Primary Care Provider [phone] Allergies Active Allergy Reactions Criticality Noted Date Comments Penicillins Hives,Rash Medium 03/22/2006 Other reaction(s): Other: HIVES Medications amlodipine 5 MG tablet 02/23/20 19 Active CPAP DME DEVICE CPAP7 cm [id number] 2017Mohan, VentrapragadaActive 03/25/20 17 Active ASPIRIN EC 81 MG tablet 04/24/20 19 Active atorvastatin 10 MG tablet 10/30/19 19 Active Bacillus Coagulans-Inu sara (PROBIOTIC FORMULA) 1-250 BILLION-MG Cap 04/24/20 19 Active buPROPion XL 150 MG 24 hr tablet 02/23/20 19 Active CALTRATE 600+D3 600-800 MG-UNIT tablet 04/24/20 19 Active esomeprazole (NEXIUM) 40 MG capsule 11/01/19 17 Active gabapentin 600 MG tablet 05/07/20 19 Active hydroxychloro quine 200 MG tablet 04/24/20 19 Active infliximab (REMICADE) 100 MG injection Active XIIDRA 5 % ophthalmic solution 03/11/20 19 Active LIALDA 1.2 g Tab EC tablet 02/23/20 19 Active pantoprazole EC 40 MG tablet 04/01/20 19 Active mirtazapine 15 MG tablet Take 15 mg by mouth. 0 18 Active Turmeric Curcumin 500 MG Cap 2 times daily. Activ e B Complex Vitamins (VITAMIN B-COMPLEX) Tab Take 1 tablet by mouth daily. Active calcium carbonate 1500 (600 Ca) MG tablet 05/06/20 Active diclofenac sodium (VOLTAREN) 1 % gel as needed 02/16/20 20 Active HYDROcodone-a cetaminophen 7.5-325 MG tablet 11/29/19 Active melatonin 3 MG tablet Take 3 mg by mouth daily. 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 ([facility]) 01/14/2018 ASCUS with positive high risk HPV cervical 11/26 Vaginal atrophy 11/26/2017 S/P LEEP (loop electrosurgical excision procedur e) 11/26/2017 Pain of foot 06/05/2017 Personal history of nicotine dependence 04/17/20 CPAP (continuous positive airway pressure) depjudy gaona 03/25/2017 Obesity 03/21/2017 LAURA on CPAP 03/21/2017 Essential hypertension, benign 01/16/2017 History of tobacco abuse 01/16/2017 Nonrheumatic aortic valve stenosis 01/16/2017 Obstructive sleep apnea 01/16/2017 Overview (05/25/2019): Overview: Overview: Doing well with CPAP, after wt loss of 37 lbs, monitored form time to time. Overview: Doing well with CPAP, after wt loss of 37 lbs, monitored form time to time. Overview: Doing well with CPAP, after wt loss of 37 lbs, monitored form time to time. Knee pain 08/01/2016 Adjustment disorder with mixed anxiety and depre ssed mood 07/21/2015 Pain in shoulder 08/18/2013 Crohn's disease ([facility]) 11/03/2012 Osteopenia 11/03/2012 Metabolic syndrome 2010 Asymptomatic varicose veins of lower extremity 0 08/29/2010 Chronic rhinitis 06/26/2010 Edema 06/26/2010 Astigmatism 02/02/2010 Rheumatoid arthritis ([facility]) 8 Overview (05/25/2019): Overview: Overview: Rheum doctor now has pt on [...] allow her to continue her normal life. Overview: Rheum doctor now has pt on [...] allow her to continue her normal life. Cervicalgia 09/04/2007 Anemia 07/16/2007 Overview (05/25/2019): Overview: Overview: Labwork to be checked in [...] point. Lesion of plantar nerve 05/06/2007 Overview (05/25/2019): Overview: Overview: Pain between 3rd and 4th metatarsal heads. Could be a neuroma. Will defer further w/u, however made mention of probable neuroma in referral to [employer] for custom insoles (her has done well with these, she is willing to pay out of pocket). Between NSAIDS and conservative therapy, will try to see if improves. Her exercise includes non-impact in the pool and such. Overview: Overview: Pain between 3rd and 4th metatarsal heads. Could be a neuroma. Will defer further w/u, however made mention of probable neuroma in referral to [employer] for custom insoles (her has done well with these, she is willing to pay out of pocket). Between NSAIDS and conservative therapy, will try to see if improves. Her exercise includes non-impact in the pool and such. Pain between 3rd and 4th metatarsal heads. Could be a neuroma. Will defer further w/u, however made mention of probable neuroma in referral to [employer] for custom insoles (her has done well with these, she is willing to pay out of pocket). Between NSAIDS and conservative therapy, will try to see if improves. Her exercise includes non-impact in the pool and such. Overview: Overview: Pain between 3rd and 4th metatarsal heads. Could be a neuroma. Will defer further w/u, however made mention of probable neuroma in referral to [employer] for custom insoles (her has done well with these, she is willing to pay out of pocket). Between NSAIDS and conservative therapy, will try to see if improves. Her exercise includes non-impact in the pool and such. Pain between 3rd and 4th metatarsal heads. Could be a neuroma. Will defer further w/u, however made mention of probable neuroma in referral to [employer] for custom insoles (her has done well with these, she is willing to pay out of pocket). Between NSAIDS and conservative therapy, will try to see if improves. Her exercise includes non-impact in the pool and such. Myalgia and myositis 02/26/2007 Overview (05/25/2019): Overview: Overview: discontinue Zocor and Tricor, repeat lipid in 2 months and make f/u appt. Impaired fasting glucose 01/16/2007 Osteoarthritis of ankle or foot 12/24/2006 Overview (05/25/2019): Overview: Overview: Pain in both feet probably from OA. XRays from 2 yrs ago showed mild OA, and is now getting worse. History somewhat consistent with OA. Electrical Test Engineer not think has RA. Will get XRays to confirm dx again. Also told pt she can take up to 1 gm Tylenol qid if needed (on top of the Naproxen she is already taking for knees. She knows she can't take motrin with naproxen). RTC 1-2 mo. Overview: Overview: Pain in both feet probably from OA. XRays from 2 yrs ago showed mild OA, and is now getting worse. History somewhat consistent with OA. Electrical Test Engineer not think has RA. Will get XRays to confirm dx again. Also told pt she can take up to 1 gm Tylenol qid if needed (on top of the Naproxen she is already taking for knees. She knows she can't take motrin with naproxen). RTC 1-2 mo. Overview: Pain in both feet probably from OA. XRays from 2 yrs ago showed mild OA, and is now getting worse. History somewhat consistent with OA. Electrical Test Engineer not think has RA. Will get XRays to confirm dx again. Also told pt she can take up to 1 gm Tylenol qid if needed (on top of the Naproxen she is already taking for knees. She knows she can't take motrin with naproxen). RTC 1-2 mo. Derangement of posterior horn of medial meniscus 09/12/2006 Overview (05/25/2019): Overview: Overview: S: Pt returns for f/u previous visit for knee pain, generalized swelling and pain and lab tests that were positive for RF and elevated CRP. She has been in physical therapy which is not helping much with the severe pain in her left knee. Swimming (chyna Overview: Overview: S: Pt returns for f/u previous visit for knee pain, generalized swelling and pain and lab tests that were positive for RF and elevated CRP. She has been in physical therapy which is not helping much with the severe pain in her left knee. Swimming (chyna Overview: S: Pt returns for f/u previous visit for knee pain, generalized swelling and pain and lab tests that were positive for RF and elevated CRP. She has been in physical therapy which is not helping much with the severe pain in her left knee. Swimming (chyna Hyperlipidemia 06/06/2005 Overview (05/25/2019): Overview: Overview: will refill zocor and tricor, check lipids/LFT/CK Overview: Overview: will refill zocor and tricor, check lipids/LFT/CK Overview: will refill zocor and tricor, check lipids/LFT/CK Immunizations Immunization Administration Dates Next Due Fluzone High Dose - >Age 65 (Prefilled Syringe) 04/14/2020,04/14/2020,05/06/2019 Influenza Adult (Generic) 04/20/2016 Family History Medical History Relation Comments Heart Disease Father Liver Disease Mother Relation Status Comments Father Mother Social History Tobacco Use Types Packs/Day Years Used Date Smoking Tobacco: Former Cigarettes 1 30 1 2009 Smokeless Tobacco: Never Alcohol Use Standard Drinks/Week Comments Never 0 (1 standard drink = 0.6 oz pur e alcohol) AUDIT-C Answer Date Recorded Q1: How often do you have a drink containing alc ohol? Never 05/17/2020 Average Number of Drinks Not on file 020 Frequency of Binge Drinking Not on file 01/2020 PHQ-2 Answer Date Recorded PHQ-2 Score - If the patient scores above 3, please move on to questions 3-9 0 05/17/2020 Comments No Sex and Gender Information Value Date Recorded Sex Assigned at Not on file Legal Sex Female 5:15 PM CDT Gender Identity Not on file Sexual Orientation Not on file Last Filed Vital Signs Vital Sign Reading Time Taken Comments Blood Pressure 138/82 05/17/2020 7:57 AM CDT rechecked by Dewayne Leon MA Pulse 74 05/17/2020 7:42 AM CDT Temperature 36.2 C (97.2 F) 05/17/2020 7:42 AM CDT Respiratory Rate 16 05/17/2020 7:42 AM CDT Oxygen Saturation 97% 05/17/2020 7:4 2 AM CDT ra Inhaled Oxygen Concentration - - Weight 117.9 kg (260 lb) 05/17/2020 7:4 2 AM CDT Height 172.7 cm (5' 8) 05/17/2020 7:42 AM CDT stated Body Mass Index 39.53 05/17/2020 7:42 AM CDT Plan of Treatment Health Maintenance Due Date Last Done Comments Colorectal Cancer Screening Colonoscopy (10 Years) 1950 Hepatitis C 1968 Annual Medicare Wellness Visit 2014 DTaP, Tdap and Td Vaccines (2 - Td or Tdap) 09/17/2022 09/17/2012, 10/07/2000 COVID-19 Vaccine ( season) 2024 12/23/2021, 03/28/2021, 11/10/2020, Additional history exists RSV Immunization or 60+ Years (1 - 1-dose 75+ series) 2024 Pneumococcal Vaccine: 50+ Years Completed 04/06/2015, 08/18/2014 Zoster Vaccines Completed 09/23/2021, 07/18/2021 Dexa Scan (General) Completed 09/06/2022, 0 Meningococcal B Vaccine Aged Out No l onger eligible based on patient's age to complete this topic Meningococcal Vaccine Aged Out No tiffany jarrett eligible based on patient's age to complete this topic RSV Immunizations Under 20 Months Aged Out No longer eligible based on patient's age to complete this topic Insurance [address] [place] [address] MEDICARE Care Teams Marketing Automation Analyst Relationship Specialty Start Date End Date Beth Espino DO [address] [place] [address] PCP - General INTERNAL MEDICINE 05/17/20
[2025-02-17 11:35] LABS: Hematocrit 35.7 % (37.0-47.0); Hemoglobin 11.5 g/dL (12.0-15.0); Immature Granulocyte Percent A 0.3 % (0-0.5); Lymphocytes Absolute Auto 1.79 K/mm3 (0.9-3.2); Mean Corpuscular HGB Conc 32.2 g/dl (32-36); Mean Corpuscular Hemoglobin 30.7 pg (26-34); Mean Corpuscular Volume 95.2 fl (80-100); Nucleated Red Blood Cells Absolute Auto 0.000 K/mm3 (0.0-0.012); Nucleated Red Blood Cells Perc 0.0 % (0.0-0.2); Platelet Count Result 201 k/mm3 (150-375); Red Blood Count 3.75 M/mm3 (4.2-5.4); White Blood Count 6.1 K/mm3 (4.5-10.0)
[2025-02-17 11:58] LABS: Albumin Level 4.3 g/dL (3.5-5.1); Anion Gap 6 mmol/L (4-12); Blood Urea Nitrogen 18 mg/dL (7-17); Calcium 9.8 mg/dL (8.4-10.2); Carbon Dioxide 29 mmol/L (22-30); Chloride 102 mmol/L (98-107); Estimated Glomerular Filt Rate 57; Glucose 79 mg/dL (65-110); Potassium 4.2 mmol/L (3.4-5.0); Sodium 137 mmol/L (137-145)
[2025-02-17 12:04] LABS: Add Urine Microscopic? YES; Appearance Urine Clear (Clear); Glucose Urine UA Negative (Negative); Leukocyte Esterase Ur 2+ LEU/UL (Negative); Nitrate Urine Negative (Negative); Non Pathogenic Casts 0-2; Specific Grav Ur 1.007 (1.001-1.035)
[2025-02-17 12:15] LABS: INR 1.0; Prothrombin Time 13.3 Seconds (11.1-14.7)
[2025-02-17 12:16] LABS: Partial Thromboplastin Time 29.3 Seconds (22.3-36.8)
[2025-02-17 12:59] LABS: MRSA (PCR) NOT DETECTED (NOT DETECTE)
[2025-02-17 17:34] LABS: Hemoglobin A1C 5.1 % (<5.7)
== END 2025-02-17 10:04 | disposition home or self-care (01) ==
LOC: ANHSURGERY 10:08
PROVIDERS: PCP Nurse Practitioner Family; Visit Provider Orthopaedic Surgery
DX: M17.11 Unilateral primary osteoarthritis, right knee (principal); Z01.812 Encounter for preprocedural laboratory examination
CPT/HCPCS: 80048; 80307; 81001; 82040; 83036; 85025; 85610; 85730; 87086; 87641

== ENCOUNTER 2025-03-03 00:10 | Day surgery (SDC) | payer MEDICARE, OTHER, SELFPAY ==
--- NOTE | 2025-02-17 10:04 | PC.NURSE ---
Report to the Outpatient Waiting Room, entrance under the green pavilion located off [facility], at time _6 am on date __03/03/25 . Planned Procedure Time: ___7:30 am .? Time changes happen often and if your time is changed the preop area will call you the afternoon before. - You and your visitor will be asked to self-screen and do not enter if you have any COVID symptoms. Please call surgeon if you need to reschedule. - A mask is optional within the hospital at this time. Patients may have clear liquids (water, carbonated beverages, clear teas, apple juice) until 3 hours prior to surgery ( 4:30 am) with a maximum of 20 ounces. - No food from midnight until time of surgery and no smoking, or chewing tobacco (or any form of nicotine). No chewing gum, candy or mints. TOTAL JOINT CLASS 02/24/25 AT 10 AM BRING CPAP PER TERMINAL SUPERVISOR MAY CONTINUE HYDROXYCHLOROQUINE PER WIRE SPIRAL BINDER- HOLD AZATHIOPRINE AND REMICADE 2 WKS PRIOR TO SURGERY PER WIRE SPIRAL BINDER LAST DOSE 02/16/25 Take only the following medications with a SIP of water on the morning of surgery: __ADVAIR INHALER,,METOPROLOL,NIFEDIPINE,EYE DROP,OXYCODONE IF NEEDED FOR PAIN,PREGABALIN DO NOT STOP ANY OF YOUR OTHER PRESCRIPTION MEDICATIONS PRIOR TO SURGERY EXCEPT THE FOLLOWING Hold all vitamins and supplements for 3 days per anesthesiologist.LAST DOSE02/27/25 Medications to discontinue per physician __HOLD ASPIRIN 7 DAYS PRE OP PER DR HILL. LAST DOSE 02/23/25____SEMAGLUTIDE HOLD 10 DAYS PER ANESTHESIA LAST DOSE 02/20/[address] BAH Please no make-up, nail kazakh, hairspray, perfume, deodorant, or body powder the day of surgery.? No jewelry (including any body piercings) or valuables the day of surgery, leave them at home.? Please take a shower or bath the night before, or the morning of, surgery with an antibacterial soap.? Wear comfortable, loose fitting clothing.? Children are encouraged to wear pajamas. - Jewelry must be removed prior to entering the operating room.? Rings and piercings that are not removed may be cut off. - The hospital will not accept responsibility for valuables.? - Please leave all valuables, including medications, at home the day of surgery. If you are going home after surgery, a licensed catering truck driver must drive you home.? - NO public transportation without another adult if you receive anesthesia. - We recommend that an adult stay with you for 24 hours following discharge. - We also recommend that you do not drive, make important decision, drink alcoholic beverages, or take any drugs that were not prescribed by your health care provider for at least 24 hours after your discharge time. For Pediatric surgeries, we recommend two adults accompany the child home. Follow any additional instructions given to you from your surgeon. VERBAL AND WRITTEN instructions given to __PATIENT and asked if any additional questions and then verbalized understanding. Patient advised to call surgeon office or pre surgery nurse liaison [phone] if any additional questions.
[2025-02-17 10:14] VITALS: BMI 39.9
[2025-02-17 11:10] VITALS: BP 124/67; PULSE 71; RESP 18; TEMP 36.8; O2SAT 100
[2025-03-03] VITALS (14 sets, daily range): BP systolic 125–166; BP diastolic 55–90; PULSE 64–108; RESP 12–23; TEMP 35.6–36.9; O2SAT 98–100
--- NOTE | ~2025-03-03 | XR_ITS ---
EXAMINATION: [id number] DATE: 03/03/2025 10:58 CDT INDICATION: Right total knee arthroplasty TECHNIQUE: 2 views right knee FINDINGS: There is a right total knee arthroplasty in expected position. Subcutaneous gas with fluid and air in the joint and overlying skin antonio are consistent with recent surgery. No evidence of p eriprosthetic fracture. IMPRESSION: 1. Recent right total knee arthroplasty. Reviewed, dictated and finalized at location A.
--- OUTSIDE RECORDS SUMMARY | 2025-03-03 00:23 | XMS_ITS | Encounter Summary ---
Author Organization [facility] Address [address] [place] [address] Phone Care Team Providers Care Soap Drier Tender Name Role Phone Bobby Bui DO Primary Care Provider [phone] Rosario Pham DO Unavailable Leslie Torres NP Primary Care Provider Tu Fritz MD Unavailable Cinthia Quinones NP Unavailable [phone] Thomas Venegas MD Unavailable Trevon Sheth MD Unavailable [phone] London Hall MD Unavailable + Sylvia Johnson MD Unavailable [phone] Bobby Bui DO Unavailable [phone] Sahara Freedman OD Unavailable [phone] Dominique Pedro Unavailable [phone] Cinthia Quinones NP Primary Care Provider [phone] Leslie Torres NP Primary Care Provider Gutierrez Lucio NP Unavailable [phone] Abdirahman Mcclendon MD Unavailable Encounter Details Date [...] on file 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 Gender Identity Female 05/01/2021 8:51 AM [...] documented as of this encounter Care Teams Soap Drier Tender Relationship Specialty Start Date End Date Bobby Bui DO PCP - General Internal Medicine 06/01/22 03/27/23 Leslie Torres NP [address] [facility] [address] [place] [address] PCP - General Family Medicine 03/28/23 06/30/23 Cinthia Quinones NP [id number] [place] [address] PCP - General Rheumatology 07/01/23 08/13/23 Leslie Torres NP [address] [place], [place] [address] PCP - General Family Medicine 08/14/23 Rosario Pham DO [address] [facility] [address] [place] [address] Consulting Physician Endocrinology Diabetes & Metabolism 08/22/22 Tu Fritz MD [address] [address] Consulting Physician Internal Medicine 03/28/23 Cinthia Quinones, ADVERTISING LAYOUT WORKER [address] [address] Nurse Practitioner Rheumatology 03/28/23 Thomas Venegas MD [address] [facility] [address] [place] [address] Consulting Physician Cardiology 03/28/23 Trevon Sheth MD [address] [facility] [address], [facility] [address] [place] [address] Surgeon Cardiothoracic Surgery 03/28/23 London Hall MD [address] [facility] [address] [place] [address] Referring Physician Gastroenterology 03/28/23 Sylvia Johnson MD [address] [place], [place] [address] Consulting Physician Critical Care Med 03/28/23 Bobby Bui DO Internal Medicine 03/28/23 Sahara Freedman OD [address] [place], [place] [id number] Optometry 03/28/23 Dominique Pedro PA [address] [place] [id number] Allergy and Immunology 03/28/23 [place] [address] [address] [facility] [address] [place], [place] [id number] Nurse Practitioner Nurse Practitioner 01/05/25 [place] [address] [address] [facility] 100 [facility] [place] [address] Consulting Physician Pain Management 01/05/25 documented as of this encounter
--- OUTSIDE RECORDS SUMMARY | 2025-03-03 00:23 | XMS_ITS | Encounter Summary ---
Author Organization [facility] Address [address] [place] [address] Phone Care Team Providers Care Credit Director Name Role Phone Bobby Bui DO Primary Care Provider [phone] Rosario Pham DO Unavailable Leslie Torres NP Primary Care Provider Tu Fritz MD Unavailable Cinthia Quinones NP Unavailable [phone] Thomas Venegas MD Unavailable Trevon Sheth MD Unavailable [phone] London Hall MD Unavailable + Sylvia Johnson MD Unavailable [phone] Bobby Bui DO Unavailable [phone] Sahara Freedman OD Unavailable Dominique Pedro Unavailable [phone] Cinthia Quinones NP Primary Care Provider [phone] Leslie Torres NP Primary Care Provider Gutierrez Lucio NP Unavailable [phone] Abdirahman Mcclendon MD Unavailable Encounter Details Date [...] on file Legal 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 Gender Identity Female 05/01/2021 8:51 AM CDT [...] documented as of this encounter Care Teams Credit Director Relationship Specialty Start Date End Date Bobby Bui DO PCP - General Internal Medicine 06/01/22 03/27/23 Leslie Torres NP [address] [facility] [address] [place] [address] PCP - General Family Medicine 03/28/23 06/30/23 Cinthia Quinones NP [id number] [place] [address] PCP - General Rheumatology 07/01/23 08/13/23 Leslie Torres NP [address] [place], [place] [address] PCP - General Family Medicine 08/14/23 Rosario Pham DO [address] [facility] [address] [place] [address] Consulting Physician Endocrinology Diabetes & Metabolism 08/22/22 Tu Fritz MD [address] [address] Consulting Physician Internal Medicine 03/28/23 Cinthia Quinones, GANG BORE OPERATOR [address] [address] Nurse Practitioner Rheumatology 03/28/23 Thomas Venegas MD [address] [facility] [address], [address] [place] [address] Consulting Physician Cardiology 03/28/23 Trevon Sheth MD [address] [facility] [address], [facility] [address] [place] [address] Surgeon Cardiothoracic Surgery 03/28/23 London Hall MD [address] [facility] [address] [place] [address] Referring Physician Gastroenterology 03/28/23 Sylvia Johnson MD [address] [place], [place] [address] Consulting Physician Critical Care Med 03/28/23 Bobby Bui DO Internal Medicine 03/28/23 Sahara Freedman OD [address] [place], [place] [address] Optometry 03/28/23 Dominique Pedro PA [address] [place] [address] [id number] Allergy and Immunology 03/28/23 [place] [address] [address] [facility] 100 [place], [place] [id number] Nurse Practitioner Nurse Practitioner 01/05/25 [place] [address] [address] [facility] 100 [facility] [place] [address] Consulting Physician Pain Management 01/05/25 documented as of this encounter
--- OUTSIDE RECORDS SUMMARY | 2025-03-03 00:23 | XMS_ITS | Encounter Summary ---
Author Organization [facility] Address [address] [place] [address] Phone Care Team Providers Care Hazardous Waste Technician Name Role Phone KenzieBeth DO Primary Care Provider [phone] Bobby Bui DO Primary Care Provider [phone] Rosario Pham DO Unavailable Leslie Torres NP Primary Care Provider Tu Fritz MD Unavailable Cinthia Quinones NP Unavailable [phone] Thomas Venegas MD Unavailable Trevon Sheth MD Unavailable [phone] London Hall MD Unavailable + Sylvia Johnson MD Unavailable [phone] Bobby Bui DO Unavailable [phone] Sahara Freedman OD Unavailable Dominique Pedro Unavailable [phone] Cinthia Quinones NP Primary Care Provider [phone] Leslie Torres CATHODE RAY TUBE SALVAGE PROCESSOR Primary Care Provider [phone] Gutierrez Lucio NP Unavailable Abdirahman Mcclendon MD Unavailable [phone] Encounter Details Date Type Department Care Team [...] on file Legal 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 Gender Identity Female 05/01/2021 8:51 AM CDT [...] documented as of this encounter Care Teams Hazardous Waste Technician Relationship Specialty Start Date End Date Beth Espino DO PCP - General Family Medicine 08/25/20 05/31/22 Bobby Bui DO PCP - General Internal Medicine 06/01/22 03/27/23 Leslie Torres, RUTH ANN [address] [place] [address] PCP - General Family Medicine 03/28/23 06/30/23 Cinthia Quinones NP [address] [address] PCP - General Rheumatology 07/01/23 08/13/23 Leslie Torres, CATHODE RAY TUBE SALVAGE PROCESSOR [address] [place] [address] PCP - General Family Medicine 08/14/23 Rosario Pham DO [address] [facility] [address] [place] [address] Consulting Physician Endocrinology Diabetes & Metabolism 08/22/22 Tu Fritz MD [address] [facility] [address] [place] [address] Consulting Physician Internal Medicine 03/28/23 Cinthia Quinones NP [address] [facility] [address] [place] [address] Nurse Practitioner Rheumatology 03/28/23 Thomas Venegas MD [address] [place] [address] Consulting Physician Cardiology 03/28/23 Trevon Sheth MD [address], [address] [place] [address] Surgeon Cardiothoracic Surgery 03/28/23 London Hall MD [address] GASTROENTEROLOGY [place], [place] [address] Referring Physician Gastroenterology 03/28/23 Sylvia Johnson MD [address] [place], [place] [address] Consulting Physician Critical Care Med 03/28/23 Bobby Bui DO Internal Medicine 03/28/23 Sahara Freedman OD [address] [place] [address] Optometry 03/28/23 Dominique Pedro PA [address] [place] [address] Allergy and Immunology 03/28/23 [place] [address] [address] Nurse Practitioner Nurse Practitioner 01/05/25 [place] [address] [address] [facility] [address] [place], [place] [address] Consulting Physician Pain Management 01/05/25 documented as of this encounter
--- OUTSIDE RECORDS SUMMARY | 2025-03-03 00:23 | XMS_ITS | Encounter Summary ---
Author Organization [facility] Address [address] [place] [address] Phone Care Team Providers Care Auto Glass Technician Name Role Phone KenzieBeth DO Primary Care Provider [phone] Bobby Bui DO Primary Care Provider +[phone] Rosario Pham DO Unavailable Leslie Torres NP Primary Care Provider [phone] Tu Fritz MD Unavailable Cinthia Quinones NP Unavailable [phone] Thomas Venegas MD Unavailable Trevon Sheth MD Unavailable [phone] London Hall MD Unavailable + Sylvia Johnson MD Unavailable +[phone] Bobby Bui DO Unavailable [phone] Sahara Freedman OD Unavailable Dominique Pedro Unavailable [phone] Cinthia Quinones NP Primary Care Provider [phone] Leslie Torres TELEGRAPH MESSENGER Primary Care Provider [phone] Gutierrez Lucio NP Unavailable Abdirahman Mcclendon MD [...] on file Legal 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 Gender Identity Female 05/01/2021 8:51 AM CDT [...] documented as of this encounter Care Teams Auto Glass Technician Relationship Specialty Start Date End Date Beth Espino DO PCP - General Family Medicine 08/25/20 05/31/22 Bobby Bui DO PCP - General Internal Medicine 06/01/22 03/27/23 Leslie Torres, RUTH ANN [address] [place] [address] PCP - General Family Medicine 03/28/23 06/30/23 Cinthia Quinones NP [address] [address] PCP - General Rheumatology 07/01/23 08/13/23 Leslie Torres, RUTH ANN [address] [place] [address] PCP - General Family Medicine 08/14/23 Rosario Pham DO [address] [facility] [address] [place] [address] Consulting Physician Endocrinology Diabetes & Metabolism 08/22/22 Tu Fritz MD [address] [facility] [address] [facility] [address] [place] [address] Consulting Physician Internal Medicine 03/28/23 Cinthia Quinones, TELEGRAPH MESSENGER [address] [facility] [address] [facility] [address] [place] [address] Nurse Practitioner Rheumatology 03/28/23 Thomas Venegas MD [address] [place] [address] Consulting Physician Cardiology 03/28/23 Trevon Sheth MD [address] [place] [address] Surgeon Cardiothoracic Surgery 03/28/23 London Hall MD [address] [place] [address] Referring Physician Gastroenterology 03/28/23 Sylvia Johnson MD [address] [place], [place] [address] Consulting Physician Critical Care Med 03/28/23 Bobby Bui DO Internal Medicine 03/28/23 Sahara Freedman OD [address] [place] [address] Optometry 03/28/23 Dominique Pedro PA [address] [place] [id number] Allergy and Immunology 03/28/23 [place] [address] [facility] [address] [place] [address] Nurse Practitioner Nurse Practitioner 01/05/25 [place] [address] [facility] [address] [place] [address] Consulting Physician Pain Management 01/05/25 documented as of this encounter
--- OUTSIDE RECORDS SUMMARY | 2025-03-03 00:24 | XMS_ITS | Encounter Summary ---
Author Organization [facility] Address [address] [place] [address] Care Team Providers Care Full Stack Software Developer Name Role Phone Unavailable Primary Care Provider Unavailabl e Encounter Details Date Type Department Care Team (Late st Contact Info) Description 2006 Outpatient [facility] [address] [facility] [place] [address] [place] [address] [place] [address] [place] [address] [address] [place] [address] Social History Tobacco Use Types Packs/Day Years Used Date Smoking Tobacco: Never Assessed Comments Unknown Sex and Gender Information Value Date Recorded Sex Assigned at Not on file Legal Sex Female 2:48 AM LOG MANAGER Gender Identity Not on file Sexual Orientation Not on file documented as of this encounter Plan of Treatment Not on file documented as of this encounter Visit Diagnoses Not on filedocumented in this encounter
--- OUTSIDE RECORDS SUMMARY | 2025-03-03 00:24 | XMS_ITS | Encounter Summary ---
Author Organization [facility] Address [address] [place] [address] Phone Care Team Providers Care Weapons Officer [employer] Name Role Phone Trina Chávez MD Primary Care Provider [phone] Beth Espino DO Primary Care Provider [phone] Bobby Bui DO Primary Care Provider +[phone] Rosario Pham DO Unavailable [phone] Leslie Torres NP Primary Care Provider [phone] Tu Fritz MD Unavailable [phone] Cinthia Quinones NP Unavailable [phone] Thomas Venegas MD Unavailable [phone] Trevon Sheth MD Unavailable [phone] London Hall MD Unavailable + Sylvia Johnson MD Unavailable [phone] Bobby Bui DO Unavailable [phone] Sahara Freedman OD Unavailable Dominique Pedro Unavailable +[phone] Cinthia Quinones NP Primary Care Provider + [phone] Leslie Torres NP Primary Care Provider Gutierrez Lucio NP Unavailable Abdirahman Mcclendon MD Unavailable [phone] Encounter Details Date Type Department Care Team [...] on file Legal 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 Gender Identity Female 05/01/2021 8:51 AM CDT [...] documented as of this encounter Care Teams Weapons Officer [employer] Relationship Specialty Start Date End Date Trina Chávez MD PCP - General Internal Medicine 04/21/18 08/24/20 Beth Espino DO PCP - General Family Medicine 08/25/20 05/31/22 Ramya Bobby Jay DO PCP - General Internal Medicine 06/01/22 03/27/23 Leslie Torres, RUTH ANN [address] [facility] [address] [place], [place] [id number] PCP - General Family Medicine 03/28/23 06/30/23 Cinthia Quinones FREIGHT CAR CLEANER [address] [address] PCP - General Rheumatology 07/01/23 08/13/23 Leslie Torres, RUTH ANN [address] [facility] [address] [place], [place] [address] PCP - General Family Medicine 08/14/23 Rosario Pham DO [address] [facility] [address] [place] [address] Consulting Physician Endocrinology Diabetes & Metabolism 08/22/22 Tu Fritz MD [address] [place] [address] Consulting Physician Internal Medicine 03/28/23 Cinthia Quinones, FREIGHT CAR CLEANER [address] [place] [address] Nurse Practitioner Rheumatology 03/28/23 Thomas Venegas MD [address] [place] [address] Consulting Physician Cardiology 03/28/23 Trevon Sheth MD [address] [place], [place] [address] Surgeon Cardiothoracic Surgery 03/28/23 London Hall MD [address] GASTROENTEROLOGY [place], [place] [address] Referring Physician Gastroenterology 03/28/23 Sylvia Johnson MD [address] [place] [address] Consulting Physician Critical Care Med 03/28/23 Bobby Bui DO Internal Medicine 03/28/23 Sahara Freedman OD [address] [place] [address] Optometry 03/28/23 Dominique Pedro PA [address] [place] [address] [id number] Allergy and Immunology 03/28/23 [place] [address] [facility] [address] [place] [address] Nurse Practitioner Nurse Practitioner 01/05/25 [place] [address] [facility] [address] [place] [address] Consulting Physician Pain Management 01/05/25 documented as of this encounter
--- OUTSIDE RECORDS SUMMARY | 2025-03-03 00:24 | XMS_ITS | Encounter Summary ---
Author Organization [facility] Address [address] [place] [address] Phone Care Team Providers Care Digital Data Analyst Name Role Phone Trina Chávez MD Primary Care Provider [phone] Beth Espino DO Primary Care Provider [phone] Bobby Bui DO Primary Care Provider +[phone] Rosario Pham DO Unavailable [phone] Leslie Torres NP Primary Care Provider [phone] Tu Fritz MD Unavailable [phone] Cinthia Quinones NP Unavailable [phone] Thomas Venegas MD Unavailable +[phone] Trevon Sheth MD Unavailable [phone] London Hall MD Unavailable + Sylvia Johnson MD Unavailable +[phone] Bobby Bui DO Unavailable [phone] Sahara Freedman OD Unavailable Dominique Pedro Unavailable +[phone] Cintiha Quinones NP Primary Care Provider + [phone] Torres, Leslie CLASSIFICATION OFFICER Primary Care Provider Gutierrez Lucio NP Unavailable [phone] Abdirahman Mcclendon MD Unavailable Encounter Details Date [...] on file Legal Sex Female 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 Gender Identity Female 05/01/2021 8:51 AM CDT [...] documented as of this encounter Care Teams Digital Data Analyst Relationship Specialty Start Date End Date Trina Chávez MD PCP - General Internal Medicine 04/21/18 08/24/20 Beth Esipno, DO PCP - General Family Medicine 08/25/20 05/31/22 Bobby Bui DO PCP - General Internal Medicine 06/01/22 03/27/23 Leslie Torres, RUTH ANN [address] [place], [place] [id number] PCP - General Family Medicine 03/28/23 06/30/23 Cinthia Quinones, RUTH ANN [address] [facility] [address] [facility] [place] [address] PCP - General Rheumatology 07/01/23 08/13/23 Leslie Torres, RUTH ANN [address] [place], [place] [address] PCP - General Family Medicine 08/14/23 Rosario Pham DO [address] [facility] [address] [place] [address] Consulting Physician Endocrinology Diabetes & Metabolism 08/22/22 Tu Fritz MD [address] [facility] [address] [place] [address] Consulting Physician Internal Medicine 03/28/23 Cinthia Quinones, CLASSIFICATION OFFICER 49[address] [facility] [address] [place] [address] Nurse Practitioner Rheumatology 03/28/23 Thomas Venegas MD [address] [place] [address] Consulting Physician Cardiology 03/28/23 Trevon Sheth MD [address] [place], [place] [address] Surgeon Cardiothoracic Surgery 03/28/23 London Hall MD [address] [place] [address] Referring Physician Gastroenterology 03/28/23 Sylvia Johnson MD [address] [place] [address] Consulting Physician Critical Care Med 03/28/23 Bobby Bui DO Internal Medicine 03/28/23 Sahara Freedman OD [address] [place] [address] Optometry 03/28/23 Dominique Pedro PA [address] [address] Allergy and Immunology 03/28/23 [place] [address] [address] [place] [address] Nurse Practitioner Nurse Practitioner 01/05/25 [place] [address] [facility] [address] [place] [address] Consulting Physician Pain Management 01/05/25 documented as of this encounter
--- OUTSIDE RECORDS SUMMARY | 2025-03-03 00:24 | XMS_ITS | Clinical Summary ---
Author Organization [facility] [address] Address [address] [place] [address] Care Team Providers Care Fur Tailor Name Role Phone Rosario Pham DO Unavailable Tu Fritz MD Unavailable Cinthia Quinones NP Unavailable Thomas Venegas MD Unavailable Trevon Sheth MD Unavailable [phone] London Hall MD Unavailable + Sylvia [...] mg by mouth daily 10/17/19 22 Active [id number] -fish oil 1,000-1,400 mg capsule,delayed release(DR/EC) Take [...] original. 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 Will refer to PT for strengthening and exercises. Without improvement, will consider radiograph, possible injection and/or referral as needed. Preoperative clearance 02/11/2025 Assessment & Plan (02/22/2025 12:16 PM CDT): Addendum 02/22/2025: CBC and iron profile, B12 rechecked due to hgb 10.7 on original preop labs dated 02/08. Hgb improved to 11.1. hct 36.0. B12 normal. Iron 46, TIBC 348, transferrin sat. 13. Continue oral iron. Pt is low risk for surgery and is cleared. 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 Assessment & Plan (10/14/2023 11:08 AM LAB DIRECTOR): Continuing to work with Lymphedema clinic. Symptoms stable and she has been working with clinic to get her compression pump. Assessment & Plan (08/14/2023 3:35 PM LAB DIRECTOR): She was started on diuretic per Cardiology [...] lipids/LFT/CK Assessment & Plan (10/14/2023 11:03 AM LAB DIRECTOR): Continues Lipitor, no side effects reported. Updated [...] Essential (primary) hypertension 01/16/2017 Assessment & Plan (02/22/2025 12:16 PM CDT): Assessment & Plan (10/27/2024 9:53 AM CDT): BP in good shape today, no changes. Assessment & Plan (04/29/2024 8:40 AM CDT): BP in good shape today, no changes. Renal function was fine also. Assessment & Plan (10/14/2023 11:05 AM LAB DIRECTOR): BP diastolic borderline in office today. However, has been stable in all our other visits. Will continue current regimen and await updated labs. Assessment & Plan (08/14/2023 3:34 PM LAB DIRECTOR): BP stable in office today, no changes. [...] much better than previously. Assessment & Plan (02/22/2025 12:16 PM CDT): Assessment & Plan (10/27/2024 9:52 [...] more. Assessment & Plan (10/14/2023 11:06 AM LAB DIRECTOR): Patient's insurance would not cover Wegovy but [...] anemia before that point. Assessment & Plan (02/22/2025 12:16 PM CDT): Orders: Vitamin B12; Future Iron profile w/ IBC; Future CBC with auto differential; Future Osteoarthrosis, ankle and foot 12/24/2006 Overview (04/09/2018): Overview: Pain in both feet probably from OA. XRays from 2 yrs ago showed mild OA, and is now getting worse. History somewhat consistent with OA. Transportation Assistant not think has RA. Will get XRays [...] (10/17/2020): Added automatically from request for surgery [id number] S/P LEEP (loop electrosurgic al excision procedure) 11/26/2017 02/11/2025 Vaginal atrophy 11/26/2017 02/11/2025 Morbid obesity with BMI of 4 0.0-44.9, adult ([facility]) 07/26/2017 10/24/2021 Pain of foot 06/05/2017 02/11/2025 Astigmatism of eye 04/17/2017 Metabolic syndrome 04/17/2017 5 Primary osteoarthritis, unsp ecified ankle and foot 04/17/2017 02/11/2025 Overview (04/09/2018): Overview: Pain in both feet probably from OA. XRays from 2 yrs ago showed mild OA, and is now getting worse. History somewhat consistent with OA. Transportation Assistant not think has RA. Will get XRays [...] mention of probable neuroma in referral to rehanger for custom insoles (her has done well with these, she is willing to pay out of pocket). Between NSAIDS and conservative therapy, will try to see if improves. Her exercise includes non-impact in the pool and such. Overview: Overview: Pain between 3rd and 4th metatarsal heads. Could be a neuroma. Will defer further w/u, however made mention of probable neuroma in referral to rehanger for custom insoles (her has done well with these, she is willing to pay out of pocket). Between NSAIDS and conservative therapy, will try to see if improves. Her exercise includes non-impact in the pool and such. Pain between 3rd and 4th metatarsal heads. Could be a neuroma. Will defer further w/u, however made mention of probable neuroma in referral to rehanger for custom insoles (her has done well [...] Encounters Date Type Department Care Team Description 02/23/2025 Orders Only [facility] [address] [facility] [address] [place] [address] Vanessa Santos NP Low back pain, unspecified back pain laterality, unspecified chronicity, unspecified whether sciatica present (Primary Dx) 02/22/2025 Telephone [facility] Cardiology [address] [place] [address] Thomas Venegas MD 02/19/2025 Results Follow-Up [facility] Primary Care at [address] [phone] Kanchan Lopez NP CBC with auto differential, Iron profile w/ IBC, Vitamin B12, Differential, auto 02/18/2025 8:30 AM CDT Lab [facility] Outpatient Lab at [address] [phone] 02/18/2025 8:23 AM CDT - 02/18/2025 11:59 PM CDT Hospital Encounter [facility] [address] [place] [address] Iron deficiency anemia secondary to inadequate dietary iron intake Discharge Disposition: Discharge to home or self care 02/15/2025 8:00 AM CDT Office Visit [facility] Rheumatology [address] [facility] 2nd Floor [address] [place] [address] Cinthia Quinones NP 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) (Primary Dx); High risk medication use 02/11/2025 12:30 PM CDT Office Visit [facility] Primary Care at [address] [phone] Kristi Owens NP Preoperative clearance (Primary Dx); Iron deficiency anemia secondary to inadequate dietary iron intake; Essential (primary) hypertension; Class 2 severe obesity due to excess calories with serious comorbidity and body mass index (BMI) of 39.0 to 39.9 in adult (HCC) 02/08/2025 2:30 PM CDT - 02/08/2025 11:59 PM CDT Hospital Encounter [facility] [address] [place] [address] High risk medication use Discharge Disposition: Discharge to home or self care 02/08/2025 2:30 PM CDT Infusion [facility] Infusion Therapy [address] [facility] [address] 2[address] [place] [address] 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) (Primary Dx); Age-related osteoporosis without current pathological fracture 01/05/2025 7:04 AM CDT - 01/05/2025 11:59 PM CDT Hospital Encounter [facility] [id number] [place] [address] Gutierrez Lucio NP Spinal stenosis of lumbar region, unspecified whether neurogenic claudication present (Primary Dx); Radiculopathy, lumbosacral region Discharge Disposition: Discharge to home or self care 01/05/2025 Orders Only [facility] Medical Group Primary Care at [address] [phone] Sid Santamaria MD 01/05/2025 Telephone [facility] [address] [place] [address] [address] [place] [address] German Wolfe 01/05/2025 Telephone [facility] [address] [place] [address] 2 [address] [place] [address] German Wolfe 12/29/2024 8:30 AM CDT Office Visit [facility] Medical [facility] Cardiology at [address] [place] [phone] Thomas Venegas MD S/P AVR (Primary Dx); Pulmonary hypertension (HCC); Nonrheumatic aortic valve stenosis; Essential (primary) hypertension; Preop cardiovascular exam 12/24/2024 8:04 AM CDT - 12/24/2024 11:59 PM CDT Hospital Encounter [facility] [address] [place] [address] Abdirahman Mcclendon MD Radiculopathy, lumbosacral region [M54.17] (Primary Dx); Myofascial pain; Spinal stenosis of lumbar region with neurogenic claudication [M48.062] Discharge Disposition: Discharge to home or self care 12/23/2024 8:00 AM CDT Infusion [facility] Infusion Therapy [address] [facility] 2[address] [place] [address] 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) (Primary Dx); Age-related osteoporosis without current pathological fracture 12/17/2024 Documentation [facility] Rheumatology [address] 2[address] [place] [address] Melecio De Souza Eye Exam (12-07-24 Metro ok for plaquenil) 12/17/2024 Orders Only [facility] Medical [facility] Neurology [address] [place] [address] [place] [phone] Kellen, Pb Burt MD Imbalance from Last 3 Months Immunizations Immunization Administration [...] getting worse. History somewhat consistent with OA. Transportation Assistant not think has RA. Will get XRays [...] Father JARED FINNEY Heart disease Father JARED FINNEY Stroke Father [...] on file Legal Sex Female 2:13 AM LAB DIRECTOR Gender Identity Female 05/01/2021 8:51 AM [...] or Tdap) 09/17/2022 09/17/2012, 10/07/2000 Covid-19 Vaccine (2023-2 5 season) 2024 07/17/2022, 12/23/2021, 03/28/2021, Additional history exists Influenza Vaccine (#1) 2025 , 04/24/2023, 04/24/2023, Additional history exists Lung Cancer Screening 09/03/2025 [...] 024, 07/13/2022 Medical Devices Implanted Type Area Farm Butcher Device Identifier Shelf Expiration Date Model / Serial / Lot [employer] [id number] Inspiris Resilia Leaflet Sewing Ring 23mm Valve Aortic Bovine - [id number] - [id number] Implanted:Qty: 1 on 10/26/2020 by Trevon Sheth MD at [facility] N/A: Heart [employer] 05/19/2024 [id number] / [id number] / Description:As of 11/04/2024 Mri conditions: Static magnetic field of 1.5 darrel or 3 darrel only. Maximum spatial gradient magnetic field of 3,000 gauss/cm (30 T/m) or less. Maximum MR system-reported, whole-body averaged specific absorption rate (CATALINA) of 2.0 W/kg in Normal Operating Mode Procedures Procedure Name Priority Date/Time Associated Diagnosis Comments DIFFERENTIAL AUTO Routine 02/18/2025 8:2 3 AM CDT Iron deficiency anemia secondary to inadequate dietary iron intake VITAMIN B12 Routine 02/18/2025 8:23 AM CDT Iron deficiency anemia secondary to inadequate dietary iron intake IRON PROFILE W/ IBC Routine 02/18/2025 8 :23 AM CDT Iron deficiency anemia secondary to inadequate dietary iron intake CBC WITH AUTO DIFFERENTIAL Routine 02/18/2025 8:23 AM CDT Iron deficiency anemia secondary to inadequate dietary iron intake EGFR Routine 02/08/2025 2:38 PM CDT High [...] Read Routine (OP Routine) 09/03/2024 3:23 PM LAB DIRECTOR DEXA AXIAL AND FOREARM BONE DENSITY SCAN [...] Recently Relevant to Health Maintenance Results * Differential, auto (02/18/2025 8:23 AM CDT) Neutrophil abs 3.09 1.50 - 6.50 K/cumm Imm gran abs 0.02 0.00 - 0.10 K/cumm [facility] Lymphocyte abs 1.64 0.80 - 3.30 K/cumm [facility] Monocyte abs 0.47 0.20 - 0.80 K/cumm [facility] Eosinophil abs 0.13 0.00 - 0.50 K/cumm [facility] Basophil abs 0.04 0.00 - 0.10 K/cumm [facility] Neutrophil pct 57.4 % [facility] Comment: Interpretive Data Percent cell count reference ranges are not reported, since discordance with absolute values may lead to misinterpretation of CBC data. Current Interpretive Data was last revised on 2017. Imm gran pct 0.4 % [facility] Comment: Interpretive Data Percent cell count reference ranges are not reported, since discordance with absolute values may lead to misinterpretation of CBC data. Current Interpretive Data was last revised on 2017. Lymphocyte pct 30.4 % [facility] Comment: Interpretive Data Percent cell count reference ranges are not reported, since discordance with absolute values may lead to misinterpretation of CBC data. Current Interpretive Data was last revised on 2017. Monocyte pct 8.7 % [facility] Comment: Interpretive Data Percent cell count reference ranges are not reported, since discordance with absolute values may lead to misinterpretation of CBC data. Current Interpretive Data was last revised on 2017. Eosinophil pct 2.4 % [facility] Comment: Interpretive Data Percent cell count reference ranges are not reported, since discordance with absolute values may lead to misinterpretation of CBC data. Current Interpretive Data was last revised on 2017. Basophil pct 0.7 % [facility] Comment: Interpretive Data Percent cell count reference ranges are not reported, since discordance with absolute values may lead to misinterpretation of CBC data. Current Interpretive Data was last revised on 2017. Blood 02/18/2025 8:23 AM CDT 02/18/2025 6:39 PM CDT Kristi Owens NP LAB BLOOD ORDERABLES Final Re sult Performing Organization Address [facility] Co de Phone Number LUCILLE RODRIGUEZ [address] [address] [place] [address] * (ABNORMAL) Iron profile w/ IBC (02/18/2025 8:23 AM CDT) Pathologist [facility] Iron 46 35 - 145 mcg/dl TIBC 348 250 - 400 mcg/dL [facility] Transferrin saturation 13(L) 20 - 50 % [facility] Blood 02/18/2025 8:23 AM CDT 02/18/2025 6:39 PM CDT Kristi Owens NP LAB BLOOD ORDERABLES Final Re sult Performing Organization Address City/[facility] Co de Phone Number LUCILLE RODRIGUEZ [address] [address] [employer] [place], [place] [phone] * (ABNORMAL) CBC with auto differential (02/18/2025 8:23 AM CDT) Pathologist [facility] WBC 5.39 3.80 - 9.90 K/cumm Hgb 11.1(L) 11.9 - 15.5 g/dL [facility] Hct 36.0 35.6 - 45.5 % [facility] Plt 196 150 - 400 K/cumm [facility] MPV 10.2 9.1 - 12.3 fL [facility] RBC 3.66(L) 3.90 - 5.20 M/cumm [facility] MCV 98.4(H) 81.3 - 96.4 fL [facility] MCH 30.3 27.1 - 33.3 pg [facility] MCHC 30.8(L) 32.3 - 35.7 g/dL [facility] RDW CV 15.7(H) 11.1 - 14.9 % [facility] RDW SD 55.3(H) 35.7 - 48.1 fL [facility] NRBC abs 0.00 0.00 - 0.01 K/cumm [facility] Blood 02/18/2025 8:23 AM CDT 02/18/2025 6:39 PM CDT Kristi Owens NP LAB BLOOD ORDERABLES Final Re sult Performing Organization Address [facility] de Phone Number TESSAJOEL RODRIGUEZ [address] [email or web address] [place], [place] [phone] * Vitamin B12 (02/18/2025 8:23 AM CDT) [facility] Vitamin B12 1,045 230 - 1,250 pg/mL Blood 02/18/2025 8:23 AM CDT 02/18/2025 6:39 PM CDT Kristi Owens NP LAB BLOOD ORDERABLES Final Re sult Performing Organization Address City/[facility] Co de Phone Number LUCILLE RODRIGUEZ [address] [address] [facility] [employer] [place], [place] [phone] * eGFR (02/08/2025 2:38 PM CDT) [facility] eGFR 72 >=60 mL/min/1. 73 m2 Comment: [...] LAB BLOOD ORDERABLES Final Result [facility] Department [place] [address] * Differential, auto (02/08/2025 2:38 PM CDT) Neutrophil abs 3.59 1.50 - 6.50 K/cumm Imm gran abs 0.02 0.00 - 0.10 K/cumm [facility] Lymphocyte abs 1.73 0.80 - 3.30 K/cumm [facility] Monocyte abs 0.59 0.20 - 0.80 K/cumm [facility] Eosinophil abs 0.12 0.00 - 0.50 K/cumm [facility] Basophil abs 0.04 0.00 - 0.10 K/cumm [facility] Neutrophil pct 58.9 % [facility] Comment: Interpretive Data Percent cell count reference ranges are not reported, since discordance with absolute values may lead to misinterpretation of CBC data. Current Interpretive Data was last revised on 2017. Imm gran pct 0.3 % [facility] Comment: Interpretive Data Percent cell count reference ranges are not reported, since discordance with absolute values may lead to misinterpretation of CBC data. Current Interpretive Data was last revised on 2017. Lymphocyte pct 28.4 % [facility] Comment: Interpretive Data Percent cell count reference ranges are not reported, since discordance with absolute values may lead to misinterpretation of CBC data. Current Interpretive Data was last revised on 2017. Monocyte pct 9.7 % [facility] Comment: Interpretive Data Percent cell count reference ranges are not reported, since discordance with absolute values may lead to misinterpretation of CBC data. Current Interpretive Data was last revised on 2017. Eosinophil pct 2.0 % [facility] Comment: Interpretive Data Percent cell count reference ranges are not reported, since discordance with absolute values may lead to misinterpretation of CBC data. Current Interpretive Data was last revised on 2017. Basophil pct 0.7 % [facility] Comment: Interpretive Data Percent cell count reference ranges are not reported, since discordance with absolute values may lead to misinterpretation of CBC data. Current Interpretive Data was last revised on 2017. Blood 02/08/2025 2:38 PM CDT 02/08/2025 4:09 PM CDT Cinthia Quinones [employer] LAB BLOOD ORDERABLES Final Result [facility] Department [place] [address] * (ABNORMAL) CBC with auto differential (02/08/2025 2:38 PM CDT) WBC 6.09 3.80 - 9.90 K/cumm Hgb 10.7(L) 11.9 - 15.5 g/dL [facility] Hct 32.0(L) 35.6 - 45.5 % [facility] Plt 199 150 - 400 K/cumm [facility] MPV 10.6 9.1 - 12.3 fL [facility] RBC 3.45(L) 3.90 - 5.20 M/cumm [facility] MCV 92.8 81.3 - 96.4 fL [facility] MCH 31.0 27.1 - 33.3 pg [facility] MCHC 33.4 32.3 - 35.7 g/dL [facility] RDW CV 14.6 11.1 - 14.9 % [facility] RDW SD 49.8(H) 35.7 - 48.1 fL [facility] NRBC abs 0.00 0.00 - 0.01 K/cumm [facility] Blood 02/08/2025 2:38 PM CDT 02/08/2025 4:09 PM CDT us Cinthia Quinones NP LAB BLOOD ORDERABLES Final Result [facility] Department [place] [address] * Comprehensive metabolic panel (02/08/2025 2:38 PM CDT) Sodium 140 135 - 145 mmol/L Potassium, pl 4.7 3.3 - 4.9 mmol/L [facility] Chloride 102 97 - 110 mmol/L [facility] CO2 28 22 - 32 mmol/L [facility] Anion gap 10 2 - 15 mmol/L [facility] BUN 9 6 - 25 mg/dL [facility] Creatinine 0.84 0.60 - 1.10 mg/dL [facility] Glucose 99 70 - 199 mg/dL [facility] Comment: Interpretive Data Fasting glucose >/= 126 [...] 9.9 8.5 - 10.3 mg/dL [facility] Bilirubin, total 0.9 0.1 - 1.2 mg/dL [facility] Protein, pl 6.8 6.5 - 8.5 g/dL [facility] Albumin 4.0 3.5 - 5.0 g/dL [facility] Alk phos 80 40 - 130 Units/L [facility] ALT 18 7 - 45 Units/L [facility] AST 30 10 - 45 Units/L [facility] Blood 02/08/2025 2:38 PM CDT 02/08/2025 4:09 PM CDT us Cinthia Quinones [employer] LAB BLOOD ORDERABLES Final Result [facility] Department [place] [address] * XR Knee Right 3 Views (01/05/2025 3:45 PM CDT) Anatomical Region Laterality Modality Lower Extremities, Knee Right Radiogra phic Imaging Historical Provider IMG XR PROCEDURES Final R esult * Electrocardiogram Report (12/29/2024 12:18 PM CDT) Thomas Venegas MD ECG ORDERABLES Final Res ult * Imaging Lumbar/Caudal Epidural Steroid INJ ([id number]) (12/24/2024 9:56 AM CDT) Narrative [facility] - 12/24/2024 9:56 AM CDT The images from this study are not interpreted by Radiology. Please refer to the physician's procedure / OR operative note. us Gutierrez Lucio NP IMG PAIN MGMT PROCEDURES F inal Result [facility] * CT Lung Cancer Screening (09/03/2024 3:23 PM LAB DIRECTOR) Anatomical Region Laterality Modality Chest N/A Computed [...] Bone mineral density was performed on a [email or web address] Discovery Densitometer. Based on machine cross-calibration and [...] by the International Society of Clinical Densitometry. [id number] Rosario Pham DO IMG DXA PROCEDURES Erika [...] - GENERAL ORDER LORIE Final Result [place] [address] Department [place] [address] * Colonoscopy (10/22/2022) Anatomical Region Laterality Modality Other Historical Provider ENDOSCOPY PROCEDURES Erika l Result from Last 3 Months or Most Recently Relevant to Health Maintenance Insurance MEDICARE [place] MEDICARE FOR LIFE MEDICARE FOR LIFE MEDICARE FOR LIFE Advance Directives For more information, please contact: [phone] * Full Code (Latest Code Status on File) Date Activated Date Inactivated Comments 10/26/2020 1:23 PM 10/31/2020 9:35 PM Care Teams Fur Tailor Relationship Specialty Start Date End Date Leslie Torres NP [address] [place] [address] PCP - General Family Medicine 08/14/23 Rosario Pham DO [address] [facility] [address] [place] [address] Consulting Physician Endocrinology Diabetes & Metabolism 08/22/22 Tu Fritz MD [address] [facility] [address] [place] [address] Consulting Physician Internal Medicine 03/28/23 Cinthia Quinones NP [address] [facility] [address] [place] [address] Nurse Practitioner Rheumatology 03/28/23 Thomas Venegas MD [address] [facility] [address] [place] [address] Consulting Physician Cardiology 03/28/23 Trevon Sheth MD [address] [facility] [address] [place] [address] Surgeon Cardiothoracic Surgery 03/28/23 London Hall MD [address] [place] [address] Referring Physician Gastroenterology 03/28/23 Sylvia Johnson MD [address] [place] [address] Consulting Physician Critical Care Med 03/28/23 Bobby Bui DO [address] [place] [address] Internal Medicine 03/28/23 Sahara Freedman OD [address] [place] [address] Optometry 03/28/23 Dominique Pedro PA [address] [place] [address] Allergy and Immunology 03/28/23 [place] [address] [address] Nurse Practitioner Nurse Practitioner 01/05/25 [place] [address] [facility] [address] [facility] [place] [address] Consulting Physician Pain Management 01/05/25
--- OUTSIDE RECORDS SUMMARY | 2025-03-03 00:24 | XMS_ITS | Encounter Summary ---
Author Organization [facility] Address [address] [place] [address] Phone Care Team Providers Care Elementary Teacher Name Role Phone Trina Chávez MD Primary Care Provider [phone] Beth Espino DO Primary Care Provider [phone] Bobby Bui DO Primary Care Provider [phone] Rosario Pham DO Unavailable [phone] Leslie Torres NP Primary Care Provider [phone] Tu Fritz MD Unavailable [phone] Cinthia Quinones NP Unavailable [phone] Thomas Venegas MD Unavailable [phone] Trevon Sheth MD Unavailable [phone] London Hall MD Unavailable + Sylvia Johnson MD Unavailable [phone] Bobby Bui DO Unavailable [phone] Sahara Freedman OD Unavailable Dominique Pedro Unavailable +[phone] Cinthia Quinones NP Primary Care Provider + [phone] Leslie Torres NP Primary Care Provider Gutierrez [...] on file Legal Sex Female 2:13 AM RECRUITING OPERATIONS CONSULTANT Gender Identity Female 05/01/2021 8:51 AM CDT [...] documented as of this encounter Care Teams Elementary Teacher Relationship Specialty Start Date End Date Trina Chávez MD PCP - General Internal Medicine 04/21/18 08/24/20 Beth Espino DO PCP - General Family Medicine 08/25/20 05/31/22 Ramya Bobby Jay DO PCP - General Internal Medicine 06/01/22 03/27/23 Leslie Torres, RUTH ANN [address] [facility] [address] [place], [place] [id number] PCP - General Family Medicine 03/28/23 06/30/23 Cinthia Quinones BLASTING COAL MINER [address] [address] PCP - General Rheumatology 07/01/23 08/13/23 Leslie Torres, RUTH ANN [address] [facility] [address] [place], [place] [id number] PCP - General Family Medicine 08/14/23 Rosario Pham DO [address] [facility] [address] [place] [address] Consulting Physician Endocrinology Diabetes & Metabolism 08/22/22 Tu Fritz MD [address] [place] [address] Consulting Physician Internal Medicine 03/28/23 Cinthia Quinones, BLASTING COAL MINER [address] [place] [address] Nurse Practitioner Rheumatology 03/28/23 Thomas Venegas MD [address], [address] [place] [address] Consulting Physician Cardiology 03/28/23 Trevon Sheth MD [address], [address] [place], [place] [id number] Surgeon Cardiothoracic Surgery 03/28/23 London Hall MD [address] GASTROENTEROLOGY [place], [place] [address] Referring Physician Gastroenterology 03/28/23 Sylvia Johnson MD [address] [place] [address] Consulting Physician Critical Care Med 03/28/23 Bobby Bui DO Internal Medicine 03/28/23 Sahara Freedman OD [address] [place] [address] Optometry 03/28/23 Dominique Pedro PA [address] [place] [id number] Allergy and Immunology 03/28/23 [place] [address] [facility] [address] [place] [address] Nurse Practitioner Nurse Practitioner 01/05/25 [place] [address] [facility] [address] [place] [address] Consulting Physician Pain Management 01/05/25 documented as of this encounter
--- OUTSIDE RECORDS SUMMARY | 2025-03-03 00:24 | XMS_ITS | Patient Health Record ---
Author Organization [facility] [place] ([address]) Address [address] [place] [address] Care Team Providers Care Yarn Inspector Name Role Phone Dominique Pedro Unavailable [phone] Allergies Allergen (clinical drug ingredient) Drug/Non Drug [...] review and pick correct strength-formula tion from [facility] options. If intended option is not shown, discontinue and re-order from [employer] Search* Active HYDROCHLOROTHIAZIDE 25 mg 1 tab(s) orall y once a day; Duration: 30 day(s) Active [place]-3 1000 MG 1 cap(s) orally Qday Active [...] review and pick correct strength-formula tion from [facility] options. If intended option is not shown, [...] Status Risk Notes Problem Shortness of breath (028563716) Shortness of breath (R06.02) Active confirmed Problem Essential hypertension (46262577) Essential (primary) hypertension (I10) Active confirmed Problem Allergic rhinitis caused by pollen (disorder) (81116500) Allergic rhinitis due to pollen (J30.1) Active confirmed Problem Uncomplicated moderate persistent asthma (280034958) Moderate persistent asthma, uncomplicated (J45.40) Active confirmed Problem Dyspnea, unspecified (R06.00) Active confirmed Problem Gastroesophageal reflux disease with esophagitis (disorder) (413768819) Gastro-esophagea l reflux disease with esophagitis, without bleeding (K21.00) Active confirmed Plan Of Treatment No Information Insurance Providers Payer Name Payer Address Payer Phone Subscriber Number Group Number Insured Name Patient Relationship to Insured Coverage Start Date Coverage End Date [employer] (Medicare) Attention Claims [address] [facility] [place] [phone] [id number] Barbra Maynard Self - patient is the insured for Life [address] [place] [address] [phone] [id number] Trevin Maynard Spouse - patient is the spouse of the insured Medical (General) History Medical History History ICD Code Rheumatoid Arthritis-Adult Crohn's disease Sleep apnea Surgical History Surgery Date(Month/Year) heart valve replace Right Hip Left Hip
--- OUTSIDE RECORDS SUMMARY | 2025-03-03 00:24 | XMS_ITS | Encounter Summary ---
Author Organization [facility] Address [address] [place] [address] Phone Care Team Providers Care Sock Lining Examiner Name Role Phone KenzieBeth DO Primary Care Provider [phone] Bobby Bui DO Primary Care Provider [phone] Rosario Pham DO Unavailable Leslie Torres NP Primary Care Provider [phone] Tu Fritz MD Unavailable Cinthia Quinones NP Unavailable [phone] Thomas Venegas MD Unavailable Trevon Sheth MD Unavailable [phone] London Hall MD Unavailable + Sylvia Johnson MD Unavailable [phone] Bobby Bui DO Unavailable [phone] Sahara Freedman OD Unavailable [phone] Dominique Pedro Unavailable [phone] Cinthia Quinones NP Primary Care Provider [phone] Leslie Torres DIRECTOR STYLE Primary Care Provider [phone] Gutierrez Lucio NP Unavailable Abdirahman Mcclendon MD Unavailable [phone] Encounter Details Date Type Department Care Team [...] on file 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 Gender Identity Female 05/01/2021 8:51 AM CDT [...] documented as of this encounter Care Teams Sock Lining Examiner Relationship Specialty Start Date End Date Beth Espino DO PCP - General Family Medicine 08/25/20 05/31/22 Bobby Bui DO PCP - General Internal Medicine 06/01/22 03/27/23 Leslie Torres, RUTH ANN [address] [place] [address] PCP - General Family Medicine 03/28/23 06/30/23 Cinthia Quinones, DIRECTOR STYLE [address] [facility] [address] [address] PCP - General Rheumatology 07/01/23 08/13/23 Leslie Torres, RUTH ANN [address] [place], [place] [address] PCP - General Family Medicine 08/14/23 Rosario Pham DO [address] [facility] [address] [place] [address] Consulting Physician Endocrinology Diabetes & Metabolism 08/22/22 Tu Fritz MD [address] [facility] [address] [address] Consulting Physician Internal Medicine 03/28/23 Cinthia Quinones, DIRECTOR STYLE [address] [facility] [address] [address] Nurse Practitioner Rheumatology 03/28/23 Thomas Venegas MD [address], [facility] [address] [place] [address] Consulting Physician Cardiology 03/28/23 Trevon Sheth MD [address], [facility] [address] [place] [address] Surgeon Cardiothoracic Surgery 03/28/23 London Hall MD [address] [place] [address] Referring Physician Gastroenterology 03/28/23 Sylvia Johnson MD [address] [place] [address] Consulting Physician Critical Care Med 03/28/23 Bobby Bui DO Internal Medicine 03/28/23 Sahara Freedman OD [address]20 [place] [address] Optometry 03/28/23 Dominique Pedro PA [address] [place] [address] Allergy and Immunology 03/28/23 [place] [address] [facility] [address] [place] [address] Nurse Practitioner Nurse Practitioner 01/05/25 [place] [address] [facility] [address] [place] [address] Consulting Physician Pain Management 01/05/25 documented as of this encounter
--- OUTSIDE RECORDS SUMMARY | 2025-03-03 00:24 | XMS_ITS | Encounter Summary ---
Author Organization [facility] Address [address] [place] [address] Care Team Providers Care Circulation Supervisor Name Role Phone Unavailable Primary Care Provider Unavailabl e Encounter Details Date Type Department Care Team (Late st Contact Info) Description 10/29/2006 Outpatient [facility] [address] [facility] [place] [facility] [place] [address] [place] [address] [place] [address] [address] [place] [address] Social History Tobacco Use Types Packs/Day Years Used Date Smoking Tobacco: Never Assessed Comments Unknown Sex and Gender Information Value Date Recorded Sex Assigned at Not on file Legal Sex Female 2:48 AM POSITION 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
--- OUTSIDE RECORDS SUMMARY | 2025-03-03 00:24 | XMS_ITS | Data Portability ---
Author Organization [facility], Main Office Address [address] [place] [address] Assessment No assessment recorded. Plan of Treatment [...] Name and Address Organization Details Recorded Time Swelling 96007824 Active 2021 Not Available [facility] 3 01:24:31 Rheumatoid arthritis 68012807 Active 2021 Not Available [facility] 3 01:24:31 Obstructiv e sleep apnea syndrome 68960790 Active 2021 Not Available [facility] 3 01:24:31 Edema of lower extremity 705906083 Active 2021 Not Available [facility] 3 01:24:31 History of aortic valve replacemen t 9620320265723 Active 2021 Not Available [facility] 3 01:24:31 Insomnia 344762149 Active 2021 Not Available [facility] 3 01:24:31 Crohn's disease 16121953 Active 2021 Not Available [facility] 3 01:24:31 Obese 540377978 Active 2021 Not Available [facility] 3 01:24:31 Anxiety 23298040 Active 2021 Not Available [facility] 3 01:24:31 Hyperlipid emia 98675559 Active 2021 Not Available [facility] 3 01:24:31 Problem Notes None recorded. Procedures Surgical History Date Name Laterality Status Provider Name and Address Organization Details Recorded Time removal of foreign body from gallbladder completed Not Available [facility] 10/11/2022 01:23:44 procedure on heart completed Not Available [facility] 10/11/2022 01:23:44 Imaging Results None recorded. Procedure Notes None recorded. Medical Equipment None Reported. Allergies Allergen ID Allergen Name Allergen Category Reaction Reaction Severity Criticality Documentation Date Start Date Code Code System Note Provider Name and Address Organization Details Recorded Time 46392 Product containin g penicilli n (product) medicatio n rash Not available Not available 10/11/2022 23265 8001 SNOMED Not Available [facility] 3 01:25:36 Medications Name Sig Start [...] Respiratory rate Body temperature Body weight Systolic And Diastolic Provider Name and Address Organization Details Last Updated DateTime 2 40.9 kg/m2 177.8 cm 95 % 95 % 75 /min 16 /min 97.7 [degF] 616278. 88 g 130/80 mm[Hg] Not Available [facility] 3 01:24:01 Social History Question Answer Notes LastModified by Organization Details LastModified Time Tobacco Smoking Status Former Smoker Not Available [facility] 10/11/2022 01:23:21 Do You Have An Advance Directive? Yes MIGRATION.030 339272 Information not available 10/11/2022 Do You Wear A Helmet When Biking? No MIGRATION.03022990917 Information not available 10/11/2022 Are You Blind Or Do You Have Difficulty Seeing? No MIGRATION.0301 497690 Information not available 10/11/2022 What Is Your Level Of Caffeine Consumption? Moderate MIGRATION.0301 957914 Information not available 10/11/2022 What Is Your Code Status? Full Code MIGRATION.0301 570019 Information not available 10/11/2022 In The 14 Days Before Symptom Onset, Have You Had Close Contact With A Laboratory-confi rmed COVID-19 While That Case Was Ill? No MIGRATION.0301 819842 Information not available 10/11/2022 In The 14 Days Before Symptom Onset, Have You Had Close Contact With A Person Who Is Under Investigation For COVID-19 While That Person Was Ill? No MIGRATION.0301 518288 Information not available 10/11/2022 Are You Deaf Or Do You Have Serious Difficulty Hearing? No MIGRATION.0301 167794 Information not available 10/11/2022 What Type Of Diet Are You Following? REGULAR MIGRATION.0301 257306 Information not available 10/11/2022 Have There Been Any Changes To Your Family Or Social Situation? Yes Lost 5 Yrs Ago Sister Last Year MIGRATION.0301 031082 Information not available 10/11/2022 What Is The Fluoride Status Of Your Home? Fluoridated MIGRATION.0301 020149 Information not available 10/11/2022 When Did You Quit Smoking? 16+yearssincelastc igarette MIGRATION.0301 197899 Information not available 10/11/2022 Are There Any Guns Present In Your Home? Yes MIGRATION.0301 893724 Information not available 10/11/2022 Do You Use Insect Repellent Routinely? No MIGRATION.0301 903337 Information not available 10/11/2022 Where Do You Live? SingleLevelHouse MIGRATION.0301 369520 Information not available 10/11/2022 Do You Have A Medical Power Of Football Coach? Yes MIGRATION.0301 346538 Information not available 10/11/2022 Do You Have Any Pets? No MIGRATION.0301 603491 Information not available 10/11/2022 What Is Your Relationship Status? MIGRATION.0301 682126 Information not available 10/11/2022 Do You Use Your Seat Belt Or Car Seat Routinely? Yes MIGRATION.0301 328952 Information not available 10/11/2022 Do You Have Smoke And Carbon Monoxide Detectors In Your Home? Yes MIGRATION.0301 688013 Information not available 10/11/2022 At What Age Did You Start Smoking Tobacco? 20 MIGRATION.0301 954487 Information not available 10/11/2022 Are You Passively Exposed To Smoke? No MIGRATION.0301 674523 Information not available 10/11/2022 Are There Any Smokers In Your House? No MIGRATION.0301 108805 Information not available 10/11/2022 Do You Participate In Social [email or web address]? Yes MIGRATION.0301 998064 Information not available 10/11/2022 Do You Use Sunscreen Routinely? Yes MIGRATION.0301 328150 Information not available 10/11/2022 Have You Recently Traveled Abroad? No MIGRATION.0301 400763 Information not available 10/11/2022 Do You Have Difficulty Walking Or Climbing Stairs? Yes Painful MIGRATION.0301 097101 Information not available 10/11/2022 Are You Currently In School? No MIGRATION.0301 603560 Information not available 10/11/2022 Do You Have Any Dietary Restrictions? No MIGRATION.0301 029725 Information not available 10/11/2022 Sex: Unknown Functional Status Question Answer Note LastModified by [employer] Details LastModified Time Do you use any illicit or recreational drugs? No MIGRATION.161301 5145 Information not available 10/11/2022 What is your level of alcohol consumption? Occasional MIGRATION.242451 8796 Information not available 10/11/2022 Do you have transportation difficulties? No MIGRATION.740284 9141 Information not available 10/11/2022 Are you able to walk? YESWOREST MIGRATION.380138 8156 Information not available 10/11/2022 Do you have difficulty doing errands alone? No MIGRATION.708932 2723 Information not available 10/11/2022 Are you able to care for yourself? Yes MIGRATION.736501 3787 Information not available 10/11/2022 Do you have difficulty dressing or bathing? No MIGRATION.158522 1223 Information not available 10/11/2022 What is your exercise level? Occasional swimming MIGRATION.498533 6142 Information not available 10/11/2022 Mental Status Question Answer Note LastModified by Organizat ion Details LastModified Time Do you feel stressed (tense, restless, nervous, or anxious, or unable to sleep at night)? [id number] MIGRATION.08302002 26 Information not available 10/11/2022 Do you have difficulty concentrating, remembering or making decisions? No MIGRATION.64914986 26 Information not available 10/11/2022 Family History Relationship Description Onset Age of this Age Resolved Age Notes LastModified by Organization Details LastModified Time Sister Cerebrovascu lar accident MIGRATION.665 5419947 Not available 10/11/2022 01:23:45 Father Myocardial infarction 45 MIGRATION.539 9619868 Not available 10/11/2022 01:23:45 Medical History Condition [...] SNOMED-CT Code Diagnosis ICD10 Code Diagnosis Note [id number] Marcia Bustillos NP [facility] [address] [address] 04/19/2022 00:00:00 04/23/2022 16:23:10 Health Concerns Section Related Observation LastModified by Organization Detai ls LastModified Time None Recorded Concern Status LastModified by Organization Details LastModified Time None Recorded Advance Directives Directive Y: Payers Insurance Date Sequence Insurance Name Policy Number Policy Egan Covered Member ID Egan Member ID Guarantor Name 11/10/2022 1 [place] Barbra Maynard [id number] Barbra Maynard 11/10/2022 2 [facility] () Trevin Maynard [id number] Barbra Maynard OBGyn Episode No OBEpisode recorded.
--- OUTSIDE RECORDS SUMMARY | 2025-03-03 00:24 | XMS_ITS | Encounter Summary ---
Author Organization [facility] Address [address] [place] [address] Phone Care Team Providers Care Business Data Analyst Name Role Phone KenzieBeth DO Primary Care Provider [phone] Bobby Bui DO Primary Care Provider [phone] Rosario Pham DO Unavailable [phone] Leslie Torres NP Primary Care Provider Tu Fritz MD Unavailable Cinthia Quinones NP Unavailable [phone] Thomas Venegas MD Unavailable Trevon Sheth MD Unavailable [phone] London Hall MD Unavailable + Sylvia Johnson MD Unavailable [phone] Bobby Bui DO Unavailable [phone] Sahara Freedman OD Unavailable Dominique Pedro Unavailable [phone] Cinthia Quinones NP Primary Care Provider [phone] Leslie Torres SECURITY ARCHITECT Primary Care Provider [phone] Gutierrez Lucio NP Unavailable Abdirahman Mcclendon MD Unavailable [phone] Encounter Details Date Type Department Care Team [...] on file 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 Gender Identity Female 05/01/2021 8:51 AM CDT [...] documented as of this encounter Care Teams Business Data Analyst Relationship Specialty Start Date End Date Beth Espino DO PCP - General Family Medicine 08/25/20 05/31/22 Bobby Bui DO PCP - General Internal Medicine 06/01/22 03/27/23 Leslie Torres, RUTH ANN [address] [place] [address] PCP - General Family Medicine 03/28/23 06/30/23 Cinthia Quinones NP [address] [address] PCP - General Rheumatology 07/01/23 08/13/23 Leslie Torres, RUTH ANN [address] [place] [address] PCP - General Family Medicine 08/14/23 Rosario Pham DO [address] [facility] [address] [place] [address] Consulting Physician Endocrinology Diabetes & Metabolism 08/22/22 Tu Fritz MD 4921 [facility] [address] [facility] [address] [place] [address] Consulting Physician Internal Medicine 03/28/23 Cinthia Quinones, SECURITY ARCHITECT 49[address] [facility] [address] [facility] [address] [place] [address] Nurse Practitioner Rheumatology 03/28/23 Thomas Venegas MD [address], [address] [place] [address] Consulting Physician Cardiology 03/28/23 Trevon Sheth MD [address], [address] [place] [address] Surgeon Cardiothoracic Surgery 03/28/23 London Hall MD [address] [place] [address] Referring Physician Gastroenterology 03/28/23 Sylvia Johnson MD [address] [place], [place] [address] Consulting Physician Critical Care Med 03/28/23 Bobby Bui DO Internal Medicine 03/28/23 Sahara Freedman OD [address] [place] [address] Optometry 03/28/23 Dominique Pedro PA [address] [place] [id number] Allergy and Immunology 03/28/23 [place] [address] [facility] [address] [place] [address] Nurse Practitioner Nurse Practitioner 01/05/25 [place] [address] [facility] [address] [place] [address] Consulting Physician Pain Management 01/05/25 documented as of this encounter
--- OUTSIDE RECORDS SUMMARY | 2025-03-03 00:24 | XMS_ITS ---
Author Organization Formerly [facility] [employer] [facility] [place] ([address]) Address [address] [place] [address] Care Team Providers Care Scientist Propagator Name Role Phone Dominique Pedro Unavailable [phone] ZZ-Migration, Provider Unavailable Unavailab le Allergies Allergen (clinical drug ingredient) Drug/Non Drug Allergy documented on EMR Reaction Allergy Type Onset Date Status Penicillin Unknown Drug Allergy [facility] En[facility] Medications Medication SIG (Take, [...] review and pick correct strength-formula tion from [employer] options. If intended option is not shown, discontinue and re-order from Quick Search* Active Wellbutrin SR 100 MG 1 tab(s) orally Qday Active Pantoprazole Sodium 40 MG 1 tab(s) orall y once a day Active Probiotic Formula *Please review and pick correct strength-formula tion from [employer] options. If intended option is not shown, [...] review and pick correct strength-formula tion from [employer] options. If intended option is not shown, discontinue and re-order from Quick Search* Active Hemet-3 1000 MG 1 cap(s) orally Qday Active Advair HFA 230-21 MCG/ACT 2 puff(s) inha led 2 times a day; Duration: 30 days Active Encounters Encounter Location Date Provider Diagnosis [address] [address] 01/25/2024 Provider KittyZ-Migration Moderate persistent asthma, uncomplicated [...] review and pick correct strength-formulati on from [employer] options. If intended option is not shown, discontinue and re-order from Quick Search* Wellbutrin SR 100 MG 1 tab(s) orally Qday Pantoprazole Sodium 40 MG 1 tab(s) orall y once a day Probiotic Formula *Please review and pick correct strength[facility]formulati on from [facility]. If intended option is not [...] review and pick correct strength-formulati on from [facility] options. If intended option is not shown, discontinue and re-order from Quick Search* Hemet-3 1000 MG 1 cap(s) orally Qday Advair HFA 230-21 MCG/ACT 2 puff(s) inha led 2 times a day; Duration: 30 days Progress Notes * Barbra MAYN[birth year]DOB:[birth year] (74 yo F)Acc No.[id number]:01/25/2024 Patient: Barbra HUNTER Provider: Yadira Murillo :1950 A ge:73 Y S ex:Female Date:01/25/2024 Address:[address] [id number] Subjective: * Chief Complaints: * 1 . [facility] En[facility]. * Medical History: * [...] e-prescription and drug interaction check*; C ontinue Hemet-3 Capsule, 1000 MG, 1 cap(s), orally, Qday; Continue Aspirin TABLET, 81 MG, 1 TAB(S), ORALLY, ONCE A DAY, Notes to Pharmacist: *Please review and pick correct strength-formulation from [employer] options. If intended option is not shown, [...] *Please review and pick correct strength-formulation from [employer] options. If intended option is not shown, discontinue and re-order from Quick Search*; C ontinue Wellbutrin SR Tablet Extended Release 12 Hour, 100 MG, 1 tab(s), orally, Qday; C ontinue Probiotic Formula, Notes to Pharmacist: *Please review and pick correct strength-formulation from [employer] options. If intended option is not shown, [...] * Electronic signature of Aretha PICKETT-Migration on 03/03/2025 at 12:23 AM CDT Sign off status: Pending * Provider: Yadira strange Migration Date: 01/25/2024 Generated for Delia badillo/Elliot/Caty on: 03/03/2025 12:23 AM CDT
--- OUTSIDE RECORDS SUMMARY | 2025-03-03 00:25 | XMS_ITS | Encounter Summary ---
Author Organization [facility] Address [address] [place] [address] Phone Care Team Providers Care Sticker Hand Name Role Phone EvroRosario Sheila DO Unavailable Leslie Torres NP Primary Care Provider [phone] Tu Fritz MD Unavailable Cinthia Quinones NP Unavailable [phone] Thomas Venegas MD Unavailable Trevon Sheth MD Unavailable [phone] London Hall MD Unavailable + Sylvia Johnson MD Unavailable [phone] Bobby Bui DO Unavailable [phone] Sahara Freedman OD Unavailable Dominique Pedro Unavailable [phone] Cinthia Quinones NP Primary Care Provider [phone] Leslie Torres NP Primary Care Provider [phone] Gutierrez Lucio NP Unavailable [phone] Abdirahman Mcclendon MD Unavailable Encounter Details Date [...] on file 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 Gender Identity Female 05/01/2021 8:51 AM [...] documented as of this encounter Care Teams Sticker Hand Relationship Specialty Start Date End Date Leslie oTrres NP [address] [place] [address] PCP - General Family Medicine 03/28/23 06/30/23 Cinthia Quinones NP [address] [facility] [address] [place] [address] PCP - General Rheumatology 07/01/23 08/13/23 Leslie Torres NP [address] [place] [address] PCP - General Family Medicine 08/14/23 Rsoario Pham DO [address] [facility] [address] [place] [address] Consulting Physician Endocrinology Diabetes & Metabolism 08/22/22 Tu Fritz MD [address] [facility] [address] [place] [address] Consulting Physician Internal Medicine 03/28/23 Cinthia Quinones NP [address] [facility] [address] [place] [address] Nurse Practitioner Rheumatology 03/28/23 Thomas Venegas MD [address] [place], [place] [address] Consulting Physician Cardiology 03/28/23 Trevon Sheth MD [address] [place] [address] Surgeon Cardiothoracic Surgery 03/28/23 London Hall MD [address] [place] [address] Referring Physician Gastroenterology 03/28/23 Sylvia Johnson MD [address] [place], [place] [id number] Consulting Physician Critical Care Med 03/28/23 Bobby Bui DO [address] [place] [address] Internal Medicine 03/28/23 Sahara Freedman OD [address] [place] [address] Optometry 03/28/23 Dominique Pedro PA [address] [place] [address] Allergy and Immunology 03/28/23 [place] [address] [id number] Nurse Practitioner Nurse Practitioner 01/05/25 [place] [address] [address] [facility] [address] [address] Consulting Physician Pain Management 01/05/25 documented as of this encounter
--- OUTSIDE RECORDS SUMMARY | 2025-03-03 00:25 | XMS_ITS | Encounter Summary ---
Author Organization [facility] Address [address] [place] [address] Care Team Providers Care Animal Care Worker Name Role Phone Rosario Pham DO Unavailable [phone] Tu Fritz MD Unavailable Cinthia Quinones NP Unavailable Thomas Venegas MD Unavailable Trevon Sheth MD Unavailable [phone] London Hall MD Unavailable + Sylvia Johnson MD Unavailable [phone] Bobby Bui DO Unavailable Sahara Freedman OD Unavailable Dominique Pedro Unavailable Leslie Torres NP Primary Care Provider [phone] Gutierrez Lucio NP Unavailable Abdirahman Mcclendon MD Unavailable Encounter Details Date Type Department Care Team (Late st Contact Info) Description 02/22/2025 Telephone [facility] Cardiology [address] [facility] [address] [place] [address] Thomas Venegas MD [address] [place] [address] [address] [place] [address] Social History Tobacco Use Types Packs/Day Years [...] on file Legal Sex 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 * Telephone Encounter - Marisol Anders - 02/22/2025 3:38 PM CDT Pt states she is scheduled for knee replacement surgery on 03/03. She is aware she needs to hold Aspirin 7 days prior. She wants to know if she needs to hold Ibuprofen a few days prior to surgery as well. She does not take Ibuprofen daily but takes it as needed for her arthritis. Please advise, thank you. Contact: documented in this encounter Plan of Treatment Not on file documented as of this encounter Visit Diagnoses Not on filedocumented in this encounter Care Teams Animal Care Worker Relationship Specialty Start Date End Date Leslie Torres NP [address] [place] [address] PCP - General Family Medicine 08/14/23 Rosario Pham DO [address] [facility] [address] [place] [address] Consulting Physician Endocrinology Diabetes & Metabolism 08/22/22 Tu Fritz MD [address] [facility] [address] [place] [address] Consulting Physician Internal Medicine 03/28/23 Cinthia Quinones NP [address] [facility] [address] [place] [address] Nurse Practitioner Rheumatology 03/28/23 Thomas Venegas MD [address] [facility] [address] [place] [address] Consulting Physician Cardiology 03/28/23 Trevon Sheth MD [address] [place], [place] [address] Surgeon Cardiothoracic Surgery 03/28/23 London Hall MD [address] [facility] [address] [place] [address] Referring Physician Gastroenterology 03/28/23 Sylvia Johnson MD [address] [address] Consulting Physician Critical Care Med 03/28/23 Bobby Bui DO [address] [facility] [address] [place] [address] Internal Medicine 03/28/23 Sahara Freedman OD [address] [place] [address] Optometry 03/28/23 Dominique Pedro PA [address] [place] [address] Allergy and Immunology 03/28/23 [place] [address] [address] Nurse Practitioner Nurse Practitioner 01/05/25 [place] [address] [address] Consulting Physician Pain Management 01/05/25 documented as of this encounter
--- OUTSIDE RECORDS SUMMARY | 2025-03-03 00:25 | XMS_ITS | Referral Summary ---
Author Organization [facility] [address] Address [address] [place] [address] Care Team Providers Care Pattern Setter Name Role Phone Rosario Pham Unavailable Tu Fritz MD Unavailable Cinthia Quinones NP Unavailable Thomas Venegas MD Unavailable Trevon Sheth MD Unavailable [phone] London Hall MD Unavailable + Sylvia Johnson MD Unavailable [phone] Bobby Bui DO Unavailable [phone] Sahara Freedman OD Unavailable Dominique Pedro Unavailable [phone] Leslie Torres NP Primary Care Provider Gutierrez Lucio NP Unavailable Abdirahman Mcclendon MD Unavailable [phone] Encounters Date Type Department Care Team Description 02/23/2025 Orders Only [facility] [address] [address] [address] [place] [address] Vanessa Santos NP Low back pain, unspecified back pain laterality, unspecified chronicity, unspecified whether sciatica present (Primary Dx) 02/22/2025 Telephone [facility] Cardiology [address] [place] [address] Thomas Venegas MD 02/19/2025 Results Follow-Up [facility] Primary Care at [address] [phone] Kanchan Lopez NP CBC with auto differential, Iron profile w/ IBC, Vitamin B12, Differential, auto 02/18/2025 8:23 AM CDT - 02/18/2025 11:59 PM CDT Hospital Encounter [id number] [place] [address] Iron deficiency anemia secondary to inadequate dietary iron intake Discharge Disposition: Discharge to home or self care 02/18/2025 8:30 AM CDT Lab [facility] Outpatient Lab at [address] [address] 02/15/2025 8:00 AM CDT Office Visit [facility] Rheumatology [address] [facility] 2nd Floor [address] [place] [address] Cinthia Quinones NP 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) (Primary Dx); High risk medication use 02/11/2025 12:30 PM CDT Office Visit [facility] Primary Care at [address] [phone] Kristi Owens NP Preoperative clearance (Primary Dx); Iron deficiency anemia secondary to inadequate dietary iron intake; Essential (primary) hypertension; Class 2 severe obesity due to excess calories with serious comorbidity and body mass index (BMI) of 39.0 to 39.9 in adult (HCC) 02/08/2025 2:30 PM CDT - 02/08/2025 11:59 PM CDT Hospital Encounter [facility] [address] [place] [address] High risk medication use Discharge Disposition: Discharge to home or self care 02/08/2025 2:30 PM CDT Infusion [facility] Infusion Therapy [address] [facility] 2nd Floor [address] [place] [address] 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) (Primary Dx); Age-related osteoporosis without current pathological fracture 01/05/2025 Orders Only [facility] Primary Care at [address] [phone] ProviderSid MD 01/05/2025 Telephone [facility] [address] [place] [address] 2 [address] [place] [address] German Wolfe 01/05/2025 Telephone [facility] [address] [place] [address] 2 [address] [place] [address] German Wolfe 01/05/2025 7:04 AM CDT - 01/05/2025 11:59 PM CDT Hospital Encounter [facility] [address] [place] [address] Gutierrez Lucio NP Spinal stenosis of lumbar region, unspecified whether neurogenic claudication present (Primary Dx); Radiculopathy, lumbosacral region Discharge Disposition: Discharge to home or self care 12/29/2024 8:30 AM CDT Office Visit [facility] Cardiology at [address] [place] [phone] Thomas Venegas MD S/P AVR (Primary Dx); Pulmonary hypertension (HCC); Nonrheumatic aortic valve stenosis; Essential (primary) hypertension; Preop cardiovascular exam 12/24/2024 8:04 AM CDT - 12/24/2024 11:59 PM CDT Hospital Encounter [facility] [address] [place] [address] Abdirahman Mcclendon MD Radiculopathy, lumbosacral region [M54.17] (Primary Dx); Myofascial pain; Spinal stenosis of lumbar region with neurogenic claudication [M48.062] Discharge Disposition: Discharge to home or self care 12/23/2024 8:00 AM CDT Infusion [facility] Infusion Therapy [address] [facility] 2nd Floor [address] [place] [address] 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) (Primary Dx); Age-related osteoporosis without current pathological fracture 12/17/2024 Documentation [facility] Rheumatology [address] [facility] [address] 2[address] [place] [address] Nolvia Meleciosean Ross Eye Exam (12-07-24 Metro ok for plaquenil) 12/17/2024 Orders Only [facility] Neurology [address] [facility] [address] [place] [address] Kellen, Pb Burt MD Imbalance from Last 3 Months Allergies Active Allergy Reactions Criticality Noted Date Comments Adhesive Other (See comments) Low 10/24/2020 Bruising from bandage Other Unknown 01/27/2010 Penicillin V Unknown 03/22/2006 Penicillins Hives,Rash Medium 03/22/2006 Penicillin Allergy History Form completed, moderate risk Medications magnesium oxide 400 mg magnesium capsule Take 500 mg by mouth daily 10/17/19 22 Active [id number] -fish oil 1,000-1,400 mg capsule,delayed release(DR/EC) Take [...] otherwise. Assessment & Plan (10/14/2023 11:08 AM DIGITAL MEDIA PLANNER): Continuing to work with Lymphedema clinic. Symptoms stable and she has been working with clinic to get her compression pump. Assessment & Plan (08/14/2023 3:35 PM DIGITAL MEDIA PLANNER): She was started on diuretic per Cardiology [...] lipids/LFT/CK Assessment & Plan (10/14/2023 11:03 AM DIGITAL MEDIA PLANNER): Continues Lipitor, no side effects reported. Updated [...] also. Assessment & Plan (10/14/2023 11:05 AM DIGITAL MEDIA PLANNER): BP diastolic borderline in office today. However, has been stable in all our other visits. Will continue current regimen and await updated labs. Assessment & Plan (08/14/2023 3:34 PM DIGITAL MEDIA PLANNER): BP stable in office today, no changes. [...] more. Assessment & Plan (10/14/2023 11:06 AM DIGITAL MEDIA PLANNER): Patient's insurance would not cover Wegovy but [...] getting worse. History somewhat consistent with OA. [employer] not think has RA. Will get XRays [...] (10/17/2020): Added automatically from request for surgery [id number] S/P LEEP (loop electrosurgic al excision procedure) 11/26/2017 02/11/2025 Vaginal atrophy 11/26/2017 02/11/2025 Morbid obesity with BMI of 4 0.0-44.9, adult ([facility]) 07/26/2017 10/24/2021 Pain of foot 06/05/2017 02/11/2025 Astigmatism of eye 04/17/2017 Metabolic syndrome 04/17/2017 Primary osteoarthritis, unsp ecified ankle and foot 04/17/2017 02/11/2025 Overview (04/09/2018): Overview: Pain in both feet probably from OA. XRays from 2 yrs ago showed mild OA, and is now getting worse. History somewhat consistent with OA. [employer] not think has RA. Will get XRays to confirm dx again. Also told pt she can take up to 1 gm Tylenol qid if needed (on top of the Naproxen she is already taking for knees. She knows she can't take motrin with naproxen). RTC 1-2 mo. Nonrheumatic aortic valve stenosis 01/16/2017 02/11/2025 History of tobacco abuse 01/16/201710/2024 Obstructive sleep apnea 01/16/2017 07/10/2024 Overview (04/09/2018): Overview: Doing well with CPAP, [...] mention of probable neuroma in referral to [facility] for custom insoles (her has done [...] mention of probable neuroma in referral to [facility] for custom insoles (her has done well with these, she is willing to pay out of pocket). Between NSAIDS and conservative therapy, will try to see if improves. Her exercise includes non-impact in the pool and such. Pain between 3rd and 4th metatarsal heads. Could be a neuroma. Will defer further w/u, however made mention of probable neuroma in referral to [facility] for custom insoles (her has done [...] on file Legal Sex Female 2:13 AM DIGITAL MEDIA PLANNER Gender Identity Female 05/01/2021 8:51 AM CDT [...] on file Medical Devices Implanted Type Area International Nurse Device Identifier Shelf Expiration Date Model / Serial / Lot [employer] [id number] Inspiris Resilia Leaflet Sewing Ring 23mm Valve Aortic Bovine - [id number] - [id number] Implanted:Qty: 1 on 10/26/2020 by Trevon Sheth MD at [facility] N/A: Heart [employer] 05/19/2024 [id number] / [id number] / Description:As of 11/04/2024 Mri conditions: Static [...] Read Routine (OP Routine) 09/03/2024 3:23 PM DIGITAL MEDIA PLANNER DEXA AXIAL AND FOREARM BONE DENSITY SCAN [...] abs 1.64 0.80 - 3.30 K/cumm [facility] Monocyte abs 0.47 0.20 - 0.80 K/cumm [facility] Eosinophil abs 0.13 0.00 - 0.50 K/cumm [facility] Basophil abs 0.04 0.00 - 0.10 K/cumm [facility] Neutrophil pct 57.4 % [facility] Comment: Interpretive Data Percent cell count reference ranges are not reported, since discordance with absolute values may lead to misinterpretation of CBC data. Current Interpretive Data was last revised on 2017. Imm gran pct 0.4 % [facility] Comment: Interpretive Data Percent cell count reference ranges are not reported, since discordance with absolute values may lead to misinterpretation of CBC data. Current Interpretive Data was last revised on 2017. Lymphocyte pct 30.4 % [facility] Comment: Interpretive Data Percent cell count reference ranges are not reported, since discordance with absolute values may lead to misinterpretation of CBC data. Current Interpretive Data was last revised on 2017. Monocyte pct 8.7 % [facility] Comment: Interpretive Data Percent cell count reference ranges are not reported, since discordance with absolute values may lead to misinterpretation of CBC data. Current Interpretive Data was last revised on 2017. Eosinophil pct 2.4 % [facility] Comment: Interpretive Data Percent cell count reference [...] NP LAB BLOOD ORDERABLES Final Re sult [facility] [address] Department [place] [address] * (ABNORMAL) Iron profile w/ IBC (02/18/2025 8:23 AM CDT) Iron 46 35 - 145 mcg/dl TIBC 348 250 - 400 mcg/dL [facility] Transferrin saturation 13(L) 20 - 50 % [facility] Blood 02/18/2025 8:23 AM CDT 02/18/2025 6:39 PM CDT Kristi Owens LATHE SET UP OPERATOR LAB BLOOD ORDERABLES Final Re sult [facility] Daniels [address] [employer] [place], [place] [id number] * (ABNORMAL) CBC with auto differential (02/18/2025 8:23 AM CDT) Pathologist [facility] WBC 5.39 3.80 - 9.90 K/cumm Hgb 11.1(L) 11.9 - 15.5 g/dL [facility] Hct 36.0 35.6 - 45.5 % [facility] Plt 196 150 - 400 K/cumm [facility] MPV 10.2 9.1 - 12.3 fL [facility] RBC 3.66(L) 3.90 - 5.20 M/cumm [facility] [...] CDT 02/18/2025 6:39 PM CDT Kristi Owens LATHE SET UP OPERATOR LAB BLOOD ORDERABLES Final Re sult [facility] [address] [place], [place] [id number] * Vitamin B12 (02/18/2025 8:23 AM CDT) Pathologist [facility] Vitamin B12 1,045 230 - 1,250 pg/mL Blood 02/18/2025 8:23 AM CDT 02/18/2025 6:39 PM CDT Kristi Owens LATHE SET UP OPERATOR LAB BLOOD ORDERABLES Final Re sult Performing Organization Address City/[facility]/ZIP Co de Phone Number [facility] RODRIGUEZ [address] [address] Department [place] [address] * eGFR (02/08/2025 2:38 PM CDT) eGFR [...] 2:38 PM CDT 02/08/2025 4:19 PM CDT us Cinthia Quinones LATHE SET UP OPERATOR LAB BLOOD ORDERABLES Final Result [facility] THACKER [facility] Department [place] [address] * Differential, auto (02/08/2025 2:38 PM CDT) Neutrophil abs 3.59 1.50 - 6.50 K/cumm Imm gran abs 0.02 0.00 - 0.10 K/cumm [facility] Lymphocyte abs 1.73 0.80 - 3.30 K/cumm [facility] Monocyte abs 0.59 0.20 - 0.80 K/cumm [facility] Eosinophil abs 0.12 0.00 - 0.50 K/cumm [facility] Basophil abs 0.04 0.00 - 0.10 K/cumm [facility] Neutrophil pct 58.9 % [facility] Comment: Interpretive Data Percent cell count reference ranges are not reported, since discordance with absolute values may lead to misinterpretation of CBC data. Current Interpretive Data was last revised on 2017. Imm gran pct 0.3 % [facility] Comment: Interpretive Data Percent cell count reference ranges are not reported, since discordance with absolute values may lead to misinterpretation of CBC data. Current Interpretive Data was last revised on 2017. Lymphocyte pct 28.4 % [facility] Comment: Interpretive Data Percent cell count reference ranges are not reported, since discordance with absolute values may lead to misinterpretation of CBC data. Current Interpretive Data was last revised on 2017. Monocyte pct 9.7 % [facility] Comment: Interpretive Data Percent cell count reference ranges are not reported, since discordance with absolute values may lead to misinterpretation of CBC data. Current Interpretive Data was last revised on 2017. Eosinophil pct 2.0 % [facility] Comment: Interpretive Data Percent cell count reference ranges are not reported, since discordance with absolute values may lead to misinterpretation of CBC data. Current Interpretive Data was last revised on 2017. Basophil pct 0.7 % [facility] Comment: Interpretive Data Percent cell count reference ranges are not reported, since discordance with absolute values may lead to misinterpretation of CBC data. Current Interpretive Data was last revised on 2017. Blood 02/08/2025 2:38 PM CDT 02/08/2025 4:09 PM CDT us Cinthia Quinones NP LAB BLOOD ORDERABLES Final Result [facility] MARY[facility]EL [facility] Department [place] [address] * (ABNORMAL) CBC with auto differential (02/08/2025 2:38 PM CDT) [facility] WBC 6.09 3.80 - 9.90 K/cumm Hgb 10.7(L) 11.9 - 15.5 g/dL [facility] Hct 32.0(L) 35.6 - 45.5 % [facility] Plt 199 150 - 400 K/cumm [facility] MPV 10.6 9.1 - 12.3 fL [facility] RBC 3.45(L) 3.90 - 5.20 M/cumm [facility] MCV 92.8 81.3 - 96.4 fL [facility] MCH 31.0 27.1 - 33.3 pg [facility] MCHC 33.4 32.3 - 35.7 g/dL [facility] RDW CV 14.6 11.1 - 14.9 % [facility] RDW SD 49.8(H) 35.7 - 48.1 fL [facility] NRBC abs 0.00 0.00 - 0.01 K/cumm [facility] Blood 02/08/2025 2:38 PM CDT 02/08/2025 4:09 PM CDT us Cinthia Quinones LATHE SET UP OPERATOR LAB BLOOD ORDERABLES Final Result [facility] [address] [facility] Department [place] [address] * Comprehensive metabolic panel (02/08/2025 2:38 PM CDT) [facility] Sodium 140 135 - 145 mmol/L Potassium, pl 4.7 3.3 - 4.9 mmol/L [facility] Chloride 102 97 - 110 mmol/L [facility] CO2 28 22 - 32 mmol/L [facility] Anion gap 10 2 - 15 mmol/L [facility] BUN 9 6 - 25 mg/dL [facility] Creatinine 0.84 0.60 - 1.10 mg/dL [facility] Glucose 99 70 - 199 mg/dL [facility] Comment: Interpretive Data Fasting glucose >/= 126 [...] Calcium 9.9 8.5 - 10.3 mg/dL [facility] Bilirubin, total 0.9 0.1 - 1.2 mg/dL [facility] Protein, pl 6.8 6.5 - 8.5 g/dL [facility] Albumin 4.0 3.5 - 5.0 g/dL [facility]ER [facility] Alk phos 80 40 - 130 Units/L [facility] ALT 18 7 - 45 Units/L [facility] AST 30 10 - 45 Units/L [facility] Blood 02/08/2025 2:38 PM CDT 02/08/2025 4:09 PM CDT Cinthia Quinones LATHE SET UP OPERATOR LAB BLOOD ORDERABLES Final Result [facility] [address] [facility] Department [place] [address] * XR Knee Right 3 Views (01/05/2025 3:45 PM CDT) Anatomical Region Laterality Modality Lower Extremities, Knee Right Radiogra phic Imaging Historical Provider IMG XR PROCEDURES Final R esult * Electrocardiogram Report (12/29/2024 12:18 PM CDT) Thomas Venegas MD ECG ORDERABLES Final Res ult * Imaging Lumbar/Caudal Epidural Steroid INJ ([id number]) (12/24/2024 9:56 AM CDT) Narrative [facility] - 12/24/2024 9:56 AM CDT The images from this study are not interpreted by Radiology. Please refer to the physician's procedure / OR operative note. Gutierrez Lucio NP IMG PAIN MGMT PROCEDURES F inal Result [facility] * CT Lung Cancer Screening (09/03/2024 3:23 PM DIGITAL MEDIA PLANNER) Anatomical Region Laterality Modality Chest N/A Computed Tomogra phy Quentin Lorenzana NP IMG CT PROCEDURES Final Result * Dexa Axial and Forearm Bone Density Scan (05/29/2024 8:27 AM CDT) Anatomical Region Laterality Modality Wrist, Body N/A Radiographic Ana ging Narrative 05/29/2024 8:47 AM CDT Patient Name: Huy Maynard Date of : 1950 Date of scan: 05/29/2024 Bone mineral density was performed on a Balaya Discovery Densitometer. Based on machine cross-calibration and [...] by the International Society of Clinical Densitometry. [id number] Rosario Pham DO IMG DXA PROCEDURES Erika [...] GENERAL ORDER LORIE Final Result [facility] Department [place] [address] * Colonoscopy (10/22/2022) Anatomical Region Laterality Modality Other Historical Provider ENDOSCOPY PROCEDURES Erika l Result from Last 3 Months or Most Recently Relevant to Health Maintenance Insurance MEDICARE [employer] MEDICARE [facility] MEDICARE FOR LIFE MEDICARE FOR LIFE Advance Directives For more information, please contact: [phone] * Full Code (Latest Code Status on File) Date Activated Date Inactivated Comments 10/26/2020 1:23 PM 10/31/2020 9:35 PM Care Teams Pattern Setter Relationship Specialty Start Date End Date Leslie Torres NP [address] [place] [address] PCP - General Family Medicine 08/14/23 Rosario Pham DO [address] [facility] [address] [place] [address] Consulting Physician Endocrinology Diabetes & Metabolism 08/22/22 Tu Fritz MD [address] [facility] [address] [place] [address] Consulting Physician Internal Medicine 03/28/23 Cinthia Quinones NP [address] [facility] [address] [place] [address] Nurse Practitioner Rheumatology 03/28/23 Thomas Venegas MD [address] [place], [place] [id number] Consulting Physician Cardiology 03/28/23 Trevon Sheth MD [address] [place] [address] Surgeon Cardiothoracic Surgery 03/28/23 London Hall MD [address] [place] [address] Referring Physician Gastroenterology 03/28/23 Sylvia Johnson MD [address] [place] [address] Consulting Physician Critical Care Med 03/28/23 Bobby Bui DO [address] [place] [address] Internal Medicine 03/28/23 Sahara Freedman OD [address] [place] [address] Optometry 03/28/23 Dominique Pedro PA [address] [place] [address] Allergy and Immunology 03/28/23 [place] [address] [address] Nurse Practitioner Nurse Practitioner 01/05/25 [place] [address] [address] Consulting Physician Pain Management 01/05/25
--- OUTSIDE RECORDS SUMMARY | 2025-03-03 00:25 | XMS_ITS | Clinical Summary ---
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
--- OUTSIDE RECORDS SUMMARY | 2025-03-03 00:25 | XMS_ITS | Clinical Summary ---
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 ([facility]) 01/14/2018 ASCUS with positive high risk HPV [...] 07/21/2015 Pain in shoulder 08/18/2013 Crohn's disease ([facility]) 11/03/2012 Osteopenia 11/03/2012 Metabolic syndrome 2010 Asymptomatic varicose veins of lower extremity 0 08/29/2010 Chronic rhinitis 06/26/2010 Edema 06/26/2010 Astigmatism 02/02/2010 Rheumatoid arthritis ([facility]) 8 Overview (05/25/2019): Overview: Overview: Rheum doctor [...] mention of probable neuroma in referral to awning hanger supervisor for custom insoles (her has done well with these, she is willing to pay out of pocket). Between NSAIDS and conservative therapy, will try to see if improves. Her exercise includes non-impact in the pool and such. Overview: Overview: Pain between 3rd and 4th metatarsal heads. Could be a neuroma. Will defer further w/u, however made mention of probable neuroma in referral to awning hanger supervisor for custom insoles (her has done well with these, she is willing to pay out of pocket). Between NSAIDS and conservative therapy, will try to see if improves. Her exercise includes non-impact in the pool and such. Pain between 3rd and 4th metatarsal heads. Could be a neuroma. Will defer further w/u, however made mention of probable neuroma in referral to awning hanger supervisor for custom insoles (her has done well with these, she is willing to pay out of pocket). Between NSAIDS and conservative therapy, will try to see if improves. Her exercise includes non-impact in the pool and such. Overview: Overview: Pain between 3rd and 4th metatarsal heads. Could be a neuroma. Will defer further w/u, however made mention of probable neuroma in referral to awning hanger supervisor for custom insoles (her has done well with these, she is willing to pay out of pocket). Between NSAIDS and conservative therapy, will try to see if improves. Her exercise includes non-impact in the pool and such. Pain between 3rd and 4th metatarsal heads. Could be a neuroma. Will defer further w/u, however made mention of probable neuroma in referral to awning hanger supervisor for custom insoles (her has done well [...] getting worse. History somewhat consistent with OA. Chip Machine Operator not think has RA. Will get XRays [...] getting worse. History somewhat consistent with OA. Chip Machine Operator not think has RA. Will get XRays [...] getting worse. History somewhat consistent with OA. Chip Machine Operator not think has RA. Will get XRays [...] patient's age to complete this topic [place] [address] MEDICARE Care Teams Heater Tender Relationship Specialty Start Date End Date Beth Espino DO [address] [place] [address] PCP - General INTERNAL MEDICINE 05/17/20
--- OUTSIDE RECORDS SUMMARY | 2025-03-03 00:25 | XMS_ITS | Clinical Summary ---
Author Organization [facility] Address [address] [place] [address] Care Team Providers Care Pump Installer Name Role Phone Robert Dial MD Primary Care Provider [phone] Source Comments [facility],non-owned Affiliates and Associated Physician Practices is amultiple site organization consisting of ambulatory clinics and hospital sitesin [place], [place], [place] and [place]. This disclosure is being madepursuant to the Care Everywhere program and may not contain all information available regarding this patient. Last updated 18.[facility] Allergies Active Allergy Reactions Criticality Noted Date [...] getting worse. History somewhat consistent with OA. Butter Printer not think has RA. 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
--- OUTSIDE RECORDS SUMMARY | 2025-03-03 00:25 | XMS_ITS | Encounter Summary ---
Author Organization [facility] Address [address] [place] [address] Care Team Providers Care Hat Brim And Crown Laminating Operator Name Role Phone Rosario Pham DO Unavailable [phone] Tu Fritz MD Unavailable Cinthia Quinones NP Unavailable Thomas Venegas MD Unavailable Trevon Sheth MD Unavailable [phone] London Hall MD Unavailable + Sylvia Johnson MD Unavailable [phone] Bobby Bui DO Unavailable [phone] Sahara Freedman OD Unavailable [phone] Dominique Pedro Unavailable [phone] Leslie Torres NP Primary Care Provider [phone] Gutierrez Lucio NP Unavailable [phone] Abdirahman Mcclendon MD Unavailable Encounter Details Date Type Department Care Team (Late st Contact Info) Description 02/19/2025 Results Follow-Up [facility] Primary Care at [address] [address] Kanchan Lopez NP [address] [place] [address] CBC with auto differential, Iron profile w/ IBC, Vitamin B12, Differential, auto Social History Tobacco Use Types Packs/Day Years [...] on file Legal Sex Female 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 Gender Identity Female 05/01/2021 8:51 AM CDT Sexual Orientation Straight 02/24/2020 1: 08 PM CDT documented as of this encounter Plan of Treatment Not on file documented as of this encounter Visit Diagnoses Not on filedocumented in this encounter Care Teams Hat Brim And Crown Laminating Operator Relationship Specialty Start Date End Date Leslie Torres NP [address] [place] [address] PCP - General Family Medicine 08/14/23 Rosario Pham DO [address] [facility] [address] [place] [address] Consulting Physician Endocrinology Diabetes & Metabolism 08/22/22 Tu Fritz MD [address] [facility] [address] [place], [place] [id number] Consulting Physician Internal Medicine 03/28/23 Cinthia Quinones, RUTH ANN [address] [facility] [address] [place] [address] Nurse Practitioner Rheumatology 03/28/23 Thomas Venegas MD [address] [facility] [address], [facility] [address] [place] [address] Consulting Physician Cardiology 03/28/23 Trevon Sheth MD [address] [facility] [address], [facility] [address] [place] [address] Surgeon Cardiothoracic Surgery 03/28/23 London Hall MD [address] [place] [address] Referring Physician Gastroenterology 03/28/23 Sylvia Johnson MD [address] [place], [place] [id number] Consulting Physician Critical Care Med 03/28/23 Bobby Bui DO [address] [place] [address] Internal Medicine 03/28/23 Sahara Freedman OD [address] [place] [address] Optometry 03/28/23 Dominique Pedro PA [address] [place] [address] Allergy and Immunology 03/28/23 [place] [address] [facility] [address] [place] [address] Nurse Practitioner Nurse Practitioner 01/05/25 [place] [address] [facility] [address] [address] Consulting Physician Pain Management 01/05/25 documented as of this encounter
--- OUTSIDE RECORDS SUMMARY | 2025-03-03 00:25 | XMS_ITS | Encounter Summary ---
Author Organization [facility] Address [address] [place] [address] Phone Care Team Providers Care Airway Traffic Controller Name Role Phone VeroRosario Sheila DO Unavailable Leslie Torres NP Primary Care Provider [phone] Tu Fritz MD Unavailable Cinthia Quinones NP Unavailable [phone] Thomas Venegas MD Unavailable Trevon Sheth MD Unavailable [phone] London Hall MD Unavailable + Sylvia Johnson MD Unavailable [phone] Bobby Bui DO Unavailable [phone] Sahara Freedman OD Unavailable Dominique Pedro Unavailable [phone] Cinthia Quinones NP Primary Care Provider [phone] Leslie Torres NP Primary Care Provider [phone] Gutierrez Lucio NP Unavailable [phone] Abdirahman Mcclendon MD Unavailable Encounter Details Date [...] on file Legal Sex Female 2:13 AM GLUE MAKER BONE Gender Identity Female 05/01/2021 8:51 AM CDT [...] documented as of this encounter Care Teams Airway Traffic Controller Relationship Specialty Start Date End Date Leslie Torres NP [address] [place] [address] PCP - General Family Medicine 03/28/23 06/30/23 Cinthia Quinones NP [address] [facility] [address] [place] [address] PCP - General Rheumatology 07/01/23 08/13/23 Leslie Torres NP [address] [place] [address] PCP - General Family Medicine 08/14/23 Rosario Pham DO [address] [facility] [address] [place] [address] Consulting Physician Endocrinology Diabetes & Metabolism 08/22/22 Tu Fritz MD [address] [facility] [address] [place] [address] Consulting Physician Internal Medicine 03/28/23 Cinthia Quinones NP [address] [facility] [address] [place] [address] Nurse Practitioner Rheumatology 03/28/23 Thomas Venegas MD [address] [place], [place] [address] Consulting Physician Cardiology 03/28/23 Trevon Sheth MD [address] [place] [address] Surgeon Cardiothoracic Surgery 03/28/23 London Hall MD [address] [place] [address] Referring Physician Gastroenterology 03/28/23 Sylvia Johnson MD [address] [place], [place] [address] Consulting Physician Critical Care Med 03/28/23 Bobby Bui DO [address] [place] [address] Internal Medicine 03/28/23 Sahara Freedman OD [address] [place] [address] Optometry 03/28/23 Dominique Pedro PA [address] [place] [address] Allergy and Immunology 03/28/23 [place] [address] [id number] Nurse Practitioner Nurse Practitioner 01/05/25 [place] [address] [facility] [facility] [address] [address] Consulting Physician Pain Management 01/05/25 documented as of this encounter
[2025-03-03] MEDS: ACETAMINOPHEN 500 MG TABLET 1000 MG PO (06:50)
[2025-03-03] MEDS: TRANEXAMIC ACID 1,000MG/ISO100 1,000 MG/100 ML BAG 200 MG IVPB (06:50)
[2025-03-03] MEDS: LACTATED RINGERS 1,000 ML 30 ML IV CONT ×2 (06:50→10:19)
--- NOTE | 2025-03-03 07:14 | P.PNAN_ITS ---
Anes - Initial Pre Proc Eval Procedure: Operation Date: 03/03/25 07:30 Proposed Procedures p Right Total Knee Arthroplasty - Derik Gudino MD Date/Time: 03/03/25 07:14 Surgeon: Derik Gudino MD Pre Op Diagnosis: right knee DJD Patient Data Age: 74 Gender: F Height: 1.73 m Weight: 116.2 kg Last Vital Signs Temp 98.4 F 03/03/25 06:50 Pulse 69 03/03/25 06:50 Resp 16 03/03/25 06:50 BP 162/67 H 03/03/25 06:50 Pulse Ox 100 03/03/25 06:50 O2 Del Method Room Air 03/03/25 06:50 Allergies Allergy/AdvReac Type Severity Reaction Status Date / Time Penicillins Allergy Unknown Unknown Verified 03/03/25 07:13 adhesive tape AdvReac Severe BRUISING Verified 03/03/25 07:13 WITH CLEAR TAPE Home Medications ?Medication ?Instructions ?Recorded ?Confirmed ?Type aspirin 81 mg chewable tablet 81 mg PO DAILY 08/03/19 02/25/25 History hydroxychloroquine 200 mg tablet 200 mg PO BID 08/03/19 02/25/25 History infliximab 100 mg intravenous 100 mg IV USEASDIRECTD 08/03/19 02/25/25 History solution (Remicade) pantoprazole 40 mg tablet,delayed 40 mg PO QAM 08/03/19 02/25/25 History release (Protonix) lactobacillus combination no.8 3 3,000 mmu cells PO DAILY 03/10/20 02/25/25 History billion cell capsule (Adult Probiotic) calcium carbonate 1,000 mg tablet 1,000 mg PO DAILY 01/03/21 02/25/25 History diclofenac sodium 1 % topical gel 4 g topical PRN PRN Pain 01/03/21 02/25/25 History (Voltaren Arthritis Pain) cholecalciferol (vitamin D3) 50 125 mcg PO DAILY 06/14/22 02/25/25 History mcg (2,000 unit) tablet magnesium 500 mg tablet 250 mg PO DAILY 06/14/22 02/25/25 History omega-3 fatty acids 1 cap PO DAILY 06/14/22 02/25/25 History hydrochlorothiazide 12.5 mg capsule 12.5 mg PO DAILY 05/20/23 02/25/25 History azathioprine 50 mg tablet 50 mg PO BID 08/22/23 02/25/25 History metoprolol tartrate 25 mg tablet 25 mg PO Q12HR #60 tabs 01/23/24 03/03/25 Rx nifedipine 30 mg tablet,extended 30 mg PO QAM #30 tabs 01/23/24 03/03/25 Rx release 24 hr (Procardia XL) semaglutide (weight loss) 2.5 mg subcut WEEKLY 10/21/24 03/03/25 History fish oil-dha-epa 1 cap PO 12/30/24 02/25/25 History montelukast 10 mg tablet 10 mg PO HS 12/30/24 02/25/25 History pregabalin 75 mg capsule (Lyrica) 75 mg PO BID 12/30/24 02/25/25 History atorvastatin 40 mg tablet 40 mg PO HS 02/17/25 02/25/25 History cyanocobalamin (vitamin B-12) 1,000 mcg PO DAILY 02/17/25 02/25/25 History 1,000 mcg capsule ferrous sulfate 325 mg (65 mg 325 mg PO DAILY 02/17/25 02/25/25 History iron) tablet (Feosol) fluticasone propionate 230 2 puff inhalation DAILY 02/17/25 02/25/25 History mcg-salmeterol 21 mcg/actuation HFA inhaler (Advair HFA) ibuprofen 200 mg tablet (Advil) 600 mg PO PRN PRN pain 02/17/25 02/25/25 History olopatadine 0.2 % eye drops 1 drp EACH EYE DAILY 02/17/25 02/25/25 History (Pataday Once Daily Relief) oxycodone-acetaminophen 5 mg-325 1 tablet PO PRN PRN PAIN 02/17/25 02/25/25 History mg tablet chlorhexidine gluconate 4 % 1 applic topical ONCE #237 mL 02/24/25 02/25/25 Rx topical liquid (Hibiclens) Patient hx anesthesia problems: none Family hx anesthesia problems: none Results Review: All pre-operative results and documents have been reviewed as part of the pre- operative evaluation. [facility] Past Medical History Medical History GERD (gastroesophageal reflux disease) Normocytic anemia Pain due to knee joint prosthesis Effusion, left knee Right knee DJD Right knee pain Chronic hip pain after total replacement of right hip joint Former smoker Obesity Degenerative joint disease of left hip Osteoporosis Aortic stenosis s/p valve replacement 2020 Sleep apnea Wears glasses Fatty liver Rheumatoid arthritis Crohn's ileocolitis Surgical History Surgical History H/O aortic valve repair History of right hip replacement Family History Family History Father Cerebrovascular accident Sibling Cerebrovascular accident Accelerated phase chronic myeloid leukemia Father Acute myocardial infarction Social History Social History Social History: 30 pack years Smoking packs per day: 1 Smoking cigarettes per day: 20.0 Years smoked: 30 Smoking pack-years: 30.00 Smoking status: Former smoker Tobacco type: cigarettes Smoking end date: 08/12/09 Additional smoking assessment comments: DENIES ANY FORM OF TOBACCO USE Alcohol intake: never Substance use: never Substance use type: does not use Do You Feel Safe in your Home?: Yes Lack of Transportation: No Lack of Food: Never True Current Housing: I Have Housing Concerned About Future Housing: No Difficulty Paying Gas/Electric Bills: No Difficulty Paying for Meds: No Currently Unemployed: No Education: Associate Degree Difficulty w/ Childcare or Family Care: No Living arrangements: alone Spiritual care concerns: No Anes - Eval Final PreProcedure Day of Procedure 03/03/25 07:14 Patient weight: obese Lungs: normal air movement Airway: Mallampati scale class II and special considerations (Upper crowns. ) Neurological: alert and oriented Last oral intake: >/= 8 hours ASA classification: III Emergent: no Anesthetic plan: proceed Anesthesia type and monitoring: general ETT and standard monitoring Results Review: All pre-operative results and documents have been reviewed as part of the pre- operative evaluation. Hyperlipidemia, HTN. LAURA on CPAP, s/p AVR approx 2021 w good results, ECHO 2023 reviewed. LVEF 60%, AV without stenosis or regurg. Ex smoker, quit 2014. Informed Consent: The patient's anesthetic plan and its attendant risks and benefits were discussed with the patient/family/POA. Questions were solicited and answers provided to the satisfaction of the patient/family/POA.
--- NOTE | 2025-03-03 07:25 | WPDANESPNB ---
Anes - Peripheral Nerve Block Date/Time: 03/03/25 07:25 I have discussed with the patient/family/POA the placement of a peripheral nerve block for post-operative pain management, including associated risks, benefits, complications, and side effects. Alternative methods of post-operative analgesia were detailed. Questions were solicited and answers provided to the satisfaction of the patient/family/POA. Time-Out: A pre-procedural Time-Out was completed immediately before starting the procedure and confirmed: Patient Identification, Site, Procedure, Patient Position and the Availability of Requisite Equipment. Clinical Indications: Acute post-operative pain management requested by the operative surgeon. Nerve Block Insertion Note Anes-nerve block: adductor canal right Patient position: supine Skin prep: chlorhexidine Needle: 22 gauge, stimulating, insulated echogenic needle. Needle length: 80 mm Technique: ultrasound Injectate: other (Bupiv 0.5% 15 mls. ) Observations: tolerated well Complications: none Procedure start time:: 729 Procedure end time::
--- NOTE | 2025-03-03 07:26 | WPDHPUPDATE1 ---
History and Physical Update Update Date/Time: 03/03/25 07:26 History and Physical has been reviewed, including an updated exam of the patient. There are NO changes in the patient's condition. Risks, benefits, and alternatives have been discussed and questions answered. Patient agrees to proceed with procedure.
[2025-03-03] MEDS: SODIUM CHLORIDE 0.9% IV 37.7 ML, MORPHINE SULFATE INJ (*CRX) 2 MG, ROPivacaine HCL 1% 2... INFILTRATE (07:47)
[2025-03-03] MEDS: ceFAZolin 2 GM in SODIUM CHLORIDE 0.9% IV 50 ML 100 ML IVPB (08:00)
[2025-03-03] MEDS: TRANEXAMIC ACID 1,000 MG/10 ML AMPUL 1000 MG IV PUSH (09:35)
--- NOTE | 2025-03-03 10:32 | P.OP_ITS ---
Procedure Note - Detailed Date of Procedure 03/03/25 Pre-op Diagnosis right knee DJD Post-op Diagnosis Same Procedure Performed R TKA Surgeon Derik Gudino MD Anesthesia General Description of Procedure THE RIGHT KNEE WAS PREPPED AND DRAPED IN THE STERILE FASHION. THERE WAS A 10 DEGREE FLEXION CONTRACTURE. A MIDLINE SKIN INCISION WAS MADE. THERE WAS A LARGE SUBCUTANEOUS PANUS. A MEDIAL PARAPATELLAR ARTHROTOMY WAS MADE. THE PATELLA WAS EVERTED. THERE WAS TRICOMPARTMENT DJD. AN INTRAMEDULLARY REANNA WAS PL ACED IN THE FEMUR. A DISTAL FEMORAL CUT WAS MADE IN 5 DEGREES OF VALGUS REMOVING APPROXIMATELY 9 MM OF BONE FROM THE DISTAL FEMUR. THE FEMUR WAS SIZED TO 67.5. A 67.5 FEMORAL CUTTING BLOCK WAS PLACED IN 3 DEGREES OF EXTERNAL ROTATION AND IN ALIGNMENT WITH MARIEL'S LINE AND THE TRANSEPICONDYLAR AXIS. ANTERIOR POSTERIOR AND CHAMFER CUTS WERE MADE. THE CUTS WERE EXCELLENT. NEXT AN INTRAMEDULLARY CUTTING GUIDE WAS PLACED IN THE TIBIA. A TRANS TIBIAL CUT WAS MADE ALONG THE LONG AXIS OF THE TIBIA. APPROXIMATELY 10 MM OF BONE WAS REMOVED FROM THE HIGH SIDE OF THE TIBIA. THE TIBIA WAS THEN PLANED TO A SMOOTH SURFACE. POSTERIOR FEMORAL OSTEOPHYTES WERE REMOVED FROM THE FEMORAL CONDYLES. A 75 TIBIAL TRIAL WAS PLACED IN ALIGNMENT WITH THE 1/3 MEDIAL ASPECT OF THE TIBIAL TUBERCLE. THEN A 67.5 FEMORAL TRIAL COMPONENT WAS PLACED. BOTH HAD EXCELLENT FITS. EVENTUALLY A 10 MM CR POLYETHYLENE TRIAL COMPONENT WAS PLACED. THE KNEE WAS TAKEN THROUGH A RANGE OF MOTION. THE KNEE CAME OUT TO FULL EXTENSION. THERE WAS NO ABNORMAL TILT TO THE PATELLA. THERE WAS GOOD A/P AND VARUS/VALGUS STABILITY. THERE WAS NO EXCESSIVE ROLL BACK WITH FLEXION. THE TRIAL COMPONENTS WERE REMOVED. THEN A 67.5 FEMORAL COMPONENT AND 75 TIBIAL COMPONENT WITH A 10 CR POLYETHYLENE COMPONENT WERE CEMENTED INTO PLACE. ONCE THE CEMENT WAS HARD THE KNEE WAS TAKEN THROUGH A ROM AGAIN AND FOUND TO BE STABLE WITH NO PATELLA TILT NO EXCESSIVE ROLL BACK WITH FLEXION AND GOOD STABILITY WITH COMPLETE AND FULL EXTENSION. THE KNEE WAS IRRIGATED WITH STERILE BETADINE AND WATER FOR ABOUT 3 MINUTES. THE BLEEDERS WERE CAUTERIZED. THE ARTHROTOMY WAS REPAIRED WITH NUMBER 1 VICRYL. THE SUB CUTANEOUS LAYER WITH 2-0 VICRYL AND THE SKIN WITH TONY. THE WOUND WAS WASHED AND A STERILE PREVENA DRESSING WAS APPLIED. PATIENT WAS EXTUBATED. Estimated Blood Loss -150.0 Pathology None sent Complications No immediate complications Condition Stable Disposition PACU
[2025-03-03] MEDS: fentaNYL CITRATE INJ (*CRX) 100 MCG/2 ML VIAL 25 MCG IV PUSH ×2 (10:59→11:07)
[2025-03-03] MEDS: PREGABALIN (*CRX) 75 MG CAPSULE PO ×2 (12:53→21:15)
[2025-03-03] MEDS: SENNA/DOCUSATE SODIUM TABLET 2 TAB PO ×2 (12:53→17:22)
[2025-03-03] MEDS: FAMOTIDINE 20 MG TABLET PO ×2 (12:53→21:15)
[2025-03-03] MEDS: CELECOXIB 200 MG CAPSULE PO ×2 (12:54→17:22)
[2025-03-03] MEDS: MAGNESIUM OXIDE 400 MG TABLET PO (12:54)
[2025-03-03] MEDS: FERROUS SULFATE 325 MG TABLET DR BY MOUTH (12:54)
[2025-03-03] MEDS: METOPROLOL TARTRATE 25 MG TABLET PO ×2 (12:54→21:15)
[2025-03-03] MEDS: ceFAZolin 2 GM/D5W 50 ML 2 GM/50 ML BAG IVPB ×2 (17:22→23:15)
[2025-03-03] MEDS: RIVAROXABAN 10 MG TABLET PO (17:22)
[2025-03-03] MEDS: ATORVASTATIN 40 MG TABLET PO (21:15)
[2025-03-03] MEDS: HYDROcodone/acetaminophen (*CRX) 10-325 MG TABLET 1 TAB PO (21:15)
[2025-03-03] MEDS: oxyCODONE/ACETAMINOPHEN (*CRX) 5-325 MG TABLET 1 TABLET PO (23:14)
[2025-03-04] MEDS: HYDROmorphone HCL INJ (*CRX) 2 MG/ML VIAL 1 MG IV PUSH (00:16)
[2025-03-04 01:05] VITALS: BP 122/59; PULSE 66; RESP 16; TEMP 36.6; O2SAT 99
[2025-03-04 03:03] VITALS: RESP 19
[2025-03-04 05:05] VITALS: BP 125/56; PULSE 70; RESP 18; TEMP 36.5; O2SAT 99
[2025-03-04 06:13] LABS: Hematocrit 29.5 % (37.0-47.0); Hemoglobin 9.7 g/dL (12.0-15.0); Immature Granulocyte Percent A 0.4 % (0-0.5); Immature Platelet Fraction Pct 4.6 % (0.9-11.2); Lymphocytes Absolute Auto 0.93 K/mm3 (0.9-3.2); Mean Corpuscular HGB Conc 32.9 g/dl (32-36); Mean Corpuscular Hemoglobin 31.4 pg (26-34); Mean Corpuscular Volume 95.5 fl (80-100); Nucleated Red Blood Cells Absolute Auto 0.000 K/mm3 (0.0-0.012); Nucleated Red Blood Cells Perc 0.0 % (0.0-0.2); Platelet Count Result 142 k/mm3 (150-375); Red Blood Count 3.09 M/mm3 (4.2-5.4); White Blood Count 8.5 K/mm3 (4.5-10.0)
[2025-03-04] MEDS: HYDROcodone/acetaminophen (*CRX) 10-325 MG TABLET 1 TAB PO ×3 (06:17→16:03)
[2025-03-04 06:38] LABS: Anion Gap 5 mmol/L (4-12); Blood Urea Nitrogen 14 mg/dL (7-17); Calcium 8.5 mg/dL (8.4-10.2); Carbon Dioxide 27 mmol/L (22-30); Chloride 96 mmol/L (98-107); Estimated CRCL calculation 60 ml/min; Estimated Glomerular Filt Rate 57; Glucose 137 mg/dL (65-110); Sodium 128 mmol/L (137-145)
[2025-03-04 06:46] LABS: Potassium 4.5 mmol/L (3.4-5.0)
[2025-03-04 09:05] VITALS: BP 112/82; PULSE 70; RESP 18; TEMP 36.1; O2SAT 100
[2025-03-04] MEDS: SENNA/DOCUSATE SODIUM TABLET 2 TAB PO ×2 (09:45→16:53)
[2025-03-04] MEDS: CELECOXIB 200 MG CAPSULE PO ×2 (09:45→16:54)
[2025-03-04] MEDS: FAMOTIDINE 20 MG TABLET PO (09:45)
[2025-03-04 09:46] VITALS: PULSE 76
[2025-03-04] MEDS: MAGNESIUM OXIDE 400 MG TABLET PO (09:46)
[2025-03-04] MEDS: FERROUS SULFATE 325 MG TABLET DR BY MOUTH (09:46)
[2025-03-04] MEDS: METOPROLOL TARTRATE 25 MG TABLET PO (09:46)
[2025-03-04] MEDS: PREGABALIN (*CRX) 75 MG CAPSULE PO (09:46)
[2025-03-04] MEDS: ceFAZolin 2 GM/D5W 50 ML 2 GM/50 ML BAG IVPB (09:47)
[2025-03-04 13:05] VITALS: BP 112/82; PULSE 51; RESP 18; TEMP 35.8; O2SAT 95
[2025-03-04] MEDS: RIVAROXABAN 10 MG TABLET PO (16:54)
--- NOTE | 2025-03-04 16:57 | P.PNOP_ITS ---
Progress Note: A&P Assessment and Plan (1) Right knee DJD: Code(s): M17.11 - Unilateral primary osteoarthritis, right knee Status: Acute Assessment and Plan: POD 1 DOING WELL. OK TO DC HOME F/U IN 3 WEEKS. Subjective Subjective Date/Time Seen: 03/04/25 16:57 Interval history: POD 1 DOING WELL. 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 NV INTACT NEG HOMANS SIGN CALF AND THIGH SOFT NON TENDER Objective Data Vital Signs Vital Signs: Vital Signs - 24 hr 03/03/25 17:05 03/03/25 21:05 03/03/25 21:15 Temperature 36.3 C L 36.4 C Pulse Rate 69 108 H 72 Respiratory Rate 18 18 Blood Pressure 147/71 H 125/55 L Pulse Oximetry 98 100 Oxygen Delivery 03/03/25 22:16 03/04/25 01:05 03/04/25 03:03 Temperature 36.6 C Pulse Rate 68 66 Respiratory Rate 23 H 16 19 Blood Pressure 122/59 L Pulse Oximetry 99 99 Oxygen Delivery CPAP CPAP 03/04/25 05:05 03/04/25 09:05 03/04/25 09:46 Temperature 36.5 C 36.1 C L Pulse Rate 70 70 76 Respiratory Rate 18 18 Blood Pressure 125/56 L 112/82 Pulse Oximetry 99 100 Oxygen Delivery 03/04/25 13:05 Temperature 35.8 C L Pulse Rate 51 L Respiratory Rate 18 Blood Pressure 112/82 Pulse Oximetry 95 Oxygen Delivery Intake/Output Intake/Output: Intake & Output 03/01/25 03/02/25 03/03/25 03/04/25 23:59 23:59 23:59 23:59 Intake Total 1480 690 Output Total 0 Balance 1480 690 Meds/Results Medications: Active Medications Generic Name Dose Route Start Last Admin Trade Name Freq PRN Reason Stop Dose Admin Acetaminophen 500 mg 03/03/25 11:20 Acetaminophen 500 Mg Tablet PO Q6H PRN Pain Rated 1-3 Hydrocodone Bitart/Acetaminophen 1 tab 03/03/25 11:20 03/04/25 16:03 Hydrocodone/Acetaminophen (*Crx) 10-325 Mg Tablet PO 1 tab Q4H PRN Administration Pain Rated 7-10 Atorvastatin Calcium 40 mg 03/03/25 21:00 03/03/25 21:15 Atorvastatin 40 Mg Tablet PO 40 mg HS ISAEL Administration Azathioprine 100 mg 03/03/25 12:30 03/04/25 09:46 Azathioprine 50 Mg Tablet PO 100 mg DAILY ISAEL Administration Azathioprine 50 mg 03/03/25 21:00 03/03/25 21:15 Azathioprine 50 Mg Tablet PO 50 mg HS ISAEL Administration Celecoxib 200 mg 03/03/25 11:20 03/04/25 09:45 Celecoxib 200 Mg Capsule PO 200 mg BIDWM ISAEL Administration Diazepam 5 mg 03/03/25 11:20 Diazepam (*Crx) 5 Mg Tablet PO Q8H PRN Spasms Diphenhydramine HCl 25 mg 03/03/25 11:20 Diphenhydramine Hcl Inj 50 Mg/Ml Vial IV PUSH Q6H PRN Itching Famotidine 20 mg 03/03/25 11:20 03/04/25 09:45 Famotidine 20 Mg Tablet PO 20 mg Q12HR ISAEL Administration Ferrous Sulfate 325 mg 03/03/25 11:40 03/04/25 09:46 Ferrous Sulfate [address] BY MOUTH 325 mg DAILY [facility] Administration Hydromorphone HCl 1 mg 03/04/25 00:12 03/04/25 00:16 Hydromorphone Hcl Inj (*Crx) 2 Mg/Ml Vial IV PUSH 1 mg Q2H PRN Administration Breakthrough Pain Rated 7-10 or NPO Hydromorphone HCl 0.5 mg 03/04/25 00:13 Hydromorphone Hcl Inj (*Crx) 2 Mg/Ml Vial IV PUSH Q2H PRN Breakthrough Pain Rated 4-6 or NPO Ibuprofen 800 mg in 200 mls @ 400 mls/hr 03/03/25 11:20 Caldolor 800 Mg/200 Ml IVPB Q6H PRN Breakthrough Pain Rated 1-3 or NPO Magnesium Oxide 400 mg 03/03/25 11:40 03/04/25 09:46 Magnesium Oxide 400 Mg Tablet PO 400 mg DAILY [facility] Administration Metoprolol Tartrate 25 mg 03/03/25 11:20 03/04/25 09:46 Metoprolol Tartrate 25 Mg Tablet PO 25 mg Q12HR ISAEL Administration Naloxone HCl 0.1 mg 03/03/25 11:20 Naloxone Hcl 0.4 Mg/Ml Vial IV PUSH Q2M PRN Opiate Reversal Nifedipine 30 mg 03/03/25 11:20 03/04/25 09:46 Nifedipine 30 Mg Tab.Er.24 PO 30 mg QAM ISAEL Administration Ondansetron HCl 4 mg 03/03/25 11:20 Ondansetron Inj 4 Mg/2 Ml Vial IV PUSH Q4H PRN Nausea And Vomiting Oxycodone/Acetaminophen 1 tablet 03/03/25 11:20 03/03/25 23:14 Oxycodone/Acetaminophen (*Crx) 5-325 Mg Tablet PO 1 tablet Q4H PRN Administration Pain Rated 4-6 Polyethylene Glycol 17 gm 03/03/25 11:20 03/04/25 09:45 Polyethylene Glycol 3350 17 Gm Powd.Pack PO 17 gm QAM ISAEL Administration Pregabalin 75 mg 03/03/25 11:20 03/04/25 09:46 Pregabalin (*Crx) 75 Mg Capsule PO 75 mg Q12HR ISAEL Administration Rivaroxaban 10 mg 03/03/25 17:00 03/03/25 17:22 Rivaroxaban 10 Mg Tablet PO 03/14/25 17:01 10 mg DAILY@1700 ISAEL Administration Senna/Docusate Sodium 2 tab 03/03/25 11:20 03/04/25 09:45 Senna/Docusate Sodium Tablet PO 2 tab BID ISAEL Administration Radiology Results: ITS Impressions Knee X-Ray 03/03/25 10:58 IMPRESSION: 1. Recent right total knee arthroplasty. Labs Labs: Laboratory Results - last 24 hr 03/04/25 05:58 WBC 8.5 RBC 3.09 L Hgb 9.7 L Hct 29.5 L MCV 95.5 MCH 31.4 MCHC 32.9 RDW 15.3 H Plt Count 142 L MPV 10.1 Immature Gran % (Auto) 0.4 Neut % (Auto) 75.6 H Lymph % (Auto) 11.0 L [place] % (Auto) 12.2 H Eos % (Auto) 0.4 Baso % (Auto) 0.4 Lymph # (Auto) 0.93 [place] # (Auto) 1.0 H Eos # (Auto) 0.0 Baso # (Auto) 0.0 Abs Immat Gran (auto) 0.03 Absolute Neuts (auto) 6.4 Absolute Nucleated RBC 0.000 Nucleated RBC % 0.0 % Immature Plt Fraction 4.6 Sodium 128 L Potassium 4.5 Chloride 96 L Carbon Dioxide 27 Anion Gap 5 BUN 14 Creatinine 0.96 Estim Creat Clear Calc 60 Estimated GFR 57 L Glucose 137 H Calcium 8.5
== END 2025-03-04 18:05 | disposition home health service (06) ==
LOC: ANHSURGERY 05:52 → ANH3MEDSUR 11:33
PROVIDERS: PCP Nurse Practitioner Family; Visit Provider Orthopaedic Surgery
PROC: (CPT 27447; principal; 2025-03-03 07:30)
DX: M17.11 Unilateral primary osteoarthritis, right knee (principal); M25.761 Osteophyte, right knee; G89.18 Other acute postprocedural pain; K21.9 Gastro-esophageal reflux disease without esophagitis; D64.9 Anemia, unspecified; M81.0 Age-related osteoporosis without current pathological fracture; M16.12 Unilateral primary osteoarthritis, left hip; G47.33 Obstructive sleep apnea (adult) (pediatric); G89.29 Other chronic pain; M25.551 Pain in right hip; I35.0 Nonrheumatic aortic (valve) stenosis; M06.9 Rheumatoid arthritis, unspecified; E66.9 Obesity, unspecified; Z68.39 Body mass index [BMI] 39.0-39.9, adult; Z79.82 Long term (current) use of aspirin; Z79.85 Long-term (current) use of injectable non-insulin antidiabetic drugs; Z79.51 Long term (current) use of inhaled steroids; Z79.1 Long term (current) use of non-steroidal anti-inflammatories (NSAID); Z79.891 Long term (current) use of opiate analgesic; Z99.89 Dependence on other enabling machines and devices; Z98.890 Other specified postprocedural states; Z95.2 Presence of prosthetic heart valve; Z87.891 Personal history of nicotine dependence; Z80.6 Family history of leukemia; Z82.49 Family history of ischemic heart disease and other diseases of the circulatory system
CPT/HCPCS: 64447; 27447; 36415; 73560; 80048; 85025; 85055; 86850; 86900; 86901; 97110; 97161; 97165; 97530; 97535; J0690; A9270; C1713; C1776; J0166; J1100; J1171; J1885; J2003; J2250; J2270; J2405; J2704; J2795; J3010; J7120

== ENCOUNTER 2025-05-10 11:00 | Outpatient (RCR) | payer MEDICARE, OTHER, SELFPAY ==
--- NOTE | 2025-03-31 08:55 | OPREHPOC ---
Outpatient Therapy Plan of Care This is a Multidisciplinary Plan of Care that may contain components documented by all disciplines (PT, OT, and ST.) PT Problem 1 PT Problem #1 Knowledge Deficit PT Goal 1 Goal / Goal Update 1* independent with HEP 2* correct gait pattern with cane Target Visit 10 PT Problem 2 PT Problem #2 Pain PT Goal 1 Goal / Goal Update 1* pt report pain rating at worst of 3/10 2* pt report NO awakening from sleeping due to knee pain Target Visit 10 PT Problem 3 PT Problem #3 Impaired Range of Motion PT Goal 1 Goal / Goal Update improve R knee active ROM to improve gait and transfer skills: sittin* extension 0' 2* flexion 120' Target Visit 10 PT Problem 4 PT Problem #4 Impaired Strength PT Goal 1 Goal / Goal Update 1* increase strength of R knee to 4+/5 to improve mobility 2* sit/stand without use of UE's x 5 reps Target Visit 10 PT Problem 5 PT Problem #5 Impaired Functional Mobility PT Goal 1 Goal / Goal Update 1* 5 reps sit/stand time of 18 seconds 2* 2 minute walking test distance of 400' with cane 3* up/down 12 steps with one hand rail and alternate step pattern 4* pt report walking in community with the cane Target Visit 10
--- NOTE | 2025-03-31 08:55 | PTOPEVAL1 ---
Assessment and note entered by Claudia Grant, PT Evaluation Information Assessment Status Evaluation ICD-10 Condition Codes (PT) Difficulty Walking R26.2,Abnormalities of gait and mobility R26.9,Weakness R53.1,Aftercare following joint replacement surgery Z47.1 Other ICD-10 Condition Codes ( R TKR PT) Onset 03-03-25 Subjective Information had PT services; using [employer] home bicycle from --use 3-4 x/day for 15 minutes; doing the exercises from HH therapy 2x/day; using wheeled walker, no problems getting around the house; have split level home, doing OK on stairs- bilateral hand rails; knee is really swollen and red; activity: home alone, local grand daughter assist her; previously active and did not use assistive device; Reported Pain Level Pain Score 4: Self Report Additional Pain Score Comments past few days, pain 4-5/10; very tender to touch over knee and lower leg; hurts medial and lateral knee; increase pain: 10-15 minutes up/active decrease pain: celebrex, ice, elevation also have low back pain- chronic; reports awaken from sleeping, 2x/wk due to knee pain Assessment PT Clinical Summary Pat is s/p R TKR on 03-03-25. Prior to surgery, she was active and lives alone. LE functional scale self rating of 41% limitation in activity level. She is using the wheeled walker and doing her HEP. With the evaluation: 5 reps sit/stand time of 24 seconds with bilateral UE use; 2 minute walking test distance of 300' with the wheeled walker; R knee active ROM in sitting (-10') to 110; slight redness and moderate edema over knee and lower leg ; Skilled PT services are indicated for modalities to decrease pain and edema; therapeutic exercises to increase R knee ROM and strength with progression of HEP and gait training to lesser device. Plan of Care Interventions Electrical Stimulation,Gait Training,Hot Pack/Cold Pack,Intermittent Compression Pump,Manual Therapy ,Neuro Re-education,Patient/Caregiver Education, Therapeutic Activities,Therapeutic Exercise,Other Other Interventions taping PT Services Indicated Yes Treatment Frequency and 2x/wk for 10 visits Duration These treatments will address the objective and functional deficits as defined above. The patient will be advanced safely and appropriately in order for the patient to progress towards his/her prior level of function. Additional exercises will be introduced and as well as a comprehensive home exercise program upon discharge, if needed, ?to ensure carryover of functional gains achieved in the clinic. This treatment plan has been reviewed and agreement upon by the patient.
--- NOTE | 2025-04-19 09:46 | WNDPHOTO ---
PHOTO ONLY - See Nursing Notes and/ or assessments for documentation.
--- NOTE | 2025-04-19 09:47 | WNDPHOTO ---
PHOTO ONLY - See Nursing Notes and/ or assessments for documentation.
--- NOTE | 2025-04-28 12:32 | PCPTNOTE ---
Pt canceled appt today due to appt conflict.
--- NOTE | 2025-05-10 11:47 | OPREHPOC ---
Outpatient Therapy Plan of Care This is a Multidisciplinary Plan of Care that may contain components documented by all disciplines (PT, OT, and ST.) PT Problem 1 PT Problem #1 Knowledge Deficit PT Goal 1 Goal / Goal Update 1* independent with HEP 2* correct gait pattern with cane 05-10-25 d/c goals met Target Visit 10 Progress Met PT Problem 2 PT Problem #2 Pain PT Goal 1 Goal / Goal Update 1* pt report pain rating at worst of 3/10 2* pt report NO awakening from sleeping due to knee pain 05-10-25 d/c goal 2 met; #1 is 5/10 at worst Target Visit 10 Progress Partially Met PT Problem 3 PT Problem #3 Impaired Range of Motion PT Goal 1 Goal / Goal Update improve R knee active ROM to improve gait and transfer skills: sittin* extension 0' 2* flexion 120' 05-10-25 d/c goals met Target Visit 10 Progress Met PT Problem 4 PT Problem #4 Impaired Strength PT Goal 1 Goal / Goal Update 1* increase strength of R knee to 4+/5 to improve mobility 2* sit/stand without use of UE's x 5 reps 05-10-25 d/c goal 2 met; #1 improved to 4/5 Target Visit 10 Progress Partially Met PT Problem 5 PT Problem #5 Impaired Functional Mobility PT Goal 1 Goal / Goal Update 1* 5 reps sit/stand time of 18 seconds 2* 2 minute walking test distance of 400' with cane 3* up/down 12 steps with one hand rail and alternate step pattern 4* pt report walking in community with the cane 05-10-25 d/c goals 3,4 met; #1 is 30 seconds; #2 is 310' Target Visit 10 Progress Partially Met
--- NOTE | 2025-05-10 11:47 | PTOPDC ---
Assessment and note entered by Claudia Grant, PT Assessment Status Discharge ICD-10 Condition Codes (PT) Difficulty Walking R26.2,Abnormalities of gait and mobility R26.9,Weakness R53.1,Aftercare following joint replacement surgery Z47.1 Other ICD-10 Condition Codes ( R TKR PT) Onset 03-03-25 Subjective Information knee is tender and sore, getting around- walking and driving; at home, do not use the cane, but when go out will use it; doing well; back to water aerobics class, went there this AM; am able to do everything in the house, but sit and rest whenever I need to; saw the back dr, was told that my bones are dense and thin, cannot do surgery on my back; but can get shots for my back; Ready to finish up with therapy. Reported Pain Level Pain Score 0: Self Report Additional Pain Score Comments pain range in the past week 0-5/10; tender and sore over knee, still swollen increase pain: end of day and more activity; decrease pain: rest, sit down is not taking any pain meds no awaken from knee pain with sleeping Assessment PT Clinical Summary Barbra has received 10 PT sessions. With today's assessment: pain range of 0-5/10; tenderness over R ITB; LE functional scale rating of 41% limitation in activity level; ROM of knee in sitting 0-125'; gross knee strength of 4/5; 5 reps sit/stand without use of UEs in 30 seconds; 2 minute walking test distance of 310' with cane use; on 12 steps, one hand railing and alternating step pattern- independent; is walking in the community with the cane and returned to her usual activity level. Education completed for HEP. The goals were partially met. Discharge PT. She is to continue with her HEP and activity as tolerated. Plan of Care PT Services Indicated No
== END 2025-05-10 13:06 | disposition home or self-care (01) ==
LOC: ANHPT 11:00
PROVIDERS: PCP Nurse Practitioner Family; Visit Provider Orthopaedic Surgery
DX: Z47.1 Aftercare following joint replacement surgery (principal); Z96.651 Presence of right artificial knee joint
CPT/HCPCS: 97016; 97110; 97116; 97140; 97161; 97530

== ENCOUNTER 2025-06-10 15:59 | Outpatient (CLI) | payer MEDICARE, OTHER, SELFPAY ==
--- OUTSIDE RECORDS SUMMARY | 2024-01-25 16:30 | XMS_ITS ---
Author Organization [facility] [place] ([address]) Address [address] [place] [address] Care Team Providers Care Dolphin Trainer Name Role Phone Dominique Pedro Unavailable [phone] Z[facility], Provider Unavailable Unavailab le Allergies Allergen (clinical drug ingredient) Drug/Non Drug Allergy documented on EMR Reaction Allergy Type Onset Date Status Penicillin Unknown Drug Allergy Active [facility] Encounter Medications Medication SIG (Take, Route, Frequency, Duration) Notes Start Date End Date Status hydroCHLOROthiazide 25 MG 1 tab(s) orall y once a day; Duration: 30 day(s) Active Hydroxychloroquine Sulfate 200 MG 1 tab(s) orally bid Active amLODIPine Besylate 5 MG 1 tab(s) orally once a day Active CITRACAL *Please review for potential replacement for e-prescription and drug interaction check* Active Atorvastatin Calcium 10 MG 1 tab(s) orally once a day Active Cholecalciferol 50 MCG 1 TAB(S) ORALLY ONCE A DAY *Please review and pick correct strength-formula tion from [employer] options. If intended option is not shown, discontinue and re-order from Quick Search* Active Wellbutrin SR 100 MG 1 tab(s) orally Qday Active Pantoprazole Sodium 40 MG 1 tab(s) orall y once a day Active Probiotic Formula *Please review and pick correct strength-formula tion from [employer] options. If intended option is not shown, discontinue and re-order from Quick Search* Active Metoprolol Tartrate 25 MG 0.5 tablet ora lly 2 times a day Active sulfaSALAzine 500 MG 2 tab(s) orally 2 times a day Active Diclofenac Sodium 1 % as directed applied topically 4 times a day Active Reclast 5 MG/100ML as directed intravenously once Active azaTHIOprine 50 MG 1 tab(s) orally once a day Active Remicade 100 MG as directed intravenously every 8 weeks Active AEROCHAMBER MDI SPACER - MOUTHPIECE (ADULT) N/A DIRECTED PO PER ASTHMA ACTION PLAN; Duration: 30 DAYS *Please review for potential replacement for e-prescription and drug interaction check* Active ALBUTEROL (EQV-PROVENTIL HFA) 90 MCG/INH 2 PUFF(S) INHALED EVERY 6 HOURS; Duration: 30 DAYS *Please review for potential replacement for e-prescription and drug interaction check* Active IRON, 500 G *Please review for potential replacement for e-prescription and drug interaction check* Active Aspirin 81 MG 1 TAB(S) ORALLY ONCE A DAY *Please review and pick correct strength-formula tion from [employer] options. If intended option is not shown, discontinue and re-order from Quick Search* Active Mobile-3 1000 MG 1 cap(s) orally Qday Active Advair HFA 230-21 MCG/ACT 2 puff(s) inha led 2 times a day; Duration: 30 days Active Encounters Encounter Location Date Provider Diagnosis [address] [address] 01/25/2024 Provider KittyZ-Migration Moderate persistent asthma, uncomplicated J45.40 Assessments Encounter Date Diagnosis (ICD Code) Assessment Notes Treatment Notes Treatment Clinical Notes Section Notes 01/25/2024 Moderate persistent asthma, uncomplicated (ICD-10 - J45.40) Plan Of Treatment Medication Medication Name Sig Start Date Stop Date Notes Hydroxychloroquine Sulfate 200 MG 1 tab(s) orally bid amLODIPine Besylate 5 MG 1 tab(s) orally once a day CITRACAL *Please review for potential replacement for e-prescription and drug interaction check* Atorvastatin Calcium 10 MG 1 tab(s) oral ly once a day Cholecalciferol 50 MCG 1 TAB(S) ORALLY O NCE A DAY *Please review and pick correct strength-formulati on from [employer] options. If intended option is not shown, discontinue and re-order from Quick Search* Wellbutrin SR 100 MG 1 tab(s) orally Qday Pantoprazole Sodium 40 MG 1 tab(s) orall y once a day Probiotic Formula *Please review and pick correct strength-formulati on from [facility] options. If intended option is not shown, discontinue and re-order from Quick Search* Metoprolol Tartrate 25 MG 0.5 tablet ora lly 2 times a day sulfaSALAzine 500 MG 2 tab(s) orally 2 times a day Diclofenac Sodium 1 % as directed applie d topically 4 times a day Reclast 5 MG/100ML as directed intravenously once azaTHIOprine 50 MG 1 tab(s) orally once a day Remicade 100 MG as directed intravenously every 8 weeks AEROCHAMBER MDI SPACER - MOUTHPIECE (ADULT) N/A DIRECTED PO PER ASTHMA ACTION PLAN; Duration: 30 DAYS *Please review for potential replacement for e-prescription and drug interaction check* ALBUTEROL (EQV-PROVENTIL HFA) 90 MCG/INH 2 PUFF(S) INHALED EVERY 6 HOURS; Duration: 30 DAYS *Please review for potential replacement for e-prescription and drug interaction check* IRON, 500 G *Please revie w for potential replacement for e-prescription and drug interaction check* Aspirin 81 MG 1 TAB(S) ORALLY ONCE A DAY *Please review and pick correct strength-formulati on from [facility] options. If intended option is not shown, discontinue and re-order from Quick Search* Mobile-3 1000 MG 1 cap(s) orally Qday Advair HFA 230-21 MCG/ACT 2 puff(s) inha led 2 times a day; Duration: 30 days Progress Notes * Barbra MAYNARDDOB:[birth year] (74 yo F)Acc No.[id number]:01/25/2024 Patient: Barbra HUNTER Provider: Yadira Murillo :1950 A ge:73 Y S ex:Female Date:01/25/2024 Address:[address] [id number] Subjective: * Chief Complaints: * 1 . [facility] To [facility] Conversion Encounter. * Medical History: * Medications: T aking hydroCHLOROthiazide 25 MG Tablet 1 tab(s) orally once a day * Allergies: P enicillin. Objective: * Vitals: Assessment: * Assessment: 1. M oderate persistent asthma, uncomplicated - J45.40 (Primary) Plan: * Treatment: 2. O thers Continue IRON, 500 G, Notes to Pharmacist: *Please review for potential replacement for e-prescription and drug interaction check*; C ontinue Mobile-3 Capsule, 1000 MG, 1 cap(s), orally, Qday; Continue Aspirin TABLET, 81 MG, 1 TAB(S), ORALLY, ONCE A DAY, Notes to Pharmacist: *Please review and pick correct strength-formulation from [employer] options. If intended option is not shown, discontinue and re-order from Quick Search*; C ontinue Reclast Solution, 5 MG/100ML, as directed, intravenously, once; C ontinue Diclofenac Sodium Gel, 1 %, as directed, applied topically, 4 times a day; C ontinue Remicade Solution Reconstituted, 100 MG, as directed, intravenously, every 8 weeks; C ontinue azaTHIOprine Tablet, 50 MG, 1 tab(s), orally, once a day; C ontinue sulfaSALAzine Tablet Delayed Release, 500 MG, 2 tab(s), orally, 2 times a day; C ontinue Cholecalciferol TABLET, 50 MCG, 1 TAB(S), ORALLY, ONCE A DAY, Notes to Pharmacist: *Please review and pick correct strength-formulation from [employer] options. If intended option is not shown, discontinue and re-order from Quick Search*; C ontinue Wellbutrin SR Tablet Extended Release 12 Hour, 100 MG, 1 tab(s), orally, Qday; C ontinue Probiotic Formula, Notes to Pharmacist: *Please review and pick correct strength-formulation from [employer] options. If intended option is not shown, discontinue and re-order from Quick Search*; C ontinue Pantoprazole Sodium Tablet Delayed Release, 40 MG, 1 tab(s), orally, once a day; C ontinue Metoprolol Tartrate Tablet, 25 MG, 0.5 tablet, orally, 2 times a day; Continue Atorvastatin Calcium Tablet, 10 MG, 1 tab(s), orally, once a day; C ontinue amLODIPine Besylate Tablet, 5 MG, 1 tab(s), orally, once a day; C ontinue Hydroxychloroquine Sulfate Tablet, 200 MG, 1 tab(s), orally, bid; C ontinue CITRACAL, Notes to Pharmacist: *Please review for potential replacement for e-prescription and drug interaction check*. * Billing Information: * Visit Code: * Procedure Codes: * Electronic signature of Aretha PICKETT-Migration on 06/10/2025 at 04:02 PM CDT Sign off status: Pending * Provider: Yadira strange Migration Date: 0 01/25/2024 Generated for Delia badillo/Elliot/Caty on: 1 04:02 PM CDT
--- NOTE | ~2025-06-10 | MM_ITS ---
EXAMINATION: MM screening bin BI w [facility] HISTORY: Screening TECHNIQUE: Craniocaudal and mediolateral oblique 3-D tomosynthesis images were obtained and synthetic 2-D images were generated. CAD analysis was submitted and interpreted. COMPARISON: Comparison to multiple prior studies sequentially, with oldest reviewed study dated 11/26/2017. BREAST PARENCHYMAL COMPOSITION: Not Dense: The breasts are almost entirely fatty. FINDINGS: There is no evidence of suspicious mass, calcification, or architectural distortion to suggest malignancy in either breast. There has been no suspicious interval change. IMPRESSION: 1. No mammographic evidence of malignancy. 2. Recommend routine screening mammography in one year. BI-RADS Category 1: Negative Reviewed, dictated and finalized at location C.
--- OUTSIDE RECORDS SUMMARY | 2025-06-10 16:02 | XMS_ITS | Encounter Summary ---
Author Organization [facility] Address [address] [place] [address] Phone Care Team Providers Care Actuarial Director Name Role Phone KenzieBeth DO Primary Care Provider [phone] Bobby Bui DO Primary Care Provider [phone] Rosario Pham DO Unavailable Leslie Torres NP Primary Care Provider [phone] Tu Fritz MD Unavailable Cinthia Quinones NP Unavailable [phone] Thomas Venegas MD Unavailable Trevon Sheth MD Unavailable [phone] London Hall MD Unavailable + Sylvia Johnson MD Unavailable [phone] Bobby Bui DO Unavailable [phone] Sahara Freedman OD Unavailable Dominique Pedro Unavailable [phone] Cinthia Quinones NP Primary Care Provider [phone] Leslie Torres NP Primary Care Provider [phone] ShoGutierrez godoy RUTH ANN Unavailable Abdirahman Mcclendon MD Unavailable [phone] Encounter Details Date Type Department Care Team [...] on file 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 04/26/2024 04/29/2024 07/25/2024 3:[address] documented as of this encounter Care Teams Actuarial Director Relationship Specialty Start Date End Date Beth Espino DO PCP - General Family Medicine 08/25/20 05/31/22 Bobby Bui DO PCP - General Internal Medicine 06/01/22 03/27/23 Leslie Torres, AIR COMPRESSOR ENGINEER [address] [facility] [address] [place], [place] [id number] PCP - General Family Medicine 03/28/23 06/30/23 Cinthia Quinones, AIR COMPRESSOR ENGINEER [address] [facility] [address] [place] [address] PCP - General Rheumatology 07/01/23 08/13/23 Leslie Torres, AIR COMPRESSOR ENGINEER [address] [facility] [address] [place] [address] PCP - General Family Medicine 08/14/23 Rosario Pham DO [address] [facility] [address] [place] [address] Consulting Physician Endocrinology Diabetes & Metabolism 08/22/22 Tu Fritz MD [address] [facility] [address] [facility] [address] [place] [address] Consulting Physician Internal Medicine 03/28/23 Cinthia Quinones, AIR COMPRESSOR ENGINEER [address] [facility] [address] [place] [address] Nurse Practitioner Rheumatology 03/28/23 Thomas Venegas MD [address] [place] [address] Consulting Physician Cardiology 03/28/23 Trevon Sheth MD [address] [place] [address] Surgeon Cardiothoracic Surgery 03/28/23 London Hall MD [address] [place] [address] Referring Physician Gastroenterology 03/28/23 Sylvia Johnson MD [address] [place] [address] Consulting Physician Critical Care Med 03/28/23 Bobby Bui DO Internal Medicine 03/28/23 Sahara Freedman OD [address] [place] [address] Optometry 03/28/23 Dominique Pedro PA [address] [place] [address] Allergy and Immunology 03/28/23 [place] [address] [address] [facility] [address] [place] [address] Nurse Practitioner Nurse Practitioner 01/05/25 [place] [address] [facility] [address] [place] [address] Consulting Physician Pain Management 01/05/25 documented as of this encounter
--- OUTSIDE RECORDS SUMMARY | 2025-06-10 16:02 | XMS_ITS | Encounter Summary ---
Author Organization [facility] Address [address] [place] [address] Care Team Providers Care Spice Cleaner Name Role Phone Rosario Pham DO Unavailable [phone] Tu Fritz MD Unavailable Cinthia Quinones NP Unavailable Thomas Venegas MD Unavailable Trevon Sheth MD Unavailable [phone] London Hall MD Unavailable + Slyvia Johnson MD Unavailable [phone] Bobby Bui DO Unavailable [phone] Sahara Freedman OD Unavailable Dominique Pedro Unavailable [phone] Leslie Torres NP Primary Care Provider [phone] Gutierrez Lucio NP Unavailable [phone] Abdirahman Mcclendon MD Unavailable Encounter Details Date Type Department Care Team (Latest Contact Info) Description 04/09/2025 Results Follow-Up [facility] Cardiology [address] [place] [address] Thomas Venegas MD [address] [place] [address] Transthoracic Echo (TTE) Complete W Doppler/CF Social History Tobacco Use Types Packs/Day Years [...] points, staff should administer the PHQ-9) 0 05/03/2025 Comments No Sex and Gender Information Value Date Recorded Sex Assigned at Not on file 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 Gender Identity Female 05/01/2021 8:51 AM CDT Sexual Orientation Straight 02/24/2020 1: 08 PM CDT documented as of this encounter Plan of Treatment Not on file documented as of this encounter Visit Diagnoses Not on filedocumented in this encounter Care Teams Spice Cleaner Relationship Specialty Start Date End Date Leslie Torres NP [address] [place] [address] PCP - General Family Medicine 08/14/23 Rosario Pham DO [address] [facility] [address] [place] [address] Consulting Physician Endocrinology Diabetes & Metabolism 08/22/22 Tu Fritz MD [address] [facility] [address] [place] [address] Consulting Physician Internal Medicine 03/28/23 Cinthia Quinones NP [address] [facility] [address] [place] [address] Nurse Practitioner Rheumatology 03/28/23 Thomas Venegas MD [address] [facility] [address] [facility] [address], [facility] [address] [place] [address] Consulting Physician Cardiology 03/28/23 Trevon Sheth MD [address] [facility] [address], [facility] [address] [place], [place] [address] Surgeon Cardiothoracic Surgery 03/28/23 London Hall MD [address] [place] [address] Referring Physician Gastroenterology 03/28/23 Sylvia Johnson MD [address] [place] [address] Consulting Physician Critical Care Med 03/28/23 Bobby Bui DO [address] [facility] [address] [place] [address] Internal Medicine 03/28/23 Sahara Freedman OD [address] [place] [address] Optometry 03/28/23 Dominique Pedro PA [address] [place] [address] Allergy and Immunology 03/28/23 [place] [address] [address] [facility] [address] [place] [address] Nurse Practitioner Nurse Practitioner 01/05/25 [place] [address] [address] [facility] [address] [address] Consulting Physician Pain Management 01/05/25 documented as of this encounter
--- OUTSIDE RECORDS SUMMARY | 2025-06-10 16:02 | XMS_ITS | Encounter Summary ---
Author Organization [facility] Address [address] [place] [address] Phone Care Team Providers Care Mutton Puncher Name Role Phone KenzieBeth DO Primary Care Provider [phone] Bobby Bui DO Primary Care Provider [phone] Rosario Pham DO Unavailable Leslie Torres NP Primary Care Provider [phone] Tu Fritz MD Unavailable Cinthia Quinones NP Unavailable [phone] Thomas Venegas MD Unavailable Trevon Sheth MD Unavailable [phone] London Hall MD Unavailable + Sylvia Johnson MD Unavailable [phone] Bobby Bui DO Unavailable [phone] Sahara Freedman OD Unavailable Dominique Pedro Unavailable [phone] Cinthia Quinones NP Primary Care Provider [phone] Leslie Torres NP Primary Care Provider [phone] Gutierrez Lucio NP Unavailable Abdirahman Mcclendon MD [...] on file 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 Gender Identity Female 05/01/2021 8:51 AM CDT [...] documented as of this encounter Care Teams Mutton Puncher Relationship Specialty Start Date End Date Beth Espino DO PCP - General Family Medicine 08/25/20 05/31/22 Bobby Bui DO PCP - General Internal Medicine 06/01/22 03/27/23 Leslie Torres, MANAGER HVAC [address] [place], [place] [id number] PCP - General Family Medicine 03/28/23 06/30/23 Cinthia Quinones NP [address] [facility] [address] [place] [address] PCP - General Rheumatology 07/01/23 08/13/23 Leslie Torres, MANAGER HVAC [address] [place] [address] PCP - General Family Medicine 08/14/23 VeroRosariojay [address] [facility] [address] [address] [place] [address] Consulting Physician Endocrinology Diabetes & Metabolism 08/22/22 Tu Fritz MD [address] [facility] [address] [facility] [address] [place] [address] Consulting Physician Internal Medicine 03/28/23 Cinthia Quinones, MANAGER HVAC [address] [facility] [address] [facility] [address] [place] [address] Nurse Practitioner Rheumatology 03/28/23 Thomas Venegas MD [address] [place] [address] Consulting Physician Cardiology 03/28/23 Trevon Sheth MD [address] [place], [place] [address] Surgeon Cardiothoracic Surgery 03/28/23 London Hall MD [address] GASTROENTEROLOGY [place], [place] [address] Referring Physician Gastroenterology 03/28/23 Sylvia Johnson MD [address] [place] [address] Consulting Physician Critical Care Med 03/28/23 Bobby Bui DO Internal Medicine 03/28/23 Sahara Freedman OD [address] [place] [address] Optometry 03/28/23 Dominique ePdro PA [address] [place] [address] Allergy and Immunology 03/28/23 [place] [address] [address] Nurse Practitioner Nurse Practitioner 01/05/25 [place] [address] [address] [facility] [address] [facility] [place] [address] Consulting Physician Pain Management 01/05/25 documented as of this encounter
--- OUTSIDE RECORDS SUMMARY | 2025-06-10 16:02 | XMS_ITS | Encounter Summary ---
Author Organization Formerly [facility] Address [address] [place] [address] Care Team Providers Care Medical Apparatus Model Maker Name Role Phone Rosario Pham DO Unavailable Tu Fritz MD Unavailable Cinthia Quinones NP Unavailable Thomas Venegas MD Unavailable Trevon Sheth MD Unavailable [phone] London Hall MD Unavailable + Sylvia Johnson MD Unavailable +[phone] Bobby Bui DO Unavailable +[phone] Sahara Freedman OD Unavailable Dominique Pedro Unavailable +[phone] Leslie Torres NP Primary Care Provider [phone] Gutierrez Lucio NP Unavailable +[phone] Abdirahman Mcclendon MD Unavailable Encounter Details Date Type Department Care Team (Late st Contact Info) Description 09/03/2024 Orders Only [facility] Information Management [address] [place] [address] Scanning, Provider Social History Tobacco Use Types [...] points, staff should administer the PHQ-9) 0 04/29/2024 Comments No Sex and Gender Information Value Date Recorded Sex Assigned at Not on file 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 Gender Identity Female 05/01/2021 8:51 AM CDT Sexual Orientation Straight 02/24/2020 1: 08 PM CDT documented as of this encounter Plan of Treatment Not on file documented as of this encounter Procedures Procedure Name Priority Date/Time Associated Diagnosis Comments SCAN - RADIOLOGY/IMAGING 09/03/2024 documented in this encounter Results * SCAN - RADIOLOGY/IMAGING (09/03/2024) Anatomical Region Laterality Modality Other us Provider Scanning Final Result documented in this encounter Visit Diagnoses Not on filedocumented in this encounter Care Teams Medical Apparatus Model Maker Relationship Specialty Start Date End Date Leslie Torres NP 2[address] [facility] [address] [place] [address] PCP - General Family Medicine 08/14/23 Rosario Pham DO [address] [facility] [address] [place] [address] Consulting Physician Endocrinology Diabetes & Metabolism 08/22/22 Tu Fritz MD 4921 [facility] [address] [place], [place] [address] Consulting Physician Internal Medicine 03/28/23 Cinthia Quinones NP 4921 [facility] [address] [place] [address] Nurse Practitioner Rheumatology 03/28/23 Thomas Venegas MD [address] [facility] [address], [facility] [address] [place], [place] [address] Consulting Physician Cardiology 03/28/23 Trevon Sheth MD [address] [facility] [address], [facility] [address] [place] [address] Surgeon Cardiothoracic Surgery 03/28/23 London Hall MD [address] GASTROENTEROLOGY [place], [place] [address] Referring Physician Gastroenterology 03/28/23 Sylvia Johnson MD [address] [place], [place] [address] Consulting Physician Critical Care Med 03/28/23 Bobby Bui DO [address] [facility] 202 [place] [address] Internal Medicine 03/28/23 Sahara Freedman OD [address] [place] [address] Optometry 03/28/23 Dominique Pedro PA [address] [place] [address] Allergy and Immunology 03/28/23 [place] [address] [address] [facility] [address] [place] [address] Nurse Practitioner Nurse Practitioner 01/05/25 [place] [address] [address] [facility] [address] [place] [address] Consulting Physician Pain Management 01/05/25 documented as of this encounter
--- OUTSIDE RECORDS SUMMARY | 2025-06-10 16:02 | XMS_ITS | Encounter Summary ---
Author Organization [facility] Address [address] [place] [address] Phone Care Team Providers Care Bridge Teacher Name Role Phone Bobby Bui DO Primary Care Provider [phone] Rosario Pham DO Unavailable Leslie Torres NP Primary Care Provider [phone] Tu Fritz MD Unavailable Cinthia Quinones NP Unavailable +[phone] Thomas Venegas MD Unavailable Trevon Sheth MD Unavailable +[phone] London Hall MD Unavailable + Sylvia Johnson MD Unavailable +[phone] Bobby Bui DO Unavailable +[phone] Sahara Freedman OD Unavailable [phone] Dominique Pedro Unavailable +[phone] Cinthia Quinones NP Primary Care Provider +[phone] Leslie Torres NP Primary Care Provider [phone] Gutierrez Lucio NP Unavailable +[phone] Abdirahman Mcclendon MD Unavailable [phone] Encounter Details Date Type Department Care Team [...] on file 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 Gender Identity Female 05/01/2021 8:51 AM CDT [...] documented as of this encounter Care Teams Bridge Teacher Relationship Specialty Start Date End Date Bobby Bui DO PCP - General Internal Medicine 06/01/22 03/27/23 Leslie Torres DIRECTOR BUSINESS INTELLIGENCE [address] [address] PCP - General Family Medicine 03/28/23 06/30/23 Cinthia Quinones DIRECTOR BUSINESS INTELLIGENCE 4921 [facility] [address] [place] [address] PCP - General Rheumatology 07/01/23 08/13/23 Leslie Torres DIRECTOR BUSINESS INTELLIGENCE [address] [place] [address] PCP - General Family Medicine 08/14/23 Rosario Pham DO 5201 [facility] [address] [place] [address] Consulting Physician Endocrinology Diabetes & Metabolism 08/22/22 Tu Fritz MD 4921 [facility] [address] [place] [address] Consulting Physician Internal Medicine 03/28/23 Cinthia Quinones, DIRECTOR BUSINESS INTELLIGENCE 4921 [facility] [address] [place] [address] Nurse Practitioner Rheumatology 03/28/23 Thomas Venegas MD [address] [facility] [address], [address] [address] Consulting Physician Cardiology 03/28/23 Trevon Sheth MD [address] [facility] [address], [place] [address] [place] [address] Surgeon Cardiothoracic Surgery 03/28/23 London Hall MD [address] [facility] [address] [place] [address] Referring Physician Gastroenterology 03/28/23 Sylvia Johnson MD [address] [place] [address] Consulting Physician Critical Care Med 03/28/23 Bobby Bui DO Internal Medicine 03/28/23 Sahara Freedman OD [address] [place] [address] Optometry 03/28/23 Dominique Pedro PA [address] [place] [address] Allergy and Immunology 03/28/23 [place] [address] [address] [facility] 100 [place], [place] [address] Nurse Practitioner Nurse Practitioner 01/05/25 [place] [address] [address] [facility] 100 [facility] [place] [address] Consulting Physician Pain Management 01/05/25 documented as of this encounter
--- OUTSIDE RECORDS SUMMARY | 2025-06-10 16:02 | XMS_ITS | Encounter Summary ---
Author Organization [facility] Address [address] [place] [address] Phone Care Team Providers Care Clinical Assoc Name Role Phone Trina Chávez MD Primary Care Provider [phone] Beth Espino DO Primary Care Provider [phone] Bobby Bui DO Primary Care Provider +[phone] Rosario Pham DO Unavailable +[phone] Leslie Torres NP Primary Care Provider +[phone] Tu Fritz MD Unavailable +[phone] Cinthia Quinones NP Unavailable +[phone] Thomas Venegas MD Unavailable Trevon Sheth MD Unavailable +[phone] London Hall MD Unavailable + Sylvia Johnson MD Unavailable +[phone] Bobby Bui DO Unavailable +[phone] Sahara Freedman OD Unavailable Dominique Pedro Unavailable +[phone] Cinthia Quinones NP Primary Care Provider +- [phone] Leslie Torres NP Primary Care Provider Gutierrez [...] on file 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 Gender Identity Female 05/01/2021 8:51 AM CDT [...] documented as of this encounter Care Teams Clinical Assoc Relationship Specialty Start Date End Date Trina Chávez MD PCP - General Internal Medicine 04/21/18 08/24/20 Beth Espino, DO PCP - General Family Medicine 08/25/20 05/31/22 Ramya Bobby Thompson, DO PCP - General Internal Medicine 06/01/22 03/27/23 Leslie oTrres, CUSTODIAN [address] [place], [place] [address] PCP - General Family Medicine 03/28/23 06/30/23 Cinthia Quinones, CUSTODIAN 4927 [facility] [address] [place] [address] PCP - General Rheumatology 07/01/23 08/13/23 Leslie Torres, CUSTODIAN [address] [place], [place] [address] PCP - General Family Medicine 08/14/23 Rosario Pham DO 5[address] [facility] [address] [place] [address] Consulting Physician Endocrinology Diabetes & Metabolism 08/22/22 Tu Frtiz MD 4921 [facility] [address] [place] [address] Consulting Physician Internal Medicine 03/28/23 Cinthia Quinones, CUSTODIAN 4921 [facility] [address] [place] [address] Nurse Practitioner Rheumatology 03/28/23 Thomas Venegas MD [address], [address] [place], [place] [address] Consulting Physician Cardiology 03/28/23 Trevon Sheth MD [address], [address] [place], [place] [address] Surgeon Cardiothoracic Surgery 03/28/23 London Hall MD [address] GASTROENTEROLOGY [place], [place] [address] Referring Physician Gastroenterology 03/28/23 Sylvia Johnson MD [address] [place] [address] Consulting Physician Critical Care Med 03/28/23 Bobby Bui DO Internal Medicine 03/28/23 Sahara Freedman OD [address] [place] [address] Optometry 03/28/23 Dominique Pedro PA [address] [place] [address] Allergy and Immunology 03/28/23 [place] [address] [address] [place] [address] Nurse Practitioner Nurse Practitioner 01/05/25 [place] [address] [facility] [address] [place] [address] Consulting Physician Pain Management 01/05/25 documented as of this encounter
--- OUTSIDE RECORDS SUMMARY | 2025-06-10 16:02 | XMS_ITS | Encounter Summary ---
Author Organization [facility] Address [address] [place] [address] Phone Care Team Providers Care Patient Relations Director Name Role Phone KenzieBeth DO Primary Care Provider [phone] Bobby Bui DO Primary Care Provider +[phone] Rosario Pham DO Unavailable Leslie Torres NP Primary Care Provider +[phone] Tu Fritz MD Unavailable Cinthia Quinones NP Unavailable +[phone] Thomas Venegas MD Unavailable Trevon Sheth MD Unavailable +[phone] London Hall MD Unavailable + Sylvia Johnson MD Unavailable +[phone] Bobby Bui DO Unavailable +[phone] Sahara Freedman OD Unavailable Dominique Pedro Unavailable +[phone] Cinthia Quinones NP Primary Care Provider [phone] Leslie Torres NP Primary Care Provider [phone] Gutierrez Lucio NP Unavailable Abdirahman Mcclendon MD Unavailable [phone] Encounter Details Date Type Department Care Team ([place] st Contact Info) Description 08/16/2021 Orders Only [...] on file 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 Gender Identity Female 05/01/2021 8:51 AM CDT [...] documented as of this encounter Care Teams Patient Relations Director Relationship Specialty Start Date End Date Beth Espino DO PCP - General Family Medicine 08/25/20 05/31/22 Bobby Bui DO PCP - General Internal Medicine 06/01/22 03/27/23 Leslie Torres, MULTIMEDIA SERVICES COORDINATOR [address] [place], [place] [address] PCP - General Family Medicine 03/28/23 06/30/23 Cinthia Quinones NP [address] [address] PCP - General Rheumatology 07/01/23 08/13/23 Leslie Torres, MULTIMEDIA SERVICES COORDINATOR [address] [place], [place] [address] PCP - General Family Medicine 08/14/23 Rosario Phamjay 5201 [facility] [address] [place] [address] Consulting Physician Endocrinology Diabetes & Metabolism 08/22/22 Tu Fritz MD 4921 [facility] [address] [facility] [address] [place] [address] Consulting Physician Internal Medicine 03/28/23 Cinthia Quinones MULTIMEDIA SERVICES COORDINATOR 4921 [facility] [address] [facility] [address] [place] [address] Nurse Practitioner Rheumatology 03/28/23 Thomas Venegas MD [address], [address] [place] [address] Consulting Physician Cardiology 03/28/23 Trevon Sheth MD [address], [address] [place], [place] [address] Surgeon Cardiothoracic Surgery 03/28/23 London Hall MD [address] GASTROENTEROLOGY [place], [place] [address] Referring Physician Gastroenterology 03/28/23 Sylvia Johnson MD [address] [place] [address] Consulting Physician Critical Care Med 03/28/23 Bobby Bui DO Internal Medicine 03/28/23 Sahara Freedman OD [address]20 [place] [address] Optometry 03/28/23 Dominique Pedro PA [address] [place] [address] Allergy and Immunology 03/28/23 [place] [address] [address] Nurse Practitioner Nurse Practitioner 01/05/25 [place] [address] [address] [facility] [address] [place] [address] Consulting Physician Pain Management 01/05/25 documented as of this encounter
--- OUTSIDE RECORDS SUMMARY | 2025-06-10 16:02 | XMS_ITS | Encounter Summary ---
Author Organization [facility] Address [address] [place] [address] Phone Care Team Providers Care Compounder Name Role Phone Bobby Bui DO Primary Care Provider [phone] Rosario Pham DO Unavailable Leslie Torres NP Primary Care Provider [phone] Tu Fritz MD Unavailable Cinthia Quinones NP Unavailable +[phone] Thomas Venegas MD Unavailable Trevon Sheth MD Unavailable [phone] London Hall MD Unavailable + Sylvia Johnson MD Unavailable +[phone] Bobby Bui DO Unavailable +[phone] Sahara Freedman OD Unavailable [phone] Dominique Pedro Unavailable +[phone] Cinthia Quinones NP Primary Care Provider [phone] Leslie Torres NP Primary Care Provider [phone] Gutierrez Lucio NP Unavailable +[phone] Abdirahman Mcclendon MD Unavailable [phone] Encounter Details Date Type Department Care Team [...] on file 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 Gender Identity Female 05/01/2021 8:51 AM [...] documented as of this encounter Care Teams Compounder Relationship Specialty Start Date End Date Bobby Bui DO PCP - General Internal Medicine 06/01/22 03/27/23 Leslie Torres NP [address] [address] PCP - General Family Medicine 03/28/23 06/30/23 Cinthia Quinones GAME DESIGNER/CREATIVE DIRECTOR 4921 [facility] [address] [place] [address] PCP - General Rheumatology 07/01/23 08/13/23 Leslie Torres GAME DESIGNER/CREATIVE DIRECTOR [address] [place] [address] PCP - General Family Medicine 08/14/23 Rosario Pham DO 5201 [facility] [address] [place] [address] Consulting Physician Endocrinology Diabetes & Metabolism 08/22/22 Tu Fritz MD 4921 [facility] [address] [place] [address] Consulting Physician Internal Medicine 03/28/23 Cinthia Quinones, GAME DESIGNER/CREATIVE DIRECTOR 4921 [facility] [address] [place] [address] Nurse Practitioner Rheumatology 03/28/23 Thomas Venegas MD [address] [facility] [address], [address] [address] Consulting Physician Cardiology 03/28/23 Trevon Sheth MD [address] [facility] [address], [place] [address] [place] [address] Surgeon Cardiothoracic Surgery 03/28/23 London Hall MD 6812 [facility] [address] [place] [address] Referring Physician Gastroenterology 03/28/23 Sylvia Johnson MD [address] [place] [address] Consulting Physician Critical Care Med 03/28/23 Bobby Bui DO Internal Medicine 03/28/23 Sahara Freedman OD [address]20 [place] [address] Optometry 03/28/23 Dominique Pedro PA [address] [place] [address] Allergy and Immunology 03/28/23 [place] [address] [facility] 100 [place], [place] [address] Nurse Practitioner Nurse Practitioner 01/05/25 [place] [address] [facility] 100 [facility] [place] [address] Consulting Physician Pain Management 01/05/25 documented as of this encounter
--- OUTSIDE RECORDS SUMMARY | 2025-06-10 16:02 | XMS_ITS | Encounter Summary ---
Author Organization [facility] Address [address] [place] [address] Phone Care Team Providers Care Gear Generator Set Up Operator Name Role Phone Trina Chávez MD Primary Care Provider [phone] Beth Espino DO Primary Care Provider +[phone] Bobby Bui DO Primary Care Provider +[phone] Rosario Pham DO Unavailable +[phone] Leslie Torres NP Primary Care Provider +[phone] Tu Fritz MD Unavailable +[phone] Cinthia Quinones NP Unavailable +[phone] Thomas Venegas MD Unavailable Trevon Sheth MD Unavailable [phone] London Hall MD Unavailable + Sylvia Johnson MD Unavailable +[phone] Bobby Bui DO Unavailable +[phone] Sahara Freedman OD Unavailable [phone] Dominique Pedro Unavailable +[phone] Cinthia Quinones NP Primary Care Provider +- [phone] Leslie Torres NP Primary Care Provider Gutierrez [...] on file 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 Gender Identity Female 05/01/2021 8:51 AM CDT [...] documented as of this encounter Care Teams Gear Generator Set Up Operator Relationship Specialty Start Date End Date Trina Chávez MD PCP - General Internal Medicine 04/21/18 08/24/20 Beth Espino, DO PCP - General Family Medicine 08/25/20 05/31/22 Ramya Bobby Thompson, DO PCP - General Internal Medicine 06/01/22 03/27/23 Leslie Torres, POWERHOUSE ELECTRICIAN [address] [place], [place] [address] PCP - General Family Medicine 03/28/23 06/30/23 Cinthia Quinones, POWERHOUSE ELECTRICIAN 4928 [facility] [address] [place] [address] PCP - General Rheumatology 07/01/23 08/13/23 Leslie Torres, POWERHOUSE ELECTRICIAN [address] [place], [place] [address] PCP - General Family Medicine 08/14/23 Rosario Pham DO 5201 [facility] [address] [place] [address] Consulting Physician Endocrinology Diabetes & Metabolism 08/22/22 Tu Fritz MD 4921 [facility] [address] [place] [address] Consulting Physician Internal Medicine 03/28/23 Cinthia Quinones, POWERHOUSE ELECTRICIAN 4921 [facility] [address] [place] [address] Nurse Practitioner Rheumatology 03/28/23 Thomas Venegas MD [address], [address] [place], [place] [address] Consulting Physician Cardiology 03/28/23 Trevon Sheth MD [address], [address] [place], [place] [address] Surgeon Cardiothoracic Surgery 03/28/23 Lonodn Hall MD [address] GASTROENTEROLOGY [place], [place] [address] Referring Physician Gastroenterology 03/28/23 Sylvia Johnson MD [address] [place] [address] Consulting Physician Critical Care Med 03/28/23 Bobby Bui DO Internal Medicine 03/28/23 Sahara Freedman OD 6620 [place] [address] Optometry 03/28/23 Dominique Pedro PA [address] [place] [address] Allergy and Immunology 03/28/23 [place] [address] [address] [place] [address] Nurse Practitioner Nurse Practitioner 01/05/25 [place] [address] [facility] [address] [place] [address] Consulting Physician Pain Management 01/05/25 documented as of this encounter
--- OUTSIDE RECORDS SUMMARY | 2025-06-10 16:02 | XMS_ITS | Encounter Summary ---
Author Organization [facility] Address [address] [place] [address] Phone Care Team Providers Care Linoleum Tile Layer Name Role Phone Trina Chávez MD Primary Care Provider [phone] Beth Espino DO Primary Care Provider [phone] Bobby Bui DO Primary Care Provider +[phone] Rosario Pham DO Unavailable +[phone] Leslie Torres NP Primary Care Provider +[phone] Tu Fritz MD Unavailable +[phone] Cinthia Quinones NP Unavailable +[phone] Thomas Venegas MD Unavailable Trevon Sheth MD Unavailable [phone] London Hall MD Unavailable + Sylvia Johnson MD Unavailable +[phone] Bobby Bui DO Unavailable +[phone] Sahara Freedman OD Unavailable Dominique Pedro Unavailable +[phone] Cinthia Quinones NP Primary Care Provider +- [phone] Leslie Torres NP Primary Care Provider Gutierrez Lucio NP Unavailable +[phone] Abdirahman Mcclendon MD Unavailable Encounter Details Date [...] file Legal 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 Female 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 Gender Identity Female 05/01/2021 8:51 AM CDT [...] documented as of this encounter Care Teams Linoleum Tile Layer Relationship Specialty Start Date End Date Trina Chávez MD PCP - General Internal Medicine 04/21/18 08/24/20 Kenzie Beth Glenna, DO PCP - General Family Medicine 08/25/20 05/31/22 Bobby Bui DO PCP - General Internal Medicine 06/01/22 03/27/23 Leslie Torres, NUT ROASTER HELPER [address] [place], [place] [address] PCP - General Family Medicine 03/28/23 06/30/23 Cinthia Quinones, RUTH ANN 4921 [facility] [address] [place] [address] PCP - General Rheumatology 07/01/23 08/13/23 Leslie Torres, NUT ROASTER HELPER [address] [place], [place] [address] PCP - General Family Medicine 08/14/23 Rosario Pham DO 5[address] [facility] [address] [place] [address] Consulting Physician Endocrinology Diabetes & Metabolism 08/22/22 Tu Fritz MD 4921 [facility] [address] [place] [address] Consulting Physician Internal Medicine 03/28/23 Cinthia Quinones NP 4921 [facility] [address] [place] [address] Nurse Practitioner Rheumatology 03/28/23 Thomas Venegas MD [address], [address] [place], [place] [address] Consulting Physician Cardiology 03/28/23 Trevon Sheth MD [address], [address] [place], [place] [address] Surgeon Cardiothoracic Surgery 03/28/23 London Hall MD [address] [place] [address] Referring Physician Gastroenterology 03/28/23 Sylvia Johnson MD [address] [place] [address] Consulting Physician Critical Care Med 03/28/23 Bobby Bui DO Internal Medicine 03/28/23 Sahara Freedman OD 6620 [place] [address] Optometry 03/28/23 Dominique Pedro PA [address] [place] [address] Allergy and Immunology 03/28/23 [place] [address] [address] [facility] 100 [place] [address] Nurse Practitioner Nurse Practitioner 01/05/25 [place] [address] [address] [facility] [address] [place] [address] Consulting Physician Pain Management 01/05/25 documented as of this encounter
--- OUTSIDE RECORDS SUMMARY | 2025-06-10 16:03 | XMS_ITS | Encounter Summary ---
Author Organization [facility] Address [address] [place] [address] Phone Care Team Providers Care Events Solutions Consultant Name Role Phone Vero Rosario Sheila DO Unavailable [phone] Leslie Torres NP Primary Care Provider [phone] Tu Fritz MD Unavailable Cinthia Quinones NP Unavailable [phone] Thomas Venegas MD Unavailable Trevon Sheth MD Unavailable [phone] London Hall MD Unavailable + Sylvia Johnson MD Unavailable [phone] Bobby Bui DO Unavailable [phone] Sahara Freedman OD Unavailable Dominique Pedro Unavailable [phone] Cinthia Quinones NP Primary Care Provider [phone] Leslie Torres NP Primary Care Provider [phone] Gutierrez Lucio NP Unavailable [phone] Abdirahman Mcclendon MD Unavailable [phone] Encounter Details Date Type Department Care Team [...] on file 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 Gender Identity Female 05/01/2021 8:51 AM CDT [...] documented as of this encounter Care Teams Events Solutions Consultant Relationship Specialty Start Date End Date Leslie Torres, COTTON STOMPER [address] [place] [address] PCP - General Family Medicine 03/28/23 06/30/23 Cinthia Quinones NP [address] [facility] [address] [place] [address] PCP - General Rheumatology 07/01/23 08/13/23 Leslie Torres, COTTON STOMPER [address] [place] [address] PCP - General Family Medicine 08/14/23 Rosario Pham DO [address] [facility] [address] [place] [address] Consulting Physician Endocrinology Diabetes & Metabolism 08/22/22 Tu Fritz MD [address] [facility] [address] [place] [address] Consulting Physician Internal Medicine 03/28/23 Cinthia Quinones NP [address] [facility] [address] [place] [address] Nurse Practitioner Rheumatology 03/28/23 Thomas Venegas MD [address], [address] [place] [address] Consulting Physician Cardiology 03/28/23 Trevon Sheth MD [address], [address] [place] [address] Surgeon Cardiothoracic Surgery 03/28/23 London Hall MD [address] [place] [address] Referring Physician Gastroenterology 03/28/23 Sylvia Johnson MD [address] [place] [address] Consulting Physician Critical Care Med 03/28/23 Bobby Bui DO [address] [place] [address] Internal Medicine 03/28/23 Sahara Freedman OD [address] [place] [address] Optometry 03/28/23 Dominique Pedro PA [address] [place] [address] Allergy and Immunology 03/28/23 [place] [address] [id number] Nurse Practitioner Nurse Practitioner 01/05/25 [place] [address] [address] [facility] [address] [facility] [place] [address] Consulting Physician Pain Management 01/05/25 documented as of this encounter
--- OUTSIDE RECORDS SUMMARY | 2025-06-10 16:03 | XMS_ITS | Patient Health Record ---
Author Organization [facility] [place] ([address]) Address [address] [place] [address] Care Team Providers Care Block Cutter Name Role Phone Dominique Pedro Unavailable [phone] Allergies Allergen (clinical drug ingredient) Drug/Non Drug [...] review and pick correct strength-formula tion from [employer] Radar options. If intended option is not shown, discontinue and re-order from [employer]itick Search* Active HYDROCHLOROTHIAZIDE 25 mg 1 tab(s) orall y once a day; Duration: 30 day(s) Active Radcliffe-3 1000 MG 1 cap(s) orally Qday Active [...] review and pick correct strength-formula tion from [employer] Radar options. If intended option is not shown, [...] Status Risk Notes Problem Shortness of breath (994592507) Shortness of breath (R06.02) Active confirmed Problem Essential hypertension (30842779) Essential (primary) hypertension (I10) Active confirmed Problem Allergic rhinitis caused by pollen (disorder) (21203928) Allergic rhinitis due to pollen (J30.1) Active confirmed Problem Uncomplicated moderate persistent asthma (421799274) Moderate persistent asthma, uncomplicated (J45.40) Active confirmed Problem Dyspnea (979666728) Dyspnea, unspecified (R06.00) Active confirmed Problem Gastroesophageal reflux disease with esophagitis (disorder) (374228743) Gastro-esophagea l reflux disease with esophagitis, without bleeding (K21.00) Active confirmed Plan Of Treatment No Information Insurance Providers Payer Name Payer Address Payer Phone Subscriber Number Group Number Insured Name Patient Relationship to Insured Coverage Start Date Coverage End Date [employer] (Medicare) Attention Claims [address] [facility] [place] [address] [id number] Barbra Maynard Self - patient is the insured for Life [address] [place] [address] [id number] Trevin Maynard Spouse - patient is the spouse of the insured Medical (General) History Medical History History ICD Code Rheumatoid Arthritis-Adult Crohn's disease Sleep apnea Surgical History Surgery Date(Month/Year) heart valve replace Right Hip Left Hip
--- OUTSIDE RECORDS SUMMARY | 2025-06-10 16:03 | XMS_ITS | Encounter Summary ---
Author Organization [facility] Address [address] [place] [address] Phone Care Team Providers Care Condemnation Engineer Name Role Phone Rosario Pham DO Unavailable [phone] Tu Fritz MD Unavailable Cinthia Quinones NP Unavailable Thomas Venegas MD Unavailable Trevon Sheth MD Unavailable [phone] London Hall MD Unavailable + Sylvia Johnson MD Unavailable Bobby Bui DO Unavailable Sahara Freedman OD Unavailable [phone] Dominique Pedro Unavailable Leslie Torres NP Primary Care Provider [phone] Gutierrez Lucio NP Unavailable Abdirahman Mcclendon MD Unavailable [phone] Encounter Details Date Type Department Care Team (Latest Contact Info) Description 06/08/2025 Results Follow-Up [facility] Medicine Endocrinology Metabolism and Lipid [address] 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 Gender Identity Female 05/01/2021 8:51 AM CDT Sexual Orientation Straight 02/24/2020 1: 08 PM CDT documented as of this encounter Plan of Treatment Not on file documented as of this encounter Visit Diagnoses Not on filedocumented in this encounter Care Teams Condemnation Engineer Relationship Specialty Start Date End Date Leslie Torres NP [address] [facility] 130 [place] [address] PCP - General Family Medicine 08/14/23 Rosario Pham DO [address] [facility] [address] [place] [address] Consulting Physician Endocrinology Diabetes & Metabolism 08/22/22 Tu Fritz MD [address] [place] [address] Consulting Physician Internal Medicine 03/28/23 Cinthia Quinones PUBLICITY AGENT [address] [place] [address] Nurse Practitioner Rheumatology 03/28/23 Thomas Venegas MD [address] [facility] [address], [facility] [address] [place] [address] Consulting Physician Cardiology 03/28/23 Trevon Sheth MD [address], [facility] [address] [place], [place] [address] Surgeon Cardiothoracic Surgery 03/28/23 London Hall MD [address] [facility] 204 [place] [address] Referring Physician Gastroenterology 03/28/23 Sylvia Johnson MD [address] [facility] 202 [place] [address] Consulting Physician Critical Care Med 03/28/23 Bobby Bui DO [address] [facility] 202 [place] [address] Internal Medicine 03/28/23 Sahara Freedman OD [address] [place] [address] Optometry 03/28/23 Dominique Pedro PA [address] [place] [address] Allergy and Immunology 03/28/23 [place] [address] [address] Nurse Practitioner Nurse Practitioner 01/05/25 [place] [address] [address] Consulting Physician Pain Management 01/05/25 documented as of this encounter
--- OUTSIDE RECORDS SUMMARY | 2025-06-10 16:03 | XMS_ITS | Data Portability ---
Author Organization [facility] [employer], Main Office Address [address] [place] [address] Assessment No assessment recorded. Plan of Treatment [...] and Address Organization Details Recorded Time Swelling 17461553 Active 2021 Not Available [facility] 3 01:24:31 Rheumatoid arthritis 61680686 Active 2021 Not Available [facility] 3 01:24:31 Obstructiv e sleep apnea syndrome 21565874 Active 2021 Not Available [facility] 3 01:24:31 Edema of lower extremity 920924045 Active 2021 Not Available [facility] 3 01:24:31 History of aortic valve replacemen t 2767773434489 Active 2021 Not Available [facility] 3 01:24:31 Insomnia 307194994 Active 2021 Not Available [facility] 3 01:24:31 Crohn's disease 21689202 Active 2021 Not Available [facility] 3 01:24:31 Obese 041629591 Active 2021 Not Available [facility] 3 01:24:31 Anxiety 47257867 Active 2021 Not Available [facility] 3 01:24:31 Hyperlipid emia 56719734 Active 2021 Not Available [facility] 3 01:24:31 Problem Notes None recorded. Procedures Surgical History Date Name Laterality Status Provider Name and Address Organization Details Recorded Time removal of foreign body from gallbladder completed Not Available [facility] 10/11/2022 01:23:44 procedure on heart completed Not Available [facility] 10/11/2022 01:23:44 Imaging Results None recorded. Procedure Notes None recorded. Medical Equipment None Reported. Allergies Allergen ID Allergen Name Allergen Category Reaction Reaction Severity Criticality Documentation Date Start Date Code Code System Note Provider Name and Address Organization Details Recorded Time 88294 Product containin g penicilli n (product) medicatio n rash Not available Not available 10/11/2022 73193 8001 SNOMED Not Available [facility] 3 01:25:36 Medications Name Sig Start [...] % 75 /min 16 /min 97.7 [degF] 087971. 88 g 130/80 mm[Hg] Not Available [facility] 3 01:24:01 Social History Question Answer Notes LastModified by Organization Details LastModified Time Tobacco Smoking Status Former Smoker Not Available [facility] 10/11/2022 01:23:21 Do You Have An Advance Directive? Yes MIGRATION.030 176117 Information not available 10/11/2022 Do You Wear A Helmet When Biking? No MIGRATION.03022990917 Information not available 10/11/2022 Are You Blind Or Do You Have Difficulty Seeing? No MIGRATION.0301 944986 Information not available 10/11/2022 What Is Your Level Of Caffeine Consumption? Moderate MIGRATION.0301 756308 Information not available 10/11/2022 What Is Your Code Status? Full Code MIGRATION.0301 050116 Information not available 10/11/2022 In The 14 Days Before Symptom Onset, Have You Had Close Contact With A Laboratory-confi rmed COVID-19 While That Case Was Ill? No MIGRATION.0301 350640 Information not available 10/11/2022 In The 14 Days Before Symptom Onset, Have You Had Close Contact With A Person Who Is Under Investigation For COVID-19 While That Person Was Ill? No MIGRATION.0301 393759 Information not available 10/11/2022 Are You Deaf Or Do You Have Serious Difficulty Hearing? No MIGRATION.0301 629809 Information not available 10/11/2022 What Type Of Diet Are You Following? REGULAR MIGRATION.0301 571810 Information not available 10/11/2022 Have There Been Any Changes To Your Family Or Social Situation? Yes Lost 5 Yrs Ago Sister Last Year MIGRATION.0301 351939 Information not available 10/11/2022 What Is The Fluoride Status Of Your Home? Fluoridated MIGRATION.0301 641107 Information not available 10/11/2022 When Did You Quit Smoking? 16+yearssincelastc igarette MIGRATION.0301 536736 Information not available 10/11/2022 Are There Any Guns Present In Your Home? Yes MIGRATION.0301 721094 Information not available 10/11/2022 Do You Use Insect Repellent Routinely? No MIGRATION.0301 748865 Information not available 10/11/2022 Where Do You Live? SingleLevelHouse MIGRATION.0301 566134 Information not available 10/11/2022 Do You Have A Medical Power Of Rn Surgery Icu? Yes MIGRATION.0301 844725 Information not available 10/11/2022 Do You Have Any Pets? No MIGRATION.0301 299457 Information not available 10/11/2022 What Is Your Relationship Status? MIGRATION.0301 377616 Information not available 10/11/2022 Do You Use Your Seat Belt Or Car Seat Routinely? Yes MIGRATION.0301 572779 Information not available 10/11/2022 Do You Have Smoke And Carbon Monoxide Detectors In Your Home? Yes MIGRATION.0301 085192 Information not available 10/11/2022 At What Age Did You Start Smoking Tobacco? 20 MIGRATION.0301 146256 Information not available 10/11/2022 Are You Passively Exposed To Smoke? No MIGRATION.0301 310223 Information not available 10/11/2022 Are There Any Smokers In Your House? No MIGRATION.0301 443058 Information not available 10/11/2022 Do You Participate In Social Telecardia? Yes MIGRATION.0301 063954 Information not available 10/11/2022 Do You Use Sunscreen Routinely? Yes MIGRATION.0301 536100 Information not available 10/11/2022 Have You Recently Traveled Abroad? No MIGRATION.0301 516009 Information not available 10/11/2022 Do You Have Difficulty Walking Or Climbing Stairs? Yes Painful MIGRATION.0301 860805 Information not available 10/11/2022 Are You Currently In School? No MIGRATION.0301 186279 Information not available 10/11/2022 Do You Have Any Dietary Restrictions? No MIGRATION.0301 296324 Information not available 10/11/2022 Sex: Unknown Functional Status Question Answer Note LastModified by [employer] ion Details LastModified Time Do you use any illicit or recreational drugs? No MIGRATION.418673 8264 Information not available 10/11/2022 What is your level of alcohol consumption? Occasional MIGRATION.645761 2943 Information not available 10/11/2022 Do you have transportation difficulties? No MIGRATION.595518 6243 Information not available 10/11/2022 Are you able to walk independently without assistance or assistive devices? YESWOREST MIGRATION.666111 6662 Information not available 10/11/2022 Do you have difficulty doing errands alone? No MIGRATION.093883 6939 Information not available 10/11/2022 Are you able to care for yourself independently? Yes MIGRATION.191147 6915 Information not available 10/11/2022 Do you have difficulty dressing, bathing, grooming, or toileting? No MIGRATION.381872 8110 Information not available 10/11/2022 What is your exercise level? Occasional swimming MIGRATION.131703 3934 Information not available 10/11/2022 Mental Status Question Answer Note LastModified by Organizat ion Details LastModified Time Do you feel stressed (tense, restless, nervous, or anxious, or unable to sleep at night)? IF59285-6 MIGRATION.56984711 26 Information not available 10/11/2022 Do you have difficulty concentrating, remembering or making decisions? No MIGRATION.51768813 26 Information not available 10/11/2022 Family History Relationship Description Onset Age of this Age Resolved Age Notes LastModified by Organization Details LastModified Time Sister Cerebrovascu lar accident MIGRATION.256 4491680 Not available 10/11/2022 01:23:45 Father Myocardial infarction 45 MIGRATION.351 2274922 Not available 10/11/2022 01:23:45 Medical History Condition [...] Diagnosis SNOMED-CT Code Diagnosis ICD10 Code Diagnosis IMO Codes Diagnosis Note 136876 Marcia Bustillos NP [facility] [address] [address] 04/19/2022 00:00:00 04/23/2022 16:23:10 Health Concerns Section Related Observation LastModified by Organization Detai ls LastModified Time None Recorded Concern Status LastModified by Organization Details LastModified Time None Recorded Advance Directives Directive Y: Payers Insurance Date Sequence Insurance Name Policy Number Policy Egan Covered Member ID Egan Member ID Guarantor Name 11/10/2022 1 [place] Barbra Maynard [id number] Barbra Maynard 11/10/2022 2 [facility] () Trevin Maynard [id number] Barbra Maynard OBGyn Episode No OBEpisode recorded.
--- OUTSIDE RECORDS SUMMARY | 2025-06-10 16:03 | XMS_ITS | Encounter Summary ---
Author Organization [facility] Address [address] [place] [address] Phone Care Team Providers Care Corporate Librarian Name Role Phone KenzieBeth DO Primary Care Provider [phone] Bobby Bui DO Primary Care Provider [phone] Rosario Pham DO Unavailable Leslie Torres NP Primary Care Provider [phone] Tu Fritz MD Unavailable Cinthia Quinones NP Unavailable [phone] Thomas Venegas MD Unavailable Trevon Sheth MD Unavailable [phone] London Hall MD Unavailable + Sylvia Johnson MD Unavailable [phone] Bobby Bui DO Unavailable [phone] Sahara Freedman OD Unavailable [phone] Dominique Pedro Unavailable [phone] Cinthia Quinones NP Primary Care Provider [phone] Leslie Torres NP Primary Care Provider [phone] Gutierrez Lucio NP Unavailable Abdirahman Mcclendon MD Unavailable [phone] Encounter Details Date Type Department Care Team [...] on file 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 Gender Identity Female 05/01/2021 8:51 AM [...] documented as of this encounter Care Teams Corporate Librarian Relationship Specialty Start Date End Date Beth Espino DO PCP - General Family Medicine 08/25/20 05/31/22 Bobby Bui DO PCP - General Internal Medicine 06/01/22 03/27/23 Leslie Torres, HOME ASSESSMENT NURSE [address] [place], [place] [address] PCP - General Family Medicine 03/28/23 06/30/23 Cinthia Quinones NP [address] [facility] [address] [place] [address] PCP - General Rheumatology 07/01/23 08/13/23 Leslie Torres, HOME ASSESSMENT NURSE [address] [place] [address] PCP - General Family Medicine 08/14/23 VeroRosariojay [address] [facility] [address] [place] [address] Consulting Physician Endocrinology Diabetes & Metabolism 08/22/22 Tu Fritz MD [address] [facility] [address] [facility] [address] [place] [address] Consulting Physician Internal Medicine 03/28/23 Cinthia Quinones, HOME ASSESSMENT NURSE [address] [facility] [address] [facility] [address] [place] [address] Nurse Practitioner Rheumatology 03/28/23 Thomas Venegas MD [address], [address] [place] [address] Consulting Physician Cardiology 03/28/23 Trevon Sheth MD [address], [address] [place], [place] [address] Surgeon Cardiothoracic Surgery 03/28/23 London Hall MD [address] GASTROENTEROLOGY [place], [place] [address] Referring Physician Gastroenterology 03/28/23 Sylvia Johnson MD [address] [place] [address] Consulting Physician Critical Care Med 03/28/23 Bobby Bui DO Internal Medicine 03/28/23 Sahara Freedman OD [address] [place] [address] Optometry 03/28/23 Dominique Pedro PA [address] [place] [address] Allergy and Immunology 03/28/23 [place] [address] [address] Nurse Practitioner Nurse Practitioner 01/05/25 [place] [address] [address] [facility] [address] [facility] [place] [address] Consulting Physician Pain Management 01/05/25 documented as of this encounter
--- OUTSIDE RECORDS SUMMARY | 2025-06-10 16:03 | XMS_ITS | Clinical Summary ---
Author Organization [facility] Address [address] [place] [address] Care Team Providers Care Environmental Health Physician Name Role Phone Beth Espino Primary Care Provider [phone] Allergies Active Allergy Reactions Criticality Noted Date Comments Penicillins Hives,Rash Medium 03/22/2006 Other reaction(s): Other: HIVES Medications amlodipine 5 MG tablet 02/23/20 19 Active CPAP DME DEVICE CPAP7 cm [id number]- 2017Mohan, VentrapragadaActive 03/25/20 17 Active ASPIRIN EC [...] (VOLTAREN) 1 % gel as needed 02/16/20 Active HYDROcodone-a cetaminophen 7.5-325 MG tablet 11/29/19 [...] 04/17/20 CPAP (continuous positive airway pressure) depjudy jimenez 03/25/2017 Obesity 03/21/2017 LAURA on CPAP 03/21/2017 [...] 07/21/2015 Pain in shoulder 08/18/2013 Crohn's disease 11/03/2012 Osteopenia 11/03/2012 Metabolic syndrome 2010 Asymptomatic varicose veins of lower extremity 0 08/29/2010 Chronic rhinitis 06/26/2010 Edema 06/26/2010 Astigmatism 02/02/2010 Rheumatoid arthritis 12/30/2007 Overview (05/25/2019): Overview: Overview: Rheum doctor now [...] mention of probable neuroma in referral to bladder changer for custom insoles (her has done [...] mention of probable neuroma in referral to bladder changer for custom insoles (her has done well with these, she is willing to pay out of pocket). Between NSAIDS and conservative therapy, will try to see if improves. Her exercise includes non-impact in the pool and such. Pain between 3rd and 4th metatarsal heads. Could be a neuroma. Will defer further w/u, however made mention of probable neuroma in referral to bladder changer for custom insoles (her has done [...] mention of probable neuroma in referral to bladder changer for custom insoles (her has done well with these, she is willing to pay out of pocket). Between NSAIDS and conservative therapy, will try to see if improves. Her exercise includes non-impact in the pool and such. Pain between 3rd and 4th metatarsal heads. Could be a neuroma. Will defer further w/u, however made mention of probable neuroma in referral to bladder changer for custom insoles (her has done [...] getting worse. History somewhat consistent with OA. End Finder Forming Department not think has RA. Will get XRays [...] getting worse. History somewhat consistent with OA. End Finder Forming Department not think has RA. Will get XRays [...] getting worse. History somewhat consistent with OA. End Finder Forming Department not think has RA. Will get XRays [...] Years Used Date Smoking Tobacco: Former Cigarettes 30 1 2009 Smokeless Tobacco: Never Alcohol [...] - Td or Tdap) 09/17/2022 09/17/2012, 10/07/2000 RSV Immunization or 60+ Years (1 - 1-dose 75+ series) 2024 COVID-19 Vaccine (2024- season) 2025 12/23/2021, 03/28/2021, 11/10/2020, Additional history exists Influenza Adult (#1) 2025 04/24/2023, 06/09/2021, 04/14/2020, Additional history exists Pneumococcal Vaccine: 50+ Years Completed 04/06/2015, 08/18/2014 Hepatitis A Vaccines Aged Out 05/06/2019 No long er eligible based on patient's age to complete this topic Zoster Vaccines Completed 09/23/2021, 07/18/2021 Dexa Scan [...] complete this topic Insurance MEDICARE Care Teams Environmental Health Physician Relationship Specialty Start Date End Date Beth Espino DO [address] [facility] [place] [address] PCP - General INTERNAL MEDICINE 05/17/20
--- OUTSIDE RECORDS SUMMARY | 2025-06-10 16:03 | XMS_ITS | Clinical Summary ---
Author Organization [facility] [address] [place] [address] Care Team Providers Care Ortho Assistant Name Role Phone Rosario Pham DO Unavailable [phone] Tu Fritz MD Unavailable Cinthia Quinones NP Unavailable Marko Venegas MD Unavailable Trevon Sheth MD Unavailable [phone] London Hall MD Unavailable + Sylvia Johnson MD Unavailable [phone] Bobby Bui DO Unavailable Sahara Freedmant OD Unavailable Dominique Pedro Unavailable Leslie Torres NP Primary Care Provider [phone] Gutierrez Lucio NP Unavailable Abdirahman Mcclendon MD Unavailable Allergies Active Allergy Reactions Criticality Noted Date Comments Adhesive Other (See comments) Low 10/24/2020 Bruising from bandage Other Unknown 01/27/2010 Penicillin V Unknown 03/22/2006 Penicillins Hives,Rash Medium 03/22/2006 Penicillin Allergy History Form completed, moderate risk Medications magnesium oxide 400 mg magnesium capsule Take 500 mg by mouth daily 10/17/19 22 Active tovey-3t-rcg-epa -fish oil 1,000-1,400 mg capsule,delayed release(DR/EC) Take 1,000 mg by mouth daily 04/12/20 22 Active aspirin (ASPIR-81 ORAL) Take by mouth daily Active inFLIXimab (REMICADE) 100 mg injection Infuse 100 mL (1,000 mg total) into a venous catheter every 6 (six) weeks 100 mL 09/11/19 23 Active Additional Information Patient taking differently:1,000 mg intravenousSee admin instructions, Every 5 weeks, Reported on 06/01/2025 calcium carb, citrate/vit D3 (CALCIUM CARB AND [...] capsule 04/17/20 24 Active miscellaneous medical supply [facility] Mediven PLUS 20-30 MMHG KH 6 each 04/24/20 24 Active semaglutide 0.25 mg or 0.5 mg (2 mg/3 mL) pen injector injection Inject under the skin Active hydroCHLOROthiaz peg (MICROZIDE) 12.5 mg capsuleIndicatio ns:Essential (primary) hypertension,Kenrick ateral lower extremity edema Take 1 capsule (12.5 mg total) by mouth every morning 90 capsule 3 06/29/20 24 025 Active ibuprofen (ADVIL,MOTRIN) 600 mg tablet Take 1 tablet (600 mg total) by mouth every 6 (six) hours as needed for pain 30 tablet 1 06/29/20 24 Active atorvastatin (LIPITOR) 40 mg tablet [...] directed 30 mL 3 11/20/19 25 Active Additional Information Patient taking differently:1 spray each nostrilAs needed, Use in each nostril as directed, Reported on 06/01/2025 fluticasone propionate (FLONASE) 50 mcg/actuation nasal spray Administer 2 sprays into each nostril daily 48 mL 3 11/20/19 25 Active Additional Information Patient taking differently:2 spray each nostrilAs needed, Reported on 06/01/2025 diclofenac sodium (VOLTAREN) 1 % gel Apply 2 g topically 4 (four) times a day 300 g 1 11/21/19 25 Active hydroxychloroqui ne (PLAQUENIL) 200 mg tabletIndication s:Rheumatoid Arthritis Take 1 tablet (200 mg total) by mouth 2 (two) times a day 180 tablet 1 12/11/[address] (PROTONIX) 40 mg EC tablet Take 1 tablet (40 mg total) by mouth daily 90 tablet 2 02/12/20 25 Active pregabalin (LYRICA) 75 [...] % dropperette Administer into affected eye(s) Active montelukast (SINGULAIR) 10 mg tablet Take 1 tablet (10 mg total) by mouth nightly 90 tablet 2 04/19/20 25 Active azaTHIOprine (IMURAN) 50 mg tabletIndication s:Rheumatoid Arthritis Take 2 tablets (100) in the morning and 1 tablet (50) in the evening. 270 tablet 1 04/19/20 25 Active oxyCODONE-acetam inophen (PERCOCET) 5-325 mg per tablet Take by mouth every 8 (eight) hours as needed 03/12/20 25 Active cholecalciferol (Vitamin D3) 2000 unit tablet 2 pills daily 60 tablet 11 05/14/20 25 Active NIFEdipine (NIFEdipine XL) 30 mg 24 hr tablet Take 1 tablet (30 mg total) by mouth daily 90 tablet 2 05/25/20 25 Active tiZANidine (ZANAFLEX) 4 mg tablet Take 1 tablet (4 mg total) by mouth every 8 (eight) hours as needed for muscle spasms 60 tablet 05/25/20 25 Active cyanocobalamin, vitamin B-12, 1,000 mcg capsuleIndicatio ns:Foreign body of right ear, initial encounter Take 1,000 mcg by mouth 02/18/20 25 Active cholecalciferol (VITAMIN D-3) 5,000 unit capsule Take 1 capsule (5,000 Units total) by mouth daily 90 capsule 2 02/12/20 25 Discontin ued(Alter juan luis therapy) UNABLE TO FIND [facility] eye drops Discontin ued(Thera py completed ) tiZANidine (ZANAFLEX) 4 mg tablet Take 1 tablet (4 mg total) by mouth every 8 (eight) hours as needed for muscle spasms 60 tablet 04/19/20 25 025 Discontin ued(Reord er) NIFEdipine (NIFEdipine XL) 30 mg 24 hr tablet Take 1 tablet (30 mg total) by mouth daily 90 tablet 2 04/19/20 25 025 Discontin ued(Reord er) celecoxib (CeleBREX) 200 mg capsule 2 (two) times a day as needed 03/12/20 25 025 Discontin ued(Thera py completed ) Active Problems Patient Care Coordination No te [...] otherwise. Assessment & Plan (10/14/2023 11:08 AM [employer] FORMER): Continuing to work with Lymphedema clinic. Symptoms stable and she has been working with clinic to get her compression pump. Assessment & Plan (08/14/2023 3:35 PM [employer] FORMER): She was started on diuretic per Cardiology [...] lipids/LFT/CK Assessment & Plan (10/14/2023 11:03 AM [employer] FORMER): Continues Lipitor, no side effects reported. Updated [...] Essential (primary) hypertension 01/16/2017 Assessment & Plan (05/03/2025 3:29 PM CDT): BP controlled, continuing current regimen. Assessment & Plan (02/22/2025 12:16 PM CDT): Assessment & Plan (10/27/2024 9:53 AM CDT): BP in good shape today, no changes. Assessment & Plan (04/29/2024 8:40 AM CDT): BP in good shape today, no changes. Renal function was fine also. Assessment & Plan (10/14/2023 11:05 AM [employer] FORMER): BP diastolic borderline in office today. However, has been stable in all our other visits. Will continue current regimen and await updated labs. Assessment & Plan (08/14/2023 3:34 PM [employer] FORMER): BP stable in office today, no changes. [...] much better than previously. Assessment & Plan (05/03/2025 1:25 PM CDT): Down 37 lbs x 1 year ago. Pt continuing GLP-1 therapy. Assessment & Plan (02/22/2025 12:16 PM CDT): [...] more. Assessment & Plan (10/14/2023 11:06 AM [employer] FORMER): Patient's insurance would not cover Wegovy but [...] getting worse. History somewhat consistent with OA. 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 Will get XRays to confirm dx again. Also told pt she can take up to 1 gm Tylenol qid if needed (on top of the Naproxen she is already taking for knees. She knows she can't take motrin with naproxen). RTC 1-2 mo. Medicare annual wellness visit, subsequent Assessment & Plan (05/03/2025 3:33 PM CDT): A yearly Medicare Annual Wellness Visit has been performed today. Huy Maynard is up to date on screening tests. She is in need of None- no screening indicated at this time- these have been ordered. She is not up to date on needed preventative vaccinations; She is in need of Influenza and Covid-19 (booster). These have been ordered/arranged unless otherwise indicated. Resolved Problems Problem Noted Date Diagnosed Date [...] (10/17/2020): Added automatically from request for surgery [id number] S/P LEEP (loop electrosurgic al excision procedure) 11/26/2017 02/11/2025 Vaginal atrophy 11/26/2017 02/11/2025 Morbid obesity with BMI of 4 0.0-44.9, adult ([facility]) 07/26/2017 10/24/2021 Pain of foot 06/05/2017 02/11/2025 Astigmatism of eye 04/17/2017 Metabolic syndrome 04/17/2017 Primary osteoarthritis, unsp ecified ankle and foot 04/17/2017 02/11/2025 Overview (04/09/2018): Overview: Pain in both feet probably from OA. XRays from 2 yrs ago showed mild OA, and is now getting worse. History somewhat consistent with OA. 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 Will get XRays [...] mention of probable neuroma in referral to painter and paperhanger apprentice for custom insoles (her has done well with these, she is willing to pay out of pocket). Between NSAIDS and conservative therapy, will try to see if improves. Her exercise includes non-impact in the pool and such. Overview: Overview: Pain between 3rd and 4th metatarsal heads. Could be a neuroma. Will defer further w/u, however made mention of probable neuroma in referral to painter and paperhanger apprentice for custom insoles (her has done well with these, she is willing to pay out of pocket). Between NSAIDS and conservative therapy, will try to see if improves. Her exercise includes non-impact in the pool and such. Pain between 3rd and 4th metatarsal heads. Could be a neuroma. Will defer further w/u, however made mention of probable neuroma in referral to painter and paperhanger apprentice for custom insoles (her has done well [...] will refill zocor and tricor, check lipids/LFT/CK Encounters Date Type Department Care Team Description 06/08/2025 Results Follow-Up [facility] Endocrinology Metabolism and Lipid [address] [facility] 2nd [address] [place] [address] Rosario Pham DO Dexa TBS Axial Skeleton Bone Density 1 or more sites 06/07/2025 9:10 AM CDT Clinical Support [facility] [address] [facility] [place] [address] Osteoporosis, post-menopausal (Primary Dx); Post-menopausal 06/07/2025 7:30 AM CDT Infusion [facility] Infusion Therapy [address] [facility] 2[address] [place] [address] 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) (Primary Dx); Age-related osteoporosis without current pathological fracture 06/01/2025 7:36 AM CDT - 06/01/2025 11:59 PM CDT Hospital Encounter [facility] Center [address] [place] [address] Gutierrez Lucio NP Radiculopathy, lumbosacral region (Primary Dx); Sacroiliitis; Spinal stenosis of lumbar region with neurogenic claudication Discharge Disposition: Discharge to home or self care 05/29/2025 10:45 AM CDT Office Visit [facility] Care at [address] [address] Debra Rivera NP Foreign body of right ear, initial encounter (Primary Dx); Bilateral acute serous otitis media, recurrence not specified 05/14/2025 7:45 AM CDT Office Visit [facility] Endocrinology Metabolism and Lipid [address] [place] [address] Rosario Pham DO Osteoporosis, unspecified osteoporosis type, unspecified pathological fracture presence (Primary Dx); Primary hypertension; Hyperparathyroidism; Other hyperlipidemia; Rheumatoid arthritis involving both shoulders with negative rheumatoid factor (HCC) 05/13/2025 Results Follow-Up [facility] Endocrinology Metabolism and Lipid [address] [place] [address] Rosario Pham DO Comprehensive metabolic panel, Calcium, ionized, Vitamin D 25 hydroxy, Additional followed-up results: 6 05/10/2025 Telephone [facility] [address] [place] [address] Ana Eldridge 05/08/2025 Orders Only [facility] Endocrinology Metabolism and Lipid [address] [facility] [address] [place] [address] Rosario Pham DO Osteoporosis, unspecified osteoporosis type, unspecified pathological fracture presence (Primary Dx); Primary hypertension; Hyperparathyroidism 05/07/2025 Telephone [facility] Endocrinology Metabolism and Lipid [address] [facility] 13th [place] [address] [place] [address] Rosario Pham DO lab orders 05/07/2025 Telephone [facility] Endocrinology Metabolism and Lipid [address] [place] [address] Aria Oliver RMA 05/06/2025 2:00 PM CDT Office Visit [facility] [address] 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] 05/03/2025 1:00 PM CDT Office Visit [facility] Primary Care at [address] [address] Leslie Torres NP Medicare annual wellness visit, subsequent (Primary Dx); Essential (primary) hypertension; Impaired fasting glucose; Class 2 severe obesity due to excess calories with serious comorbidity and body mass index (BMI) of 39.0 to 39.9 in adult (HCC) 05/03/2025 7:30 AM CDT - 05/03/2025 11:59 PM CDT Hospital Encounter [facility] [address] [place] [address] High risk medication use Discharge Disposition: Discharge to home or self care 05/03/2025 7:30 AM CDT Infusion [facility] Infusion Therapy [address] [facility] 2[address] [place] [address] 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) (Primary Dx); Age-related osteoporosis without current pathological fracture 04/30/2025 Telephone [facility] [address] [facility] [address] [place] [address] Laura Sheth 04/29/2025 1:30 PM CDT - 04/29/2025 11:59 PM CDT Hospital Encounter [facility] Diagnostic Imaging [address] [place] [address] Low back pain, unspecified back pain laterality, unspecified chronicity, unspecified whether sciatica present Discharge Disposition: Discharge to home or self care 04/29/2025 11:30 AM CDT Office Visit [facility] Surgery [address] [facility] [address] [place] [address] Nelia Gerard NP S/P AVR (Primary Dx) 04/16/2025 [facility]ation [facility] [address] [facility] 2[address] [place] [address] Melecio De Souza Eye Exam (04-09-25 [facility] ok for plaquenil) 04/09/2025 8:15 AM CDT Ancillary Procedure [facility] Cardiology at [address] [place] [address] S/P AVR; Pulmonary hypertension (HCC) 04/09/2025 Results Follow-Up [facility] Cardiology [address] [place] [address] Marko Venegas MD Transthoracic Echo (TTE) Complete W Doppler/CF 04/01/2025 Orders Only [facility] Primary Care at [address] [address] ProviderSid MD 03/29/2025 7:30 AM CDT Infusion [facility] Infusion Therapy [address] [facility] 2[address] [place] [address] 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) [...] FLUORO GUIDED ASPIRATION TMJ LEFT 08/19/2023 Left JOINT REPLACEMENT HIP 2011; KNEE 2016 Medical History Medical History Date Comments Knee pain, left (aortic stenosis) Sleep apnea 1994 Hypertension Hyperlipidemia Crohn disease (HCC) GERD (gastroesophageal reflu x disease) 2000 Seronegative erosive rheumat oid arthritis (HCC) Osteoarthritis Osteoporosis Sciatica Acid reflux Depression Asthma Heart disease AORTIC STENOSIS 2016 Autoimmune disease RA 1994 Cataract Primary osteoarthritis, unspecified ankle and foot 04/17/2017 Overview: Pain in both feet probably from OA. XRays from 2 yrs ago showed mild OA, and is now getting worse. History somewhat consistent with OA. 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 Will get XRays [...] on file Legal Sex Female 2:13 AM [employer] FOR[employer] Gender Identity Female 05/01/2021 8:51 AM CDT Sexual Orientation Straight 02/24/2020 1: 08 PM CDT Obstetrics History Last Filed Vital Signs Vital Sign Reading Time Taken Comments Blood Pressure 163/84 06/01/2025 7:40 AM CDT Pulse 70 06/01/2025 7:40 AM CDT Temperature 36.7 C (98.1 F) 05/29/2025 8:47 AM CDT Respiratory Rate 18 06/01/2025 7:40 AM CDT Oxygen Saturation 100% 06/01/2025 7:40 AM CDT Inhaled Oxygen Concentration - - Weight 116.1 kg (256 lb) 05/29/2025 8:47 AM CDT Height 172.7 cm (5' 8) 05/14/2025 7:38 AM CDT Body Mass Index 38.92 05/14/2025 7:38 AM CDT Plan of Treatment Health Maintenance Due Date Last Done Comments Covid-19 Vaccine (2024-09 6 season) 2025 07/17/2022, 12/23/2021, 03/28/2021, Additional history exists Influenza Vaccine (#1) 2025 , 04/24/2023, 04/24/2023, Additional history exists Lung Cancer Screening 09/03/2025 09/03/2024, 023 Colon Cancer Screening-Colonoscopy 10/22/2025 10/22/2022 Depression Screening 05/03/2026 05/03/2025, 02/11/2025, 10/27/2024, Additional history exists Well Visit 65+ 05/03/2026 05/03/2025 Fall Risk Assessment 06/01/2026 06/01/2025, 05/03/2025, 10/27/2024, Additional history exists Osteoporosis Screening-Bone Density Scan 06/07/2027 06/07/2025, 05/29/2024, 09/06/2022, Additional history exists DTaP/Tdap/Td Vaccine (3 - Td or Tdap) 03/24/2034 03/24/2024, 09/17/2012, 10/07/2000 Pneumococcal vaccine 65+ Completed 04/06/2015, 02/2015 Hepatitis B Screening Completed 06/19/2017 , 01/11/2017, 11/01/2016 Zoster Vaccine Completed 09/23/2021, 07/18/2021 Colon Cancer Screening-CT Colonography Discontinued 10/22/2022 Colon Cancer Screening-DNA Stool Discontinued 10/23/19 Colon Cancer Screening-FIT Discontinued 10/22/2022 Colon Cancer Screening-Sigmoidoscopy Discontinued 10/22/2022 Hepatitis C Screening Completed 03/28/2023 Breast Cancer Screening-Mammogram Discontinued 024, 07/13/2022 Medical Devices Implanted Type Area Edger Machine Helper Device Identifier Shelf Expiration Date Model / Serial / Lot [email or web address] [id number] Inspiris Resilia Leaflet Sewing Ring 23mm Valve Aortic Bovine - [id number] - [id number] Implanted:Qty: 1 on 10/26/2020 by Trevon Sheth MD at [facility] N/A: Heart [employer] 05/19/2024 [id number] / [id number] / Description:As of 11/04/2024 Mri conditions: Static magnetic field of 1.5 darrel or 3 darrel only. Maximum spatial gradient magnetic field of 3,000 gauss/cm (30 T/m) or less. Maximum MR system-reported, whole-body averaged specific absorption rate (CATALINA) of 2.0 W/kg in Normal Operating Mode Procedures Procedure Name Priority Date/Time Associated Diagnosis Comments DEXA TBS AXIAL SKELETON BONE DENSITY 1 OR MORE SITES Schedule Routine, Read Routine (OP Routine) 06/07/2025 9:16 AM CDT Osteoporosis, post-menopausal [place] RMVL FB XTRNL AUDITORY CANAL W/O ANES Routine 05/29/2025 9:03 AM CDT Foreign body of right ear, initial encounter CREATININE, URINE, 24 HOUR Routine 05/18/2025 9:05 AM CDT Osteoporosis, unspecified osteoporosis type, unspecified pathological fracture presence Hyperparathyroidis m CALCIUM, URINE, 24 HOUR Routine 05/18/2025 9:05 AM CDT Osteoporosis, unspecified osteoporosis type, unspecified pathological fracture presence Hyperparathyroidis m C TELOPEPTIDE (CTX) Routine 05/12/2025 9 :59 AM CDT Osteoporosis, unspecified osteoporosis type, unspecified pathological fracture presence OSTEOCALCIN Routine 05/12/2025 9:59 AM CDT Osteoporosis, unspecified osteoporosis type, unspecified pathological fracture presence PHOSPHORUS Routine 05/12/2025 9:57 AM CDT Osteoporosis, unspecified osteoporosis type, unspecified pathological fracture presence Hyperparathyroidis m PTH Routine 05/12/2025 9:57 AM CDT Osteoporosis, unspecified osteoporosis type, unspecified pathological fracture presence Hyperparathyroidis m VITAMIN D 25 HYDROXY Routine 05/12/2025 9:57 AM CDT Osteoporosis, unspecified osteoporosis type, unspecified pathological fracture presence Hyperparathyroidis m CALCIUM, IONIZED Routine 05/12/2025 9:57 AM CDT Osteoporosis, unspecified osteoporosis type, unspecified pathological fracture presence Hyperparathyroidis m COMPREHENSIVE METABOLIC PANEL Routine 05/12/2025 9:57 AM CDT Osteoporosis, unspecified osteoporosis type, unspecified pathological fracture presence EGFR Routine 05/03/2025 7:30 AM CDT High risk medication use DIFFERENTIAL AUTO Routine 05/03/2025 7:3 0 AM CDT High risk medication use CBC WITH AUTO DIFFERENTIAL Routine 05/03/2025 7:30 AM CDT High risk medication use COMPREHENSIVE METABOLIC PANEL Routine 05/03/2025 7:30 AM CDT High risk medication use XR SPINE LUMBAR 2 OR 3 VIEWS Schedule Routine, Read Routine (OP Routine) 04/29/2025 1:48 PM CDT Low back pain, unspecified back pain laterality, unspecified chronicity, unspecified whether sciatica present TRANSTHORACIC ECHO (TTE) COMPLETE W DOPPLER/CF WO CONTRAST Routine 04/09/2025 8:43 AM CDT S/P AVR Pulmonary hypertension (HCC) XR KNEE RIGHT 3 VIEWS Schedule Routine, Read Routine (OP Routine) 03/25/2025 3:[address] LUNG CANCER SCREENING Schedule Routine, Read Routine (OP Routine) 09/03/2024 3:23 PM [employer] FORMER HM MAMMOGRAPHY Routine 12/04/2023 HEPATITIS C ANTIBODY Routine 03/28/2023 12:29 PM CDT Encounter for hepatitis C screening test for low risk patient COLONOSCOPY Routine 10/22/2022 from Last 3 Months or Most Recently Relevant to Health Maintenance Results * Dexa TBS Axial Skeleton Bone Density 1 or more sites (06/07/2025 9:16 AM CDT) Anatomical Region Laterality Modality Wrist, Body N/A Radiographic Ana ging Narrative 06/07/2025 12:35 PM CDT Patient Name: Huy Maynard Date of : 1950 Date of scan: 06/07/2025 Bone mineral density was performed on a Hologic Discovery Densitometer. Based on machine cross-calibration and precision studies the least significant changes of this densitometer is 0.024 g/cm2 at the spine, 0.020 g/cm2 at the total proximal femur, and 0.014g/cm2 at the forearm. HISTORY: This is a 74 y.o. postmenopausal female with a history of Crohn's disease, hyperparathyroidism, osteoporosis, and rheumatoid arthritis. She reports that she quit smoking about 11 years ago. Her smoking use included cigarettes. She started smoking about 54 years ago. She has a 21.9 pack-year smoking history. She has been exposed to tobacco smoke. She has never used smokeless tobacco. Currently on treatment with calcium and vitamin D and previously treated with zoledronic acid (Reclast) and diuretics. INDICATIONS: Menopause status, history of prior wrist fracture, and history of osteoporosis. FINDINGS: BONE MINERAL DENSITY OF THE LUMBAR SPINE Bone Mineral Density (BMD) of the lumbar spine was measured from L1-L4 and the average density was calculated to be 1.271 gm/cm2. This corresponds to a T-score (standard deviations from the mean of young adults) of 2.0. When compared to the previous study of 05/29/2024 there has been no significant changes in bone density. BONE MINERAL DENSITY OF THE PROXIMAL FEMUR Bone Mineral Density (BMD) of the left hip total was found to be 0.773 gm/cm2. This corresponds to a T-score standard deviations from the mean of young adults of -1.4. Femoral neck is 0.616 gm/cm2 with a T-score (standard deviations from the mean of young adults) of -2.1. When compared to the previous study of 05/29/2024 there has been no significant changes in bone density. BONE MINERAL DENSITY OF THE FOREARM Bone Mineral density (BMD) of the left proximal 1/3 of the radius measures 0.545 gm/cm2. This corresponds to a T-score (standard deviations from the mean of young adults) of -2.5. When compared to the previous study of 05/29/2024 there has been no significant changes in bone density. A forearm bone density study was performed in addition to the routine study due to history of hyperparathyroidism. SUMMARY: Bone mineral density shows evidence of osteoporosis and marked increase risk of fracture. There has been no significant changes in bone density since previous measurement. The lumbar spine Trabecular Bone Score TBS was not obtained due to BMI being out of range. ADDITIONAL COMMENTS: Postmenopausal Women and Men Over [...] bone mineral density scan were prepared by Cindy Braden) JENNIFER who is accredited by the International Society of Clinical Densitometry. The overall patient assessment and scan interpretation were performed by Damaris Simmons M.D. who is certified by the International Society of Clinical Densitometry. [id number] Rosario Pham DO IMG DXA PROCEDURES Erika l Result * [place] RMVL FB XTRNL AUDITORY CANAL W/O ANES (05/29/2025 9:03 AM CDT) Narrative Debra Rivera NP - 05/29/2025 9:03 AM CDT Debra Rivera NP 05/29/2025 9:08 AM Foreign Body Removal Date/Time: 05/29/2025 9:03 AM Performed by: Debra Rivera NP Authorized by: Debra Rivera NP Consent: Consent obtained: Verbal Consent given by: Patient Risks, benefits, and alternatives were discussed: yes Risks discussed: Infection, pain, worsening of condition and incomplete removal Alternatives discussed: No treatment, alternative treatment and referral [facility] protocol: Procedure explained and questions answered to patient or proxy's satisfaction: yes Immediately prior to procedure, a time out was called: yes Patient identity confirmed: Verbally with patient Location: Location: Ear Ear location: R ear Anesthesia: Anesthesia method: None Procedure type: Procedure complexity: Simple Procedure details: Localization method: Visualized Removal mechanism: Forceps Foreign bodies recovered: 1 Description: Cotton tip of qtip Intact foreign body removal: yes Post-procedure details: Neurovascular status: intact Confirmation: No additional foreign bodies on visualization Dressing: Open (no dressing) Procedure completion: Tolerated well, no immediate complications us Debra Rivera NP IN CLINIC/BEDSIDE ORDERABLES Fi nal Result * Calcium, urine, 24 hour (05/18/2025 9:05 AM CDT) Calcium, 24 hour ur 143 mg/24 h [facility] Comment: Reference Range 35-250 Low calcium diet 35-200 URINE VOLUME: 2300/24 Urine 05/18/2025 9:05 AM CDT 05/19/2025 12:08 AM CDT Narrative [facility] - 05/20/2025 10:50 AM CDT SPLIT 05/12/2025 FROM [id number] Rosario Pham DO LAB URINE ORDERABLES Fi nal Result [facility] [address] [address] * Creatinine, urine, 24 hour (05/18/2025 9:05 AM CDT) Creatinine, 24 hour ur 1.01 0.50 - 2.15 g/24 h [facility] Comment:URINE VOLUME: 2300/2 4 Urine 05/18/2025 9:05 AM CDT 05/19/2025 12:08 AM CDT Narrative [facility] - 05/20/2025 10:50 AM CDT SPLIT 05/12/2025 FROM [id number] Rosariobruno Pham [employer] URINE ORDERABLES Fi nal Result [facility] [address] [place] [address] * C-Telopeptide, serum (05/12/2025 9:59 AM CDT) Pathologist [facility] C telopeptide 431 pg/mL [facility]Branden liriano [facility], Comment: Reference Range: NOT ESTABLISHED Adult Female Reference Ranges for C-Telopeptide (CTx): 18-29 years: 64-640 pg/mL 30-39 years: 60-650 pg/mL 40-49 years: 50-465 pg/mL >49 years: Not Established No reference range is provided for postmenopausal women because of the increased rate of bone turnover post-menopause. It is recommended that results for postmenopausal women be compared to the premenopausal reference range as this will give a better indication of their rate of bone loss. For additional information, please refer to http://education.TVShow Time/faq/RDD842 (This link is being provided for informational/educational purposes only.) Blood 05/12/2025 9:59 AM CDT 05/12/2025 9:59 AM CDT Narrative [facility] - 05/16/2025 8:44 PM CDT COLLECTION KIT GIVEN TO PATIENT. PATIENT ADVISED TO RETURN. us Rosario Pham DO LAB BLOOD ORDERABLES Fi nal Result [facility] [employer]le [facility], [address] [place] [address] * Osteocalcin (05/12/2025 9:59 AM CDT) OSTEOCALCIN, N MID 23 8 - 32 ng/mL [facility]/Kendra bryson [facility] Comment: For additional information, please refer to https://education.TVShow Time/faq/HVB765 (This link is being provided for informational/ educational purposes only.) Blood 05/12/2025 9:59 AM CDT 05/12/2025 9:59 AM CDT Narrative [facility] - 05/16/2025 8:44 PM CDT COLLECTION KIT GIVEN TO PATIENT. PATIENT ADVISED TO RETURN. Rosario Pham DO LAB BLOOD ORDERABLES Fi nal Result Performing Organization Address [facility]/ZIP Co de Phone Number [facility]Chele [facility] [address] [facility] [place] [address] * Calcium, ionized (05/12/2025 9:57 AM CDT) Calcium, Ionized 5.5 4.7 - 5.5 mg/dL [facility] Blood 05/12/2025 9:57 AM CDT 05/12/2025 9:58 AM CDT Rosario Matsonme DO LAB BLOOD ORDERABLES Fi nal Result [facility] [address] [phone] * Vitamin D 25 hydroxy (05/12/2025 9:57 AM CDT) Vitamin D 25-OH 86 30 - 100 ng/mL [facility] Comment: Vitamin D Status 25-OH Vitamin D: Deficiency: <20 ng/mL Insufficiency: 20 - 29 ng/mL Optimal: > or = 30 ng/mL For 25-OH Vitamin D testing on patients on D2-supplementation and patients for whom quantitation of D2 and D3 fractions is required, the QuestAssureD(TM) 25-OH VIT D, (D2,D3), LC/MS/MS is recommended: order code 15963 (patients >2yrs). See Note 1 Note 1 For additional information, please refer to http://education.Zemanta/faq/MZC102 (This link is being provided for informational/ educational purposes only.) Blood 05/12/2025 9:57 AM CDT 05/12/2025 9:58 AM CDT [facility]OD ORDERABLES Fi nal Result Performing Organization Address [facility] Co de Phone Number [facility] [employer] [facility] [address] [place] [address] * Phosphorus (05/12/2025 9:57 AM CDT) Phosphorus, sr 3.6 2.1 - 4.3 mg/dL [facility] Blood 05/12/2025 9:57 AM CDT 05/12/2025 9:58 AM CDT [facility] BLOOD ORDERABLES Fi nal Result Performing Organization Address [facility] Co de Phone Number [facility] [employer] [facility] [address] [place] [address] * PTH (05/12/2025 9:57 AM CDT) Parathyroid hormone, intact 48 16 - 77 pg/mL [facility] Comment: Interpretive Guide Intact PTH Calcium ------- Normal Parathyroid Normal Normal Hypoparathyroidism Low or Low Normal Low Hyperparathyroidism Primary Normal or High High Secondary High Normal or Low Tertiary High High Non-Parathyroid Hypercalcemia Low or Low Normal High Blood 05/12/2025 9:57 AM CDT 05/12/2025 9:58 AM CDT us Rosario Pham DO LAB BLOOD ORDERABLES Fi nal Result [facility] [address] [address] * (ABNORMAL) Comprehensive metabolic panel (05/12/2025 9:57 AM CDT) Glucose 107(H) 65 - 99 mg/dL [facility] Comment: Fasting reference interval For someone without known diabetes, a glucose value between 100 and 125 mg/dL is consistent with prediabetes and should be confirmed with a follow-up test. BUN 20 7 - 25 mg/dL [facility] Creatinine 0.83 0.60 - 1.00 mg/dL [facility] eGFR 73 > OR = 60 mL/min/1.7 3m2 [facility] BUN/creat ratio SEE NOTE: 6 - 22 (calc) [facility] Comment: Not Reported: BUN and Creatinine are within reference range. Sodium 137 135 - 146 mmol/L [facility] Potassium, pl 4.2 3.5 - 5.3 mmol/L [facility] Chloride 101 98 - 110 mmol/L [facility] CO2 30 20 - 32 mmol/L [facility] Calcium 9.7 8.6 - 10.4 mg/dL [facility] Protein, sr 6.6 6.1 - 8.1 g/dL [facility] Albumin 4.2 3.6 - 5.1 g/dL [facility] GLOBULIN 2.4 1.9 - 3.7 g/dL (calc) [facility] Alb/glob ratio 1.8 1.0 - 2.5 (calc) [facility] Bilirubin, total 0.6 0.2 - 1.2 mg/dL [facility] Alk phos 89 37 - 153 U/L [facility] AST 18 10 - 35 U/L [facility] ALT (SGPT) 12 6 - 29 U/L [facility] Blood 05/12/2025 9:57 AM CDT 05/12/2025 9:58 AM CDT us Rosario Pham DO LAB BLOOD ORDERABLES Fi nal Result [facility] [address] [address] [facility] [place] [address] * eGFR (05/03/2025 7:30 AM CDT) eGFR 78 >=60 mL/min/1. 73 m2 Comment: Interpretive Data [...] interpretive data was last reviewed 2021. Blood 05/03/2025 7:30 AM CDT 05/03/2025 9:54 AM CDT us Cinthia Quinones [employer] LAB BLOOD ORDERABLES Final Result [place] [facility] [place] [address] * Differential, auto (05/03/2025 7:30 AM CDT) Neutrophil abs 3.04 1.50 - 6.50 K/cumm Imm gran abs 0.02 0.00 - 0.10 K/cumm C[facility] H Lymphocyte abs 1.29 0.80 - 3.30 K/cumm [facility] Monocyte abs 0.46 0.20 - 0.80 K/cumm [facility] Eosinophil abs 0.13 0.00 - 0.50 K/cumm [facility] Basophil abs 0.04 0.00 - 0.10 K/cumm [facility] Neutrophil pct 61.1 % [facility] Comment: Interpretive Data Percent cell count reference ranges are not reported, since discordance with absolute values may lead to misinterpretation of CBC data. Current Interpretive Data was last revised on 2017. Imm gran pct 0.4 % [facility] Comment: Interpretive Data Percent cell count reference ranges are not reported, since discordance with absolute values may lead to misinterpretation of CBC data. Current Interpretive Data was last revised on 2017. Lymphocyte pct 25.9 % [facility] Comment: Interpretive Data Percent cell count reference ranges are not reported, since discordance with absolute values may lead to misinterpretation of CBC data. Current Interpretive Data was last revised on 2017. Monocyte pct 9.2 % [facility] Comment: Interpretive Data Percent cell count reference ranges are not reported, since discordance with absolute values may lead to misinterpretation of CBC data. Current Interpretive Data was last revised on 2017. Eosinophil pct 2.6 % [facility] Comment: Interpretive Data Percent cell count reference ranges are not reported, since discordance with absolute values may lead to misinterpretation of CBC data. Current Interpretive Data was last revised on 2017. Basophil pct 0.8 % [facility] Comment: Interpretive Data Percent cell count reference ranges are not reported, since discordance with absolute values may lead to misinterpretation of CBC data. Current Interpretive Data was last revised on 2017. Blood 05/03/2025 7:30 AM CDT 05/03/2025 9:35 AM CDT us Cinthia Quinones [employer] LAB BLOOD ORDERABLES Final Result Performing Organization Address [facility] Co de Phone Number [facility] [place] [address] * CBC with auto differential (05/03/2025 7:30 AM CDT) [facility] WBC 4.98 3.80 - 9.90 K/cumm Hgb 12.6 11.9 - 15.5 g/dL [facility] Hct 36.9 35.6 - 45.5 % [facility] Plt 217 150 - 400 K/cumm [facility] MPV 10.5 9.1 - 12.3 fL [facility] RBC 3.92 3.90 - 5.20 M/cumm [facility] MCV 94.1 81.3 - 96.4 fL [facility] MCH 32.1 27.1 - 33.3 pg [facility] MCHC 34.1 32.3 - 35.7 g/dL [facility] RDW CV 14.1 11.1 - 14.9 % [facility] RDW SD 47.8 35.7 - 48.1 fL [facility] NRBC abs 0.00 0.00 - 0.01 K/cumm [facility] Blood 05/03/2025 7:30 AM CDT 05/03/2025 9:35 AM CDT us Cinthia Quinones [employer] LAB BLOOD ORDERABLES Final Result Performing Organization Address [facility] Co de Phone Number [facility] [place] [address] * (ABNORMAL) Comprehensive metabolic panel (05/03/2025 7:30 AM CDT) [facility] Sodium 136 135 - 145 mmol/L Potassium, pl 5.5(H) 3.3 - 4.9 mmol/L [facility] Comment:Hemolyzed; Potassium value may be falsely elevated by as much as 0.6-1.0 mmol/L. Suggest redraw and reanalysis. Chloride 99 97 - 110 mmol/L [facility] CO2 27 22 - 32 mmol/L [facility] Anion gap 10 2 - 15 mmol/L [facility] BUN 9 6 - 25 mg/dL [facility] Creatinine 0.79 0.60 - 1.10 mg/dL [facility] Glucose 107 70 - 199 mg/dL [facility] Comment: Interpretive Data Fasting glucose >/= [...] interpretive data was last revised 2022. Calcium 10.0 8.5 - 10.3 mg/dL [facility] Bilirubin, total 0.6 0.1 - 1.2 mg/dL [facility] Protein, pl 7.2 6.5 - 8.5 g/dL [facility] Albumin 3.9 3.5 - 5.0 g/dL [facility] Alk phos 113 40 - 130 Units/L [facility] ALT 14 7 - 45 Units/L [facility] AST 47(H) 10 - 45 Units/L [facility] Comment:Hemolyzed; result ma y be falsely elevated Blood 05/03/2025 7:30 AM CDT 05/03/2025 9:35 AM CDT us Cinthia Quinones [employer] LAB BLOOD ORDERABLES Final Result [facility] Department [place] [address] * XR Spine Lumbar 2 or 3 Views (04/29/2025 1:48 PM CDT) Anatomical Region Laterality Modality Spine N/A Computed Radiogr aphy 04/29/2025 2:29 PM CDT Impressions 04/29/2025 2:29 PM CDT Marked degenerative changes as described above. Electronically signed by: Gonzalo Carroll M.D. Narrative 04/29/2025 2:29 PM CDT EXAMINATION: XR SPINE LUMBAR 2 OR 3 VIEWS HISTORY: The patient is a 74-year-old female who presents with back pain. TECHNIQUE: AP and lateral view of the lumbar spine is compared with the previous study dated 11/27/2022. FINDINGS: There is scoliosis of the thoracic spine, convex to the right. No fractures or dislocation seen. Degenerative osteophytes are seen radiating anteriorly and laterally off the bodies of the lumbar vertebrae. There is marked narrowing of the disc spaces from the L1-L2 L5 levels inclusive. Pedicles intact. Sacroiliac joints normal. Procedure Note Gonzalo Carroll MD - 04/29/2025 EXAMINATION: XR SPINE LUMBAR 2 OR 3 VIEWS HISTORY: The patient is a 74-year-old female who presents with back pain. TECHNIQUE: AP and lateral view of the lumbar spine is compared with the previous study dated 11/27/2022. FINDINGS: There is scoliosis of the thoracic spine, convex to the right. No fractures or dislocation seen. Degenerative osteophytes are seen radiating anteriorly and laterally off the bodies of the lumbar vertebrae. There is marked narrowing of the disc spaces from the L1-L2 L5 levels inclusive. Pedicles intact. Sacroiliac joints normal. IMPRESSION: Marked degenerative changes as described above. Electronically signed by: Gonzalo Carroll M.D. 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 With Strain Analysis. INDICATIONS: Aortic Valve Replacement 23 and I27.20 Pulmonary hypertension, unspecified. MEASUREMENTS: 2D/MM Value Range Doppler Value Range EF Mod BP 67 % [ 54 - 74 ] RHINA Vmax 2.01 cm2 [ 2.00 - 4.00 ] EF Teich MM 75 % [ 54 - 74 ] AV Mean PG 13 mmHg Estimated EF 65-70 % AV Peak Zain 2.40 m/s [ 1.00 - 1.70 ] LV GLS -16.36 % AV Peak PG 23 mmHg LVIDd 2D 4.84 cm [ 3.80 - 5.20 ] AV VTI 54.20 cm LVIDd MM 4.83 cm [ 3.80 - 5.20 ] LVOT Diam 2.00 cm [ 1.70 - 2.10 ] LVIDs 2D 3.25 cm [ 2.20 - 3.50 ] LVOT Peak Zain 1.54 m/s [ 0.70 - 1.10 ] LVIDs MM 2.72 cm [ 2.20 - 3.50 ] LVOT VTI 36.87 cm LVPWd 2D 1.03 cm [ 0.60 - 0.90 ] MV E Peak Zain 1.12 m/s [ 0.60 - 1.30 ] LVPWd MM 1.14 cm [ 0.60 - 0.90 ] MV A Peak Zain 1.61 m/s [ 1.00 - 1.20 ] IVSd 2D 1.11 cm [ 0.60 - 0.90 ] MV Mean PG 4 mmHg [ 0 - 5 ] IVSd MM 1.14 cm [ 0.60 - 0.90 ] MV PHT 44 msec [ 20 - 100 ] LA Dimension MM 3.80 cm [ 2.70 - 3.80 ] MVA PHT 4.96 cm2 [ 2.00 - 4.00 ] AoR Diam MM 3.89 cm [ 2.70 - 3.70 ] MV Decel Time 126 msec [ 104 - 258 ] LA Volume 78.86 ml [ 22.00 - 52.00 ] PV Peak Zain 1.03 m/s [ 0.40 - 0.80 ] LA Volume Index 33 cc/m2 [ 16 - 28 ] TR Peak Zain 2.53 m/s [ 1.00 - 2.80 ] ACS MM 1.75 cm TR Peak PG 26 mmHg RA Volume 45.12 ml RVSP 34.00 mmHg [ 10.00 - 36.00 ] RV S` 0.09 m/s Lateral E` 0.06 m/s [ 0.10 - 0.15 ] Septal E` 0.05 m/s [ 0.08 - 0.15 ] E` 0.06 m/s E/E` 20 Tapse 1.51 cm [ 1.71 - 5.00 ] 2D/MM Value Range Doppler Value Range - FINDINGS: Interpretation Site: Exam was interpreted at [facility]. Left Ventricle: Normal left ventricular systolic function. No focal wall motion abnormalities. Normal left ventricular size. Mild concentric left ventricular hypertrophy. Impaired diastolic relaxation Grade I. Ejection fraction is measured at 67 %. Ejection Fraction is visually estimated to be 65-70 %. Global Longitudinal Strain is -16 %. GLS is borderline. Right Ventricle: Normal right ventricular size. Normal right ventricular systolic function. Left Atrium: There is moderate enlargement of left atrium. Right Atrium: The right atrium is normal in size. Atrial Septum: Normal atrial septum. Mitral Valve: Moderate mitral annular calcification. Mild mitral valve regurgitation. There is no hemodynamically significant mitral stenosis by Doppler. Aortic Valve: Peak Velocity of 2.40 m/s. Peak gradient of 23.0 mmHg. Mean gradient of 12.0 mmHg. Valve area of 2 cm2. Trace aortic valve regurgitation. Gradients normal for valve type and size. Normal appearing aortic valve bioprosthesis. Tricuspid Valve: Normal appearance of the tricuspid valve. Normal right ventricular systolic pressure. Estimated peak RVSP is 34 mmHg. Mild tricuspid regurgitation. Pulmonic Valve: Normal appearance of the pulmonic valve. No pulmonic stenosis. Mild pulmonic regurgitation. Pericardium: Normal pericardium with no significant pericardial effusion. Aorta: Normal aortic root. IVC: Normal size and normal respiratory collapse consistent with normal right atrial pressure (<5 mmHg). CONCLUSIONS: Normal left ventricular systolic function. No focal wall motion abnormalities. Normal left ventricular size. Mild concentric left ventricular hypertrophy. Impaired diastolic relaxation Grade I. Ejection fraction is measured at 67 %. Ejection Fraction is visually estimated to be 65-70 %. Global Longitudinal Strain is -16 %. GLS is borderline. There is moderate enlargement of left atrium. Moderate mitral annular calcification. Mild mitral valve regurgitation. Peak Velocity of 2.40 m/s. Peak gradient of 23.0 mmHg. Mean gradient of 12.0 mmHg. Valve area of 2 cm2. Trace aortic valve regurgitation. Gradients normal for valve type and size. Normal appearing aortic valve bioprosthesis. Mild tricuspid regurgitation. Mild pulmonic regurgitation. Normal sinus rhythm. Electronically Signed By: Marko Venegas MD 04/09/2025 9:50:13 AM CDT Procedure Note Marko Venegas MD - 04/09/2025 [facility] Cardiology [facility] [address], [address], [place] [address] P:[phone] P:[phone] Echocardiographic Report Patient Name: HUY MAYNARD L : 1950 Study Date: 04/09/2025 8:09:18 AM Sex: F Adjunct Political Science Instructor: REBECCA Location: [facility] Ref Provider: MARKO VENEGAS Height(Cm): 173 BSA: 2.4 Weight(Kg): 119.7 Heart Rate: 75 BP: 135 / 83 Quality: Good Order Provider: MARKO VENEGAS PROCEDURES: Echocardiographic Report: Transthoracic echocardiogram with complete 2D, M-Mode, and color Dopplerexamination. With Strain Analysis. INDICATIONS: Aortic Valve Replacement 23 and I27.20 Pulmonary hypertension,unspecified. MEASUREMENTS: 2D/MM Value Range Doppler ValueRange EF Mod BP 67 % [ 54 - 74 ] RHINA Vmax 2.01cm2 [ 2.00 - 4.00 ] EF Teich MM 75 % [ 54 - 74 ] AV Mean PG 13mmHg Estimated EF 65-70 % AV Peak Zain 2.40m/s [ 1.00 - 1.70 ] LV GLS -16.36 % AV Peak PG 23mmHg LVIDd 2D 4.84 cm [ 3.80 - 5.20 ] AV VTI 54.20cm LVIDd MM 4.83 cm [ 3.80 - 5.20 ] LVOT Diam 2.00cm [ 1.70 - 2.10 ] LVIDs 2D 3.25 cm [ 2.20 - 3.50 ] LVOT Peak Zain 1.54m/s [ 0.70 - 1.10 ] LVIDs MM 2.72 cm [ 2.20 - 3.50 ] LVOT VTI 36.87cm LVPWd 2D 1.03 cm [ 0.60 - 0.90 ] MV E Peak Zain 1.12m/s [ 0.60 - 1.30 ] LVPWd MM 1.14 cm [ 0.60 - 0.90 ] MV A Peak Zain 1.61m/s [ 1.00 - 1.20 ] IVSd 2D 1.11 cm [ 0.60 - 0.90 ] MV Mean PG 4mmHg [ 0 - 5 ] IVSd MM 1.14 cm [ 0.60 - 0.90 ] MV PHT 44msec [ 20 - 100 ] LA Dimension MM 3.80 cm [ 2.70 - 3.80 ] MVA PHT 4.96cm2 [ 2.00 - 4.00 ] AoR Diam MM 3.89 cm [ 2.70 - 3.70 ] MV Decel Time 126msec [ 104 - 258 ] LA Volume 78.86 ml [ 22.00 - 52.00 ] PV Peak Zain 1.03m/s [ 0.40 - 0.80 ] LA Volume Index 33 cc/m2 [ 16 - 28 ] TR Peak Zain 2.53m/s [ 1.00 - 2.80 ] ACS MM 1.75 cm TR Peak PG 26mmHg RA Volume 45.12 ml RVSP 34.00mmHg [ 10.00 - 36.00 ] RV S` 0.09 m/s Lateral E` 0.06 m/s [ 0.10 - 0.15 ] Septal E` 0.05 m/s [ 0.08 - 0.15 ] E` 0.06 m/s E/E` 20 Tapse 1.51 cm [ 1.71 - 5.00 ] 2D/MM Value Range Doppler ValueRange - FINDINGS: Interpretation Site: Exam was interpreted at [facility]. Left Ventricle: Normal left ventricular systolic function. No focal wall motionabnormalities. Normal left ventricular size. Mild concentric left ventricular hypertrophy.Impaired diastolic relaxation Grade I. Ejection fraction is measured at 67 %. EjectionFraction is visually estimated to be 65-70 %. Global Longitudinal Strain is -16 %. GLS isborderline. Right Ventricle: Normal right ventricular size. Normal right ventricular systolicfunction. Left Atrium: There is moderate enlargement of left atrium. Right Atrium: The right atrium is normal in size. Atrial Septum: Normal atrial septum. Mitral Valve: Moderate mitral annular calcification. Mild mitral valve regurgitation.There is no hemodynamically significant mitral stenosis by Doppler. Aortic Valve: Peak Velocity of 2.40 m/s. Peak gradient of 23.0 mmHg. Mean gradient of12.0 mmHg. Valve area of 2 cm2. Trace aortic valve regurgitation. Gradients normal forvalve type and size. Normal appearing aortic valve bioprosthesis. Tricuspid Valve: Normal appearance of the tricuspid valve. Normal right ventricularsystolic pressure. Estimated peak RVSP is 34 mmHg. Mild tricuspid regurgitation. Pulmonic Valve: Normal appearance of the pulmonic valve. No pulmonic stenosis. Mildpulmonic regurgitation. Pericardium: Normal pericardium with no significant pericardial effusion. Aorta: Normal aortic root. IVC: Normal size and normal respiratory collapse consistent with normal rightatrial pressure (<5 mmHg). CONCLUSIONS: Normal left ventricular systolic function. No focal wall motionabnormalities. Normal left ventricular size. Mild concentric left ventricular hypertrophy.Impaired diastolic relaxation Grade I. Ejection fraction is measured at 67 %. EjectionFraction is visually estimated to be 65-70 %. Global Longitudinal Strain is -16 %. GLS isborderline. There is moderate enlargement of left atrium. Moderate mitral annular calcification. Mild mitral valve regurgitation. Peak Velocity of 2.40 m/s. Peak gradient of 23.0 mmHg. Mean gradient of12.0 mmHg. Valve area of 2 cm2. Trace aortic valve regurgitation. Gradients normal forvalve type and size. Normal appearing aortic valve bioprosthesis. Mild tricuspid regurgitation. Mild pulmonic regurgitation. Normal sinus rhythm. Electronically Signed By: Marko Venegas MD 04/09/2025 9:50:13 AM CDT Marko Venegas MD CV ECHO PROCEDURES Final Result * XR Knee Right 3 Views (03/25/2025 3:35 PM CDT) Anatomical Region Laterality Modality Lower Extremities, Knee Right Radiogra phic Imaging Historical Provider IMG XR PROCEDURES Edited Result - Final * CT Lung Cancer Screening (09/03/2024 3:23 PM [facility]) Anatomical Region Laterality Modality Chest N/A Computed Tomogra phy Quentin Lorenzana NP IMG CT PROCEDURES Final Result * HM MAMMOGRAPHY (12/04/2023) Leslie Torres [...] GENERAL ORDER LORIE Final Result LUCILLE RODRIGUEZ [address] [address] [place] [address] * Colonoscopy (10/22/2022) Anatomical Region Laterality Modality Other Historical Provider ENDOSCOPY PROCEDURES Erika l Result from Last 3 Months or Most Recently Relevant to Health Maintenance Insurance MEDICARE [employer] MEDICARE FOR LIFE MEDICARE FOR LIFE MEDICARE FOR LIFE Advance Directives For more information, please contact: [phone] * Full Code (Latest Code Status on File) Date Activated Date Inactivated Comments 10/26/2020 1:23 PM 10/31/2020 9:35 PM Care Teams Ortho Assistant Relationship Specialty Start Date End Date Leslie Torres NP [address] [place], [place] [id number] PCP - General Family Medicine 08/14/23 Rosario Pham DO [address] [facility] [address] [place] [address] Consulting Physician Endocrinology Diabetes & Metabolism 08/22/22 Tu Fritz MD [address] [facility] [address] [place] [address] Consulting Physician Internal Medicine 03/28/23 Cinthia Quinones NP [address] [facility] [address] [place] [address] Nurse Practitioner Rheumatology 03/28/23 Marko Venegas MD [address] [facility] [address] [facility] [place] [facility] C, [address] [address] Consulting Physician Cardiology 03/28/23 Trevon Sheth MD [address] [facility] [address], [address] [id number] Surgeon Cardiothoracic Surgery 03/28/23 London Hall MD [address] GASTROENTEROLOGY [place], [place] [id number] Referring Physician Gastroenterology 03/28/23 Sylvia Johnson MD [address] [place] [address] Consulting Physician Critical Care Med 03/28/23 Bobby Bui DO [address] [place] [address] Internal Medicine 03/28/23 Sahara Freedman OD [address] [place] [address] Optometry 03/28/23 Dominique Pedro PA [address] [place] [address] Allergy and Immunology 03/28/23 [place] [address] [address] [facility] [address] [place] [address] Nurse Practitioner Nurse Practitioner 01/05/25 [place] [address] [address] [facility] [address] [facility] [place] [address] Consulting Physician Pain Management 01/05/25
--- OUTSIDE RECORDS SUMMARY | 2025-06-10 16:03 | XMS_ITS | Encounter Summary ---
Author Organization [facility] Address [address] [place] [address] Care Team Providers Care Service And Repair Supervisor Name Role Phone Unavailable Primary Care Provider Unavailabl e Encounter Details Date Type Department Care Team (Late st Contact Info) Description 10/29/2006 Outpatient [facility] [address] [facility] [place] [address] [place] [address] [place] [address] [address] [place] [address] Social History Tobacco Use Types Packs/Day Years Used Date Smoking Tobacco: Never Assessed Comments Unknown Sex and Gender Information Value Date Recorded Sex Assigned at Not on file 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
--- OUTSIDE RECORDS SUMMARY | 2025-06-10 16:03 | XMS_ITS | Clinical Summary ---
Author Organization [facility] Address [address] [place] [address] Care Team Providers Care Machine Driller Name Role Phone Robert Dial MD Primary Care Provider [phone] [facility],non-owned Affiliates and Associated Physician Practices is amultiple site organization consisting of ambulatory clinics and hospital sitesin [place], [place], [place] and [place]. This disclosure is being madepursuant to the Care Everywhere program and may not contain all information available regarding this patient. Last updated 18.[employer] [facility] Allergies Active Allergy Reactions Criticality Noted Date [...] getting worse. History somewhat consistent with OA. [employer] not think has RA. Will get XRays [...] mention of probable neuroma in referral to [facility] for custom insoles (her has done well with these, she is willing to pay out of pocket). Between NSAIDS and conservative therapy, will try to see if improves. Her exercise includes non-impact in the pool and such. Pain between 3rd and 4th metatarsal heads. Could be a neuroma. 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
--- OUTSIDE RECORDS SUMMARY | 2025-06-10 16:03 | XMS_ITS | Clinical Summary ---
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
--- OUTSIDE RECORDS SUMMARY | 2025-06-10 16:03 | XMS_ITS | Encounter Summary ---
Author Organization [facility] Address [address] [place] [address] Phone Care Team Providers Care Atomic Welder Name Role Phone Vero Rosario Sheila DO Unavailable [phone] Leslie Torres NP Primary Care Provider [phone] Tu Fritz MD Unavailable Cinthia Quinones NP Unavailable [phone] Thomas Venegas MD Unavailable Trevon Sheth MD Unavailable [phone] London Hall MD Unavailable + Sylvia Johnson MD Unavailable [phone] Bobby Bui DO Unavailable [phone] Sahara Freedman OD Unavailable Dominique Pedro Unavailable [phone] Cinthia Quinones NP Primary Care Provider [phone] Leslie Torers NP Primary Care Provider [phone] Gutierrez Lucio NP Unavailable [phone] Abdirahman Mcclendon MD Unavailable [phone] Encounter Details Date Type Department Care Team [...] on file 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 Gender Identity Female 05/01/2021 8:51 AM CDT [...] documented as of this encounter Care Teams Atomic Welder Relationship Specialty Start Date End Date Leslie Torres, AUTOMATIC MACHINE ATTENDANT [address] [place] [address] PCP - General Family Medicine 03/28/23 06/30/23 Cinthia Quinones NP [address] [facility] [address] [place] [address] PCP - General Rheumatology 07/01/23 08/13/23 Leslie Torres, AUTOMATIC MACHINE ATTENDANT [address] [place] [address] PCP - General Family Medicine 08/14/23 Rosario Pham DO [address] [facility] [address] [place] [address] Consulting Physician Endocrinology Diabetes & Metabolism 08/22/22 Tu Fritz MD [address] [facility] [address] [place] [address] Consulting Physician Internal Medicine 03/28/23 Cinthia Quinones NP [address] [facility] [address] [place] [address] Nurse Practitioner Rheumatology 03/28/23 Thomas Venegas MD [address], [address] [place] [address] Consulting Physician Cardiology 03/28/23 Trevon Sheth MD [address], [address] [place] [address] Surgeon Cardiothoracic Surgery 03/28/23 London Hall MD [address] [place] [address] Referring Physician Gastroenterology 03/28/23 Sylvia Johnson MD [address] [place] [address] Consulting Physician Critical Care Med 03/28/23 Bobby Bui DO [address] [place] [address] Internal Medicine 03/28/23 Sahara Freedman OD [address] [place] [address] Optometry 03/28/23 Dominique Pedro PA [address] [place] [address] Allergy and Immunology 03/28/23 [place] [address] [id number] Nurse Practitioner Nurse Practitioner 01/05/25 [place] [address] [address] [facility] [address] [facility] [place] [address] Consulting Physician Pain Management 01/05/25 documented as of this encounter
--- OUTSIDE RECORDS SUMMARY | 2025-06-10 16:03 | XMS_ITS | Encounter Summary ---
Author Organization [facility] Address [address] [place] [address] Phone Care Team Providers Care Meteorological Observer Name Role Phone Rosario Pham DO Unavailable [phone] Tu Fritz MD Unavailable Cinthia Quinones NP Unavailable Thomas Venegas MD Unavailable Trevon Sheth MD Unavailable [phone] London Hall MD Unavailable + Sylvia Johnson MD Unavailable Bobby Bui DO Unavailable Sahara Freedman OD Unavailable [phone] Dominique Pedro Unavailable [phone] Leslie Torres NP Primary Care Provider [phone] Gutierrez Lucio NP Unavailable Abdirahman Mcclendon MD Unavailable Encounter Details Date Type Department Care Team (Latest Contact Info) Description 05/13/2025 Results Follow-Up [facility] Medicine Endocrinology Metabolism and Lipid [address] [facility] 2nd Floor [address] [place] [address] Rosario Pham DO [address] [facility] [address] [place] [address] Comprehensive metabolic panel, Calcium, ionized, Vitamin D 25 hydroxy, Additional followed-up results: 6 Social History Tobacco Use Types Packs/Day Years [...] on file 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 Gender Identity Female 05/01/2021 8:51 AM CDT Sexual Orientation Straight 02/24/2020 1: 08 PM CDT documented as of this encounter Plan of Treatment Not on file documented as of this encounter Visit Diagnoses Not on filedocumented in this encounter Care Teams Meteorological Observer Relationship Specialty Start Date End Date Leslie Torres NP [address] [facility] [address] [place] [address] PCP - General Family Medicine 08/14/23 Rosario Pham DO [address] [facility] [address] [place] [address] Consulting Physician Endocrinology Diabetes & Metabolism 08/22/22 Tu Fritz MD [address] [place] [address] Consulting Physician Internal Medicine 03/28/23 Cinthia Quinones, RUTH ANN [address] [facility] [address] [place] [address] Nurse Practitioner Rheumatology 03/28/23 Thomas Venegas MD [address], [address] [place] [address] Consulting Physician Cardiology 03/28/23 Trevon Sheth MD [address], [address] [place], [place] [address] Surgeon Cardiothoracic Surgery 03/28/23 London Hall MD [address] [place] [address] Referring Physician Gastroenterology 03/28/23 Sylvia Johnson MD [address] [place] [address] Consulting Physician Critical Care Med 03/28/23 Bobby Bui DO [address] [place] [address] Internal Medicine 03/28/23 Sahara Freedman OD [address] [place] [address] Optometry 03/28/23 Dominique Pedro PA [address] [place] [address] Allergy and Immunology 03/28/23 [place] [address] [address] [facility] 100 [place] [address] Nurse Practitioner Nurse Practitioner 01/05/25 [place] [address] [address] [facility] [address] [address] Consulting Physician Pain Management 01/05/25 documented as of this encounter
--- OUTSIDE RECORDS SUMMARY | 2025-06-10 16:03 | XMS_ITS | Encounter Summary ---
Author Organization [facility] Address [address] [place] [address] Care Team Providers Care Archivist Political History Name Role Phone Unavailable Primary Care Provider Unavailabl e Encounter Details Date Type Department Care Team (Late st Contact Info) Description [address] 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
== END 2025-06-10 16:00 | disposition home or self-care (01) ==
LOC: ANHFOHIMG 16:00
PROVIDERS: PCP Nurse Practitioner Family; Visit Provider Nurse Practitioner Family
DX: Z12.31 Encounter for screening mammogram for malignant neoplasm of breast (principal)
CPT/HCPCS: 77063; 77067